=== PATIENT | female | born 1945 | race Caucasian/White ===

== ENCOUNTER 2016-04-25 11:50 | Outpatient (CLI) | payer MEDICARE, BC, OTHER | END 2016-04-25 11:51 | disposition home or self-care (01) | DX: M25.551 Pain in right hip (principal); Z96.641 Presence of right artificial hip joint ==

== ENCOUNTER 2016-07-02 13:38 | Outpatient (CLI) | payer MEDICARE, BC | END 2016-07-02 13:39 | disposition home or self-care (01) | DX: E53.8 Deficiency of other specified B group vitamins (principal); Z79.899 Other long term (current) drug therapy ==

== ENCOUNTER 2016-08-28 14:22 | Outpatient (CLI) | payer MEDICARE, BC ==
--- NOTE | 2016-08-29 09:15 | XRAY Report ---
RIGHT FOOT, THREE VIEWS: 08/28/2016 CLINICAL HISTORY: Painful right foot. COMPARISON: None. FINDINGS: Prominent bunion deformity is noted at the right 1st MP joint. Significant narrowing of t he right 1st MP joint is seen. Mild spurring is noted along the periarticular margins of the lateral aspect of the right 1st MP joint. Mild narrowing of the proximal and distal interphalangeal joints of the 2nd, 3rd, 4th, and 5th toes. No fracture is seen. Tarsal bones appear normal. IMPRESSION: 1. SIGNIFICANT OSTEOARTHRITIS IS NOTED AT THE RIGHT 1ST MP JOINT WITH ASSOCIATED BUNION DEFORMITY. 2. MINIMAL DEFORMITY IS NOTED ALONG THE LATERAL ASPECT OF THE BASE OF THE DISTAL PHALANX OF THE 1ST TOE. FINDING MOST LIKELY IS A RESULT OF HEALED OLD TRAUMA. JOB #: [id number] EXT JOB #:[id number]
== END 2016-08-28 14:23 | disposition home or self-care (01) ==
LOC: DI.S 14:22
PROVIDERS: ATTEND Podiatrist
DX: M19.071 Primary osteoarthritis, right ankle and foot (principal)

== ENCOUNTER 2016-09-06 15:52 | Emergency (ER) | payer MEDICARE, BC ==
--- NOTE | 2016-09-06 17:19 | XRAY Preliminary Report ---
Exam: XR Hand 3 View LT IMPRESSION: Osteopenia with nondisplaced transverse fractures at the distal metaphysis of the fifth m etacarpal as well as the proximal phalanx of the left fourth digit. [facility] SITE ID: [id number]
--- NOTE | 2016-09-06 17:22 | XRAY Report ---
EXAM: LEFT HAND RADIOGRAPHY EXAM DATE: 09/06/2016 04:21 PM. CLINICAL HISTORY: Pain following fall today. COMPARISON: None. TECHNIQUE: 3 views. FINDINGS: Bones: Diffuse osteopenia with a transverse fracture at the distal metaphysis of the fifth metacarpal . Additional nondisplaced transverse fracture base proximal phalanx left fourth digit. Joints: No dislocation. Osteophytes at the first carpometacarpal joint. Soft Tissues: Mild soft tissue swelling. IMPRESSION: Osteopenia with nondisplaced transverse fractures at the distal metaphysis of the fifth m etacarpal as well as the proximal phalanx of the left fourth digit. [facility] Referring Provider Line: [phone] SITE ID: [id number]
--- NOTE | 2016-09-06 17:38 | ED Physician Documentation ---
PD HPI UPPER EXT INJURY - Stated complaint Stated Complaint: L HAND INJURY - Chief complaint Chief Complaint: General - History obtained from History obtained from: Patient - History of Present Illness Location: Left, Hand Type of injury: Fall (she says she slipped and fell. DId not feel badly prior.) Timing - onset: Today Timing - details: Abrupt onset, Still present Improved by: Rest Worsened by: Moving, Palpating Associated symptoms: Swelling (ulnar side of hand). No: Weakness, Numbness Similar symptoms before: Has not had sx before Recently seen: Not recently seen Review of Systems Cardiac: denies: Chest pain / pressure GI: denies: Abdominal Pain Skin: denies: Abrasion (s), Laceration (s) Neurologic: denies: Focal weakness, Numbness, Altered mental status, Headache, Head injury PD PAST MEDICAL HISTORY - Past Medical History Cardiovascular: Hypertension, Deep vein thrombosis Respiratory: None Neuro: Parkinson's Endocrine/Autoimmune: None GI: None : None HEENT: None Psych: None Musculoskeletal: Osteoporosis, Chronic back pain Derm: Other - Past Surgical History Past Surgical History: Yes Ortho: Hip replacement, Rotator cuff repair - Present Medications Home Medications: Ambulatory Orders Medication Instructions Recorded Confirmed Carbidopa/Levodopa 25/100 [Sinemet 2 tab PO TID 06/23/14 09/06/16 25 mg/100 mg] Citalopram [CeleXA] 20 mg PO DAILY 06/23/14 09/06/16 Metoprolol Succinate [Toprol Xl] 100 mg PO DAILY 06/23/14 09/06/16 Oxybutynin Chloride [Ditropan Xl] 10 mg PO DAILY 06/23/14 09/06/16 Calcium Citrate 200 mg PO TID 02/22/16 09/06/16 Polyethylene Glycol 3350 [Miralax] 17 gm PO DAILY 02/22/16 09/06/16 rOPINIRole [Requip] 2 mg PO TID 02/22/16 09/06/16 Rivastigmine [Exelon] 1 cap PO TID 09/06/16 09/06/16 - Allergies Allergies/Adverse Reactions: Allergies Allergy/AdvReac Type Severity Reaction Status Date / Time No Known Drug Allergies Allergy Verified 09/06/16 16:11 - Social History Does the pt smoke?: No Smoking Status: Former smoker Does the pt drink ETOH?: No Does the pt have substance abuse?: Yes - Immunizations Immunizations are current?: Yes - POLST Patient has POLST: No PD ED PE NORMAL - Vitals Vital signs reviewed: Yes - General General: Alert and oriented X 3, No acute distress, Well developed/nourished - HEENT HEENT: Atraumatic - Neck Neck: Supple, no meningeal sign, No bony TTP - Respiratory Respiratory: Clear bilaterally - Abdomen Abdomen: Soft, Non tender - Derm Derm: Normal color, Warm and dry - Extremities Extremities: Other (left hand with swelling, bruising and tenderness overlying the 4th/5th MC and at MCP. Little finger also some tender but no deformity. ) - Neuro Neuro: No motor deficit, No sensory deficit Results - Vitals Vitals: Oxygen O2 Source [With Activity] Room air O2 Source [Without Activity] Room air O2 Source Room air - Rads (name of study) hand Radiology: Prelim report reviewed (5th MC fracture without angulation) Procedures - Splint (location) hand Splint applied by: Tech Type of splint: Fiberglass, Ulnar gutter Other: Patient tolerated well, No complications, Neurovascular intact, Good alignment, Sling provided PD MEDICAL DECISION MAKING - ED course Complexity details: reviewed results, considered differential, d/w patient Departure - Departure Disposition: 01 Home, Self Care Clinical Impression: Fall from slip, trip, or stumble Qualifiers: Encounter type: initial encounter Qualified Code(s): W01.0XXA - Fall on same level from slipping, tripping and stumbling without subsequent striking against object, initial encounter Hand contusion Qualifiers: Encounter type: initial encounter Laterality: left Qualified Code(s): S60.222A - Contusion of left hand, initial encounter Fracture of fifth metacarpal bone of left hand Qualifiers: Encounter type: initial encounter Fracture type: closed Metacarpal location: neck Fracture alignment: nondisplaced Qualified Code(s): S62.367A - Nondisplaced fracture of neck of fifth metacarpal bone, left hand, initial encounter for closed fracture Condition: Stable Record reviewed to determine appropriate education?: Yes Instructions: ED Fx Boxer Follow-Up: Nisa Yost PA-C [Primary Care Provider] - Carlos Chavez MD [Provider Admit Priv/Credential] - Comments: Ibuprofen 400-600 mg three times daily. Add Tylenol as needed for pains. Splint for the hand for likely 4-6 weeks, but it will need to be changed/replaced once the swelling goes down in 4-5 days. Call for an appt with PMD or Ortho. Elevate and rest hand often to reduce the swelling. Discharge Date/Time: 09/06/16 18:50
[2016-09-06] MEDS ORDERED: IBUPROFEN 600 MG TABLET PO ONE (18:19)
[2016-09-06] MEDS: IBUPROFEN 600 MG TABLET PO STA (18:24)
[2016-09-06 18:38] VITALS: BP 130/69
== END 2016-09-06 18:50 | disposition home or self-care (01) ==
LOC: ED 15:52
DX: S62.367A Nondisplaced fracture of neck of fifth metacarpal bone, left hand, initial encounter for closed fracture (principal); S62.645A Nondisplaced fracture of proximal phalanx of left ring finger, initial encounter for closed fracture; S60.222A Contusion of left hand, initial encounter; W01.0XXA Fall on same level from slipping, tripping and stumbling without subsequent striking against object, initial encounter; I10 Essential (primary) hypertension; Z86.718 Personal history of other venous thrombosis and embolism; G20 Parkinson's disease; Z87.891 Personal history of nicotine dependence
CPT/HCPCS: 29125; 99283

== ENCOUNTER 2017-07-22 15:49 | Outpatient (CLI) | payer MEDICARE, BC ==
--- NOTE | 2017-07-23 09:31 | XRAY Report ---
TWO VIEW CHEST: 07/22/2017 CLINICAL INDICATION: Cough for 1 month. COMPARISON: 02/22/2016. FINDINGS: Frontal and lateral views of the chest demonstrate a normal cardiac silhouette. The lungs are hyperinflated, compatible with COPD. No focal consolidation, effusion, or pneumothorax is present. IMPRESSION: COPD, BUT NO EVIDENCE OF ACUTE CARDIOPULMONARY DISEASE. TD: 07/23/2017 09:30
--- NOTE | 2017-07-23 09:32 | XRAY Report ---
RIGHT HIP AND PELVIS: 07/22/2017 CLINICAL INDICATION: Right hip pain. COMPARISON: 04/25/2016. FINDINGS: Frontal view of the hips and pelvis and frogleg lateral view of the right hip demonstrate a total hip replacement in place. There is no evidence of fracture or hardware complication. No radiopaque foreign body is seen in the soft tissues. IMPRESSION: STABLE APPEARANCE OF RIGHT HIP REPLACEMENT. TD: 07/23/2017 09:31
== END 2017-07-22 15:50 | disposition home or self-care (01) ==
LOC: DI 15:49
PROVIDERS: ATTEND Internal Medicine
DX: J44.9 Chronic obstructive pulmonary disease, unspecified (principal); M25.551 Pain in right hip; Z96.641 Presence of right artificial hip joint
CPT/HCPCS: 71046

== ENCOUNTER 2017-10-15 21:25 | Emergency (ER) | payer MEDICARE, BC ==
--- NOTE | 2017-10-15 23:38 | XRAY Report ---
Procedure Date: 10/15/2017 Accession Number: [id number] / [id number] Procedure: XR - Shoulder 3 View RT CPT Code: FULL RESULT: EXAM: RIGHT SHOULDER RADIOGRAPHY EXAM DATE: 10/15/2017 10:47 PM. CLINICAL HISTORY: Fall. Right shoulder pain. COMPARISON: None. TECHNIQUE: 3 views. FINDINGS: Bones: Normal. No fracture or bone lesion. Joints: The glenohumeral and acromioclavicular joints are normal. Soft tissues: The visualized hemithorax is unremarkable. No soft tissue calcification. IMPRESSION: Normal shoulder radiography. [facility]
--- NOTE | 2017-10-15 23:39 | XRAY Report ---
Procedure Date: 10/15/2017 Accession Number: [id number] / [id number] Procedure: XR - Clavicle RT CPT Code: FULL RESULT: EXAM: RIGHT CLAVICLE RADIOGRAPHY EXAM DATE: 10/15/2017 10:47 PM. CLINICAL HISTORY: Fall. Right shoulder pain. COMPARISON: None. TECHNIQUE: 2 views. FINDINGS: Bones: Normal. No fracture or bone lesion. Joints: The acromioclavicular and sternoclavicular joints are normal. No subluxation. Soft Tissues: Normal. No soft tissue calcification. IMPRESSION: Normal clavicle radiography. [facility]
[2017-10-16] MEDS ORDERED: ACETAMINOPHEN 500 MG TABLET PO STA (00:13)
[2017-10-16] MEDS ORDERED: IBUPROFEN 600 MG TABLET PO STA (00:13)
--- NOTE | 2017-10-16 00:13 | ED Physician Documentation ---
History of Present Illness - Stated complaint Stated Complaint: GLF/RT SHOULDER/COLLAR BONE INJ - Chief complaint Chief Complaint: Trauma Ext - History obtained from History obtained from: Patient, Family - History of Present Illness Timing: Today - Additonal information Additional information: 72-year-old female presents the emergency department with complaints of a shoulder injury and upper back injury after falling while getting out of the shower. The patient denies injury to her head, neck, abdomen or lower extremities. Symptoms are described as moderate. No other associated symptoms. No relieving factors. No attempts at symptom management. The patient denies syncope, chest pain or palpitations before the event or after the event. Review of Systems Constitutional: denies: Fever Eyes: denies: Decreased vision Ears: denies: Ear pain Nose: denies: Congestion Cardiac: denies: Chest pain / pressure Respiratory: denies: Dyspnea GI: denies: Abdominal Pain Skin: denies: Laceration (s) Musculoskeletal: reports: Back pain, Joint pain, Joint swelling Neurologic: denies: Generalized weakness, Syncope, Head injury PD PAST MEDICAL HISTORY - Past Medical History Cardiovascular: Hypertension, Deep vein thrombosis Respiratory: None Endocrine/Autoimmune: None GI: None : None HEENT: None Psych: None Musculoskeletal: Osteoporosis, Chronic back pain Derm: Other - Past Surgical History Past Surgical History: Yes Ortho: Hip replacement, Rotator cuff repair - Present Medications Home Medications: Ambulatory Orders Medication Instructions Recorded Confirmed Carbidopa/Levodopa 25/100 [Sinemet 2 tab PO TID 06/23/14 09/06/16 25 mg/100 mg] Citalopram [CeleXA] 20 mg PO DAILY 06/23/14 09/06/16 Metoprolol Succinate [Toprol Xl] 100 mg PO DAILY 06/23/14 09/06/16 Oxybutynin Chloride [Ditropan Xl] 10 mg PO DAILY 06/23/14 09/06/16 Calcium Citrate 200 mg PO TID 02/22/16 09/06/16 Polyethylene Glycol 3350 [Miralax] 17 gm PO DAILY 02/22/16 09/06/16 rOPINIRole [Requip] 2 mg PO TID 02/22/16 09/06/16 Rivastigmine [Exelon] 1 cap PO TID 09/06/16 09/06/16 - Allergies Allergies/Adverse Reactions: Allergies Allergy/AdvReac Type Severity Reaction Status Date / Time No Known Drug Allergies Allergy Verified 09/06/16 16:11 - Social History Does the pt smoke?: No Smoking Status: Former smoker Does the pt drink ETOH?: No Does the pt have substance abuse?: Yes - Immunizations Immunizations are current?: Yes - POLST Patient has POLST: No PD ED PE NORMAL - General General: Alert and oriented X 3, No acute distress - HEENT HEENT: Atraumatic, PERRL, EOMI, Ears normal - Neck Neck: Supple, no meningeal sign - Cardiac Cardiac: RRR, Strong equal pulses - Respiratory Respiratory: No respiratory distress, Clear bilaterally - Extremities Extremities: No deformity - Neuro Neuro: Alert and oriented X 3, No motor deficit, Normal speech Eye Opening: Spontaneous Motor: Obeys Commands Verbal: Oriented GCS Score: 15 - Psych Psych: Normal mood PD ED PE EXPANDED - Back Back: Soft tissue tenderness. No: Limited ROM Back visual: 1 - bruising - Extremities Extremities: Tenderness, Right shoulder (There is no evidence of deformity, crepitus, contusion or obvious dislocation. No laceration) Results - Vitals Vitals: Vital Signs - 24 hr 10/15/17 10/16/17 10/16/17 21:35 00:00 01:36 Temperature 36.3 C L 36.5 C Heart Rate 66 82 81 Respiratory 18 17 15 Rate Blood Pressure 159/71 H 136/74 H 120/66 O2 Saturation 96 99 97 Oxygen O2 Source [With Activity] Room air O2 Source [Without Activity] Room air O2 Source Room air - Rads (name of study) Chest x-ray/shoulder x-ray/clavicle/thoracic spine Radiology: Final report received, Other (No fracture identified on any of the x- rays) PD MEDICAL DECISION MAKING - ED course ED course: The patient has no acute fracture seen on her imaging, the patient appears appropriate for discharge home in ongoing outpatient management. I discussed with her the findings and plan she understands and agrees. I discussed warning signs and recommended returning to the emergency department immediately for worsening or any concerns. - Sepsis Event Vital Signs: Vital Signs - 24 hr 10/15/17 10/16/17 10/16/17 21:35 00:00 01:36 Temperature 36.3 C L 36.5 C Heart Rate 66 82 81 Respiratory 18 17 15 Rate Blood Pressure 159/71 H 136/74 H 120/66 O2 Saturation 96 99 97 Oxygen O2 Source [With Activity] Room air O2 Source [Without Activity] Room air O2 Source Room air Departure - Departure Disposition: 01 Home, Self Care Clinical Impression: Shoulder contusion Qualifiers: Encounter type: initial encounter Laterality: unspecified laterality Qualified Code(s): S40.019A - Contusion of unspecified shoulder, initial encounter Back contusion Qualifiers: Encounter type: initial encounter Laterality: unspecified laterality Qualified Code(s): S20.229A - Contusion of unspecified back wall of thorax, initial encounter Condition: Good Instructions: ED Contusion Back, ED Contusion Upper Ext, ED Wound Care Follow-Up: Renard Arzola MD [Primary Care Provider] - Within 1 week Comments: Please return to the emergency department for worsening symptoms or any concerns Discharge Date/Time: 10/16/17 01:36
--- NOTE | 2017-10-16 01:22 | XRAY Report ---
Procedure Date: 10/16/2017 Accession Number: [id number] / [id number] Procedure: XR - Thoracic Spine 3 View CPT Code: FULL RESULT: EXAM: THORACIC SPINE RADIOGRAPHY EXAM DATE: 10/16/2017 12:38 AM. CLINICAL HISTORY: Fall, back contusion. COMPARISON: CHEST 2 VIEW 07/22/2017. TECHNIQUE: 3 views. FINDINGS: Alignment: Normal. No spondylolisthesis or scoliosis. Bones: Osteopenia. No fractures or bone lesions. Disks: Mild diffuse degenerative changes. Soft Tissues: Normal. The visualized lungs and cardiomediastinal silhouette are normal. IMPRESSION: Negative thoracic spine in this mildly osteopenic patient. If there is continued clinical concern, CT or MRI suggested. [facility]
--- NOTE | 2017-10-16 01:23 | XRAY Report ---
Procedure Date: 10/16/2017 Accession Number: [id number] / [id number] Procedure: XR - Chest 2 View X-Ray CPT Code: 32493 FULL RESULT: EXAM: CHEST RADIOGRAPHY EXAM DATE: 10/16/2017 12:37 AM. CLINICAL HISTORY: Fall, back contusion. COMPARISON: CLAVICLE RT 10/15/2017, THORACIC SPINE 3 VIEW 10/16/2017, CHEST 2 VIEW 07/22/2017. TECHNIQUE: 2 views. FINDINGS: Lungs/Pleura: Large volumes. No focal pneumonia or overt edema. No pneumothorax or effusion. Mediastinum: Within exam limitations, cardiomediastinal contour is normal. Other: No definite acute osseous abnormality seen. IMPRESSION: COPD without acute process seen in the chest. [facility]
[2017-10-16 01:38] VITALS: BP 120/66
== END 2017-10-16 01:36 | disposition home or self-care (01) ==
LOC: ED 21:25
DX: S40.019A Contusion of unspecified shoulder, initial encounter (principal); S20.229A Contusion of unspecified back wall of thorax, initial encounter; W18.2XXA Fall in (into) shower or empty bathtub, initial encounter; I10 Essential (primary) hypertension; Z86.718 Personal history of other venous thrombosis and embolism; Z96.649 Presence of unspecified artificial hip joint; Z87.891 Personal history of nicotine dependence
CPT/HCPCS: 71046; 72072; 73000; 73030; 99283; A9270

== ENCOUNTER 2017-10-29 14:20 | Outpatient (CLI) | payer MEDICARE, BC ==
--- NOTE | 2017-10-30 08:47 | MRI Report ---
Procedure Date: 10/29/2017 Accession Number: [id number] / [id number] Procedure: MRI - Shoulder RT W/O CPT Code: FULL RESULT: EXAM: RIGHT SHOULDER MRI WITHOUT CONTRAST EXAM DATE: 10/29/2017 03:10 PM. CLINICAL HISTORY: SHOULDER JOINT PAIN, RIGHT, FALL W/TRAUMA 10-15-17. COMPARISON: 10/15/2017 right shoulder radiographs. TECHNIQUE: Multiplanar, multisequence T1-weighted and fluid-sensitive sequences of the shoulder without contrast. Other: None. FINDINGS: Acromioclavicular Region: The acromion is type II. Mild acromioclavicular joint degenerative changes with subchondral cystic change and capsular hypertrophy. The coracoacromial and coracoclavicular ligaments are intact. There is fluid within the subacromial-subdeltoid bursa. Glenohumeral Region: There is cranial subluxation of the humeral head on the glenoid with narrowing of the subacromial space. Moderate effusion with synovitis. The articular cartilage is unremarkable. The glenohumeral ligaments and joint capsule are unremarkable. Bone Marrow: There is cystic change within the greater tuberosity of the humerus. Marrow signal is otherwise normal. No osseous lesions. No fractures. Labrum: The labrum is unremarkable on this nonarthrographic study. Musculature/Rotator Cuff: There is a full-thickness, full width tear of the infraspinatus tendon with retraction medial to the supraglenoid tubercle and associated intramuscular edema. There is also a full-thickness, near full width tear of the supraspinatus tendon, with remaining intact anterior fibers and retraction of the torn tendon fibers to the level of the supraglenoid tubercle. There is shallow partial-thickness articular sided tearing of the cranial fibers of the subscapularis tendon. The teres minor tendon is intact but demonstrates mild intramuscular edema. No atrophy. Biceps Tendon: There is a longitudinal split tear of the intra-articular and extra-articular long head biceps tendon. Other: The subcutaneous tissues are unremarkable. IMPRESSION: 1. Full-thickness, full width tear of the infraspinatus tendon and full-thickness, near full width tear of the supraspinatus tendon with retraction to the level of the supraglenoid tubercle and associated intramuscular edema. 2. Shallow partial-thickness articular sided tear of the cranial fibers of the subscapularis tendon. 3. Longitudinal split tear of the biceps tendon. 4. Mild acromioclavicular joint osteoarthritis. [facility] MUSCULOSKELETAL RADIOLOGY SECTION
== END 2017-10-29 14:21 | disposition home or self-care (01) ==
LOC: DI 14:20
PROVIDERS: ATTEND Physician Assistant Medical
DX: S46.011A Strain of muscle(s) and tendon(s) of the rotator cuff of right shoulder, initial encounter (principal); S46.111A Strain of muscle, fascia and tendon of long head of biceps, right arm, initial encounter; M19.011 Primary osteoarthritis, right shoulder

== ENCOUNTER 2018-02-11 14:42 | Outpatient (CLI) | payer MEDICARE, BC ==
--- NOTE | 2018-02-11 22:04 | CT Report ---
Reason: PARKINSONISM,UNSPECIFIED,MEMORY LOSS Procedure Date: 02/11/2018 Accession Number: [id number] / [id number] Procedure: CT - Head W/O CPT Code: FULL RESULT: EXAM: CT HEAD EXAM DATE: 02/11/2018 02:55 PM. CLINICAL HISTORY: PARKINSONISM,UNSPECIFIED,MEMORY LOSS. COMPARISON: BRAIN W/WO 10/07/2013 1:01 PM. TECHNIQUE: Multiaxial CT images were obtained from the foramen magnum to the vertex. Reformats: Sagittal and coronal. IV contrast: None. In accordance with CT protocol optimization, one or more of the following dose reduction techniques were utilized for this exam: automated exposure control, adjustment of mA and/or KV based on patient size, or use of iterative reconstructive technique. FINDINGS: Parenchyma: No intraparenchymal hemorrhage. No evidence of mass, midline shift, or CT findings of infarction. Grider-white differentiation is distinct. Extraaxial Spaces: Normal for age. No subdural or epidural collections identified. Ventricles: Normal in size and position. Sinuses and Orbits: Imaged paranasal sinuses, orbits, and mastoids show no significant abnormality. Bones: No evidence of fracture or calvarial defect. Other: None. IMPRESSION: Stable negative head CT. [facility]
== END 2018-02-11 14:43 | disposition home or self-care (01) ==
LOC: DI 14:42
PROVIDERS: ATTEND Psychiatry & Neurology Neurology
DX: G20 Parkinson's disease (principal); R41.3 Other amnesia
CPT/HCPCS: 70450

== ENCOUNTER 2018-03-04 14:59 | Emergency (ER) | payer MEDICARE, BC ==
--- NOTE | 2018-03-04 16:11 | ED Physician Documentation ---
PD HPI LOWER EXT INJURY - Stated complaint Stated Complaint: HIP PX/GLF - Chief complaint Chief Complaint: Ext Problem - History obtained from History obtained from: Patient - History of Present Illness PD HPI LOW EXT INJURY LOCATION: Other (73yo woman with parkinsons fell 3 days ago, feet got caught onto something. Fell onto R hip which was replaced 3 years ago. Pain is severe with walking but mild when at rest.) Review of Systems Constitutional: reports: Reviewed and negative Cardiac: reports: Reviewed and negative Respiratory: reports: Reviewed and negative GI: reports: Reviewed and negative : reports: Reviewed and negative PD PAST MEDICAL HISTORY - Past Medical History Cardiovascular: Hypertension, Deep vein thrombosis Respiratory: None Endocrine/Autoimmune: None GI: None : None HEENT: None Psych: None Musculoskeletal: Osteoporosis, Chronic back pain Derm: Other - Past Surgical History Past Surgical History: Yes Ortho: Hip replacement, Rotator cuff repair - Present Medications Home Medications: Ambulatory Orders Medication Instructions Recorded Confirmed Carbidopa/Levodopa 25/100 [Sinemet 2 tab PO TID 06/23/14 03/04/18 25 mg/100 mg] Citalopram [CeleXA] 20 mg PO DAILY 06/23/14 03/04/18 Metoprolol Succinate [Toprol Xl] 100 mg PO DAILY 06/23/14 03/04/18 Oxybutynin Chloride [Ditropan Xl] 10 mg PO DAILY 06/23/14 03/04/18 Calcium Citrate 200 mg PO TID 02/22/16 03/04/18 Polyethylene Glycol 3350 [Miralax] 17 gm PO DAILY 02/22/16 03/04/18 rOPINIRole [Requip] 2 mg PO TID 02/22/16 03/04/18 Rivastigmine [Exelon] 1 cap PO TID 09/06/16 03/04/18 - Allergies Allergies/Adverse Reactions: Allergies Allergy/AdvReac Type Severity Reaction Status Date / Time No Known Drug Allergies Allergy Verified 03/04/18 15:07 - Social History Does the pt smoke?: No Smoking Status: Former smoker Does the pt drink ETOH?: No Does the pt have substance abuse?: Yes - Immunizations Immunizations are current?: Yes - POLST Patient has POLST: No PD ED PE NORMAL - Vitals Vital signs reviewed: Yes - General General: Alert and oriented X 3, No acute distress - Derm Derm: Normal color, Warm and dry - Extremities Extremities: No calf tenderness / cord, Other (She seems to walk and bear weight without overt tenderness, there is a seemingly subcutaneous lump just posterior to the greater trochanter that is tender, most consistent with a subcutaneous hematoma.) - Neuro Neuro: Alert and oriented X 3, Normal speech Results - Vitals Vitals: Vital Signs - 24 hr 03/04/18 15:04 Temperature 36.9 C Heart Rate 74 Respiratory 18 Rate Blood Pressure 160/84 H O2 Saturation 100 Oxygen O2 Source [With Activity] Room air O2 Source [Without Activity] Room air O2 Source Room air - Rads (name of study) R hip XR Radiology: EMP read contemporaneously (NAD) Departure - Departure Disposition: 01 Home, Self Care Clinical Impression: Fall from slip, trip, or stumble Qualifiers: Encounter type: initial encounter Qualified Code(s): W01.0XXA - Fall on same level from slipping, tripping and stumbling without subsequent striking against object, initial encounter Contusion of right hip Qualifiers: Encounter type: initial encounter Qualified Code(s): S70.01XA - Contusion of right hip, initial encounter Condition: Good Record reviewed to determine appropriate education?: Yes Instructions: ED Contusion Hip Comments: Your blood pressure was elevated today on check into the emergency department. This does not mean that you have hypertension, it is a common phenomenon to come to the emergency department and have elevated blood pressure. I recommend that you see your primary care physician within the week to have it rechecked when you are feeling better.
--- NOTE | 2018-03-04 16:47 | XRAY Report ---
Reason: hip inj Procedure Date: 03/04/2018 Accession Number: [id number] / [id number] Procedure: XR - Hip w/Pelvis 2-3V RT CPT Code: FULL RESULT: EXAM: RIGHT HIP AND PELVIS RADIOGRAPHY EXAM DATE: 03/04/2018 04:35 PM. HISTORY: Hip inj. COMPARISONS: 07/22/2017. TECHNIQUE: 1 view of the pelvis and 1 view of the hip. FINDINGS: A right total hip prosthesis projects in similar position. No acute fracture. Heterotopic ossification adjacent to the right greater trochanter is unchanged. No dislocation. Moderate to severe lower lumbar disk degeneration. IMPRESSION: No acute osseus abnormality. [facility]
[2018-03-04 17:40] VITALS: BP 165/68
== END 2018-03-04 17:25 | disposition home or self-care (01) ==
LOC: ED 14:59
DX: S70.01XA Contusion of right hip, initial encounter (principal); W18.30XA Fall on same level, unspecified, initial encounter; I10 Essential (primary) hypertension; M81.8 Other osteoporosis without current pathological fracture; Z86.718 Personal history of other venous thrombosis and embolism; Z87.891 Personal history of nicotine dependence; Z96.641 Presence of right artificial hip joint
CPT/HCPCS: 99283

== ENCOUNTER 2018-03-12 16:25 | Outpatient (CLI) | payer MEDICARE, BC ==
--- NOTE | 2018-03-13 10:42 | XRAY Report ---
Reason: BACK PAIN,LUMBAR,CHRONIC Procedure Date: 03/12/2018 Accession Number: [id number] / [id number] Procedure: XR - Lumbar Spine Complete CPT Code: FULL RESULT: EXAM: LUMBOSACRAL SPINE RADIOGRAPHY EXAM DATE: 03/12/2018 04:51 PM. CLINICAL HISTORY: Back pain, lumbar, chronic. COMPARISONS: None. TECHNIQUE: 5 views. FINDINGS: Alignment: Dextroconvex lumbar scoliosis centered about L3. Bones: Five wau-dse-dgefehk lumbar vertebral bodies are present. No fractures or bone lesions. Disks: Multilevel loss of disk space height with marginal osteophytosis, most pronounced at L5-S1 and L2-L3. Facets: L5 pars defect with severe facet arthropathy at this level. Sacroiliac Joints: Unremarkable. Soft Tissues: Normal. The visualized bowel gas pattern is normal. IMPRESSION: Degenerative scoliosis and L5 pars defect. RADIA
== END 2018-03-12 16:26 | disposition home or self-care (01) ==
LOC: DI 16:25
PROVIDERS: ATTEND Physician Assistant Medical
DX: M41.86 Other forms of scoliosis, lumbar region (principal)
CPT/HCPCS: 72110

== ENCOUNTER 2018-04-03 09:53 | Outpatient (CLI) | payer MEDICARE, BC ==
[2018-04-03 17:39] LABS: BASOPHILS # (AUTO) 0.2 10^3/uL (0.0-0.1); BASOPHILS % (AUTO) 2.1 %; EOSINOPHILS # (AUTO) 0.2 10^3/uL (0.0-0.7); EOSINOPHILS % (AUTO) 1.9 %; HGB - HEMOGLOBIN 12.5 g/dL (12.0-16.0); LYMPHOCYTES # (AUTO) 1.4 10^3/uL (1.5-3.5); MEAN CORPUSCULAR HEMOGLOBIN 30.1 pg (27.0-31.0); MEAN CORPUSCULAR HGB CONC 32.3 g/dL (32.0-36.0); MEAN CORPUSCULAR VOLUME 93.3 fL (81.0-99.0); MONOCYTES # (AUTO) 0.8 10^3/uL (0.0-1.0); MONOCYTES % (AUTO) 7.7 %; NEUTROPHILS # (AUTO) 7.5 10^3/uL (1.5-6.6); NEUTROPHILS % (AUTO) 74.3 %; PLT - PLATELET COUNT 368 10^3/uL (130-450); RED BLOOD COUNT 4.14 10^6/uL (4.20-5.40); RED CELL DISTRIBUTION WIDTH 15.4 % (12.0-15.0)
[2018-04-03 17:58] LABS: HEMOGLOBIN A1C 0.51 g/dL; HEMOGLOBIN A1C % 5.7 % (4.6-6.2)
[2018-04-03 18:08] LABS: ALBUMIN 3.9 g/dL (3.2-5.5); ALBUMIN/GLOBULIN RATIO 1.3 (1.0-2.2); ALKALINE PHOSPHATASE 103 IU/L (42-121); ALT ALANINE AMINOTRANSFERASE 11 IU/L (10-60); AST ASPARTATE AMINOTRANSFERASE 17 IU/L (10-42); BILIRUBIN,TOTAL 0.7 mg/dL (0.2-1.0); BUN - BLOOD UREA NITROGEN 13 mg/dL (6-20); CALCIUM 8.8 mg/dL (8.5-10.3); CARBON DIOXIDE - CO2 28 mmol/L (21-32); CHLORIDE 103 mmol/L (101-111); CHOL/HDL RATIO 3.1 (<4.4); CHOLESTEROL 167 mg/dL; CREATININE 0.9 mg/dL (0.4-1.0); GFR - MDRD 61 (>89); GLUCOSE 108 mg/dL (70-100); HDL CHOLESTEROL 54 mg/dL; LDL CHOLESTEROL,CALCULATED 100 mg/dL; LDL/HDL RATIO 1.9 (<4.4); SODIUM 139 mmol/L (135-145); VLDL CHOLESTEROL 13 mg/dL
[2018-04-03 18:13] LABS: THYROID STIMULATING HORMONE 1.13 uIU/mL (0.34-5.60)
== END 2018-04-03 09:54 | disposition home or self-care (01) ==
LOC: LAB.F 09:53
PROVIDERS: ATTEND Physician Assistant Medical
DX: E53.8 Deficiency of other specified B group vitamins (principal); R73.9 Hyperglycemia, unspecified; Z79.899 Other long term (current) drug therapy; I10 Essential (primary) hypertension; M25.511 Pain in right shoulder; G20 Parkinson's disease; R41.3 Other amnesia; E78.2 Mixed hyperlipidemia
CPT/HCPCS: 36415; 80053; 80061; 82607; 83036; 83721; 84155; 84165; 84443; 85025

== ENCOUNTER 2018-04-10 14:48 | Outpatient (CLI) | payer MEDICARE, BC ==
[2018-04-11 16:12] LABS: BASOPHILS # (AUTO) 0.3 10^3/uL (0.0-0.1); EOSINOPHILS # (AUTO) 0.2 10^3/uL (0.0-0.7); EOSINOPHILS % (AUTO) 1.5 %; HGB - HEMOGLOBIN 12.1 g/dL (12.0-16.0); LYMPHOCYTES # (AUTO) 1.5 10^3/uL (1.5-3.5); LYMPHOCYTES % (AUTO) 14.5 %; MEAN CORPUSCULAR HEMOGLOBIN 30.2 pg (27.0-31.0); MEAN CORPUSCULAR HGB CONC 32.6 g/dL (32.0-36.0); MEAN CORPUSCULAR VOLUME 92.7 fL (81.0-99.0); MEAN PLATELET VOLUME 7.1 fL (7.9-10.8); MONOCYTES # (AUTO) 0.8 10^3/uL (0.0-1.0); MONOCYTES % (AUTO) 8.1 %; NEUTROPHILS # (AUTO) 7.5 10^3/uL (1.5-6.6); NEUTROPHILS % (AUTO) 72.9 %; PLT - PLATELET COUNT 395 10^3/uL (130-450); RED BLOOD COUNT 3.99 10^6/uL (4.20-5.40); WHITE BLOOD COUNT 10.3 x10^3/uL (4.8-10.8)
== END 2018-04-10 23:59 | disposition home or self-care (01) ==
LOC: LAB.R 14:48
PROVIDERS: ATTEND Physician Assistant Medical
DX: R68.89 Other general symptoms and signs (principal); R89.9 Unspecified abnormal finding in specimens from other organs, systems and tissues
CPT/HCPCS: 85025

== ENCOUNTER 2018-05-02 22:50 | Outpatient (CLI) | payer MEDICARE, BC | END 2018-05-02 22:51 | disposition home or self-care (01) | LOC: EMS 22:50 | PROVIDERS: ATTEND Surgery | DX: R25.8 Other abnormal involuntary movements (principal); G20 Parkinson's disease | CPT/HCPCS: A0425; A0429 ==

== ENCOUNTER 2018-05-02 23:24 | Emergency (ER) | payer MEDICARE, BC ==
--- NOTE | 2018-05-02 23:39 | ED Physician Documentation ---
History of Present Illness - Stated complaint Stated Complaint: SEIZURE - Chief complaint Chief Complaint: Neuro - History obtained from History obtained from: Patient, Family, EMS - History of Present Illness Timing: Today Pain level max: 0 Pain level now: 0 Improved by: nothing Worsened by: nothing - Additonal information Additional information: 73 year old female with Parkinsons disease, was sitting on the couch tonight when she had a shaking episode that lasted approx 15-30 seconds. no postictal state per EMS. Patient does not recall event. No changes to her medications. no similar symptoms in the past. Does not know who her neurologist is. Review of Systems Ten Systems: 10 systems reviewed and negative Constitutional: denies: Fever, Chills Ears: denies: Ear pain Nose: denies: Rhinorrhea / runny nose, Congestion Throat: denies: Sore throat Cardiac: denies: Chest pain / pressure, Palpitations Respiratory: denies: Cough GI: denies: Abdominal Pain, Nausea, Vomiting : denies: Dysuria Skin: denies: Rash Musculoskeletal: denies: Neck pain, Back pain Neurologic: denies: Headache PD PAST MEDICAL HISTORY - Past Medical History Cardiovascular: Hypertension, Deep vein thrombosis Respiratory: None Neuro: Parkinson's Endocrine/Autoimmune: None GI: None : None HEENT: None Psych: None Musculoskeletal: Osteoporosis, Chronic back pain Derm: Other - Past Surgical History Past Surgical History: Yes Ortho: Hip replacement, Rotator cuff repair - Present Medications Home Medications: Ambulatory Orders Medication Instructions Recorded Confirmed Carbidopa/Levodopa 25/100 [Sinemet 2 tab PO TID 06/23/14 05/02/18 25 mg/100 mg] Citalopram [CeleXA] 20 mg PO DAILY 06/23/14 05/02/18 Metoprolol Succinate [Toprol Xl] 100 mg PO DAILY 06/23/14 05/02/18 Oxybutynin Chloride [Ditropan Xl] 10 mg PO DAILY 06/23/14 05/02/18 Calcium Citrate 200 mg PO TID 02/22/16 05/02/18 Polyethylene Glycol 3350 [Miralax] 17 gm PO DAILY 02/22/16 05/02/18 rOPINIRole [Requip] 2 mg PO TID 02/22/16 05/02/18 Rivastigmine [Exelon] 1 cap PO TID 09/06/16 05/02/18 - Allergies Allergies/Adverse Reactions: Allergies Allergy/AdvReac Type Severity Reaction Status Date / Time No Known Drug Allergies Allergy Verified 05/02/18 23:32 - Social History Does the pt smoke?: No Smoking Status: Former smoker Does the pt drink ETOH?: No Does the pt have substance abuse?: Yes - Immunizations Immunizations are current?: Yes - POLST Patient has POLST: No PD ED PE NORMAL - Vitals Vital signs reviewed: Yes - General General: Alert and oriented X 3, No acute distress, Well developed/nourished - HEENT HEENT: Atraumatic, PERRL, EOMI, Ears normal, Moist mucous membranes, Pharynx benign - Neck Neck: Supple, no meningeal sign, No bony TTP - Cardiac Cardiac: RRR, Strong equal pulses - Respiratory Respiratory: No respiratory distress, Clear bilaterally - Abdomen Abdomen: Soft, Non tender, Non distended - Back Back: No spinal TTP - Derm Derm: Warm and dry - Extremities Extremities: No edema, No calf tenderness / cord - Neuro Neuro: Alert and oriented X 3, 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, No motor deficit, No sensory deficit, Normal speech Eye Opening: Spontaneous Motor: Obeys Commands Verbal: Oriented GCS Score: 15 - Psych Psych: Normal mood, Normal affect Results - Vitals Vitals: Vital Signs - 24 hr 05/02/18 05/02/18 05/03/18 23:28 23:34 00:20 Temperature 36.4 C L Heart Rate 80 67 67 Respiratory 17 17 18 Rate Blood Pressure 149/70 H 155/65 H 112/54 L O2 Saturation 100 100 98 05/03/18 01:27 Temperature Heart Rate 69 Respiratory 17 Rate Blood Pressure 115/56 L O2 Saturation 97 Oxygen O2 Source [] Room air O2 Source [] Room air O2 Source Room air - EKG (time done) 2333 Rate: Rate (enter#) (68) Rhythm: NSR [place]: Normal Intervals: Normal MT QRS: Normal Ischemia: Normal ST segments - Labs Labs: Laboratory Tests 05/02/18 05/02/18 05/02/18 23:45 23:45 23:45 WBC 9.6 RBC 3.66 L Hgb 11.1 L Hct 33.2 L MCV 90.8 MCH 30.5 MCHC 33.5 RDW 14.8 Plt Count 301 MPV 6.1 L Neut # (Auto) 7.1 H Lymph # (Auto) 1.5 [place] # (Auto) 0.7 Eos # (Auto) 0.2 Baso # (Auto) 0.1 Absolute Nucleated RBC 0.01 Nucleated RBC % 0.1 Sodium 133 L Potassium 3.6 Chloride 100 L Carbon Dioxide 26 Anion Gap 7.0 BUN 14 Creatinine 0.8 Estimated GFR (MDRD) 70 L Glucose 147 H Calcium 8.4 L Total Bilirubin 0.4 AST 18 ALT < 10 L Alkaline Phosphatase 96 Troponin I < 0.04 Total Protein 6.3 L Albumin 3.4 Globulin 2.9 Albumin/Globulin Ratio 1.2 Lipase 29 Urine Color Urine Clarity Urine pH Ur Specific [place] Urine Protein Urine Glucose (UA) Urine Ketones Urine Occult Blood Urine Nitrite Urine Bilirubin Urine Urobilinogen Ur Leukocyte Esterase Ur Microscopic Review Urine Culture Comments 05/03/18 00:45 WBC RBC Hgb Hct MCV MCH MCHC RDW Plt Count MPV Neut # (Auto) Lymph # (Auto) [place] # (Auto) Eos # (Auto) Baso # (Auto) Absolute Nucleated RBC Nucleated RBC % Sodium Potassium Chloride Carbon Dioxide Anion Gap BUN Creatinine Estimated GFR (MDRD) Glucose Calcium Total Bilirubin AST ALT Alkaline Phosphatase Troponin I Total Protein Albumin Globulin Albumin/Globulin Ratio Lipase Urine Color YELLOW Urine Clarity CLEAR Urine pH 5.0 Ur Specific [place] 1.025 Urine Protein NEGATIVE Urine Glucose (UA) NEGATIVE Urine Ketones NEGATIVE Urine Occult Blood NEGATIVE Urine Nitrite NEGATIVE Urine Bilirubin NEGATIVE Urine Urobilinogen 0.2 (NORMAL) Ur Leukocyte Esterase NEGATIVE Ur Microscopic Review NOT INDICATED Urine Culture Comments NOT INDICATED - Rads (name of study) head CT Radiology: Prelim report reviewed, EMP read contemporaneously, See rad report (No acute intracranial abnormality) PD MEDICAL DECISION MAKING - ED course Complexity details: reviewed old records, reviewed results, re-evaluated patient, considered differential, d/w patient, d/w family ED course: 73-year-old female with Parkinson's who had seizure-like activity tonight. Upon arrival of the , confirmed that it was a 5-15-second episode, she does not recall the event. She was confused for approximately 5-7 minutes afterwards. Is now at her baseline. No acute laboratory findings or findings on head CT. He states that they do have another brain MRI scheduled in a week. He will follow-up with her neurologist as well. No acute neurological findings on examination in the emergency department. Patient and family counseled regarding signs and symptoms for which I believe and urgent re-evaluation would be necessary. Patient with good understanding of and agreement to plan and is comfortable going home at this time This document was made in part using voice recognition software. While efforts are made to proofread this document, sound alike and grammatical errors may occur. Departure - Departure Disposition: Home, Self Care Clinical Impression: Seizure-like activity Condition: Good Instructions: ED Seizure New Onset Unk Cause Follow-Up: Nisa Yost PA-C [Provider Admit Priv/Credential] - Within 1 week Comments: The cause of your symptoms is unclear tonight. Follow-up with your doctor and your neurologist for further evaluation. They may want to perform an MRI of your brain. You should not drive and do not take baths until cleared by your doctor and/or neurology. You can take showers. You should also avoid swimming Discharge Date/Time: 05/03/18 01:40
[2018-05-03] LABS: BASOPHILS # (AUTO) 0.1 10^3/uL (0.0-0.1); BASOPHILS % (AUTO) 0.8 %; EOSINOPHILS # (AUTO) 0.2 10^3/uL (0.0-0.7); EOSINOPHILS % (AUTO) 1.6 %; HGB - HEMOGLOBIN 11.1 g/dL (12.0-16.0); LYMPHOCYTES # (AUTO) 1.5 10^3/uL (1.5-3.5); LYMPHOCYTES % (AUTO) 15.9 %; MEAN CORPUSCULAR HEMOGLOBIN 30.5 pg (27.0-31.0); MEAN CORPUSCULAR HGB CONC 33.5 g/dL (32.0-36.0); MEAN CORPUSCULAR VOLUME 90.8 fL (81.0-99.0); MEAN PLATELET VOLUME 6.1 fL (7.9-10.8); MONOCYTES # (AUTO) 0.7 10^3/uL (0.0-1.0); MONOCYTES % (AUTO) 7.5 %; NEUTROPHILS # (AUTO) 7.1 10^3/uL (1.5-6.6); NEUTROPHILS % (AUTO) 74.2 %; PLT - PLATELET COUNT 301 10^3/uL (130-450); RED BLOOD COUNT 3.66 10^6/uL (4.20-5.40); RED CELL DISTRIBUTION WIDTH 14.8 % (12.0-15.0); WHITE BLOOD COUNT 9.6 x10^3/uL (4.8-10.8)
[2018-05-03 00:21] LABS: ALBUMIN 3.4 g/dL (3.2-5.5); ALBUMIN/GLOBULIN RATIO 1.2 (1.0-2.2); ALKALINE PHOSPHATASE 96 IU/L (42-121); ALT ALANINE AMINOTRANSFERASE < 10 IU/L (10-60); AST ASPARTATE AMINOTRANSFERASE 18 IU/L (10-42); BILIRUBIN,TOTAL 0.4 mg/dL (0.2-1.0); BUN - BLOOD UREA NITROGEN 14 mg/dL (6-20); CALCIUM 8.4 mg/dL (8.5-10.3); CARBON DIOXIDE - CO2 26 mmol/L (21-32); CHLORIDE 100 mmol/L (101-111); CREATININE 0.8 mg/dL (0.4-1.0); GFR - MDRD 70 (>89); GLUCOSE 147 mg/dL (70-100); LIPASE 29 U/L (22-51); SODIUM 133 mmol/L (135-145); TOTAL PROTEIN 6.3 g/dL (6.7-8.2)
--- NOTE | 2018-05-03 00:27 | CT Report ---
Reason: possible new seizure Procedure Date: 05/03/2018 Accession Number: [id number] / [id number] Procedure: CT - Head W/O CPT Code: FULL RESULT: EXAM: CT HEAD EXAM DATE: 05/03/2018 12:18 AM. CLINICAL HISTORY: Possible new seizure. COMPARISON: HEAD W/O 02/11/2018 2:55 PM. TECHNIQUE: Multiaxial CT images were obtained from the foramen magnum to the vertex. Reformats: Sagittal and coronal. IV contrast: None. In accordance with CT protocol optimization, one or more of the following dose reduction techniques were utilized for this exam: automated exposure control, adjustment of mA and/or KV based on patient size, or use of iterative reconstructive technique. FINDINGS: Parenchyma: No intraparenchymal hemorrhage. No evidence of mass, midline shift, or CT findings of infarction. Grider-white differentiation is distinct. Mild chronic microvascular changes noted in the cerebral white matter bilaterally. Extraaxial Spaces: Normal for age. No subdural or epidural collections identified. Ventricles: Normal in size and position. Sinuses and Orbits: Imaged paranasal sinuses, orbits, and mastoids show no significant abnormality. Bones: No evidence of fracture or calvarial defect. Other: None. IMPRESSION: 1. No acute intracranial abnormality. No significant change compared to 02/11/2018. 2. No intracranial mass lesion, mass-effect, or hydrocephalus. RADIA
[2018-05-03 01:03] LABS: BILIRUBIN,URINE NEGATIVE (NEGATIVE); GLUCOSE, URINE (UA) NEGATIVE (NEGATIVE); KETONES,URINE (UA) NEGATIVE (NEGATIVE); LEUKOCYTE ESTERASE, URINE NEGATIVE (NEGATIVE); NITRITE,URINE NEGATIVE (NEGATIVE); OCCULT BLOOD,URINE NEGATIVE (NEGATIVE); PROTEIN,URINE NEGATIVE (NEGATIVE); UROBILINOGEN,URINE 0.2 (NORMAL) E.U./dL (NORMAL)
[2018-05-03 01:05] LABS: CLARITY,URINE CLEAR (CLEAR)
[2018-05-03 01:28] VITALS: BP 115/56
== END 2018-05-03 01:40 | disposition home or self-care (01) ==
LOC: EDUNIT# → ED 23:24
DX: R56.9 Unspecified convulsions (principal); G20 Parkinson's disease; I10 Essential (primary) hypertension; Z86.718 Personal history of other venous thrombosis and embolism; Z96.649 Presence of unspecified artificial hip joint; Z87.891 Personal history of nicotine dependence
CPT/HCPCS: 36415; 70450; 80053; 81001; 81003; 83690; 84484; 85025; 87086; 93005; 99284

== ENCOUNTER 2018-05-06 12:20 | Outpatient (CLI) | payer MEDICARE, BC ==
[2018-05-06] MEDS ORDERED: GADOBUTROL 10 MMOL/10 ML VIAL ONE (12:49)
[2018-05-06] MEDS ORDERED: GADOBUTROL 10 MMOL/10 ML VIAL IVP ONE (14:09)
--- NOTE | 2018-05-06 15:29 | MRI Report ---
Reason: BACK PAIN,LUMBAR,WITH RADICULOPATHY Procedure Date: 05/06/2018 Accession Number: [id number] / [id number] Procedure: MRI - Lumbar Spine W/WO CPT Code: FULL RESULT: EXAM: MRI LUMBAR SPINE WITHOUT AND WITH CONTRAST EXAM DATE: 05/06/2018 01:43 PM. CLINICAL HISTORY: 73-year-old female. BACK PAIN,LUMBAR,WITH RADICULOPATHY. COMPARISONS: MR lumbar spine 01/20/2013 TECHNIQUE: Multiplanar, multisequence T1-weighted and fluid-sensitive sequences of the lumbar spine from T12 to S1 before and after administration of intravenous contrast. Other: None. IV contrast: 8 ML Gadavist. FINDINGS: Neurologic Structures: The conus terminates at L2. The conus medullaris and cauda equina are unremarkable. Alignment: Rotatory dextroscoliosis of the lumbar spine with Fraga angle of 16 degrees. Grade 1 retrolisthesis of L2 on L3 measuring 5 mm. Grade 1 retrolisthesis of L3 on L4 measuring 4 mm. Grade 1 anterolisthesis L4 on L5 measuring 5 mm. Bone Marrow: Five cyq-eff-rvsadzc lumbar vertebral bodies are assumed. No gross fractures or bone lesions. Modic type I degenerative endplate changes with endplate edema and enhancement L1-L2, L2-L3, L3-L4, L4-L5, and L5-S1 levels. There is edema and enhancement surrounding the right L4-L5 facet joint (for example series 801 image 12), favored to be on the basis of degenerative change. Disk Levels/Facets: T12-L1: No significant central canal or foraminal narrowing. No interval progression. L1-L2: Moderate disk height loss and desiccation. Moderate diffuse disk bulge. Moderate left and mild right facet arthropathy. Mild central canal narrowing. Moderate to severe left and mild right foraminal narrowing. The left foraminal narrowing has slightly progressed. L2-L3: Moderate disk height loss and desiccation. Moderate diffuse disk bulge with endplate spurring. Moderate left and mild right facet arthropathy. Moderate central canal narrowing, slightly progressed. Moderate to severe left and moderate right foraminal narrowing, slightly progressed. L3-L4: Moderate disk height loss and desiccation. Moderate diffuse disk bulge with endplate spurring. Redemonstration status post prior right hemilaminotomy. Moderate to severe left and moderate right facet arthropathy. Mild residual central canal narrowing, slightly progressed since the prior study. Severe left and moderate to severe right foraminal narrowing. The foraminal narrowing is similar to slightly progressed. Moderate left lateral recess narrowing with mass-effect on traversing left L4 nerve, similar to slightly progressed. L4-L5: Mild disk height loss and desiccation. Large diffuse disk bulge progressed since the prior study, with superimposed disk extrusion extending craniad 6 mm. Severe bilateral facet arthropathy and ligamentum flavum hypertrophy on the left. Status post prior right hemilaminotomy. Moderate to severe central canal narrowing, significantly progressed. Severe right and moderate to severe left foraminal narrowing. The foraminal narrowing is also significantly progressed. L5-S1: Moderate to severe disk height loss and desiccation. Moderate diffuse disk bulge with superimposed right far lateral disk osteophyte complex. Moderate to severe bilateral facet arthropathy. Mild to moderate central canal narrowing, slightly progressed. Severe right and moderate left foraminal narrowing. The foraminal narrowing is slightly progressed. Spinal Canal: No enhancing masses within the spinal canal. No epidural abscess. Musculature: Normal. No edema, abnormal enhancement, or fatty atrophy. Other: There is a 2.2 cm nonspecific T2 hyperintense lesion within the posterior right hepatic lobe. This may represent a hepatic cyst or hemangioma. The visualized retroperitoneum is unremarkable. IMPRESSION: 1. Severe multilevel degenerative spondylosis, as detailed above and summarized below. Compared to the prior MRI study performed on 01/20/2013, there has been interval progression of central canal/foraminal narrowing at several levels, as detailed. The most significant progression has taken place at the L4-L5 level. No evidence of acute fracture or malalignment. No cord signal abnormality. 2. Rotatory dextroscoliosis of the lumbar spine with Fraga angle of 16 degrees. Grade 1 retrolisthesis of L2 on L3 measuring 5 mm. Grade 1 retrolisthesis of L3 on L4 measuring 4 mm. Grade 1 anterolisthesis L4 on L5 measuring 5 mm. 3. Modic type I degenerative endplate changes with endplate edema and enhancement L1-L2, L2-L3, L3-L4, L4-L5, and L5-S1 levels. Modic type I changes may represent the source of pain. 4. There is edema and enhancement surrounding the right L4-L5 facet joint (for example series 801 image 12), favored to be on the basis of degenerative change. This may also represent a source of pain. 5. L1-L2: Mild central canal narrowing. Moderate to severe left and mild right foraminal narrowing. The left foraminal narrowing has slightly progressed. Recommend correlation for left L1 radicular symptoms 6. L2-L3: Moderate central canal narrowing, slightly progressed. Moderate to severe left and moderate right foraminal narrowing, slightly progressed. Recommend correlation for left greater than right L2 radicular symptoms. 7. L3-L4: Mild residual central canal narrowing, slightly progressed since the prior study. Severe left and moderate to severe right foraminal narrowing. The foraminal narrowing is similar to slightly progressed. Moderate left lateral recess narrowing with mass-effect on traversing left L4 nerve, similar to slightly progressed. Recommend correlation for left greater than right L3 radicular symptoms and left L4 radicular symptoms. 8. L4-L5: Moderate to severe central canal narrowing, significantly progressed. Severe right and moderate to severe left foraminal narrowing. The foraminal narrowing is also significantly progressed. Recommend correlation for right greater than left L4 radicular symptoms. 9. L5-S1: Mild to moderate central canal narrowing, slightly progressed. Severe right and moderate left foraminal narrowing. The foraminal narrowing is slightly progressed. Recommend correlation for right greater than left L5 radicular symptoms. Comment: The following findings are so common in adults without low back pain that while we report their presence, they must be interpreted with caution and in the context of the clinical situation. (Reference Daik et al, Spine 2001) Prevalence of findings in patients without low back pain: Disk degeneration (any evidence): 92% Disk desiccation/T2 signal loss: 83% Disk height loss: 56% Disk bulge: 64% Disk protrusion: 32% Annular tear/high intensity zone: 38% RADIA
--- NOTE | 2018-05-06 15:46 | MRI Report ---
Reason: SEIZURE Procedure Date: 05/06/2018 Accession Number: [id number] / [id number] Procedure: MRI - Brain W/WO CPT Code: FULL RESULT: EXAM: MRI BRAIN WITHOUT AND WITH CONTRAST EXAM DATE: 05/06/2018 02:11 PM. CLINICAL HISTORY: 73-year-old female. SEIZURE. COMPARISON: MR brain 10/07/2013, CT head 05/03/2018. TECHNIQUE: Multiplanar, multisequence T1-weighted and fluid-sensitive MR sequences of the brain were performed. Sequences optimized for routine evaluation. Other: None. IV Contrast: 8 ML Gadavist. FINDINGS: Brain Volume: Normal for age. Parenchyma: No acute hemorrhage, mass, or infarct. Scattered T2/FLAIR hyperintense periventricular and deep white matter lesions within cerebral hemispheres bilaterally, slightly increased since the prior study from 10/07/2013. No abnormal enhancement. No parenchymal foci susceptibility artifact. The hippocampi appear qualitatively symmetric and normal in size and signal. Ventricles/Cisterns: No hydrocephalus. No abnormal extra-axial fluid collection or hemorrhage. Orbits: Symmetric and unremarkable. Sella [place]: The pituitary gland, cavernous sinuses, suprasellar cistern and optic chiasm are unremarkable. IAC: Symmetric and unremarkable. Vasculature: Normal signal flow void is seen in the major arterial structures at the skull base. The dural sinuses are patent and enhance normally. Sinuses: No acute sinus disease. Bones: No focal pathologic appearing marrow signal changes. Other: None. IMPRESSION: 1. No MRI evidence of acute intracranial abnormality. Specifically, no evidence of acute or subacute infarct, acute intracranial hemorrhage, mass, midline shift, or hydrocephalus. No abnormal intracranial enhancement. 2. Scattered T2/FLAIR hyperintense periventricular and deep white matter lesions within cerebral hemispheres bilaterally, slightly increased since the prior study from 10/07/2013. These lesions are nonspecific, and can be seen with the entire gamut of white matter conditions, commonly as sequela of chronic microangiopathy. 3. The hippocampi appear qualitatively symmetric and normal in size and signal. RADIA
== END 2018-05-06 12:21 | disposition home or self-care (01) ==
LOC: DI 12:20
PROVIDERS: ATTEND Physician Assistant Medical
DX: M51.36 Other intervertebral disc degeneration, lumbar region (principal); M48.061 Spinal stenosis, lumbar region without neurogenic claudication; M47.9 Spondylosis, unspecified; M43.16 Spondylolisthesis, lumbar region; M51.37 Other intervertebral disc degeneration, lumbosacral region; M48.07 Spinal stenosis, lumbosacral region; G93.9 Disorder of brain, unspecified; R56.9 Unspecified convulsions
CPT/HCPCS: 70553; 72158; A9585

== ENCOUNTER 2018-05-14 14:05 | Outpatient (CLI) | payer MEDICARE, BC ==
--- NOTE | 2018-05-15 08:24 | Mammography Report ---
Reason: Annual Screening Procedure Date: 05/14/2018 Accession Number: [id number] / [id number] Procedure: [facility] - Screening Mammo Dig Bilat CPT Code: FULL RESULT: EXAM: Screening Mammo Dig Bilat DATE: 05/14/2018 3:16 PM CLINICAL HISTORY: Routine screening. No reported personal or family history of breast cancer. TECHNIQUE: Bilateral CC and MLO views were obtained. COMPARISON: 02/28/2016 through 11/27/2013 FINDINGS: The breasts demonstrate heterogeneously dense fibroglandular parenchyma bilaterally. Note: Patient unable to stand for 3-D imaging exam. Left breast: There is a 3 cm triangular asymmetry seen in the retroareolar anterior breast on the MLO view only possibly indicating artifact of compression. There is a stable 2.5 cm oval mass in the 12:00 breast middle depth. Stable biopsy marker is noted in the posterior lateral breast. No suspicious calcifications or areas of distortion. Right breast: There are no suspicious masses, calcifications or areas of distortion. IMPRESSION: Incomplete examination RECOMMENDATION: Additional views left breast. BI-RADS CATEGORY 0: Incomplete examination STANDARD QUALIFYING STATEMENTS: 1. This examination was not reviewed with the aid of Computer-Aided Detection (CAD). 2. A negative or benign imaging report should not preclude biopsy if clinically suspicious findings are present. 3. Dense breasts may obscure an underlying neoplasm. 4. This examination was reviewed without the aid of 3D breast imaging (tomosynthesis).
== END 2018-05-14 14:06 | disposition home or self-care (01) ==
LOC: DI 14:05
PROVIDERS: ATTEND Physician Assistant Medical
DX: Z12.31 Encounter for screening mammogram for malignant neoplasm of breast (principal)
CPT/HCPCS: 77067

== ENCOUNTER 2018-05-14 14:07 | Outpatient (CLI) | payer MEDICARE, BC ==
--- NOTE | 2018-05-15 08:39 | DEXA Report ---
Reason: POSTMENOPAUSAL Procedure Date: 05/14/2018 Accession Number: [id number] / [id number] Procedure: DEX - Dexa Spine and/or Hip CPT Code: FULL RESULT: EXAM: Dexa Spine and/or Hip DATE: 05/14/2018 3:28 PM CLINICAL HISTORY: POSTMENOPAUSAL TECHNIQUE: Dual energy x-ray absorptiometry (DXA) was performed on a rankdesk System. Regions measured are the AP Spine, femoral neck, and if needed forearm. COMPARISON: None. In accordance with the International Society for Clinical Densitometry (ISCD) guidelines, data from previous exams may be reanalyzed using current recommendations and techniques. This is done to allow a more accurate basis for comparison with the current study. FINDINGS: The data for the lumbar spine is as follows: BMD (g/cm/cm) T-SCORE Z-SCORE REGION L1 0.871 -2.2 -0.2 L2 1.048 -1.3 0.7 L3 1.230 0.3 2.2 L4 1.392 1.6 3.5 TOTAL 1.150 -0.2 1.7 NOTE: All evaluable vertebrae are used for classification The data for the hip is as follows: BMD (g/cm/cm) T-SCORE Z-SCORE REGION Neck 0.578 -3.3 -1.3 TOTAL 0.655 -2.8 -1.0 NOTE: The femoral neck or total proximal femur, whichever is lowest, is used for classification. IMPRESSION: THE WHO CLASSIFICATION BASED ON THE INTERNATIONAL REFERENCE STANDARD IS OSTEOPOROSIS. THE FRACTURE RISK IS HIGH. RECOMMENDATION: Patients with diagnosis of osteoporosis or osteopenia should have regular bone mineral density assessment. For those eligible for Medicare, routine testing is allowed once every 2 years. Testing frequency can be increased for patients who have rapidly progressing disease or for those who are receiving medical therapy to restore bone mass. COMMENT: World Health Organization (WHO) definitions for osteoporosis and osteopenia: NORMAL BMD: T-score at -1.0 or higher, fracture risk is low OSTEOPENIA BMD: T-score between -1.0 and -2.5, fracture risk is increased. OSTEOPOROSIS BMD: T-score at -2.5 or lower, fracture risk is high. National Osteoporosis Foundation recommends: 1. Obtain adequate dietary calcium (at least 1200 mg per day) and vitamin D (400-800 international units per day). 2. Participate, as appropriate, in regular weightbearing and muscle-strengthening exercise. 3. Avoid tobacco use and reduce alcohol and caffeine intake. 4. For more detailed information see the website at www.NOF.org.
== END 2018-05-14 14:08 | disposition home or self-care (01) ==
LOC: DI 14:07
PROVIDERS: ATTEND Physician Assistant Medical
DX: M81.0 Age-related osteoporosis without current pathological fracture (principal); Z78.0 Asymptomatic menopausal state
CPT/HCPCS: 77080

== ENCOUNTER 2018-06-30 13:19 | Outpatient (CLI) | payer MEDICARE, BC ==
--- NOTE | 2018-06-30 16:21 | Mammography Report ---
Reason: ABN MAMMO - LT SPEC VIEWS Procedure Date: 06/30/2018 Accession Number: [id number] / [id number] Procedure: [facility]UEL [facility]GEL - Diag Special Views Dig LT CPT Code: FULL RESULT: EXAM: Diag Special Views Dig LT DATE: 06/30/2018 2:10 PM CLINICAL HISTORY: The patient is recalled from screening for left breast asymmetry. TECHNIQUE: Left breast MLO imaging is performed. COMPARISON: 05/14/2018 through 05/27/2013. FINDINGS: The left breast demonstrates heterogeneously dense parenchyma. The previously seen 3 cm triangular asymmetry in the retroareolar left breast is diagnosed as overlap of normal tissue structures. No suspicious masses, calcifications or architectural distortion are seen. IMPRESSION: Negative examination RECOMMENDATION: Recommend routine annual Screening mammography unless otherwise clinically indicated. BIRADS CATEGORY 1: Negative STANDARD QUALIFYING STATEMENTS: 1. This examination was not reviewed with the aid of Computer-Aided Detection (CAD). 2. A negative or benign imaging report should not delay biopsy if clinically suspicious findings are present. Consider surgical consultation if warrented. More than 5% of cancers are not identified by imaging. 3. Dense breasts may obscure an underlying neoplasm.
== END 2018-06-30 13:20 | disposition home or self-care (01) ==
LOC: DI 13:19
PROVIDERS: ATTEND Physician Assistant Medical
DX: R92.8 Other abnormal and inconclusive findings on diagnostic imaging of breast (principal)

== ENCOUNTER 2018-07-21 11:58 | Day surgery (SDC) | payer MEDICARE, BC ==
[2018-07-21] MEDS ORDERED: LACTATED RINGERS 1,000 ML IV ONE ×2 (12:34→12:51)
[2018-07-21] MEDS ORDERED: fentaNYL 100 MCG/2 ML VIAL IVP ONE (12:38)
[2018-07-21] MEDS ORDERED: MIDAZOLAM 2 MG/2 ML VIAL IVP ONE (12:38)
[2018-07-21 14:07] VITALS: BP 116/65
== END 2018-07-21 11:59 | disposition home or self-care (01) ==
LOC: SDS 11:58
PROVIDERS: ATTEND Surgery
PROC: 0DBC8ZZ Excision of Ileocecal Valve, Via Natural or Artificial Opening Endoscopic (ICD-10-PCS; 2018-07-21)
PROC: 3E0H8GC Introduction of Other Therapeutic Substance into Lower GI, Via Natural or Artificial Opening Endoscopic (ICD-10-PCS; 2018-07-21)
PROC: 0DBM8ZX Excision of Descending Colon, Via Natural or Artificial Opening Endoscopic, Diagnostic (ICD-10-PCS; principal; 2018-07-21 13:15)
DX: Z12.11 Encounter for screening for malignant neoplasm of colon (principal); C18.6 Malignant neoplasm of descending colon; D12.0 Benign neoplasm of cecum; I10 Essential (primary) hypertension; Z80.0 Family history of malignant neoplasm of digestive organs; G20 Parkinson's disease; Z87.891 Personal history of nicotine dependence
CPT/HCPCS: 45380; 45381; 45385; J7120

== ENCOUNTER 2018-07-22 13:29 | Outpatient (CLI) | payer MEDICARE, BC ==
[2018-07-22] MEDS ORDERED: IOVERSOL 320 50 ML VIAL ONE (13:47)
[2018-07-22] MEDS ORDERED: IOVERSOL 320 100 ML VIAL IVP ONE ×2 (13:47→17:00)
[2018-07-22 14:03] LABS: CREATININE 0.8 mg/dL (0.4-1.0)
--- NOTE | 2018-07-22 15:14 | CT Report ---
Reason: COLON MASS Procedure Date: 07/22/2018 Accession Number: [id number] / [id number] Procedure: CT - Abdomen/Pelvis W CPT Code: FULL RESULT: EXAM: CT ABDOMEN AND PELVIS EXAM DATE: 07/22/2018 02:39 PM. CLINICAL HISTORY: Distal rectal/anal mass COMPARISONS: ABDOMEN/PELVIS W/ 11/01/2015 3:33 PM. TECHNIQUE: Routine helical CT imaging was performed through the abdomen and pelvis. IV contrast: OPTI 320 100mL. Enteric contrast: No. Reconstructions: Coronal and sagittal. In accordance with CT protocol optimization, one or more of the following dose reduction techniques were utilized for this exam: automated exposure control, adjustment of mA and/or KV based on patient size, or use of iterative reconstructive technique. FINDINGS: Lung Bases: Unremarkable. Liver: Multiple small hepatic cysts of no clinical significance. No suspicious mass. Gallbladder/Bile Ducts: Unremarkable. Spleen: Normal. Pancreas: Normal. Adrenal Glands: Normal. Kidneys: Normal. No masses or hydronephrosis. Peritoneal Cavity/Bowel: Normal. No free fluid, free air or adenopathy. No masses or acute inflammatory process. The appendix is well visualized and normal. Pelvic Organs: There is an incidental 5 cm diameter round left adnexal cyst. The bladder and visualized pelvic organs are within normal limits. Vasculature: No aneurysms or other significant abnormality. Bones: No significant abnormality. Other: Patient has a history of a palpable anal or distal rectal mass. CT is relatively insensitive for detection of same. No perirectal adenopathy. IMPRESSION: 1. No visible distal rectal or anal mass, although CT is relatively insensitive for same. No evidence of regional adenopathy. 2. Incidental finding of a 5 cm maximal diameter left adnexal cyst which should be viewed with some suspicion in a postmenopausal female. Recommend transabdominal and endovaginal pelvic ultrasound for further evaluation. 3. Otherwise negative examination. RADIA
[2018-07-22] MEDS ORDERED: IOVERSOL 320 50 ML VIAL PO ONE (17:00)
== END 2018-07-22 13:30 | disposition home or self-care (01) ==
LOC: DI 13:29
PROVIDERS: ATTEND Surgery
DX: K63.89 Other specified diseases of intestine (principal)
CPT/HCPCS: 36415; 74177; 82565; Q9967

== ENCOUNTER 2018-07-25 13:23 | Outpatient (CLI) | payer MEDICARE, BC ==
[2018-07-25 13:38] LABS: BASOPHILS # (AUTO) 0.1 10^3/uL (0.0-0.1); BASOPHILS % (AUTO) 1.3 %; EOSINOPHILS # (AUTO) 0.2 10^3/uL (0.0-0.7); EOSINOPHILS % (AUTO) 1.9 %; HGB - HEMOGLOBIN 12.6 g/dL (12.0-16.0); LYMPHOCYTES # (AUTO) 1.6 10^3/uL (1.5-3.5); LYMPHOCYTES % (AUTO) 15.2 %; MEAN CORPUSCULAR HEMOGLOBIN 29.8 pg (27.0-31.0); MEAN CORPUSCULAR HGB CONC 32.9 g/dL (32.0-36.0); MEAN CORPUSCULAR VOLUME 90.4 fL (81.0-99.0); MONOCYTES # (AUTO) 0.8 10^3/uL (0.0-1.0); MONOCYTES % (AUTO) 7.2 %; NEUTROPHILS # (AUTO) 7.8 10^3/uL (1.5-6.6); NEUTROPHILS % (AUTO) 74.4 %; PLT - PLATELET COUNT 351 10^3/uL (130-450); RED BLOOD COUNT 4.25 10^6/uL (4.20-5.40); RED CELL DISTRIBUTION WIDTH 15.5 % (12.0-15.0); WHITE BLOOD COUNT 10.4 x10^3/uL (4.8-10.8)
[2018-07-25 13:58] LABS: CREATININE 0.9 mg/dL (0.4-1.0)
== END 2018-07-25 13:24 | disposition home or self-care (01) ==
LOC: LAB 13:23
PROVIDERS: ATTEND Nurse Anesthetist, Certified Registered
DX: C18.7 Malignant neoplasm of sigmoid colon (principal); R19.09 Other intra-abdominal and pelvic swelling, mass and lump
CPT/HCPCS: 36415; 80048; 82378; 85025; 86304

== ENCOUNTER 2018-07-25 15:00 | Outpatient (CLI) | payer MEDICARE, BC ==
--- NOTE | 2018-07-25 20:41 | MRI Report ---
Reason: SPELL OF ALTERED COGNITION,MEMORY LOSS Procedure Date: 07/25/2018 Accession Number: [id number] / [id number] Procedure: MRI - Brain W/O CPT Code: FULL RESULT: EXAM: MRI BRAIN WITHOUT CONTRAST EXAM DATE: 07/25/2018 04:20 PM. CLINICAL HISTORY: 73-year-old with progressive memory loss and spell of altered mental status including confusion, disorientation, and decreased mentation. COMPARISON: BRAIN W/WO 05/06/2018 12:59 PM. HEAD W/O 05/03/2018 12:13 AM. TECHNIQUE: Multiplanar, multisequence T1-weighted and fluid-sensitive MR sequences of the brain were performed. Sequences optimized for routine evaluation. Other: None. IV Contrast: None. FINDINGS: Motion artifact technically limits evaluation. Brain Volume: Normal for age. Parenchyma/Dura: No acute parenchymal hemorrhage, mass, or midline shift. Mild bilateral areas of T2/FLAIR signal hyperintensity seen that appear similar MR brain 05/06/2018. There is patchy FLAIR signal hyperintensity seen within the zuhair. No areas of restricted diffusion seen to suggest acute infarct. There is susceptibility artifact seen within bilateral basal ganglia that may represent mineralization. Ventricles/Cisterns: No hydrocephalus. No abnormal extra-axial fluid collection or hemorrhage. Orbits: Symmetric and unremarkable. Sella Turcica: The pituitary gland, cavernous sinuses, suprasellar cistern and optic chiasm are unremarkable. IAC: Symmetric and unremarkable. Vasculature: Normal signal flow void is seen in the major arterial structures at the skull base. Sinuses: No acute appearing sinus disease. Bones: No focal pathologic appearing marrow signal changes. Other: None. IMPRESSION: 1. No definite acute intracranial pathology seen; specifically, no acute infarct, acute intracranial hemorrhage, mass, hydrocephalus, or midline shift. 2. Mild white matter changes seen that appear similar to MR brain 05/06/2018 and while nonspecific, likely represent sequela of chronic small vessel ischemic disease. RADIA
== END 2018-07-25 15:01 | disposition home or self-care (01) ==
LOC: DI 15:00
PROVIDERS: ATTEND Psychiatry & Neurology Neurology
DX: R41.89 Other symptoms and signs involving cognitive functions and awareness (principal); R41.3 Other amnesia; C18.7 Malignant neoplasm of sigmoid colon; R19.09 Other intra-abdominal and pelvic swelling, mass and lump
CPT/HCPCS: 36415; 70551; 80048; 82378; 85025; 86304

== ENCOUNTER 2018-07-29 06:09 | Inpatient (IN) | payer MEDICARE, BC ==
[2018-07-29] MEDS ORDERED: ceFAZolin 2 GM/50 ML 2 GM/50 ML BAG IV ONE (06:33)
[2018-07-29] MEDS ORDERED: LACTATED RINGERS 1,000 ML IV ONE ×2 (07:04→11:10)
--- NOTE | 2018-07-29 07:21 | ANESTHESIA ---
Pre-Anesthesia VS, & Labs - Diagnosis Colon cancer, left adenexal mass - Procedure Left salpingoophrectomy and sigmoidectomy Vital Signs: Temp Pulse Resp BP Pulse Ox 36.2 C L 94 20 178/75 H 95 07/29/18 06:45 07/29/18 06:45 07/29/18 06:45 07/29/18 06:45 07/29/18 06:45 Height 5 ft 2 in Weight (kg) 57.3 kg Body Mass Index 24.2 - NPO >8 hours - Is Patient ?: No - Lab Results Current Lab Results: Hgb 12 Hct 38 Plat 351 Lab results reviewed: Yes Home Medications and Allergies Carbidopa/Levodopa 25/100 [Sinemet 25 mg/100 mg] 2 tab PO TID 06/23/14 Citalopram [CeleXA] 20 mg PO DAILY 06/23/14 Oxybutynin Chloride [Ditropan Xl] 10 mg PO DAILY 06/23/14 Polyethylene Glycol 3350 [Miralax] 17 gm PO DAILY 02/22/16 rOPINIRole [Requip] 2 mg PO TID 02/22/16 Rivastigmine [Exelon] 1 cap PO TID 09/06/16 Allergies/Adverse Reactions: Allergies Allergy/AdvReac Type Severity Reaction Status Date / Time No Known Drug Allergies Allergy Verified 05/02/18 23:32 Anes History & Medical History - Anesthetic History Anesthesia Complications: reports: No previous complications - Medical History Cardiovascular: reports: None Pulmonary: reports: None Gastrointestinal: reports: Ulcers Urinary: reports: None Neuro: reports: Parkinson's, Other (had seizures 1 month ago) Musculoskeletal: reports: Osteoarthritis, Chronic back pain Endocrine/Autoimmune: reports: None Blood Disorders: reports: None Skin: reports: None Smoking Status: Former smoker (quit 20 years ago) Psychosocial: reports: Depression - Surgical History General: Colonoscopy Eyes Ears Nose Throat (EENT):  Orthopedic: Hip replacement, Rotator cuff repair Results - EKG Results EKG Comparison: Reviewed EKG Exam General: Alert, Oriented x3, Cooperative, No acute distress Dental: WNL Mouth Openin Fingerbreadth Neck Mobility: Normal Mallampati classification: II Thyromental Distance: less than 4 cm (2 FB) Respiratory: Lungs clear, Normal breath sounds, No respiratory distress, No accessory muscle use Cardiovascular: Regular rate (tachy), Normal S1, Normal S2, No murmurs Mental/Cognitive Status: Alert/Oriented X3, Normal for patient Plan Anesthesia Type: General, Epidural (Thoracic epidural for post op pain control) Regional Block: Per Surgeon's request for Post Op pain control (thoracic epidural) Consent for Procedure(s) Verified and Reviewed: Yes Code Status: Attempt Resuscitation ASA classification: 2-Mild systemic disease Is this case an emergency?: No
[2018-07-29] MEDS ORDERED: BUPIVACAINE 0.5%-EPI 1:200000 PF 30 ML VIAL ONE (07:25)
[2018-07-29] MEDS ORDERED: BUPIVACAINE 0.5%-EPI 1:200000 PF 10 ML VIAL SUBQ ONE (09:24)
[2018-07-29] MEDS ORDERED: ONDANSETRON 4 MG/2 ML VIAL IVP PRN (09:49)
[2018-07-29] MEDS ORDERED: NALBUPHINE 10 MG/ML AMP IVP PRN (09:49)
[2018-07-29] MEDS ORDERED: diphenhydrAMINE INJ 50 MG/ML VIAL IVP PRN (09:49)
--- NOTE | 2018-07-29 11:25 | OPERATIVE REPORT ---
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 Sewell) Post Op Diagnosis: Same with umbilical hernia and cutaneous umbilical lesion - Procedure Note Primary Surgeon: Vinny Hernandez MD Secondary Surgeon: Mike Sewell MD Anesthesia Provider: Phuong Andrews CRNA Anesthesia Technique: Epidural, General ET tube, Local (30 mL of half percent Marcaine with epinephrine) IV Fluids (mL): 1,800 Estimated Blood Loss (mL): 15 Urine Output (mL): 150 Drain/Tube Type: Other (None.) Complications: None. - Other Other Information/Narrative: OPERATIVE DESCRIPTION/REPORT: After verbal and written informed consent was obtained detailing the risks of infection, bleeding requiring transfusion with its risks, nerve injury, and , and after I met with the patient confirming the surgery and the site of the surgery, the patient was brought to the operative suite and placed supine on the operating table. Great care was taken to avoid pressure points to prevent pressure necrosis or nerve injury. Monitoring devices were applied along with TEDs and pneumatic compressive stockings (to prevent DVT). The patient received preoperative antibiotics for surgical prophylaxis. Phuong Andrews CRNA sedated and anesthetized the patient for the entire procedure. The patient was prepped and draped in the usual sterile manner. With the patient draped my initials were clearly visible. A "time in" then confirmed that the patient was identified with 3 identifiers (name, date and medical record number), the history and physical was in the chart, the signed consent confirming the procedure was in the chart, the patient was in the correct position, the aforementioned prophylactic measures were in place or given, we had the correct personnel and equipment to complete the procedure and that anesthesia, surgery and nursing were given an opportunity to express any concerns. With the agreement of everyone in the room, we proceeded with the operation. Examination of the base of the patient's umbilicus revealed a verrucous appearing lesion and rather than cut through this and then sew this together I excised it with a pass of Metzenbaum scissors. A defect in the midline fascia was consistent with the presence of an umbilical hernia. This had not been appreciated preoperatively. This defect was then used to place the 12 mm blunt tipped balloon tipped catheter and the abdomen was insufflated with carbon dioxide to a steady state pressure of 15 mmHg. The patient was then placed in Trendelenburg position and a visual examination of the abdomen commands. There were adhesions in the left upper quadrant the precluded seeing the colon well. A 5 mm port was placed in the right lower quadrant under direct vision without incident. This allowed manipulation of the adnexa and pelvic washings to be performed. This portion of the procedure should be included with Dr. Sewell's dictation. It also allowed for manipulation of the adnexa bilaterally and the markedly enlarged left adnexa (cystic-appearing) as well as the normal-appearing right adnexa were clearly seen and photographed. Again this should be part of Dr. Sewell's dictation. At this point the port in the umbilicus was removed and the incision was lengthened to 4 cm using the scalpel as well as Bovie electrocautery. A finger sweep of the anterior abdominal wall confirmed that there were no adhesions to the anterior abdominal wall and placement of the Gelport could be safely accomplished. The flexible ring was inserted into the abdomen again taking care not to trap any bowel between it and the abdominal wall and the other ring was rotated down securing the opening. After placing two 5 mm ports and a 12 mm port through the Gelport, the Gelport was then latched onto the ring and the pneumoperitoneum was then established using carbon dioxide insufflation to a steady state pressure of 15 mmHg. At this point the ports and the GelPort as well as the previously placed 5 mm port in the right lower quadrant were used to perform the bilateral salpingo-oophorectomy which again should be part of Dr. Sewell's dictation. I would like to note that Dr. Sewell's portion of this operation was entirely bloodless. At this point, with the bilateral salpingo-oophorectomy and pelvic washings completed I proceeded with my portion of the operation. Please note that during Dr. Sewell's portion of the operation I was his litigation assistant and during my portion of the operation he was my litigation assistant. At various times during the operation the patient was either placed in reverse Trendelenburg or Trendelenburg position but she was always rotated slightly to the right to aid with visualization. During the procedure the ports were used interchangeably to afford the best visualization and allow the easiest diss ection. Adhesions of the omentum to the anterior abdominal wall were taken down using sequential application of the LigaSure. Laparoscopic scissors were also used in this dissection. Once this was completed it was clear that the tattooed portion of the colon was the descending colon. The left colon was grasped using Prestige graspers and dissected from the lateral wall using a combination of B ovie electrocautery as well as LigaSure. This dissection progressed up and around the splenic flexure thus mobilizing the splenic flexure. The gastrocolic omentum was transected using serial application of the LigaSure were all the way to the proximal transverse colon. I dissected the colon proximally and distally to ensure that there was a greater than 5 cm both distal and proximal margins. With this mobilization I was able to bring the mid transverse colon as well as the distal descending colon up to the midline incision without any undue tension. I removed the GelPort and grasped the transverse colon and marched distally until I got to the tumor. I transected the mid transverse colon with a PATRICK 75 stapler and a blue load after opening the mesentery with application of LigaSure. I then dissected down on the mesentery to ensure that I was able to get the entire a good lymph node excision. Once this was done I was able to talk the proximal transverse colon back into the abdomen to get it out of the way and then grasping the distal transverse colon work the tumor up into the incision. Once I was able to get the tumor up into the wound I was able to dissect an additional 5-7 cm beyond the tumor. Some additional adhesions to the lateral wall had to be taken primarily with Bovie electrocautery over my finger. Distally I then dissected down onto the mesentery again using serial application of LigaSure and taking it down to the base of the mesentery. The base of the mesentery was secured using a 2-0 Vicryl suture ligature and distal to this the vasculature was transected using an application of the LigaSure. In this manner I had not only the suture but the LigaSure ensuring complete hemostasis. Approximately 7 cm beyond the tumor I applied a pursestring galvanizer zinc and a 3-0 Prolene on a Mendez needle was used to create the pursestring. Just proximal to this I have applied a Lisset to minimize any spillage and transected the colon with a knife. The specimen was sent off the operative field to be placed into formalin and sent to pathology for pathologic evaluation. The anvil of a 28 mm EEA stapler was placed into the open end of the distal descending colon and the pursestring was tied tight around the post. The distal descending colon was then cleaned of any fatty attachments to the anastomotic site using Bovie electrocautery. A small transverse colotomy was made just proximal to the staple line in the transverse colon to allow for placement of the EEA stapler. The stapler was placed and the spike was brought out at the PATRICK staple line. Great care was taken to ensure that neither the transverse colon nor the distal descending colon was twisted. The post of the anvil locked in place on the spike and the stapler was fired creating the colocolostomy. There was absolutely no tension on the anastomosis. The colotomy in the transverse colon was then closed using another application of the PATRICK stapler. Digital and visual examination of both the anastomosis and the colotomy closure revealed that they were widely patent. Both the anastomosis and the colotomy closure were then buttressed using interrupted 3-0 Vicryl Lembert sutures. The abdomen was copiously irrigated with warm sterile saline. The flexible ring was then removed from the abdomen. I changed my gloves for the closure. The fascia and skin were then injected with the 30 cc of % marcaine for pain control. The fascial defect was then approximated using 0-PDS suture in a running manner. In doing so the umbilical hernia was repaired. The skin incisions were closed using an interrupted 4-0 Monocryl subcuticular suture. Dermabond and a dressing were applied. All surgical counts were reported as correct. Having tolerated the procedure well, the patient was subsequently extubated and taken to recovery room in good and stable condition. Dragon disclaimer: This document was created in part using voice recognition technology. Because of the inherent limitations of the system ([employer]'s Dragon Dictate user manual states that the licensee understands that speech recognition is a statistical process and that recognition errors are inherent in the process), occasional same sounding word substitutions and grammatical errors do occur and persist despite proofreading. Please read this document for context.
[2018-07-29] MEDS ORDERED: fent/BUPIV 2 MCG/0.125% 250 ML EP ONE (11:27)
[2018-07-29] MEDS ORDERED: METOPROLOL 5 MG/5 ML VIAL IVP ONE (11:34)
[2018-07-29] MEDS ORDERED: ACETAMINOPHEN 1,000 MG/100 ML 100 ML IV PRN (12:06)
[2018-07-29] MEDS: fent/BUPIV 2 MCG/0.125% 250 ML EP PRN (12:20)
[2018-07-29] MEDS: LACTATED RINGERS 1,000 ML IV SCH (12:20)
[2018-07-29] MEDS: PANTOPRAZOLE 40 MG VIAL IVP SCH (14:56)
[2018-07-29] MEDS: SODIUM CHLORIDE FLUSH 0.9% 10 ML SYRINGE IVP PRN (14:57)
[2018-07-29] MEDS: SODIUM CHLORIDE FLUSH 0.9% 10 ML SYRINGE IVP SCH (17:03)
[2018-07-29] MEDS: CARBIDOPA/LEVODOPA 25 MG/100 MG TABLET PO SCH ×2 (17:07→21:09)
[2018-07-29] MEDS: RIVASTIGMINE 1.5 MG CAPSULE PO SCH (21:09)
[2018-07-29] MEDS: rOPINIRole 1 MG TABLET PO SCH (21:09)
[2018-07-29] MEDS: CITALOPRAM 10 MG TABLET PO SCH (21:09)
--- NOTE | 2018-07-30 02:43 | OPERATIVE REPORT ---
DATE OF SERVICE: 07/29/2018 Physician: Mike Sewell MD PREOPERATIVE DIAGNOSIS: Complex left ovarian cyst. POSTOPERATIVE DIAGNOSIS: Complex left ovarian cyst. PROCEDURE PERFORMED: Bilateral laparoscopic oophorectomy and salpingectomy. SURGEON: Mike Sewell MD. COORDINATOR OF GENETIC SERVICES: Vinny Hernandez MD. TYPE OF ANESTHESIA: General via endotracheal tube. FINDINGS: The patient had a large, roughly 5 cm right ovarian cyst. The pelvic cavity did not show evidence of any studding. Pelvic washings were obtained. DESCRIPTION OF PROCEDURE: Following adequate endotracheal anesthesia, the patient was prepped and draped in the usual fashion. A timeout was performed. At this point, a speculum was placed in the vagina. The cervix was visualized and then grasped with a single-tooth tenaculum. The cervix was dilated to 8 mm. Following this, a Chele uterine manipulator was placed. The feed crusher operator's gloves were changed. The laparoscopic ports were placed by Dr. Vinny Hernandez. At this point, following good visualization of the pelvis, patient was placed in Trendelenburg and pelvic washings were obtained. At this point, the infundibulopelvic ligament on the left-hand side was visualized, triply cauterized, and then transected utilizing the LigaSure. The attachments of the ovary to the uterus as well as the fallopian tube were then doubly cauterized and transected. The mesosalpinx up to, but not including the round ligament, was then cauterized and transected. The ovary was then brought up through the supraumbilical port. At this point, the right infundibulopelvic ligament was doubly cauterized, transected, and then the uteroovarian ligament was also doubly cauterized and transected. The remainder of the ovarian attachments was cauterized and transected utilizing LigaSure. This was then also brought out through the supraumbilical port. These areas were inspected for bleeding; none was noted. At this point, the remainder of the procedure was performed by Dr. Vinny Hernandez. At the end of the procedure, the balloon was let down from the uterine manipulator and then removed. The patient tolerated the procedure well. TD: 07/29/2018 17:11 [facility]ENTER[facility]
[2018-07-30 05:06] LABS: BASOPHILS % (AUTO) 0.3 %; EOSINOPHILS % (AUTO) 0.2 %; HGB - HEMOGLOBIN 9.8 g/dL (12.0-16.0); LYMPHOCYTES # (AUTO) 1.4 10^3/uL (1.5-3.5); LYMPHOCYTES % (AUTO) 10.5 %; MEAN CORPUSCULAR HEMOGLOBIN 29.7 pg (27.0-31.0); MEAN CORPUSCULAR HGB CONC 32.5 g/dL (32.0-36.0); MEAN CORPUSCULAR VOLUME 91.4 fL (81.0-99.0); MEAN PLATELET VOLUME 6.5 fL (7.9-10.8); MONOCYTES # (AUTO) 0.9 10^3/uL (0.0-1.0); MONOCYTES % (AUTO) 7.2 %; NEUTROPHILS # (AUTO) 10.6 10^3/uL (1.5-6.6); NEUTROPHILS % (AUTO) 81.8 %; PLT - PLATELET COUNT 261 10^3/uL (130-450); RED BLOOD COUNT 3.31 10^6/uL (4.20-5.40); RED CELL DISTRIBUTION WIDTH 15.4 % (12.0-15.0)
[2018-07-30 05:09] LABS: ALBUMIN/GLOBULIN RATIO 1.3 (1.0-2.2); ALKALINE PHOSPHATASE 60 IU/L (42-121); ALT ALANINE AMINOTRANSFERASE < 10 IU/L (10-60); AST ASPARTATE AMINOTRANSFERASE 20 IU/L (10-42); BILIRUBIN,TOTAL 0.8 mg/dL (0.2-1.0); BUN - BLOOD UREA NITROGEN 10 mg/dL (6-20); CALCIUM 8.3 mg/dL (8.5-10.3); CARBON DIOXIDE - CO2 25 mmol/L (21-32); CHLORIDE 104 mmol/L (101-111); CREATININE 0.8 mg/dL (0.4-1.0); GFR - MDRD 70 (>89); GLUCOSE 103 mg/dL (70-100); SODIUM 139 mmol/L (135-145); TOTAL PROTEIN 5.4 g/dL (6.7-8.2)
[2018-07-30] MEDS: HYDROmorphone 0.5 MG/0.5 ML SYRINGE IVP PRN (06:42)
[2018-07-30] MEDS: PANTOPRAZOLE 40 MG VIAL IVP SCH (06:43)
[2018-07-30] MEDS: SODIUM CHLORIDE FLUSH 0.9% 10 ML SYRINGE IVP SCH ×3 (06:46→16:39)
[2018-07-30] MEDS: oxyCODONE 5 MG TABLET PO PRN (06:50)
[2018-07-30] MEDS: rOPINIRole 1 MG TABLET PO SCH ×2 (08:11→21:11)
[2018-07-30] MEDS: RIVASTIGMINE 1.5 MG CAPSULE PO SCH ×2 (08:11→21:11)
[2018-07-30] MEDS: METOPROLOL SUCCINATE 25 MG TABLET PO SCH (08:11)
[2018-07-30] MEDS: CARBIDOPA/LEVODOPA 25 MG/100 MG TABLET PO SCH ×4 (08:11→21:12)
[2018-07-30] MEDS: LACTATED RINGERS 1,000 ML IV SCH (08:12)
[2018-07-30] MEDS ORDERED: OXYBUTYNIN CHLORIDE 10 MG PO SCH (09:00)
[2018-07-30] MEDS ORDERED: ENOXAPARIN 40 MG/0.4 ML SYRINGE SUBQ SCH (09:00)
--- NOTE | 2018-07-30 09:14 | ANESTHESIA POST OP EVALUATION ---
Anesthesia Post Eval - Post Anesthesia Eval CV Function Including HR & BP: positive: Stable Pain Control: positive: Adequate Nausea & Vomiting: positive: Negative Mental Status: positive: Appropriate Anesthesia Complications: positive: None (Epidural controlling pain well with no motor block, up in chair, should increase ambulation today. Epidural site intact, no redness or drainage. Plan to hold lovenox tomorrow am and D/C cathether tomorrow.)
[2018-07-30] MEDS ORDERED: LIDOCAINE-MPF 2% 5 ML VIAL IM ONE (09:24)
[2018-07-30] MEDS ORDERED: PROPOFOL 200 MG/20 ML VIAL IVP ONE (09:24)
[2018-07-30] MEDS ORDERED: ePHEDrine 50 MG/ML VIAL IVP ONE (09:24)
[2018-07-30] MEDS ORDERED: ACETAMINOPHEN 1,000 MG/100 ML 100 ML IV ONE (09:24)
[2018-07-30] MEDS ORDERED: fentaNYL 100 MCG/2 ML VIAL IVP ONE (09:24)
[2018-07-30] MEDS ORDERED: ROCURONIUM 50 MG/5 ML VIAL IVP ONE (09:24)
[2018-07-30] MEDS ORDERED: MIDAZOLAM 2 MG/2 ML VIAL IVP ONE (09:24)
[2018-07-30] MEDS ORDERED: BUPIVACAINE 0.5% PF 10 ML VIAL IM ONE (09:24)
[2018-07-30] MEDS ORDERED: ONDANSETRON 4 MG/2 ML VIAL IVP ONE (09:24)
[2018-07-30] MEDS: POLYETHYLENE GLYCOL 3350 17 GM PACKET PO SCH (09:40)
[2018-07-30] MEDS: CITALOPRAM 10 MG TABLET PO SCH (21:11)
[2018-07-31] MEDS: fent/BUPIV 2 MCG/0.125% 250 ML EP PRN (01:30)
[2018-07-31] MEDS: PANTOPRAZOLE 40 MG VIAL IVP SCH (06:57)
[2018-07-31] MEDS: LACTATED RINGERS 1,000 ML IV SCH (06:57)
[2018-07-31] MEDS: SODIUM CHLORIDE FLUSH 0.9% 10 ML SYRINGE IVP PRN ×2 (06:57→18:09)
[2018-07-31] MEDS: SODIUM CHLORIDE FLUSH 0.9% 10 ML SYRINGE IVP SCH ×3 (06:57→17:37)
[2018-07-31] MEDS: POLYETHYLENE GLYCOL 3350 17 GM PACKET PO SCH (08:49)
--- NOTE | 2018-07-31 09:31 | PROVIDER PROGRESS NOTE ---
Subjective - Prog Note Date Prog Note Date: 07/31/18 Prog Note Time: 09:28 - Subjective Subjective: Pt eating regular food as of this morning. No flatus/BM. Ambulating. Pain well-controlled. Objective - Vital Signs/Intake & Output Vital Signs: Vital Signs x48h Temp Pulse Resp BP Pulse Ox 07/31/18 08:01 36.4 C L 80 16 171/69 H 94 Intake & Output: Intake & Output 07/28/18 07/29/18 07/30/18 07/31/18 23:59 23:59 23:59 23:59 Intake Total 2400 2403.333 1600 Output Total 1015 1339 1300 Balance 1385 1064.333 300 - Objective General Appearance: positive: No acute distress Eyes Bilateral: positive: Normal inspection ENT: positive: ENT inspection nml Neck: positive: Nml inspection Respiratory: positive: Chest non-tender Abdomen: positive: Tenderness Back: positive: Nml inspection Skin: positive: Color nml Extremities: positive: Non-tender Neurologic/Psychiatric: positive: Oriented x3 - Lab Results Fish Bones: 07/30/18 04:25 07/30/18 04:25 Other Labs: Lab Results x24hrs 07/31/18 07/30/18 07/30/18 Range/Units 07:35 21:10 16:52 POC Whole Bld Glucose 97 95 96 (70 - 100) mg/dL 07/30/18 Range/Units 11:22 POC Whole Bld Glucose 124 H (70 - 100) mg/dL Assessment/Plan - Problem List (1) Colon cancer Impression: POD 2 from lap partial colectomy. Recovering normally, waiting for return of bowel function.
[2018-07-31] MEDS: METOPROLOL SUCCINATE 25 MG TABLET PO SCH (09:32)
[2018-07-31] MEDS: rOPINIRole 1 MG TABLET PO SCH ×2 (09:32→17:08)
[2018-07-31] MEDS: RIVASTIGMINE 1.5 MG CAPSULE PO SCH ×2 (09:32→17:08)
[2018-07-31] MEDS: CARBIDOPA/LEVODOPA 25 MG/100 MG TABLET PO SCH ×4 (09:32→21:19)
--- NOTE | 2018-07-31 13:47 | ANESTHESIA POST OP EVALUATION ---
Anesthesia Post Eval - Post Anesthesia Eval CV Function Including HR & BP: positive: Stable - Other Details/Therapies Other Details/Therapies: Patient reports she has had good pain control with epidural. Epidural removed with tip intact. Lovenox to be resumed in 4 hours. Site clear
[2018-07-31] MEDS: oxyCODONE 5 MG TABLET PO PRN ×3 (14:01→21:20)
[2018-07-31] MEDS ORDERED: CITALOPRAM 10 MG TABLET PO SCH (17:00)
[2018-07-31] MEDS: ACETAMINOPHEN 1,000 MG/100 ML 100 ML IV PRN (17:37)
[2018-07-31] MEDS ORDERED: ENOXAPARIN 40 MG/0.4 ML SYRINGE SUBQ SCH (18:00)
[2018-07-31] MEDS: HYDROmorphone 0.5 MG/0.5 ML SYRINGE IVP PRN (18:09)
[2018-07-31] MEDS ORDERED: CARBOXYMETHYLCELLULOSE OPHTH DROPS EACHEYE PRN (18:26)
[2018-08-01] MEDS: SODIUM CHLORIDE FLUSH 0.9% 10 ML SYRINGE IVP SCH ×2 (00:51→08:02)
[2018-08-01] MEDS: HYDROmorphone 0.5 MG/0.5 ML SYRINGE IVP PRN ×2 (01:05→06:20)
[2018-08-01] MEDS: ACETAMINOPHEN 1,000 MG/100 ML 100 ML IV PRN ×3 (01:18→12:42)
[2018-08-01] MEDS: oxyCODONE 5 MG TABLET PO PRN ×2 (04:23→12:43)
[2018-08-01] MEDS: PANTOPRAZOLE 40 MG VIAL IVP SCH (06:20)
[2018-08-01] MEDS: SODIUM CHLORIDE FLUSH 0.9% 10 ML SYRINGE IVP PRN (06:21)
[2018-08-01] MEDS: rOPINIRole 1 MG TABLET PO SCH (07:55)
[2018-08-01] MEDS: CARBIDOPA/LEVODOPA 25 MG/100 MG TABLET PO SCH ×2 (07:56→13:28)
[2018-08-01] MEDS: RIVASTIGMINE 1.5 MG CAPSULE PO SCH (07:56)
[2018-08-01] MEDS: METOPROLOL SUCCINATE 25 MG TABLET PO SCH (07:56)
[2018-08-01] MEDS: POLYETHYLENE GLYCOL 3350 17 GM PACKET PO SCH (08:02)
[2018-08-01 10:10] VITALS: BP 142/56
--- NOTE | 2018-08-01 12:43 | Discharge Plan ---
Discharge Plan Disposition: 01 Home, Self Care Condition: Good Diet: Regular Activity Restrictions: Additional Comments (no heavy lifting or exertion) Shower Restrictions: No Driving Restrictions: Yes Weight Bearing: Full Weight Additional Instructions or Follow Up instructions: surgery clinic 1 week No Smoking: If you smoke, Please STOP! Call for help. Follow-up with: Catarino Morgan MD [Primary Care Provider] -
--- NOTE | 2018-08-01 12:45 | DISCHARGE SUMMARY ---
Discharge Summary Admit Date: 07/29/18 Discharge Date: 08/01/18 Discharging Provider: selin Code Status: Attempt Resuscitation Condition at Discharge: Good Discharge Disposition: 01 Home, Self Care - DIAGNOSES Admission Diagnoses: colon CA Discharge Diagnoses with Status of Each Condition: resected - HPI History of Present Illness: 73 yo woman admitted after elective colon resection. Her surgery and recovery were uneventful and she was discharged POD 3 on regular diet, having BMs, and ambulating easily. - HOSPITAL COURSE Hospital Course: 73 yo woman admitted after elective colon resection. Her surgery and recovery were uneventful and she was discharged POD 3 on regular diet, having BMs, and ambulating easily. - ALLERGIES Allergies/Adverse Reactions: Allergies Allergy/AdvReac Type Severity Reaction Status Date / Time No Known Drug Allergies Allergy Verified 05/02/18 23:32 - MEDICATIONS Home Medications: Ambulatory Orders Medication Instructions Recorded Confirmed Carbidopa/Levodopa 25/100 [Sinemet 2 tab PO QDBREAKFAST 06/23/14 07/29/18 25 mg/100 mg] Citalopram [CeleXA] 10 mg PO QDDINNER 06/23/14 07/29/18 Polyethylene Glycol 3350 [Miralax] 17 gm PO DAILY 02/21/07/29/18 Rivastigmine [Exelon] 1 cap PO BIDWM 09/06/16 07/29/18 Carbidopa/Levodopa 25/100 [Sinemet 1 tab PO 1330,1730,2100 07/29/18 07/29/18 25 mg/100 mg] Metoprolol Succinate 12.5 mg PO QDBREAKFAST 07/29/18 07/29/18 Ropinirole HCl 1 mg PO BIDWM 07/29/18 07/29/18 - PHYSICAL EXAM AT DISCHARGE General Appearance: positive: No acute distress Eyes Bilateral: positive: Normal inspection ENT: positive: ENT inspection nml Neck: positive: Nml inspection Respiratory: positive: Chest non-tender Abdomen: positive: Non-tender Back: positive: Nml inspection Skin: positive: Color nml Extremities: positive: Non-tender Neurologic/Psychiatric: positive: Oriented x3 - LABS Result Diagrams: 07/30/18 04:25 07/30/18 04:25 - FOLLOW UP Follow Up: surgery 1 week - TIME SPENT Time Spent in Discharge (Minutes): 30
--- NOTE | 2018-08-05 10:16 | MISCELLANEOUS PROVIDER NOTE ---
Miscellaneous Provider Note - - Note: At the time of the patient's admission, I certify that it was my opinion that the patient would be able to go home in 96 hours or I would make a good chayo effort to transfer the patient.
== END 2018-08-01 13:46 | disposition home or self-care (01) | DRG 331 ==
LOC: MS2 06:09
PROVIDERS: ADMIT Surgery; ATTEND Surgery
PROC: 0UT74ZZ Resection of Bilateral Fallopian Tubes, Percutaneous Endoscopic Approach (ICD-10-PCS; 2018-07-29)
PROC: 0UT24ZZ Resection of Bilateral Ovaries, Percutaneous Endoscopic Approach (ICD-10-PCS; 2018-07-29)
PROC: 07BC4ZX Excision of Pelvis Lymphatic, Percutaneous Endoscopic Approach, Diagnostic (ICD-10-PCS; 2018-07-29)
PROC: 0DBL4ZZ Excision of Transverse Colon, Percutaneous Endoscopic Approach (ICD-10-PCS; 2018-07-29)
PROC: 0WQF4ZZ Repair Abdominal Wall, Percutaneous Endoscopic Approach (ICD-10-PCS; principal; 2018-07-29 07:30)
PROC: 0DBM4ZZ Excision of Descending Colon, Percutaneous Endoscopic Approach (ICD-10-PCS; 2018-07-29 07:30)
DX: C18.9 Malignant neoplasm of colon, unspecified (principal); N83.201 Unspecified ovarian cyst, right side; K42.9 Umbilical hernia without obstruction or gangrene; Z87.891 Personal history of nicotine dependence; G89.29 Other chronic pain; M54.9 Dorsalgia, unspecified; Z96.642 Presence of left artificial hip joint; L98.9 Disorder of the skin and subcutaneous tissue, unspecified
CPT/HCPCS: 36415; 80053; 85025; 86850; 86900; 86901; 93005; A9270; J0131; J0690; J1170; J1650; J7120

== ENCOUNTER 2020-07-03 22:46 | Outpatient (CLI) | payer MEDICARE, BC ==
--- OUTSIDE RECORDS SUMMARY | 2020-07-12 20:53 | EXTERNAL MEDICAL SUMMARY RPT | Continuity of Care Document ---
:1945 Demographics Phone Unavailable Preferred Language Unknown Marital Status Unknown Holiness Affiliation Unknown Race Unknown Ethnic Group Unknown Author Organization [facility] Address [address] [place] [address] Phone Social History date description facility [phone]
== END 2020-07-03 22:47 | disposition critical access hospital (66) ==
LOC: EMS 22:46
PROVIDERS: ATTEND Emergency Medicine
DX: S09.90XA Unspecified injury of head, initial encounter (principal); W18.30XA Fall on same level, unspecified, initial encounter; Y92.009 Unspecified place in unspecified non-institutional (private) residence as the place of occurrence of the external cause
CPT/HCPCS: A0425; A0429

== ENCOUNTER 2020-07-03 23:22 | Emergency (ER) | payer MEDICARE, BC ==
--- NOTE | 2020-07-03 23:49 | ED Physician Documentation ---
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 No: LOC Contributing factors: No: Anticoagulated, Intoxicated - Additional information Additional information: patient is brought in by ambulance. Shortly prior to arrival, patient had mechanical fall due to loss of balance. patient has Parkinsons disease. Per EMS, patient has mild altered mental status manifest as slow to answer some questions. On my HPI, only c/o is mild generalized RHODES. Review of Systems Eyes: reports: Reviewed and negative PD PAST MEDICAL HISTORY - Past Medical History Cardiovascular: None Respiratory: None Neuro: None, Parkinson's, Other Endocrine/Autoimmune: None GI: Ulcers : None HEENT: Chronic vision loss Psych: None Musculoskeletal: Osteoarthritis, Chronic back pain Derm: None - Past Surgical History Past Surgical History: Yes General: Colonoscopy Ortho: Hip replacement, Rotator cuff repair - Present Medications Home Medications: Ambulatory Orders Medication Instructions Recorded Confirmed Carbidopa/Levodopa 25/100 [Sinemet 2 tab PO QDBREAKFAST 06/23/14 03/01/20 25 mg/100 mg] Citalopram [CeleXA] 10 mg PO QPM 06/23/14 03/01/20 Carbidopa/Levodopa 25/100 [Sinemet 5 tab PO 1330,1730,2100 07/29/18 03/01/20 25 mg/100 mg] Rivastigmine [Exelon 13.3MG] 1 tab PO DAILY 03/01/20 03/01/20 - Allergies Allergies/Adverse Reactions: Allergies Allergy/AdvReac Type Severity Reaction Status Date / Time No Known Drug Allergies Allergy Verified 07/03/20 23:32 - Social History Does the pt smoke?: No Smoking Status: Former smoker Does the pt drink ETOH?: No Does the pt have substance abuse?: Yes - Immunizations Immunizations are current?: Yes - POLST Patient has POLST: No PD ED PE NORMAL - Vitals Vital signs reviewed: Yes - General General: No acute distress, Well developed/nourished, Other (AAOx2) - HEENT HEENT: PERRL, EOMI PD ED PE EXPANDED - HEENT HEENT Visual: 1 - laceration (superficial 1 cm linear laceration with mild swelling and mild tenderness) Results - Vitals Vitals: Vital Signs - 24 hr 07/04/20 02:00 Temperature 36.4 C L Heart Rate 79 Respiratory 12 Rate Blood Pressure 147/71 H O2 Saturation 96 Oxygen O2 Source [With Activity] Room air O2 Source [Without Activity] Room air O2 Source Room air - Rads (name of study) CTH Radiology: Prelim report reviewed, See rad report CT cervical spine Radiology: Prelim report reviewed, See rad report PD MEDICAL DECISION MAKING - ED course Complexity details: reviewed results, re-evaluated patient, considered differential, d/w patient Departure - Departure Disposition: 01 Home, Self Care Clinical Impression: Fall Qualifiers: Encounter type: initial encounter Qualified Code(s): W19.XXXA - Unspecified fall, initial encounter Facial contusion Qualifiers: Encounter type: initial encounter Qualified Code(s): S00.83XA - Contusion of other part of head, initial encounter Condition: Good Instructions: ED Fall Uncertain Cause, ED Head Injury Closed, ED Laceration Small Superf No Sutr Discharge Date/Time: 07/04/20 03:01
[2020-07-04 02:06] VITALS: BP 147/71
--- NOTE | 2020-07-04 07:53 | CT Report ---
PROCEDURE: HEAD WO INDICATIONS: fall, head injury, AMS TECHNIQUE: Noncontrast 4.5 mm thick angled axial sections acquired from the foramen magnum to the vertex. For r adiation dose reduction, the following was used: automated exposure control, adjustment of mA and/or kV according to patient size. COMPARISON: None. FINDINGS: Image quality: Excellent. Left temporal scalp hematoma. The ventricular system and cortical sulci demonstrate atrophy, consiste nt for patient's stated age. There are areas of hypodensity in the periventricular and subcortical w josue matter. There is no acute intra or extra-axial fluid collection. No acute hemorrhage, mass les ion or midline shift. Brainstem is unremarkable. Left frontal scalp hematoma. Globes are symmetrica l. Sinuses are aerated. Osseous structures are intact. IMPRESSION: 1. No acute intracranial process. 2. Moderate atrophy and chronic microvascular ischemic changes. 3. Left frontal scalp hematoma. The above findings are concordant with preliminary report. Reviewed by: Ana Farmer MD on 07/04/2020 7:52 AM PDT Approved by: Ana Farmer MD on 07/04/2020 7:52 AM PDT Station ID: [id number]
--- NOTE | 2020-07-04 07:56 | CT Report ---
PROCEDURE: CERVICAL SPINE WO INDICATIONS: fall, AMS, head injury TECHNIQUE: Noncontrast 3 mm thick sections acquired from the skull base to the T4 level. Sagittal and coronal r eformats were then constructed. For radiation dose reduction, the following was used: automated exp osure control, adjustment of mA and/or kV according to patient size. COMPARISON: None. FINDINGS: Image quality: Excellent. Bones: No fractures or dislocations. Visualized superior ribs are intact. There is grade 1 anterol isthesis, 5 mm of C4 on C5. Moderate to severe disc space narrowing is noted at C5-6, C6-7. Soft tissues: Prevertebral soft tissues are normal in thickness. No paravertebral hematomas. No ap ical pneumothoraces. 4 mm medial right upper lobe nodule is present, unchanged compared to 08/26/2019 IMPRESSION: Multilevel degenerative changes without visualized fracture. 4 mm right upper lobe nodule unchanged since 08/26/2019. The above findings are concordant with preliminary report. Reviewed by: Ana Farmer MD on 07/04/2020 7:55 AM PDT Approved by: Ana Farmer MD on 07/04/2020 7:55 AM PDT Station ID: [id number]
== END 2020-07-04 03:01 | disposition home or self-care (01) ==
LOC: EDUNIT# → ED 23:22
DX: S01.81XA Laceration without foreign body of other part of head, initial encounter (principal); S00.83XA Contusion of other part of head, initial encounter; W01.0XXA Fall on same level from slipping, tripping and stumbling without subsequent striking against object, initial encounter; Y93.01 Activity, walking, marching and hiking; Y92.009 Unspecified place in unspecified non-institutional (private) residence as the place of occurrence of the external cause; G20 Parkinson's disease; M47.812 Spondylosis without myelopathy or radiculopathy, cervical region; Z87.891 Personal history of nicotine dependence
CPT/HCPCS: 99282; 99284

== ENCOUNTER 2020-08-18 17:21 | Emergency (ER) | payer MEDICARE, BC ==
--- NOTE | 2020-08-18 18:52 | ED Physician Documentation ---
PD HPI HEAD INJURY - Stated complaint Stated Complaint: GLF/HEAD LAC - Chief complaint Chief Complaint: Trauma Hd/Nk - History obtained from History obtained from: Patient - Additional information Additional information: 75-year-old woman with Parkinson's had a ground-level mechanical fall at home hitting the back of her head. She was seen at an urgent care and the laceration on the back of her head was closed with go. She was referred here for imaging. She denies headache. No loss of consciousness. Tetanus status is unknown., But review of the chart shows that she had her tetanus shot June 2014. Review of Systems Ten Systems: 10 systems reviewed and negative Constitutional: reports: Reviewed and negative Eyes: reports: Reviewed and negative Ears: reports: Reviewed and negative Nose: reports: Reviewed and negative PD PAST MEDICAL HISTORY - Past Medical History Cardiovascular: None Respiratory: None Neuro: None, Parkinson's, Other Endocrine/Autoimmune: None GI: Ulcers : None HEENT: Chronic vision loss Psych: None Musculoskeletal: Osteoarthritis, Chronic back pain Derm: None - Past Surgical History Past Surgical History: Yes General: Colonoscopy Ortho: Hip replacement, Rotator cuff repair - Present Medications Home Medications: Ambulatory Orders Medication Instructions Recorded Confirmed Carbidopa/Levodopa 25/100 [Sinemet 2 tab PO QDBREAKFAST 06/23/14 08/09/20 25 mg/100 mg] Citalopram [CeleXA] 10 mg PO QPM 06/23/14 08/09/20 Carbidopa/Levodopa 25/100 [Sinemet 5 tab PO 1330,1730,2100 07/29/18 08/09/20 25 mg/100 mg] Rivastigmine [Exelon 13.3MG] 1 tab PO DAILY 03/01/20 08/09/20 - Allergies Allergies/Adverse Reactions: Allergies Allergy/AdvReac Type Severity Reaction Status Date / Time No Known Drug Allergies Allergy Verified 08/18/20 17:38 - Social History Does the pt smoke?: No Smoking Status: Former smoker Does the pt drink ETOH?: No Does the pt have substance abuse?: Yes - Immunizations Immunizations are current?: Yes - POLST Patient has POLST: No PD ED PE NORMAL - Vitals Vital signs reviewed: Yes - General General: Alert and oriented X 3, No acute distress - HEENT HEENT: PERRL, EOMI, Other (Stapled laceration on the right occiput) - Neck Neck: No bony TTP - Neuro Neuro: Alert and oriented X 3, Normal speech Results - Vitals Vitals: Vital Signs - 24 hr 08/18/20 08/18/20 17:31 19:38 Temperature 36.5 C Heart Rate 74 75 Respiratory 14 16 Rate Blood Pressure 155/69 H 154/66 H O2 Saturation 99 96 Oxygen O2 Source [With Activity] Room air O2 Source [Without Activity] Room air O2 Source Room air - Rads (name of study) CT Head/Cspine Radiology: EMP read contemporaneously (Degenerative changes, 4 mm right upper lobe nodule, right parietal scalp laceration) PD MEDICAL DECISION MAKING - ED course ED course: 75-year-old woman presents after being referred from urgent care after a scalp laceration. Already had the laceration closed there and CT imaging was obtained and negative. Departure - Departure Disposition: 01 Home, Self Care Clinical Impression: Concussion, Parkinson disease, Injury of head and neck Condition: Good Record reviewed to determine appropriate education?: Yes Instructions: ED Head Injury Closed Comments: On the CT we did note a 4 mm right upper lobe pulmonary nodule. You should have a repeat CT in 12 months to assess stability. Otherwise follow-up wound care instructions and other instructions as given by the urgent care today regarding wound care and staple removal.
--- NOTE | 2020-08-18 20:41 | CT Report ---
PROCEDURE: HEAD WO INDICATIONS: head injury TECHNIQUE: Noncontrast 4.5 mm thick angled axial sections acquired from the foramen magnum to the vertex. For r adiation dose reduction, the following was used: automated exposure control, adjustment of mA and/or kV according to patient size. COMPARISON: Head CT without contrast, 07/04/2020. FINDINGS: Image quality: Excellent. CSF spaces: Basal cisterns are patent. No extra-axial fluid collections. Ventricles are prominent but symmetric in size and shape. Brain: No midline shift. No intracranial masses or hemorrhage. There is mild cerebral volume loss. Mild periventricular white matter chronic small vessel ischemic changes are present. Skull and face: Calvarium and visualized facial bones are intact, without suspicious lesions. There is right parietal scalp laceration and contusion. Skin go are noted in the right parietal area. Sinuses: Visualized sinuses and mastoids are clear. IMPRESSION: 1. No acute intracranial abnormalities. No intracranial bleed or skull fracture. 2. Right parietal scalp laceration and contusion. Reviewed by: Sweetie Treadwell MD on 08/18/2020 8:40 PM PDT Approved by: Sweetie Treadwell MD on 08/18/2020 8:40 PM PDT Station ID: [id number]
--- NOTE | 2020-08-18 20:48 | CT Report ---
PROCEDURE: CERVICAL SPINE WO INDICATIONS: head injury TECHNIQUE: Noncontrast 3 mm thick sections acquired from the skull base to the T4 level. Sagittal and coronal r eformats were then constructed. For radiation dose reduction, the following was used: automated exp osure control, adjustment of mA and/or kV according to patient size. COMPARISON: CT cervical spine without, 07/04/2020. FINDINGS: Image quality: Excellent. Bones: No fractures or dislocations. There is grade 1 anterolisthesis of C4 on C5. Degenerative dis c disease is present, moderate at C5-C6 and C6-C7, mild at other levels. There is lateral facet arthr opathy, severe at C3-C4 on the left, and C4-C5 bilaterally. Moderate atlantoaxial joint degeneration. Visualized superior ribs are intact. Soft tissues: Prevertebral soft tissues are normal in thickness. No paravertebral hematomas. No ap ical pneumothoraces. Again noted is a 4 mm nodule in the right upper lobe (series 6 image 71/75). IMPRESSION: 1. No cervical spine fractures. 2. Degenerative disc and facet disease in cervical spine. 3. A 4 mm right upper lobe nodule is again noted. A nonemergent follow-up chest CT is suggested in 12 months. Reviewed by: Sweetie Treadwell MD on 08/18/2020 8:47 PM PDT Approved by: Sweetie Treadwell MD on 08/18/2020 8:47 PM PDT Station ID: [id number]
[2020-08-18 20:59] VITALS: BP 148/62
== END 2020-08-18 21:05 | disposition home or self-care (01) ==
LOC: ED 17:21
DX: S06.0X0A Concussion without loss of consciousness, initial encounter (principal); S01.01XA Laceration without foreign body of scalp, initial encounter; W18.30XA Fall on same level, unspecified, initial encounter; Y92.000 Kitchen of unspecified non-institutional (private) residence as the place of occurrence of the external cause; G20 Parkinson's disease; M50.322 Other cervical disc degeneration at C5-C6 level; R91.1 Solitary pulmonary nodule; Z87.891 Personal history of nicotine dependence
CPT/HCPCS: 99283; 99284

== ENCOUNTER 2020-12-26 19:36 | Outpatient (CLI) | payer MEDICARE, BC | END 2020-12-26 19:37 | disposition short-term general hospital (02) | LOC: EMS 19:36 | DX: Z04.3 Encounter for examination and observation following other accident (principal); M54.2 Cervicalgia; M25.551 Pain in right hip; M25.561 Pain in right knee; M79.641 Pain in right hand; S60.211A Contusion of right wrist, initial encounter; W18.39XA Other fall on same level, initial encounter; Y93.01 Activity, walking, marching and hiking; Y92.198 Other place in other specified residential institution as the place of occurrence of the external cause | CPT/HCPCS: A0425; A0429 ==

== ENCOUNTER 2020-12-28 04:24 | Outpatient (CLI) | payer MEDICARE, BC | END 2020-12-28 04:25 | disposition critical access hospital (66) | LOC: EMS 04:24 | DX: S09.92XA Unspecified injury of nose, initial encounter (principal); W06.XXXA Fall from bed, initial encounter; Y92.193 Bedroom in other specified residential institution as the place of occurrence of the external cause | CPT/HCPCS: A0425; A0429 ==

== ENCOUNTER 2020-12-28 04:51 | Emergency (ER) | payer MEDICARE, BC ==
--- NOTE | 2020-12-28 04:51 | ED Physician Documentation ---
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 Patient fell yesterday and was T+R from [place] ED, RUE splint placed for likely wrist frature. Tonight, patient fell out of bed, struck face on the floor. She presents c/o nasal pain and swelling, as well as right shoulder pain Review of Systems Eyes: denies: Loss of vision, Decreased vision Nose: reports: Epistaxis. denies: Sinus pressure / pain Throat: denies: Dental pain / toothache Cardiac: reports: Reviewed and negative Respiratory: reports: Reviewed and negative GI: reports: Reviewed and negative Musculoskeletal: reports: Joint pain (right shoulder) Neurologic: denies: Generalized weakness, Focal weakness, Numbness, Headache PD PAST MEDICAL HISTORY - Past Medical History Past Medical History: Yes Cardiovascular: Hypertension, High cholesterol Neuro: Parkinson's - Present Medications Home Medications: Ambulatory Orders Medication Instructions Recorded Confirmed Carbidopa/Levodopa 25/100 [Sinemet 2 tab PO QDBREAKFAST 06/23/14 12/28/20 25 mg/100 mg] Citalopram [CeleXA] 10 mg PO QPM 06/23/14 12/28/20 Carbidopa/Levodopa 25/100 [Sinemet 5 tab PO 1330,1730,2100 07/29/18 12/28/20 25 mg/100 mg] Rivastigmine [Exelon 13.3MG] 1 tab PO DAILY 03/01/20 12/28/20 Aspirin [[place] Aspirin] 81 mg PO DAILY 12/28/20 12/28/20 Atorvastatin [Lipitor] 20 mg PO DAILY 12/28/20 12/28/20 Metoprolol Succinate [Toprol Xl] 25 mg PO DAILY 12/28/20 12/28/20 Quetiapine Fumarate [Seroquel] 25 mg PO DAILY 12/28/20 12/28/20 - Allergies Allergies/Adverse Reactions: Allergies Allergy/AdvReac Type Severity Reaction Status Date / Time No Known Drug Allergies Allergy Verified 12/28/20 04:56 PD ED PE NORMAL - Vitals Vital signs reviewed: Yes - General General: Alert and oriented X 3, No acute distress, Well developed/nourished - HEENT HEENT: PERRL, EOMI, Moist mucous membranes, Pharynx benign, Dentition benign, Other (nasal swelling, tenderness, dried blood in both nares (L>R), abrasion to nasal bridge, echymosis and swelling left supraorbit) - Neck Neck: Supple, no meningeal sign, No bony TTP - Cardiac Cardiac: RRR, No murmur - Respiratory Respiratory: No respiratory distress, Clear bilaterally - Abdomen Abdomen: Soft, Non tender - Extremities Extremities: Other (RUE in splint; right fingers are all swollen, echymotic, but LTS intact and able to move all five right fingers) - Neuro Neuro: Alert and oriented X 3, thumb sewer 2-12 intact, No motor deficit, No sensory deficit, Normal speech Eye Opening: Spontaneous Motor: Obeys Commands Verbal: Oriented GCS Score: 15 Results - Vitals Vitals: Vital Signs - 24 hr 12/28/20 12/28/20 12/28/20 04:56 04:59 05:52 Temperature 36.3 C L 36.3 C L Heart Rate 72 72 72 Respiratory 15 15 16 Rate Blood Pressure 141/62 H 141/62 H 138/65 H O2 Saturation 98 98 99 12/28/20 12/28/20 06:46 07:00 Temperature 36.5 C 36.5 C Heart Rate 79 79 Respiratory 15 15 Rate Blood Pressure 143/67 H 143/67 H O2 Saturation 99 99 Oxygen O2 Source [With Activity] Room air O2 Source [Without Activity] Room air O2 Source Room air - Rads (name of study) right shoulder xrays Radiology: Prelim report reviewed, See rad report maxillofacial CT Radiology: Prelim report reviewed, See rad report PD MEDICAL DECISION MAKING - ED course Complexity details: reviewed results, re-evaluated patient, considered differential, d/w patient ED course: no acute findings on right shoulder xrays. Maxilofacial CT only shows minor nasal fracture, minimal/no displacement. On reevaluation,, results d/w patient. She is still awake, alert, interacts appropriately. She is comfortable with d/c home, will return if worse. Departure - Departure Disposition: 01 Home, Self Care Clinical Impression: Nasal fracture Condition: Good Instructions: ED Fx Nasal Conf W X Ray Follow-Up: Catarino Morgan MD [Primary Care Provider] - Comments: The nasal fracture seen on the CT scan appears minor and without significant displacement; as the swelling goes down over the next several days, your nose should return to its previous appearance. Discharge Date/Time: 12/28/20 08:00
[2020-12-28 06:48] VITALS: BP 143/67
--- NOTE | 2020-12-28 08:16 | XRAY Report ---
PROCEDURE: Shoulder 2 View RT INDICATIONS: fall, shoulder pain and tenderness TECHNIQUE: 2 views of the shoulder were acquired. COMPARISON: Shoulder x-ray 10/15/2017 FINDINGS: Bones: No fractures or dislocations. No suspicious bony lesions. Visualized ribs appear intact. P rominent glenohumeral and acromioclavicular degenerative narrowing. Soft tissues: No suspicious soft tissue calcifications. IMPRESSION: No visualized acute fracture or dislocation. However, occult injury cannot be excluded. Recommend short interval imaging follow-up in 7-10 days as clinically indicated for additional evalua tion. The above findings are concordant with preliminary report. Reviewed by: Ana Farmer MD on 12/28/2020 8:14 AM PDT Approved by: Ana Farmer MD on 12/28/2020 8:14 AM PDT Station ID: [id number]
--- NOTE | 2020-12-28 08:19 | CT Report ---
PROCEDURE: MAXILLOFACIAL WO INDICATIONS: fall, facial (nasal) injury and deformity TECHNIQUE: Noncontrast 1.5 mm thick axial images acquired from the mandible through the frontal sinuses, with co álvaro and sagittal reformatting. For radiation dose reduction, the following was used: automated ex posure control, adjustment of mA and/or kV according to patient size. COMPARISON: None. FINDINGS: Image quality: Excellent. Bones and teeth: Orbital danielle are intact. Sinus danielle show no fracture or deformity. Nasal bones demonstrate a distal left nondisplaced fracture. Visualized portions of the mandible demonstrate no f ractures or subluxation. Zygomatic arches are intact. Pterygoid plates are intact. Visualized port ions of the skull base and auditory canals are intact. Sinuses: Mild frothy fluid is present in the left frontal sinus. Scattered areas of mucosal thickenin g are present within the ethmoid air cells. Minimal bilateral maxillary sinus fluid is present. Soft tissues: Soft tissue edema is present within the nasal soft tissues. Vascular: Visualized vascu lar structures appear normal in the absence of contrast. Bony vascular foramina and canals are intac t. IMPRESSION: 1. Nondisplaced distal nasal bone fracture with overlying soft tissue edema. The above findings are concordant with preliminary report. Reviewed by: Ana Farmer MD on 12/28/2020 8:18 AM PDT Approved by: Ana Farmer MD on 12/28/2020 8:18 AM PDT Station ID: [id number]
== END 2020-12-28 08:00 | disposition home or self-care (01) ==
LOC: EDUNIT# → SUPCPDRO 04:51 → ED 04:51
DX: S02.2XXA Fracture of nasal bones, initial encounter for closed fracture (principal); W06.XXXA Fall from bed, initial encounter; Y92.009 Unspecified place in unspecified non-institutional (private) residence as the place of occurrence of the external cause
CPT/HCPCS: 99283; 99284

== ENCOUNTER 2021-01-08 10:29 | Outpatient (CLI) | payer MEDICARE, BC | END 2021-01-08 10:30 | disposition critical access hospital (66) | LOC: EMS 10:29 | DX: I95.9 Hypotension, unspecified (principal); R41.0 Disorientation, unspecified | CPT/HCPCS: A0425; A0427 ==

== ENCOUNTER 2021-01-08 10:56 | Emergency (ER) | payer MEDICARE, BC ==
[2021-01-08] MEDS ORDERED: SODIUM CHLORIDE 0.9% 1,000 ML IV STA (11:14)
[2021-01-08 11:50] LABS: BASOPHILS # (AUTO) 0.1 10^3/uL (0.0-0.1); BASOPHILS % (AUTO) 0.9 %; EOSINOPHILS # (AUTO) 0.1 10^3/uL (0.0-0.7); EOSINOPHILS % (AUTO) 1.1 %; HCT - HEMATOCRIT 32.9 % (37.0-47.0); HGB - HEMOGLOBIN 10.3 g/dL (12.0-16.0); LYMPHOCYTES # (AUTO) 0.8 10^3/uL (1.5-3.5); LYMPHOCYTES % (AUTO) 11.1 %; MEAN CORPUSCULAR HEMOGLOBIN 30.8 pg (27.0-31.0); MEAN CORPUSCULAR HGB CONC 31.3 g/dL (32.0-36.0); MEAN CORPUSCULAR VOLUME 98.5 fL (81.0-99.0); MEAN PLATELET VOLUME 8.9 fL (7.9-10.8); MONOCYTES # (AUTO) 0.5 10^3/uL (0.0-1.0); MONOCYTES % (AUTO) 7.1 %; NEUTROPHILS # (AUTO) 5.9 10^3/uL (1.5-6.6); NEUTROPHILS % (AUTO) 79.7 %; PLT - PLATELET COUNT 177 10^3/uL (130-450); RED BLOOD COUNT 3.34 10^6/uL (4.20-5.40); WHITE BLOOD COUNT 7.4 x10^3/uL (4.8-10.8)
[2021-01-08 12:09] LABS: ALBUMIN 3.2 g/dL (3.2-5.5); ALBUMIN/GLOBULIN RATIO 1.8 (1.0-2.2); ALKALINE PHOSPHATASE 76 IU/L (42-121); ALT ALANINE AMINOTRANSFERASE < 10 IU/L (10-60); AST ASPARTATE AMINOTRANSFERASE 14 IU/L (10-42); BILIRUBIN,TOTAL 1.1 mg/dL (0.2-1.0); BUN - BLOOD UREA NITROGEN 13 mg/dL (6-20); CALCIUM 7.7 mg/dL (8.5-10.3); CARBON DIOXIDE - CO2 21 mmol/L (21-32); CHLORIDE 112 mmol/L (101-111); CREATININE 0.6 mg/dL (0.4-1.0); GFR - MDRD 97 (>89); GLUCOSE 105 mg/dL (70-100); LIPASE 29 U/L (22-51); POTASSIUM 3.8 mmol/L (3.5-5.0); SODIUM 140 mmol/L (135-145)
--- NOTE | 2021-01-08 12:29 | XRAY Report ---
PROCEDURE: Hand 3 View RT INDICATIONS: fall/swelling/injury TECHNIQUE: 3 views of the hand(s) acquired. COMPARISON: None FINDINGS: Bones: No fractures or dislocations. No suspicious bony lesions. Diffuse IP degenerative narrowing . Soft tissues: No suspicious soft tissue calcifications. IMPRESSION: No visualized acute fracture or dislocation. However, occult injury cannot be excluded. Recommend edward rt interval imaging follow-up in 7-10 days as clinically indicated for additional evaluation. Reviewed by: Ana Farmer MD on 01/08/2021 12:28 PM PDT Approved by: Ana Farmer MD on 01/08/2021 12:28 PM PDT Station ID: [id number]
--- NOTE | 2021-01-08 12:40 | ED Physician Documentation ---
History of Present Illness - Stated complaint Stated Complaint: AMS - Chief complaint Chief Complaint: Neuro - History obtained from History obtained from: Patient, EMS - Additonal information Additional information: Pt brought to the ED by EMS for ALOC. She has had a couple falls in the past month. Per EMS, staff felt pt was not acting like her usual self, in that she was not as alert as usual. No focal deficits. Pt denies pain or SOB. No nausea. No dysuria. Review of Systems Ten Systems: 10 systems reviewed and negative Constitutional: reports: Reviewed and negative Eyes: reports: Reviewed and negative Ears: reports: Reviewed and negative Nose: reports: Reviewed and negative Throat: reports: Reviewed and negative Cardiac: reports: Reviewed and negative Respiratory: reports: Reviewed and negative GI: reports: Reviewed and negative : reports: Reviewed and negative Skin: reports: Reviewed and negative Musculoskeletal: reports: Reviewed and negative Neurologic: reports: Reviewed and negative Psychiatric: reports: Reviewed and negative Endocrine: reports: Reviewed and negative Immunocompromised: reports: Reviewed and negative PD PAST MEDICAL HISTORY - Past Medical History Cardiovascular: Hypertension, High cholesterol Respiratory: None Neuro: Parkinson's Endocrine/Autoimmune: None GI: Ulcers 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: None : None HEENT: Chronic vision loss Psych: None Musculoskeletal: Osteoarthritis, Chronic back pain Derm: None - Past Surgical History Past Surgical History: Yes General: Colonoscopy Ortho: Hip replacement, Rotator cuff repair - Present Medications Home Medications: Ambulatory Orders Medication Instructions Recorded Confirmed Carbidopa/Levodopa 25/100 [Sinemet 2 tab PO QDBREAKFAST 06/23/14 01/08/21 25 mg/100 mg] Citalopram [CeleXA] 10 mg PO QPM 06/23/14 01/08/21 Carbidopa/Levodopa 25/100 [Sinemet 5 tab PO 1330,1730,2100 07/29/18 01/08/21 25 mg/100 mg] Rivastigmine [Exelon 13.3MG] 1 tab PO DAILY 03/01/20 01/08/21 Aspirin [[place] Aspirin] 81 mg PO DAILY 12/28/20 01/08/21 Atorvastatin [Lipitor] 20 mg PO DAILY 12/28/20 01/08/21 Metoprolol Succinate [Toprol Xl] 25 mg PO DAILY 12/28/20 01/08/21 Quetiapine Fumarate [Seroquel] 25 mg PO DAILY 12/28/20 01/08/21 - Allergies Allergies/Adverse Reactions: Allergies Allergy/AdvReac Type Severity Reaction Status Date / Time No Known Drug Allergies Allergy Verified 01/08/21 11:08 - Social History Does the pt smoke?: No Smoking Status: Never smoker Does the pt drink ETOH?: No Does the pt have substance abuse?: Yes - Immunizations Immunizations are current?: Yes - POLST Patient has POLST: No PD ED PE NORMAL - Vitals Vital signs reviewed: Yes - General General: No acute distress, Well developed/nourished, Other (Pt is alert, answers most questions appropriately. ) - HEENT HEENT: Atraumatic, PERRL, EOMI, Moist mucous membranes - Neck Neck: Supple, no meningeal sign - Cardiac Cardiac: RRR, No murmur - Respiratory Respiratory: No respiratory distress, Clear bilaterally - Abdomen Abdomen: Soft, Non tender, Non distended - Back Back: No CVA TTP - Derm Derm: Normal color, Warm and dry, No rash - Extremities Extremities: No deformity, Other (Focal swelling and bruising on dorsal R hand. No deformity.) - Neuro Neuro: price clerk 2-12 intact, No motor deficit, No sensory deficit, Normal speech, Other (Alert, oriented to self and place. No focal deficits otherwise.) - Psych Psych: Normal mood, Normal affect Results - Vitals Vitals: Oxygen O2 Source [With Activity] Room air O2 Source [Without Activity] Room air O2 Source Room air - Labs Labs: Laboratory Tests 01/08/21 01/08/21 11:44 11:44 WBC 7.4 RBC 3.34 L Hgb 10.3 L Hct 32.9 L MCV 98.5 MCH 30.8 MCHC 31.3 L RDW 14.0 Plt Count 177 MPV 8.9 Neut # (Auto) 5.9 Lymph # (Auto) 0.8 L [place] # (Auto) 0.5 Eos # (Auto) 0.1 Baso # (Auto) 0.1 Absolute Nucleated RBC 0.00 Nucleated RBC % 0.0 Sodium 140 Potassium 3.8 Chloride 112 H Carbon Dioxide 21 Anion Gap 7.0 BUN 13 Creatinine 0.6 Estimated GFR (MDRD) 97 Glucose 105 H Calcium 7.7 L Total Bilirubin 1.1 H AST 14 ALT < 10 L Alkaline Phosphatase 76 Total Protein 5.0 L Albumin 3.2 Globulin 1.8 L Albumin/Globulin Ratio 1.8 Lipase 29 - Rads (name of study) R hand XR Radiology: Final report received, EMP read indepedently, See rad report (neg) PD MEDICAL DECISION MAKING - ED course Complexity details: reviewed results, re-evaluated patient, considered differential, d/w patient ED course: Pt was actually fairly well-appearing, and her work-up was negative. She did not have any focal neurologic deficits, and I did not feel her sx were consistent with a stroke. Pt has been hydrated in the ED. She is stable for d/c home. We have discussed the usual indications for return. Departure - Departure Disposition: 01 Home, Self Care Clinical Impression: Fall Qualifiers: Encounter type: initial encounter Qualified Code(s): W19.XXXA - Unspecified fall, initial encounter Contusion Qualifiers: Encounter type: initial encounter Contusion area: hand Laterality: right Nathaniel lified Code(s): S60.221A - Contusion of right hand, initial encounter Condition: Stable Instructions: Falls Risks Prevent, ED Contusion Hand Discharge Date/Time: 01/08/21 14:26
[2021-01-08 14:26] VITALS: BP 135/68
== END 2021-01-08 14:26 | disposition home or self-care (01) ==
LOC: EDUNIT# → ED 10:56
DX: S60.221A Contusion of right hand, initial encounter (principal); W18.30XA Fall on same level, unspecified, initial encounter; Y92.129 Unspecified place in nursing home as the place of occurrence of the external cause; R41.82 Altered mental status, unspecified; G20 Parkinson's disease; I10 Essential (primary) hypertension; Z79.82 Long term (current) use of aspirin
CPT/HCPCS: 36415; 80053; 83690; 85025; 99283; 99284

== ENCOUNTER 2021-01-08 22:49 | Outpatient (CLI) | payer MEDICARE, BC | END 2021-01-08 22:50 | disposition EMS.NT | LOC: EMS 22:49 | DX: S40.012A Contusion of left shoulder, initial encounter (principal); S00.03XA Contusion of scalp, initial encounter; W07.XXXA Fall from chair, initial encounter; Y92.199 Unspecified place in other specified residential institution as the place of occurrence of the external cause ==

== ENCOUNTER 2021-01-13 12:24 | Outpatient (CLI) | payer MEDICARE, BC | END 2021-01-13 12:25 | disposition critical access hospital (66) | LOC: EMS 12:24 | DX: Z04.3 Encounter for examination and observation following other accident (principal); M25.511 Pain in right shoulder; M25.551 Pain in right hip | CPT/HCPCS: A0425; A0429 ==

== ENCOUNTER 2021-01-13 12:52 | Emergency (ER) | payer MEDICARE, BC ==
--- NOTE | 2021-01-13 13:04 | ED Physician Documentation ---
History of Present Illness - Stated complaint Stated Complaint: GLF - Chief complaint Chief Complaint: Trauma Ext - Additonal information Additional information: 75-year-old female who is a resident of [facility] and carries a history of Pa wilmerinson's presents to the emergency department after a ground-level fall. She has a history of increasing fall frequency and has been referred for physical therapy. She typically uses a walker for ambulation. This morning she was found in the hallway of the facility on the ground without her walker. There was no loss of consciousness. She denied injury at that time and was able to get up and pivot to a wheelchair. However as the morning progressed she began to complain of her right shoulder and right hip pain thus she presents to the emergency department. There was no loss of consciousness. She is not anticoagulated and she has full recall of the events. Review of Systems Constitutional: reports: Reviewed and negative Ears: reports: Reviewed and negative Nose: reports: Reviewed and negative Throat: reports: Reviewed and negative Cardiac: reports: Reviewed and negative Respiratory: reports: Reviewed and negative GI: reports: Reviewed and negative : reports: Reviewed and negative Skin: denies: Rash, Lesions Musculoskeletal: reports: Neck pain, Joint pain Neurologic: reports: Reviewed and negative PD PAST MEDICAL HISTORY - Past Medical History Cardiovascular: Hypertension, High cholesterol Respiratory: None Neuro: Parkinson's Endocrine/Autoimmune: None GI: Ulcers 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 : None HEENT: Chronic vision loss Psych: None Musculoskeletal: Osteoarthritis, Chronic back pain Derm: None - Past Surgical History Past Surgical History: Yes General: Colonoscopy Ortho: Hip replacement, Rotator cuff repair - Present Medications Home Medications: Ambulatory Orders Medication Instructions Recorded Confirmed Carbidopa/Levodopa 25/100 [Sinemet 2 tab PO QDBREAKFAST 06/23/14 01/08/21 25 mg/100 mg] Citalopram [CeleXA] 10 mg PO QPM 06/23/14 01/08/21 Carbidopa/Levodopa 25/100 [Sinemet 5 tab PO 1330,1730,2100 07/29/18 01/08/21 25 mg/100 mg] Rivastigmine [Exelon 13.3MG] 1 tab PO DAILY 03/01/20 01/08/21 Aspirin [[place] Aspirin] 81 mg PO DAILY 12/28/20 01/08/21 Atorvastatin [Lipitor] 20 mg PO DAILY 12/28/20 01/08/21 Metoprolol Succinate [Toprol Xl] 25 mg PO DAILY 12/28/20 01/08/21 Quetiapine Fumarate [Seroquel] 25 mg PO DAILY 12/28/20 01/08/21 Acetaminophen [Tylenol] 650 mg PO Q8H PRN #30 tab 01/13/21 - Allergies Allergies/Adverse Reactions: Allergies Allergy/AdvReac Type Severity Reaction Status Date / Time No Known Drug Allergies Allergy Verified 01/13/21 12:55 - Social History Does the pt smoke?: No Smoking Status: Never smoker Does the pt drink ETOH?: No Does the pt have substance abuse?: Yes - Immunizations Immunizations are current?: Yes - POLST Patient has POLST: No PD ED PE EXPANDED - General General: Alert, Well developed/nourished, Other - Neck Neck: Supple w/out meningeal sx, Soft tissue TTP, Bony TTP. No: Adenopathy - Cardiac Cardiac: Regular Rate, Radial strong equal, Pedal strong equal, Cap refill < 2 sec - Respiratory Respiratory: Clear to ausultation ifeoma. No: Distress, Labored - Abdomen Abdomen: Normal Bowel sounds, Tender to palpation ( ) - Derm Derm: Warm and dry. No: Normal color ( ), Abrasion (s) - Extremities Extremities: Right shoulder (pain with passive ROM. tenderness mid humerus. no deformity), Left finger(s) (swelling ecchymosis and tenderness left middle finger, most pain proximal phalaynx; no deformity ), Right hip (mild tenderness proximal femur. no pain elicited with passive internal or external rotation; no shortening or malrotation) - Neuro Neuro: Alert and Oriented X 3, CNII-XII intact - GCS Eye Opening: Spontaneous Motor: Obeys Commands Verbal: Oriented Total: 15 Results - Vitals Vitals: Vital Signs - 24 hr 01/13/21 01/13/21 01/13/21 12:55 13:00 14:00 Temperature 36.5 C Heart Rate 63 64 64 Respiratory 16 16 16 Rate Blood Pressure 112/59 L 118/53 L 142/63 H O2 Saturation 98 100 100 Oxygen O2 Source [] Room air O2 Source [] Room air O2 Source Room air - Labs Labs: Laboratory Tests 01/13/21 01/13/21 13:18 13:18 WBC 5.9 RBC 3.51 L Hgb 11.1 L Hct 34.1 L MCV 97.2 MCH 31.6 H MCHC 32.6 RDW 14.4 Plt Count 197 MPV 8.5 Neut # (Auto) 3.5 Lymph # (Auto) 1.5 [place] # (Auto) 0.7 Eos # (Auto) 0.2 Baso # (Auto) 0.1 Absolute Nucleated RBC 0.00 Nucleated RBC % 0.0 Sodium 142 Potassium 3.6 Chloride 104 Carbon Dioxide 28 Anion Gap 10.0 BUN 12 Creatinine 0.7 Estimated GFR (MDRD) 81 L Glucose 97 Calcium 8.8 Total Bilirubin 1.1 H AST 13 ALT < 10 L Alkaline Phosphatase 90 Total Protein 5.9 L Albumin 3.6 Globulin 2.3 Albumin/Globulin Ratio 1.6 Lipase 30 - Rads (name of study) right shoulder Radiology: Final report received (No fracture or dislocation) right hip Radiology: Final report received (Prior right hip total arthroplasty with anatomic alignment. No acute pelvic hip fracture. No evidence of hardware complication.) Cervical spine CT Radiology: Final report received (No evidence of fracture or traumatic malalignment. Multilevel degenerative disc disease and arthropathy right upper lobe scarring and small nodule is similar to prior exam.) left hand Radiology: EMP read indepedently (fx of left middle prox phalynx ) PD MEDICAL DECISION MAKING - ED course Complexity details: reviewed results, considered differential, d/w patient ED course: 75-year-old female presents the emergency department after ground-level fall at her care facility [facility]. She has a history of Parkinson's typically uses a walker for ambulation but was not using it today. She initially reported right hip and shoulder pain. History of previous ORIF to the right hip. X-rays did not demonstrate any acute fractures and after time and observation in the ED she is moving both of these extremities normally. CT cervical spine was also without acute fracture. She did have noted swelling and ecchymosis to the left middle finger and of x- ray does show a proximal phalanx fracture. Given the patient's need to use a walker, she was splinted with an aluminum finger splint but was advised that she could remove it for showering and bend itas necessary to use the walker. Patient was able to ambulate with ease here in the ER with a walker. Advised close follow-up with her PCP as well as with orthopedics. Attempted to contact pt's and next of kin multiple times; no answer Departure - Departure Disposition: 01 Home, Self Care Clinical Impression: Fall from ground level, History of Parkinson's disease, Right hip pain Right shoulder pain Qualifiers: Chronicity: acute Qualified Code(s): M25.511 - Pain in right shoulder Fracture of phalanx of left middle finger Qualifiers: Encounter type: initial encounter Fracture type: closed Phalanx: proximal Fracture alignment: nondisplaced Qualified Code(s): S62.643A - Nondisplaced fracture of proximal phalanx of left middle finger, initial encounter for closed fracture Condition: Stable Record reviewed to determine appropriate education?: Yes Instructions: ED Contusion Upper Extr Ch Follow-Up: Catarino Morgan MD [Primary Care Provider] - Yassine Acosta MD [Provider Admit Priv/Credential] - Prescriptions: Acetaminophen [Tylenol] 650 mg PO Q8H PRN #30 tab PRN Reason: Pain Comments: Delaney hicks were seen in the emergency department today after a ground-level fall at [facility]. It is important that you use a walker 100% of the time when walking. you were able to ambulate with a walker here in the ED We did an x-ray of the hip and shoulder and do not see any broken bones. We also did a CAT scan of your neck and do not see any fractures within your neck. we did do an xray of your left hand. You DO have a fracture of your proximal phalanx. This has been placed in a temporary splint. It can be removed for showering and then reapplied. Ti will nto require surgery and should simply heal with immobilization only. Please call the orthopedics department for follow up You do have some mild hip and right shoulder pain. This is most likely contusion or bruising from the fall. You can take tylenol 650 mg 3x a day for pain. This prescription has been electronically to [facility] in [place].
[2021-01-13 13:26] LABS: BASOPHILS # (AUTO) 0.1 10^3/uL (0.0-0.1); BASOPHILS % (AUTO) 1.2 %; EOSINOPHILS # (AUTO) 0.2 10^3/uL (0.0-0.7); EOSINOPHILS % (AUTO) 2.7 %; HCT - HEMATOCRIT 34.1 % (37.0-47.0); HGB - HEMOGLOBIN 11.1 g/dL (12.0-16.0); LYMPHOCYTES # (AUTO) 1.5 10^3/uL (1.5-3.5); LYMPHOCYTES % (AUTO) 25.1 %; MEAN CORPUSCULAR HEMOGLOBIN 31.6 pg (27.0-31.0); MEAN CORPUSCULAR HGB CONC 32.6 g/dL (32.0-36.0); MEAN CORPUSCULAR VOLUME 97.2 fL (81.0-99.0); MEAN PLATELET VOLUME 8.5 fL (7.9-10.8); MONOCYTES # (AUTO) 0.7 10^3/uL (0.0-1.0); MONOCYTES % (AUTO) 11.6 %; NEUTROPHILS # (AUTO) 3.5 10^3/uL (1.5-6.6); NEUTROPHILS % (AUTO) 59.2 %; PLT - PLATELET COUNT 197 10^3/uL (130-450); RED BLOOD COUNT 3.51 10^6/uL (4.20-5.40); RED CELL DISTRIBUTION WIDTH 14.4 % (12.0-15.0); WHITE BLOOD COUNT 5.9 x10^3/uL (4.8-10.8)
--- NOTE | 2021-01-13 13:35 | XRAY Report ---
PROCEDURE: Shoulder 2 View RT INDICATIONS: pain after fall TECHNIQUE: 2 views of the shoulder were acquired. COMPARISON: None. FINDINGS: Bones: No fractures or dislocations. Moderate acromioclavicular joint and glenohumeral joint osteoar thritic changes are seen. No suspicious bony lesions. Visualized ribs appear intact. Soft tissues: No suspicious soft tissue calcifications. IMPRESSION: No acute shoulder fracture or dislocation. Reviewed by: Moses Stuart MD on 01/13/2021 1:34 PM PDT Approved by: Moses Stuart MD on 01/13/2021 1:34 PM PDT Station ID: [id number]
--- NOTE | 2021-01-13 13:36 | XRAY Report ---
PROCEDURE: Hip w/Pelvis 2-3V RT INDICATIONS: right hip pain after fall TECHNIQUE: AP pelvis with lateral view(s) of the right hip(s). COMPARISON: None. FINDINGS: Bones: Patient is status post prior right total hip arthroplasty. Right hip alignment is anatomic. C hronic deformity involving greater tuberosity of right proximal femur is seen likely represent postsu rgical changes. No gross hardware loosening or failure. No acute fractures or dislocations. Pelvic r ing appears intact. No suspicious bony lesions. Soft tissues: The visualized bowel gas pattern is normal. No suspicious soft tissue calcifications. IMPRESSION: Prior right total hip arthroplasty with anatomic alignment. No acute pelvic or hip fractu re. No evidence of hardware competition. Reviewed by: Moses Stuart MD on 01/13/2021 1:35 PM PDT Approved by: Moses Stuart MD on 01/13/2021 1:35 PM PDT Station ID: [id number]
[2021-01-13 13:37] LABS: ALBUMIN 3.6 g/dL (3.2-5.5); ALBUMIN/GLOBULIN RATIO 1.6 (1.0-2.2); ALKALINE PHOSPHATASE 90 IU/L (42-121); ALT ALANINE AMINOTRANSFERASE < 10 IU/L (10-60); AST ASPARTATE AMINOTRANSFERASE 13 IU/L (10-42); BILIRUBIN,TOTAL 1.1 mg/dL (0.2-1.0); BUN - BLOOD UREA NITROGEN 12 mg/dL (6-20); CALCIUM 8.8 mg/dL (8.5-10.3); CARBON DIOXIDE - CO2 28 mmol/L (21-32); CHLORIDE 104 mmol/L (101-111); CREATININE 0.7 mg/dL (0.4-1.0); GFR - MDRD 81 (>89); GLUCOSE 97 mg/dL (70-100); LIPASE 30 U/L (22-51); POTASSIUM 3.6 mmol/L (3.5-5.0); SODIUM 142 mmol/L (135-145); TOTAL PROTEIN 5.9 g/dL (6.7-8.2)
--- NOTE | 2021-01-13 14:29 | CT Report ---
PROCEDURE: CT cervical spine without contrast INDICATIONS: GLF; neck pain TECHNIQUE: Noncontrast 3 mm thick sections acquired from the skull base to the T4 level. Sagittal and coronal r eformats were then constructed. For radiation dose reduction, the following was used: automated exp osure control, adjustment of mA and/or kV according to patient size. COMPARISON: None. FINDINGS: Image quality: Excellent. Bones: Vertebral body height is maintained. Normal prevertebral soft tissue and cranial vertebral rel ationships. Normal bone mineralization. Grade 1 anterior spinal listhesis at C4-5 remains stable from the prior. Hypertrophic facet joints are more prominent on the left resulting in left foraminal sten osis at C3-4 and C4-5. Soft tissues: Prevertebral soft tissues are normal in thickness. No paravertebral hematomas. No ap ical pneumothoraces. Biapical pulmonary scarring and small pulmonary nodule is similar prior. Atheros clerotic vascular calcification noted as well. IMPRESSION: 1. No evidence of fracture or traumatic malalignment. 2. Multilevel degenerative disc disease and arthropathy. 3. Right upper lobe scarring and small nodule is similar prior exam. Consider follow-up CT chest Reviewed by: Isaías Ansari MD on 01/13/2021 1:28 PM SHARI Approved by: Isaías Ansari MD on 01/13/2021 1:28 PM SHARI Station ID: [id number]
[2021-01-13] MEDS ORDERED: ACETAMINOPHEN 325 MG TABLET PO STA (14:42)
[2021-01-13 14:57] VITALS: BP 142/63
--- NOTE | 2021-01-13 15:36 | XRAY Report ---
PROCEDURE: Hand 3 View LT INDICATIONS: middle finger bruising after fall TECHNIQUE: 3 views of the hand(s) acquired. COMPARISON: 10/24/2016 FINDINGS: Bones: There is acute fracture involving third proximal phalangeal base with slight lateral displacem ent and overlapping of fracture site. Old healed fifth metacarpal neck fracture is seen with chronic appearing deformity. There is diffuse osteopenia. Moderate osteoarthritic changes are noted throughou t left hand and wrist joints. No suspicious bony lesions. Soft tissues: No suspicious soft tissue calcifications. IMPRESSION: Acute slightly displaced fracture involving third proximal phalangeal base. Old fifth metacarpal neck fracture. Diffuse osteopenia. Osteoarthritis throughout left hand and wrist. Reviewed by: Moses Stuart MD on 01/13/2021 3:35 PM PDT Approved by: Moses Stuart MD on 01/13/2021 3:35 PM PDT Station ID: [id number]
== END 2021-01-13 17:28 | disposition home or self-care (01) ==
LOC: EDUNIT# → ED 12:52
DX: S62.643A Nondisplaced fracture of proximal phalanx of left middle finger, initial encounter for closed fracture (principal); M25.551 Pain in right hip; M25.511 Pain in right shoulder; W18.30XA Fall on same level, unspecified, initial encounter; Y93.01 Activity, walking, marching and hiking; Y92.128 Other place in nursing home as the place of occurrence of the external cause; Z91.81 History of falling; M50.30 Other cervical disc degeneration, unspecified cervical region; G20 Parkinson's disease; I10 Essential (primary) hypertension; Z79.82 Long term (current) use of aspirin; Z96.641 Presence of right artificial hip joint
CPT/HCPCS: 36415; 72125; 73030; 73130; 73502; 80053; 83690; 85025; 99284; A9270

== ENCOUNTER 2021-02-21 18:48 | Outpatient (CLI) | payer MEDICARE, BC | END 2021-02-21 18:49 | disposition EMS.NT | LOC: EMS 18:48 | DX: Z03.89 Encounter for observation for other suspected diseases and conditions ruled out (principal) ==

== ENCOUNTER 2021-05-10 18:17 | Outpatient (CLI) | payer MEDICARE, BC | END 2021-05-10 18:18 | disposition critical access hospital (66) | LOC: EMS 18:17 | DX: M25.552 Pain in left hip (principal); S69.92XA Unspecified injury of left wrist, hand and finger(s), initial encounter; W18.39XA Other fall on same level, initial encounter; Y92.099 Unspecified place in other non-institutional residence as the place of occurrence of the external cause | CPT/HCPCS: A0425; A0429 ==

== ENCOUNTER 2021-05-10 18:43 | Emergency (ER) | payer MEDICARE, BC ==
--- NOTE | 2021-05-10 19:46 | XRAY Report ---
PROCEDURE: Hip w/Pelvis 2-3V LT INDICATIONS: fall with left hip pain TECHNIQUE: AP pelvis with lateral view(s) of the left hip(s). COMPARISON: None. FINDINGS: Bones: There is prior right total hip arthroplasty with anatomic right hip alignment. No acute left hip fractures or dislocations. Mild to moderate left hip joint osteoarthritic changes are seen. No e vidence of avascular necrosis of femoral head. Pelvic ring appears intact. No suspicious bony lesion s. Soft tissues: The visualized bowel gas pattern is normal. No suspicious soft tissue calcifications. IMPRESSION: No gross acute left hip fracture or dislocation. Mild to moderate left hip joint osteoart hritis. No evidence of avascular necrosis. Prior right total hip arthroplasty. Reviewed by: Moses Stuart MD on 05/10/2021 7:44 PM PST Approved by: Moses Stuart MD on 05/10/2021 7:44 PM PST Station ID: [id number]
--- NOTE | 2021-05-10 19:49 | XRAY Report ---
PROCEDURE: Hand 3 View BILAT INDICATIONS: fall onto hands TECHNIQUE: 6 views of the hand(s) acquired. COMPARISON: Left hand radiograph dated 01/13/2021 FINDINGS: Bones: There is diffuse osteopenia. Osteoarthritic changes are noted throughout bilateral hands and w rists joints. Deformity involving fifth metacarpal neck is seen not significantly changed from previo us study and suggestive of subacute to old fracture in this region. Healing fracture involving left t hird proximal phalangeal base is again seen with stable alignment. No gross acute fracture or disloca tion is seen. No suspicious bony lesions. Soft tissues: No suspicious soft tissue calcifications. IMPRESSION: 1. Subacute to chronic appearing deformities involving left fifth metacarpal neck and left third prox imal phalangeal base unchanged from prior study. No gross acute fracture or dislocation. 2. Diffuse osteopenia. Moderate osteoarthritic changes throughout bilateral hands and wrists joints. Reviewed by: Moses Stuart MD on 05/10/2021 7:47 PM PST Approved by: Moses Stuart MD on 05/10/2021 7:47 PM PST Station ID: [id number]
--- NOTE | 2021-05-10 20:31 | CT Report ---
PROCEDURE: HEAD WO INDICATIONS: Fall, dementia, chi TECHNIQUE: Noncontrast 4.5 mm thick angled axial sections acquired from the foramen magnum to the vertex. For r adiation dose reduction, the following was used: automated exposure control, adjustment of mA and/or kV according to patient size. COMPARISON: CT head 08/18/2020. FINDINGS: Image quality: Excellent. The ventricular system and cortical sulci demonstrate atrophy, consistent for patient's stated age. There are areas of hypodensity in the periventricular and subcortical white matter. There is no acut e intra or extra-axial fluid collection. No acute hemorrhage, mass lesion or midline shift. Brainst em is unremarkable. Globes are symmetrical. Sinuses are aerated. Osseous structures are intact. IMPRESSION: 1. No acute intracranial process. 2. Moderate atrophy and chronic microvascular ischemic changes. Reviewed by: Ana Farmer MD on 05/10/2021 8:30 PM PST Approved by: Ana Farmer MD on 05/10/2021 8:30 PM PST Station ID: [id number]
--- NOTE | 2021-05-10 20:46 | ED Physician Documentation ---
History of Present Illness - Stated complaint Stated Complaint: GLF - Chief complaint Chief Complaint: Trauma Ext - Additonal information Additional information: Patient is a 76-year-old female coming from home with report of ground-level fal l. Past medical significant for dementia, Parkinson's disease, hypertension, distant history of fracture of fifth metacarpal bone of left hand. EMS reports was mechanical fall. History limited by patient's dementia. 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 HEENT: Chronic vision loss Psych: None Musculoskeletal: Osteoarthritis, Chronic back pain Derm: None - Past Surgical History Past Surgical History: Yes General: Colonoscopy Ortho: Hip replacement, Rotator cuff repair - Present Medications Home Medications: Ambulatory Orders Medication Instructions Recorded Confirmed Carbidopa/Levodopa 25/100 [Sinemet 2 tab PO QDBREAKFAST 06/23/14 01/08/21 25 mg/100 mg] Citalopram [CeleXA] 10 mg PO QPM 06/23/14 01/08/21 Carbidopa/Levodopa 25/100 [Sinemet 5 tab PO 1330,1730,2100 07/29/18 01/08/21 25 mg/100 mg] Rivastigmine [Exelon 13.3MG] 1 tab PO DAILY 03/01/20 01/08/21 Aspirin [[place] Aspirin] 81 mg PO DAILY 12/28/20 01/08/21 Atorvastatin [Lipitor] 20 mg PO DAILY 12/28/20 01/08/21 Metoprolol Succinate [Toprol Xl] 25 mg PO DAILY 12/28/20 01/08/21 Quetiapine Fumarate [Seroquel] 25 mg PO DAILY 12/28/20 01/08/21 Acetaminophen [Tylenol] 650 mg PO Q8H PRN #30 tab 01/13/21 - Allergies Allergies/Adverse Reactions: Allergies Allergy/AdvReac Type Severity Reaction Status Date / Time No Known Drug Allergies Allergy Verified 05/10/21 18:53 - Social History Does the pt smoke?: No Smoking Status: Never smoker Does the pt drink ETOH?: No Does the pt have substance abuse?: Yes - Immunizations Immunizations are current?: Yes - POLST Patient has POLST: No PD ED PE NORMAL - Vitals Vital signs reviewed: Yes - HEENT HEENT: Atraumatic, PERRL - Neck Neck: Supple, no meningeal sign, No bony TTP, No adenopathy - Cardiac Cardiac: RRR, No gallop - Respiratory Respiratory: No respiratory distress - Abdomen Abdomen: Normal bowel sounds, Soft, Non tender - Extremities Extremities: No deformity, No tenderness to palpate, Other (Superficial abrasion to left ring finger) - Neuro Neuro: fisher mussel 2-12 intact, No motor deficit, No sensory deficit, Normal speech Results - Vitals Vitals: Vital Signs - 24 hr 05/10/21 05/10/21 05/10/21 18:50 18:53 20:30 Temperature 37.1 C 37.1 C Heart Rate 69 67 68 Respiratory 16 16 Rate Blood Pressure 131/62 H 131/62 H 110/68 O2 Saturation 98 98 100 Oxygen O2 Source [With Activity] Room air O2 Source [Without Activity] Room air O2 Source Room air PD MEDICAL DECISION MAKING - ED course Complexity details: reviewed results, d/w patient ED course: Patient is 76-year-old female, known history of Parkinson's, dementia, frequent falls presenting to the emergency department after ground-level fall at home. Afebrile, hemodynamically stable on arrival to the emergency department. Nonfocal nonlateralizing neurologic exam. Patient is alert and orientated to person and intermittently to place. Given her history of dementia this is consistent with her baseline mentation. CT head nonacute. X-rays of hand, hip negative. Patient did have superficial abrasion to her left third phalanx, wound care provided in the emergency department. Will discharge into the care of her . Encourage careful follow-up with primary care or return to the emergency department for new or worsening symptoms. Departure - Departure Disposition: 01 Home, Self Care Instructions: ED Mechanical Fall, ED Prevention Fall Comments: Thank you for allowing us to care for Mila today at [facility]. All of the imaging taken today including her x-rays and the CT scan of her head were very reassuring. I would like you to make a follow-up appointment with her primary care doctor for medical recheck in the next few days. She'll benefit from twice daily application of a topical antibiotic ointment such as bacitracin or Neosporin to the small abrasion she has on her left hand. If it anytime she has any new or worsening symptoms or any further falls please not hesitate to return. Discharge Date/Time: 05/10/21 20:45
[2021-05-10 22:39] VITALS: BP 110/68
== END 2021-05-10 20:45 | disposition home or self-care (01) ==
LOC: EDUNIT# → EDBD → ED 18:43
DX: S60.415A Abrasion of left ring finger, initial encounter (principal); W18.30XA Fall on same level, unspecified, initial encounter; Y92.009 Unspecified place in unspecified non-institutional (private) residence as the place of occurrence of the external cause; G20 Parkinson's disease; F02.80 Dementia in other diseases classified elsewhere, unspecified severity, without behavioral disturbance, psychotic disturbance, mood disturbance, and anxiety; Z91.81 History of falling; I10 Essential (primary) hypertension; M16.12 Unilateral primary osteoarthritis, left hip; Z96.641 Presence of right artificial hip joint; M19.042 Primary osteoarthritis, left hand; M19.041 Primary osteoarthritis, right hand; M19.032 Primary osteoarthritis, left wrist; M19.031 Primary osteoarthritis, right wrist; Z79.82 Long term (current) use of aspirin
CPT/HCPCS: 99281; 99284

== ENCOUNTER 2021-05-18 11:56 | Outpatient (CLI) | payer MEDICARE, BC | END 2021-05-18 11:57 | disposition critical access hospital (66) | LOC: EMS 11:56 | DX: R56.9 Unspecified convulsions (principal); I95.1 Orthostatic hypotension | CPT/HCPCS: A0425; A0427 ==

== ENCOUNTER 2021-05-18 12:22 | Emergency (ER) | payer MEDICARE, BC ==
[2021-05-18] MEDS ORDERED: SODIUM CHLORIDE 0.9% 1,000 ML IV STA ×2 (12:48→13:46)
[2021-05-18 13:09] LABS: BASOPHILS # (AUTO) 0.1 10^3/uL (0.0-0.1); BASOPHILS % (AUTO) 1.2 %; EOSINOPHILS # (AUTO) 0.3 10^3/uL (0.0-0.7); EOSINOPHILS % (AUTO) 4.5 %; HCT - HEMATOCRIT 33.5 % (37.0-47.0); HGB - HEMOGLOBIN 10.9 g/dL (12.0-16.0); LYMPHOCYTES # (AUTO) 0.8 10^3/uL (1.5-3.5); MEAN CORPUSCULAR HEMOGLOBIN 30.9 pg (27.0-31.0); MEAN CORPUSCULAR HGB CONC 32.5 g/dL (32.0-36.0); MEAN CORPUSCULAR VOLUME 94.9 fL (81.0-99.0); MEAN PLATELET VOLUME 8.6 fL (7.9-10.8); MONOCYTES # (AUTO) 0.5 10^3/uL (0.0-1.0); MONOCYTES % (AUTO) 8.2 %; NEUTROPHILS # (AUTO) 4.1 10^3/uL (1.5-6.6); NEUTROPHILS % (AUTO) 71.8 %; PLT - PLATELET COUNT 209 10^3/uL (130-450); RED BLOOD COUNT 3.53 10^6/uL (4.20-5.40); WHITE BLOOD COUNT 5.7 x10^3/uL (4.8-10.8)
--- NOTE | 2021-05-18 13:25 | CT Report ---
PROCEDURE: HEAD WO INDICATIONS: ALOC, ? sz TECHNIQUE: Noncontrast 4.5 mm thick angled axial sections acquired from the foramen magnum to the vertex. For r adiation dose reduction, the following was used: automated exposure control, adjustment of mA and/or kV according to patient size. COMPARISON: 05/10/2021, 08/18/2020, 06/25/2020 FINDINGS: Image quality: There is streak artifact seen through the skull base. CSF spaces: Basal cisterns are patent. No extra-axial fluid collections. Ventricles are normal in size and shape. Brain: No midline shift. No intracranial masses or hemorrhage. Grider-white matter interface is norm al. Age-appropriate brain parenchymal volume loss and chronic small vessel ischemic change can be se en. Pineal region calcification is seen, which is considered to be pathologic. Skull and face: Calvarium and visualized facial bones are intact, without suspicious lesions. Sinuses: Visualized sinuses and mastoids are clear. IMPRESSION: No significant intracranial abnormality is seen. No intracranial hemorrhage is seen. Reviewed by: Tomy Mota MD on 05/18/2021 12:24 PM [place] Approved by: Tomy Mota MD on 05/18/2021 12:24 PM [facility] Station ID: [id number]
[2021-05-18 13:31] LABS: ALBUMIN 3.2 g/dL (3.2-5.5); ALBUMIN/GLOBULIN RATIO 1.2 (1.0-2.2); ALKALINE PHOSPHATASE 81 IU/L (42-121); ALT ALANINE AMINOTRANSFERASE < 10 IU/L (10-60); AST ASPARTATE AMINOTRANSFERASE 12 IU/L (10-42); BILIRUBIN,TOTAL 0.6 mg/dL (0.2-1.0); BUN - BLOOD UREA NITROGEN 18 mg/dL (6-20); CALCIUM 8.2 mg/dL (8.5-10.3); CARBON DIOXIDE - CO2 28 mmol/L (21-32); CHLORIDE 103 mmol/L (101-111); CREATININE 0.8 mg/dL (0.4-1.0); GFR - MDRD 70 (>89); GLUCOSE 129 mg/dL (70-100); LIPASE 31 U/L (22-51); POTASSIUM 4.5 mmol/L (3.5-5.0); SODIUM 138 mmol/L (135-145); TOTAL PROTEIN 5.8 g/dL (6.7-8.2)
[2021-05-18 15:25] LABS: BILIRUBIN,URINE NEGATIVE (NEGATIVE); GLUCOSE, URINE (UA) NEGATIVE (NEGATIVE); KETONES,URINE (UA) NEGATIVE (NEGATIVE); LEUKOCYTE ESTERASE, URINE SMALL (NEGATIVE); NITRITE,URINE NEGATIVE (NEGATIVE); OCCULT BLOOD,URINE NEGATIVE (NEGATIVE); PROTEIN,URINE NEGATIVE (NEGATIVE); UROBILINOGEN,URINE 1 (NORMAL) E.U./dL (NORMAL)
[2021-05-18 15:26] LABS: CLARITY,URINE CLEAR (CLEAR)
[2021-05-18 15:55] LABS: BACTERIA,URINE Many /HPF (None Seen); RBC,URINE 0-5 /HPF (0-5); SQUAMOUS EPITHELIAL CELL,UR MANY Squamous (<= Few)
--- NOTE | 2021-05-18 16:27 | ED Physician Documentation ---
History of Present Illness - Stated complaint Stated Complaint: WEAKNESS - Chief complaint Chief Complaint: Neuro - History obtained from History obtained from: Patient, EMS - Additonal information Additional information: Pt is brought to the emergency dept by EMS after having a syncopal/near-syncopal episode at her assisted living facility, with report of seizure-like activity by staff. No report of how long it lasted. Pt had not been ill to anyone's knowledge. Pt denies any chest pain or SOB. No known h/o seizures. No recent head injury. Pt has a h/o Parkinson's disease. No complaints at this time. Review of Systems Ten Systems: 10 systems reviewed and negative Constitutional: reports: Reviewed and negative Eyes: reports: Reviewed and negative Ears: reports: Reviewed and negative Nose: reports: Reviewed and negative Throat: reports: Reviewed and negative Cardiac: reports: Reviewed and negative Respiratory: reports: Reviewed and negative GI: reports: Reviewed and negative : reports: Reviewed and negative Skin: reports: Reviewed and negative Musculoskeletal: reports: Reviewed and negative Neurologic: reports: Syncope, Seizure Psychiatric: reports: Reviewed and negative Endocrine: reports: Reviewed and negative Immunocompromised: reports: Reviewed and negative PD PAST MEDICAL HISTORY - Past Medical History Cardiovascular: Hypertension, High cholesterol Respiratory: None Neuro: Parkinson's Endocrine/Autoimmune: None GI: Ulcers 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 HEENT: Chronic vision loss Psych: None Musculoskeletal: Osteoarthritis, Chronic back pain Derm: None - Past Surgical History Past Surgical History: Yes General: Colonoscopy Ortho: Hip replacement, Rotator cuff repair - Present Medications Home Medications: Ambulatory Orders Medication Instructions Recorded Confirmed Carbidopa/Levodopa 25/100 [Sinemet 2 tab PO QDBREAKFAST 06/23/14 05/18/21 25 mg/100 mg] Citalopram [CeleXA] 10 mg PO QPM 06/23/14 05/18/21 Carbidopa/Levodopa 25/100 [Sinemet 5 tab PO 1330,1730,2100 07/29/18 05/18/21 25 mg/100 mg] Aspirin [[place] Aspirin] 81 mg PO DAILY 12/28/20 05/18/21 Atorvastatin [Lipitor] 20 mg PO DAILY 12/28/20 05/18/21 Metoprolol Succinate [Toprol Xl] 25 mg PO DAILY 12/28/20 05/18/21 Acetaminophen [Tylenol] 650 mg PO Q8H PRN #30 tab 01/13/21 05/18/21 - Allergies Allergies/Adverse Reactions: Allergies Allergy/AdvReac Type Severity Reaction Status Date / Time No Known Drug Allergies Allergy Verified 05/18/21 12:42 - Social History Does the pt smoke?: No Smoking Status: Never smoker Does the pt drink ETOH?: No Does the pt have substance abuse?: Yes - Immunizations Immunizations are current?: Yes - POLST Patient has POLST: No PD ED PE NORMAL - Vitals Vital signs reviewed: Yes - General General: No acute distress, Well developed/nourished, Other (Pt is awake, but appears generally weak. ) - HEENT HEENT: Atraumatic, PERRL, EOMI, Moist mucous membranes - Neck Neck: Supple, no meningeal sign - Cardiac Cardiac: RRR, No murmur - Respiratory Respiratory: No respiratory distress, Clear bilaterally - Abdomen Abdomen: Soft, Non tender, Non distended - Back Back: No CVA TTP, No spinal TTP - Derm Derm: Normal color, Warm and dry, No rash - Extremities Extremities: No deformity, No edema, No calf tenderness / cord - Neuro Neuro: Other (No focal deficits. Awake, answers questions, but responses are mildly slowed. No aphasia) - Psych Psych: Normal mood, Normal affect Results - Vitals Vitals: Vital Signs - 24 hr 05/18/21 05/18/21 05/18/21 12:37 13:33 14:46 Temperature 36.8 C 36.8 C Heart Rate 64 69 64 Respiratory 13 15 Rate Blood Pressure 125/46 L 125/61 O2 Saturation 100 100 100 05/18/21 05/18/21 15:04 17:40 Temperature Heart Rate 65 80 Respiratory 16 18 Rate Blood Pressure 134/75 H 124/80 O2 Saturation 98 100 Oxygen O2 Source [] Room air O2 Source [] Room air O2 Source Room air - Labs Labs: Laboratory Tests 05/18/21 05/18/21 05/18/21 13:02 13:02 15:19 WBC 5.7 RBC 3.53 L Hgb 10.9 L Hct 33.5 L MCV 94.9 MCH 30.9 MCHC 32.5 RDW 14.0 Plt Count 209 MPV 8.6 Neut # (Auto) 4.1 Lymph # (Auto) 0.8 L [place] # (Auto) 0.5 Eos # (Auto) 0.3 Baso # (Auto) 0.1 Absolute Nucleated RBC 0.00 Nucleated RBC % 0.0 Sodium 138 Potassium 4.5 Chloride 103 Carbon Dioxide 28 Anion Gap 7.0 BUN 18 Creatinine 0.8 Estimated GFR (MDRD) 70 L Glucose 129 H Calcium 8.2 L Total Bilirubin 0.6 AST 12 ALT < 10 L Alkaline Phosphatase 81 Total Protein 5.8 L Albumin 3.2 Globulin 2.6 Albumin/Globulin Ratio 1.2 Lipase 31 Urine Color YELLOW Urine Clarity CLEAR Urine pH 7.0 Ur Specific [place] 1.020 Urine Protein NEGATIVE Urine Glucose (UA) NEGATIVE Urine Ketones NEGATIVE Urine Occult Blood NEGATIVE Urine Nitrite NEGATIVE Urine Bilirubin NEGATIVE Urine Urobilinogen 1 (NORMAL) Ur Leukocyte Esterase SMALL H Urine RBC 0-5 Urine WBC 6-10 H Ur Squamous Epith Cells MANY Squamous H Urine Bacteria Many H Ur Microscopic Review INDICATED Urine Culture Comments NOT INDICATED - Rads (name of study) CT head Radiology: Final report received, EMP read indepedently, See rad report (nad) PD MEDICAL DECISION MAKING - ED course Complexity details: reviewed results, re-evaluated patient, considered differential, d/w patient, d/w family ED course: Pt was given 2 liters of NS before producing urine. On re-evaluation, she was alert and appeared much better than on arrival. CT scan of the head was non- acute. Her EKG was also unremarkable. UA did not show infection. Pt was mo derately anemic, and mildly hyperglycemic. Remainder of labs were unremarkable. I discussed with pt and that most likely, pt had a syncopal episode with myoclonic jerks, given that she was significantly dehydrated. states dehydration has been an issue repeatedly for the pt. However, if pt has further episodes that are possible seizures, she should follow up with her PCP to arrange further specialty evaluation. Departure - Departure Disposition: 01 Home, Self Care Clinical Impression: Dehydration Condition: Stable Instructions: ED Dehydration Comments: Your labs, head CT, and urinalysis do not show any evidence of serious condition. However, you were found to be quite dehydrated today, and it is very important that you drink plenty of fluids. You should aim to have 8 cups of water every day to keep yourself properly hydrated. It is not clear whether there was actually seizure versus simply a fainting episode with some muscle jerks, which can also happen. Dehydration can make any person much more prone to fainting. Please follow-up with your primary doctor for further evaluation if you have any more symptoms like this. Discharge Date/Time: 05/18/21 17:00
[2021-05-18 17:42] VITALS: BP 124/80
== END 2021-05-18 17:00 | disposition home or self-care (01) ==
LOC: EDUNIT# → ED 12:22
DX: E86.0 Dehydration (principal); R55 Syncope and collapse; D64.9 Anemia, unspecified; R73.9 Hyperglycemia, unspecified; G20 Parkinson's disease; I10 Essential (primary) hypertension; Z79.82 Long term (current) use of aspirin
CPT/HCPCS: 36415; 80053; 81001; 81003; 83690; 85025; 87086; 93005; 99283; 99284

== ENCOUNTER 2021-07-06 08:00 | Outpatient (CLI) | payer MEDICARE, BC ==
--- NOTE | 2021-07-07 09:05 | XRAY Report ---
PROCEDURE: Elbow 3 View RT INDICATIONS: RIGHT ELBOW LUMP TECHNIQUE: 3 views of the elbow were acquired. COMPARISON: None. FINDINGS: Bones: No fractures or dislocations. No suspicious bony lesions. Soft tissues: No elbow joint effusion. Mild dorsal soft tissue swelling over olecranon is seen. Tiny calcification adjacent to dorsal aspect of proximal olecranon near triceps tendon insertion is seen. IMPRESSION: 1. No elbow fracture or dislocation. 2. Small calcification adjacent to proximal olecranon which may represent old avulsion injury involvi ng distal triceps tendon versus calcific tendinitis. 3. Dorsal elbow soft tissue swelling, olecranon bursitis cannot be excluded. No significant joint eff usion. Reviewed by: Moses Stuart MD on 07/07/2021 9:04 AM PDT Approved by: Moses Stuart MD on 07/07/2021 9:04 AM PDT Station ID: [id number]
--- NOTE | 2021-07-07 09:06 | XRAY Report ---
PROCEDURE: Shoulder 3 View RT INDICATIONS: RIGHT SHOULDER PAIN TECHNIQUE: 4 views of the shoulder were acquired. COMPARISON: None. FINDINGS: Bones: No fractures or dislocations. Superior migration of humeral head in relation to glenoid is s een. Moderate acromioclavicular joint and glenohumeral joint osteoarthritis. No suspicious bony lesio ns. Visualized ribs appear intact. Soft tissues: No suspicious soft tissue calcifications. IMPRESSION: 1. No acute right shoulder fracture or dislocation. 2. Moderate shoulder joint osteoarthritis. Superior migration of humeral head in relation to glenoid which can be seen associated with rotator cuff tendon rupture. MRI of shoulder can be done for furthe r evaluation if indicated. Reviewed by: Moses Stuart MD on 07/07/2021 9:05 AM PDT Approved by: Mosse Stuart MD on 07/07/2021 9:05 AM PDT Station ID: [id number]
== END 2021-07-06 23:59 | disposition home or self-care (01) ==
LOC: DI.S 08:00
PROVIDERS: ATTEND Registered Nurse
DX: M19.011 Primary osteoarthritis, right shoulder (principal); R93.6 Abnormal findings on diagnostic imaging of limbs

== ENCOUNTER 2021-07-06 10:53 | Outpatient (CLI) | payer MEDICARE, BC | END 2021-07-06 10:54 | disposition critical access hospital (66) | LOC: EMS 10:53 | DX: R41.82 Altered mental status, unspecified (principal); E16.2 Hypoglycemia, unspecified | CPT/HCPCS: A0425; A0427 ==

== ENCOUNTER 2021-07-06 11:20 | Emergency (ER) | payer MEDICARE, BC ==
[2021-07-06] MEDS ORDERED: SODIUM CHLORIDE 0.9% 1,000 ML IV STA (11:34)
--- NOTE | 2021-07-06 11:40 | ED Physician Documentation ---
PD HPI ALTERED MENTAL STATUS - Stated complaint Stated Complaint: FALL - History obtained from History obtained from: Patient, EMS, Caregiver - History of Present Illness Timing - onset: Today (Patient resident at [facility] was seen to have general weakness and kind of slumped from her wheelchair to the floor. Did not fully lose consciousness but was confused. Difficulty feeling a pulse initially from caregivers per medics. Medics found her with adequate bBP/HR. FSBS 57. not diabetic.) Timing - duration: Minutes Timing - details: Abrupt onset, Still present Quality / character: Less responsive, Other (no focal weakness.) Associated symptoms: General weakness (seemed to have low BP as caregivers had trouble finding pulse in wrist (patient still semi-alert but confused) until they lay her down.). 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 Similar symptoms before: Has not had sx before Review of Systems Constitutional: denies: Fever, Chills Nose: denies: Rhinorrhea / runny nose, Congestion Throat: denies: Sore throat Cardiac: denies: Chest pain / pressure Respiratory: denies: Cough GI: denies: Abdominal Pain, Vomiting, Diarrhea Neurologic: denies: Headache, Head injury PD PAST MEDICAL HISTORY - Past Medical History Cardiovascular: Hypertension, High cholesterol Respiratory: None Neuro: Parkinson's Endocrine/Autoimmune: None GI: Ulcers 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 HEENT: Chronic vision loss Psych: None Musculoskeletal: Osteoarthritis, Chronic back pain Derm: None - Past Surgical History Past Surgical History: Yes General: Colonoscopy Ortho: Hip replacement, Rotator cuff repair - Present Medications Home Medications: Ambulatory Orders Medication Instructions Recorded Confirmed Carbidopa/Levodopa 25/100 [Sinemet 2 tab PO 2300 06/23/14 07/06/21 25 mg/100 mg] Citalopram [CeleXA] 10 mg PO QPM 06/23/14 07/06/21 Carbidopa/Levodopa 25/100 [Sinemet 2 tab PO 0900,1300,1700,2100 07/29/18 07/06/21 25 mg/100 mg] Aspirin [[place] Aspirin] 81 mg PO DAILY 12/28/20 07/06/21 Atorvastatin [Lipitor] 20 mg PO DAILY PM 12/28/20 07/06/21 Metoprolol Succinate [Toprol Xl] 25 mg PO DAILY 12/28/20 07/06/21 Quetiapine Fumarate [Seroquel] 100 mg PO BID 07/06/21 07/06/21 Rivastigmine Tartrate 1.5 mg PO BID 07/06/21 07/06/21 [Rivastigmine] - Allergies Allergies/Adverse Reactions: Allergies Allergy/AdvReac Type Severity Reaction Status Date / Time No Known Drug Allergies Allergy Verified 07/06/21 11:34 - Social History Does the pt smoke?: No Smoking Status: Never smoker Does the pt drink ETOH?: No Does the pt have substance abuse?: Yes - Immunizations Immunizations are current?: Yes - POLST Patient has POLST: No Results - Vitals Vitals: Vital Signs - 24 hr 07/06/21 07/06/21 07/06/21 11:27 12:00 12:30 Temperature 36.4 C L 36.4 C L Heart Rate 65 70 75 Respiratory 16 15 16 Rate Blood Pressure 130/58 L 122/94 H 122/94 H O2 Saturation 100 98 98 07/06/21 07/06/21 07/06/21 13:00 14:00 14:30 Temperature Heart Rate 76 76 66 Respiratory 16 16 12 Rate Blood Pressure 162/73 H 162/73 H 155/75 H O2 Saturation 99 99 100 07/06/21 07/06/21 07/06/21 15:00 15:12 15:15 Temperature 36.4 C L 36.4 C L Heart Rate 69 71 71 Respiratory 13 15 15 Rate Blood Pressure 155/73 H 155/73 H O2 Saturation 99 99 Oxygen O2 Source [With Activity] Room air O2 Source [Without Activity] Room air O2 Source Room air - EKG (time done) 11:42 Rate: Rate (enter#) (65) Rhythm: NSR Howard: Normal Intervals: Normal [place] QRS: Normal Ischemia: Normal ST segments. No: ST elevation c/w ischemia, ST depression - Labs Labs: Laboratory Tests 07/06/21 07/06/21 07/06/21 11:28 11:55 11:55 WBC 5.6 RBC 3.33 L Hgb 10.3 L Hct 32.1 L MCV 96.4 MCH 30.9 MCHC 32.1 RDW 15.0 Plt Count 163 MPV 8.6 Neut # (Auto) 3.7 Lymph # (Auto) 1.2 L [place] # (Auto) 0.5 Eos # (Auto) 0.1 Baso # (Auto) 0.0 Absolute Nucleated RBC 0.00 Nucleated RBC % 0.0 Sodium 138 Potassium 4.1 Chloride 105 Carbon Dioxide 25 Anion Gap 8.0 BUN 17 Creatinine 0.8 Estimated GFR (MDRD) 70 L Glucose 113 H POC Whole Bld Glucose 172 H Lactic Acid Calcium 8.0 L Magnesium 1.9 Total Bilirubin 0.7 AST 15 ALT < 10 L Alkaline Phosphatase 87 Troponin I High Sens Total Protein 5.4 L Albumin 3.4 Globulin 2.0 L Albumin/Globulin Ratio 1.7 Lipase 45 Urine Color Urine Clarity Urine pH Ur Specific [place] Urine Protein Urine Glucose (UA) Urine Ketones Urine Occult Blood Urine Nitrite Urine Bilirubin Urine Urobilinogen Ur Leukocyte Esterase Urine RBC Urine WBC Ur Squamous Epith Cells Urine Bacteria Ur Microscopic Review Urine Culture Comments 07/06/21 07/06/21 07/06/21 11:55 11:55 14:23 WBC RBC Hgb Hct MCV MCH MCHC RDW Plt Count MPV Neut # (Auto) Lymph # (Auto) [place] # (Auto) Eos # (Auto) Baso # (Auto) Absolute Nucleated RBC Nucleated RBC % Sodium Potassium Chloride Carbon Dioxide Anion Gap BUN Creatinine Estimated GFR (MDRD) Glucose POC Whole Bld Glucose Lactic Acid 1.4 Calcium Magnesium Total Bilirubin AST ALT Alkaline Phosphatase Troponin I High Sens < 2.3 L Total Protein Albumin Globulin Albumin/Globulin Ratio Lipase Urine Color DARK YELLOW Urine Clarity HAZY Urine pH 6.0 Ur Specific [place] 1.020 Urine Protein NEGATIVE Urine Glucose (UA) NEGATIVE Urine Ketones NEGATIVE Urine Occult Blood NEGATIVE Urine Nitrite NEGATIVE Urine Bilirubin NEGATIVE Urine Urobilinogen 0.2 (NORMAL) Ur Leukocyte Esterase MODERATE H Urine RBC 0-5 Urine WBC 11-25 H Ur Squamous Epith Cells MANY Squamous H Urine Bacteria Moderate H Ur Microscopic Review INDICATED Urine Culture Comments NOT INDICATED - Rads (name of study) chest xray Radiology: Prelim report reviewed (no acute process), See rad report head CT Radiology: Prelim report reviewed (no acute intracranial process. Age related changes. ), See rad report PD MEDICAL DECISION MAKING - ED course Complexity details: reviewed results, re-evaluated patient (she was alert and conversant on arrival to ED and remained so. Short term memory seems poor, but still alert. ), considered differential (She is not diabetic but had a somewhat low blood sugar 57 on scene. Had a general weakness with near syncope. Unclear etiology. No new medications per med list. Appears well here.), d/w patient Departure - Departure Disposition: 01 Home, Self Care Clinical Impression: Near syncope Condition: Stable Record reviewed to determine appropriate education?: Yes Instructions: ED Near Syncope Unkn Comments: Continue usual medications. Be sure to have good regular dietary intake. Unclear the cause of your episode this morning. You appear well here on basic blood tests, urine test, chest x-ray and head CT. Recheck if recurrent episodes or symptoms or other things develop. Discharge Date/Time: 07/06/21 15:15
--- OUTSIDE RECORDS SUMMARY | 2021-07-06 11:40 | EXTERNAL MEDICAL SUMMARY RPT | Continuity of Care Document ---
:1945 Author Organization [facility] Address [address] [place] [address] Phone Care Team Providers Name Role Phone M.D. Unavailable Unavailable Allergies No information. Encounters No information. Medications date description facility 20210601 metoprolol succinate All 20210601 atorvastatin All 20210601 quetiapine All Problems date description facility 20210601 Total score? All 20210601 Tobacco use and exposure All 20210601 Tobacco smoking status NHIS All 20210601 Repeated falls All 20210601 Recurrent falls All 20210601 Former smoker All 20210601 Details of drug misuse behavior All 20210601 Alcohol use All 20210601 Abnormality of gait All 20210418 Total score? All 20210418 Tobacco use and exposure All 20210418 Tobacco smoking status NHIS All 20210418 Former smoker All 20210418 Details of drug misuse behavior All 20210418 Alcohol use All Results test status date ordered by attending specimen torrie e urea_nitrogen_blood unknown 20210518 unknown unknown unk nown Erythrocytes_volume_in unknown 20210518 unknown unknown unknown _Blood_by_Automated_cou nt Erythrocyte_distributi unknown 20210518 unknown unknown unknown on_width_Ratio_by_Autom ated_count MCV_Entitic_volume_by_ unknown 49664675 unknown unknown unknown Automated_count MCH_Entitic_mass_by_Au unknown 97193482 unknown unknown unknown tomated_count Platelets_volume_in_Bl unknown 11998379 unknown unknown unknown ood_by_Automated_count Platelet_mean_volume_E unknown 89353690 unknown unknown unknown ntitic_volume_in_Blood_ by_[place] neutrophil_count_blood unknown 81184823 unknown unknown unknown monocyte_count_blood unknown 21769441 unknown unknown un known lymphocyte_count_blood unknown 77622388 unknown unknown unknown Hemoglobin_Mass_volume unknown 34377508 unknown unknown unknown _in_Blood eosinophil_count_blood unknown 28546520 unknown unknown unknown Basophils_volume_in_Bl unknown 02985167 unknown unknown unknown ood_by_Manual_count leukocyte_count_blood unknown 20291028 unknown unknown u nknown erythrocyte_RBC_count unknown 38020714 unknown unknown u nknown Leukocytes_volume_in_B unknown 44844980 unknown unknown unknown lood_by_Automated_count Glomerular_Filtration_ unknown 20716785 unknown unknown unknown rate platelet_count unknown 29025075 unknown unknown unknown hemoglobin_blood unknown 40735635 unknown unknown unknow n hematocrit_blood unknown 31782444 unknown unknown unknow n potassium_blood unknown 26649688 unknown unknown unknown WBC_urine_on_microscop unknown 96633739 unknown unknown unknown y Urobilinogen_Presence_ unknown 61322625 unknown unknown unknown in_Urine_by_Test_strip Specific_gravity_of_Ur unknown 98361224 unknown unknown unknown ine_by_Test_strip Nitrite_Presence_in_Ur unknown 95909717 unknown unknown unknown ine_by_Test_strip Leukocyte_esterase_Pre unknown 69427137 unknown unknown unknown sence_in_Urine_by_Test_ strip Ketones_Mass_volume_in unknown 51938723 unknown unknown unknown _Urine_by_Test_strip Color_of_Urine unknown 96234850 unknown unknown unknown Bilirubin.total_Presen unknown 78596128 unknown unknown unknown ce_in_Urine_by_Test_str ip clarity_urine_point unknown 79678506 unknown unknown unk nown pH_study_of_acidity unknown 42869351 unknown unknown unk nown Glomerular_filtration_r unknown 52136057 unknown unknown unknown ate_1.73_sq_M.predicted _among_non-blacks_Volum e_Rate_Area_in_Serum_Pl asma_or_Blood_by_Creati nine-based_formula_MDRD _ Hematocrit_Volume_Frac unknown 86156231 unknown unknown unknown tion_of_Blood_by_Automa ted_count bilirubin_serum_total unknown 52768105 unknown unknown u nknown alanine_aminotransfera unknown 55641844 unknown unknown unknown se_SGPT_serum carbon_dioxide_serum_t unknown 41565758 unknown unknown unknown otal aspartate_aminotransfe unknown 40316708 unknown unknown unknown rase_SGOT_serum protein_total_serum unknown 22249050 unknown unknown unk nown blood_glucose unknown 40514249 unknown unknown unknown potassium_blood unknown 53346786 unknown unknown unknown glucose_urine unknown 53387782 unknown unknown unknown leukocyte_esterase_uri unknown 72372714 unknown unknown unknown ne_by_dipstick urobilinogen_urine_sem unknown 80574153 unknown unknown unknown iquantitative_dipstick_ specific_gravity_urine unknown 49267638 unknown unknown unknown nitrite_urine_semiquan unknown 64588383 unknown unknown unknown titative ketones_urine_by_test_ unknown 95575185 unknown unknown unknown strip bilirubin_urine unknown 68245250 unknown unknown unknown mean_corpuscular_volum unknown 66045165 unknown unknown unknown e_RBC Urea_nitrogen_Mass_vol unknown 80586729 unknown unknown unknown ume_in_Serum_or_Plasma globulin_serum unknown 06636058 unknown unknown unknown alkaline_phosphatase_s unknown 46516869 unknown unknown unknown gretta Sodium_Moles_volume_in unknown 00215610 unknown unknown unknown _Serum_or_Plasma Protein_Mass_volume_in unknown 15260008 unknown unknown unknown _Serum_or_Plasma eosinophil_count_blood unknown 05225725 unknown unknown unknown anion_gap_serum unknown 03187367 unknown unknown unknown mean_platelet_volume unknown 57953928 unknown unknown un known urine_color unknown 52167748 unknown unknown unknown basophil_count_blood unknown 11193002 unknown unknown un known monocyte_count_blood unknown 46737377 unknown unknown un known lymphocyte_count_blood unknown 39351070 unknown unknown unknown neutrophil_count_blood unknown 10928954 unknown unknown unknown Glucose_Mass_volume_in unknown 55752627 unknown unknown unknown _Urine Glucose_Mass_volume_in unknown 03964414 unknown unknown unknown _Serum_or_Plasma Globulin_Mass_volume_i unknown 58176888 unknown unknown unknown n_Serum Creatinine_Mass_volume unknown 98696194 unknown unknown unknown _in_Serum_or_Plasma Chloride_Moles_volume_ unknown 37577108 unknown unknown unknown in_Serum_or_Plasma carbon_dioxide_serum_t unknown 72652257 unknown unknown unknown otal Calcium_Moles_volume_i unknown 55785688 unknown unknown unknown n_Serum_or_Plasma albumin_serum unknown 26813264 unknown unknown unknown Bilirubin.total_Mass_v unknown 23295134 unknown unknown unknown olume_in_Serum_or_Plasm a Aspartate_aminotransfe unknown 00817883 unknown unknown unknown rase_Enzymatic_activity _volume_in_Serum_or_Pla sma Anion_gap_4_in_Serum_o unknown 15490075 unknown unknown unknown r_Plasma creatinine_serum unknown 55308383 unknown unknown unknow n Alkaline_phosphatase_E unknown 58470272 unknown unknown unknown nzymatic_activity_volum e_in_Blood Albumin_Globulin_Mass_ unknown 71718411 unknown unknown unknown Ratio_in_Serum_or_Plasm a Albumin_Mass_volume_in unknown 98459087 unknown unknown unknown _Serum_or_Plasma Alanine_aminotransfera unknown 81895372 unknown unknown unknown se_Enzymatic_activity_v olume_in_Serum_or_Plasm a mean_corpuscular_hemog unknown 34578790 unknown unknown unknown lobin_concentration_rbc sodium_serum unknown 28798638 unknown unknown unknown albumin_globulin_ratio unknown 23841039 unknown unknown unknown _serum chloride_serum unknown 50380331 unknown unknown unknown calcium_serum unknown 04356956 unknown unknown unknown mean_corpuscular_hemog unknown 49011372 unknown unknown unknown lobin_RBC red_blood_cell_distrib unknown 74734974 unknown unknown unknown ution_width WBC_urine_on_microscop unknown 83782921 unknown unknown unknown y T unknown 19667526 unknown unknown unknown WBC_URINE unknown 74429878 unknown unknown unknown UROBILINOGEN_URINE unknown 59224034 unknown unknown unkn own SPECIFIC_GRAVITY_URINE unknown 54780413 unknown unknown unknown T unknown 74262541 unknown unknown unknown T unknown 14557919 unknown unknown unknown T unknown 21779144 unknown unknown unknown T unknown 18174451 unknown unknown unknown T unknown 19952800 unknown unknown unknown T unknown 30286663 unknown unknown unknown T unknown 93592201 unknown unknown unknown T unknown 41636156 unknown unknown unknown T unknown 32484421 unknown unknown unknown T unknown 94384608 unknown unknown unknown T unknown 18855900 unknown unknown unknown PH_URINE unknown 15097854 unknown unknown unknown NITRITE_URINE unknown 16593063 unknown unknown unknown LEUKOCYTE_ESTERASE_URI unknown 78037639 unknown unknown unknown NE KETONES_URINE_UA_ unknown 09954454 unknown unknown unkno wn GLUCOSE_URINE_UA_ unknown 21624605 unknown unknown unkno wn COLOR_URINE unknown 59381492 unknown unknown unknown CLARITY_URINE unknown 37698195 unknown unknown unknown BILIRUBIN_URINE unknown 77448581 unknown unknown unknown T unknown 53935871 unknown unknown unknown T unknown 03789178 unknown unknown unknown T unknown 03999221 unknown unknown unknown T unknown 82773781 unknown unknown unknown T unknown 85094265 unknown unknown unknown NEUTROPHILS_AUTO_ unknown 13286202 unknown unknown unkno wn T unknown 38513581 unknown unknown unknown T unknown 48222990 unknown unknown unknown T unknown 44076796 unknown unknown unknown MONOCYTES_AUTO_ unknown 55763832 unknown unknown unknown T unknown 46842669 unknown unknown unknown T unknown 24244225 unknown unknown unknown T unknown 55542048 unknown unknown unknown T unknown 94017642 unknown unknown unknown LYMPHOCYTES_AUTO_ unknown 89583488 unknown unknown unkno wn T unknown 66273821 unknown unknown unknown T unknown 10704020 unknown unknown unknown T unknown 78146493 unknown unknown unknown T unknown 10264171 unknown unknown unknown T unknown 68170076 unknown unknown unknown T unknown 51365099 unknown unknown unknown T unknown 84753392 unknown unknown unknown GFR_-_MDRD unknown 57501227 unknown unknown unknown T unknown 02946429 unknown unknown unknown EOSINOPHILS_AUTO_ unknown 96639873 unknown unknown unkno wn T unknown 71589305 unknown unknown unknown T unknown 11962642 unknown unknown unknown T unknown 83364598 unknown unknown unknown T unknown 34548386 unknown unknown unknown T unknown 38994110 unknown unknown unknown T unknown 03106322 unknown unknown unknown BILIRUBIN_TOTAL unknown 72335744 unknown unknown unknown BASOPHILS_AUTO_ unknown 23047388 unknown unknown unknown T unknown 30999933 unknown unknown unknown T unknown 03857589 unknown unknown unknown T unknown 16359519 unknown unknown unknown T unknown 66345403 unknown unknown unknown ALT_ALANINE_AMINOTRANS unknown 38024122 unknown unknown unknown FERASE ALKALINE_PHOSPHATASE unknown 04332055 unknown unknown un known T unknown 21800347 unknown unknown unknown T unknown 01322251 unknown unknown unknown ALBUMIN_GLOBULIN_RATIO unknown 97509664 unknown unknown unknown facility observation status value reference units lab code abn ormal line range notes All urea_nitroge unknown 18 unknown mg/dL _9 unknown unknown n_blood All Erythrocytes unknown 3.53 10 unknown _789-8 unknow n unknown _volume_in_Bl 6/UL ood_by_Automa ted_count All Erythrocyte_ unknown 14.0 unknown % _788-0 unknown unknown distribution_ width_Ratio_b y_Automated_c ount All MCV_Entitic_ unknown 94.9 unknown fL _787-2 unknown unknown volume_by_Aut omated_count All MCH_Entitic_ unknown 30.9 unknown pg _785-6 unknown unknown mass_by_Autom ated_count All Platelets_vo unknown 209 10 unknown _777-3 unknown unknown lume_in_Blood 3/UL _by_Automated _count All Platelet_mea unknown 8.6 unknown fL _776-5 unknown unknown n_volume_Enti tic_volume_in _Blood_by_Ree s-Rosy All neutrophil_c unknown 4.1 10 unknown _752-6 unknown unknown ount_blood 3/UL All monocyte_cou unknown 0.5 10 unknown _743-5 unknown unknown nt_blood 3/UL All lymphocyte_c unknown 0.8 10 unknown _732-8 unknown unknown ount_blood 3/UL All Hemoglobin_M unknown 10.9 unknown g/dL _718-7 unknown unknown ass_volume_in _Blood All eosinophil_c unknown 0.3 10 unknown _712-0 unknown unknown ount_blood 3/UL All Basophils_vo unknown 0.1 10 unknown _705-4 unknown unknown lume_in_Blood 3/UL _by_Manual_co unt All leukocyte_co unknown 5.7 X10 unknown _68 unknow n unknown unt_blood 3/UL All erythrocyte_ unknown 3.53 10 unknown _67 unknow n unknown RBC_count 6/UL All Leukocytes_v unknown 5.7 X10 unknown _6690-2 unkno wn unknown olume_in_Bloo 3/UL d_by_Automate d_count All Glomerular_F unknown 70 unknown mL/mi _66455 unknown unknown iltration_rat n e All platelet_cou unknown 209 10 unknown _66 unknown unknown nt 3/UL All hemoglobin_b unknown 10.9 unknown g/dL _65 unknown unknown lood All hematocrit_b unknown 33.5 unknown % _64 unknown unknown lood All potassium_bl unknown 4.5 unknown meq/L _6298-4 unknow n unknown ood All WBC_urine_on unknown 6-10 /HPF unknown _5821-4 unk nown unknown _microscopy All Urobilinogen unknown 1 unknown _5818-0 unknow n unknown _Presence_in_ (NORMAL) Urine_by_Test _strip All Specific_gra unknown 1.020 unknown _5811-5 unknow n unknown vity_of_Urine _by_Test_stri p All Nitrite_Pres unknown NEGATIVE unknown _5802-4 unkn own unknown ence_in_Urine _by_Test_stri p All Leukocyte_es unknown SMALL unknown _5799-2 unknow n unknown terase_Presen ce_in_Urine_b y_Test_strip All Ketones_Mass unknown NEGATIVE unknown _5797-6 unkn own unknown _volume_in_Ur ine_by_Test_s trip All Color_of_Uri unknown YELLOW unknown _5778-6 unknow n unknown ne All Bilirubin.to unknown NEGATIVE unknown _5770-3 unkn own unknown tal_Presence_ in_Urine_by_T est_strip All clarity_urin unknown CLEAR unknown _5589 unknown unknown e_point All pH_study_of_ unknown 7.0 unknown _51641 unknown unknown acidity All Glomerular_fi unknown 70 unknown mL/mi _48642-3 unkno wn unknown ltration_rate n _1.73_sq_M.pr edicted_among _non-blacks_V olume_Rate_Ar ea_in_Serum_P lasma_or_Bloo d_by_Creatini ne-based_form ula_MDRD_ All Hematocrit_V unknown 33.5 unknown % _4544-3 unknow n unknown olume_Fractio n_of_Blood_by _Automated_co unt All bilirubin_se unknown 0.6 unknown mg/dL _43 unknown unknown rum_total All alanine_amin unknown < 10 IU/L unknown _40 unkn own unknown otransferase_ SGPT_serum All carbon_dioxi unknown 28 unknown mmol/ _3962 unknown unknown de_serum_tota L l All aspartate_am unknown 12 unknown U/L _39 unknown unknown inotransferas e_SGOT_serum All protein_tota unknown 5.8 unknown g/dL _36 unknown unknown l_serum All blood_glucos unknown 129 unknown mg/dL _3565 unknown unknown e All potassium_bl unknown 4.5 unknown meq/L _3483 unknown unknown ood All glucose_urin unknown NEGATIVE unknown _3369 unkno wn unknown e mg/dL All leukocyte_es unknown SMALL unknown _327 unknown unknown terase_urine_ by_dipstick All urobilinogen unknown 1 unknown _326 unknown unknown _urine_semiqu (NORMAL) antitative_di pstick_ All specific_gra unknown 1.020 unknown _325 unknown unknown vity_urine All nitrite_urin unknown NEGATIVE unknown _323 unkno wn unknown e_semiquantit ative All ketones_urin unknown NEGATIVE unknown _322 unkno wn unknown e_by_test_str ip All bilirubin_ur unknown NEGATIVE unknown _319 unkno wn unknown ine All mean_corpusc unknown 94.9 unknown fL _315 unknown unknown ular_volume_R BC All Urea_nitroge unknown 18 unknown mg/dL _3094-0 unknow n unknown n_Mass_volume _in_Serum_or_ Plasma All globulin_ser unknown 2.6 unknown _3059 unknown unknown um All alkaline_pho unknown 81 unknown U/L _3 unknown unknown sphatase_seru m All Sodium_Moles unknown 138 unknown mmol/ _2951-2 unknow n unknown _volume_in_Se L rum_or_Plasma All Protein_Mass unknown 5.8 unknown g/dL _2885-2 unknow n unknown _volume_in_Se rum_or_Plasma All eosinophil_c unknown 0.3 10 unknown _285 unknown unknown ount_blood 3/UL All anion_gap_se unknown 7.0 unknown _279 unknown unknown rum All mean_platele unknown 8.6 unknown fL _2784 unknown unknown t_volume All urine_color unknown YELLOW unknown _2751 unknown unknown All basophil_cou unknown 0.1 10 unknown _2427 unknown unknown nt_blood 3/UL All monocyte_cou unknown 0.5 10 unknown _2422 unknown unknown nt_blood 3/UL All lymphocyte_c unknown 0.8 10 unknown _2420 unknown unknown ount_blood 3/UL All neutrophil_c unknown 4.1 10 unknown _2418 unknown unknown ount_blood 3/UL All Glucose_Mass unknown NEGATIVE unknown _2350-7 unkn own unknown _volume_in_Ur mg/dL ine All Glucose_Mass unknown 129 unknown mg/dL _2345-7 unknow n unknown _volume_in_Se rum_or_Plasma All Globulin_Mas unknown 2.6 unknown _2336-6 unknow n unknown s_volume_in_S gretta All Creatinine_M unknown 0.8 unknown mg/dL _2160-0 unknow n unknown ass_volume_in _Serum_or_Pla sma All Chloride_Mol unknown 103 unknown mmol/ _2074-0 unknow n unknown es_volume_in_ L Serum_or_Plas ma All carbon_dioxi unknown 28 unknown mmol/ _2027- unknow n unknown de_serum_tota L l All Calcium_Mole unknown 8.2 unknown mg/dL _1999- unknow n unknown s_volume_in_S erum_or_Plasm a All albumin_seru unknown 3.2 unknown g/dL _2 unknown unknown m All Bilirubin.to unknown 0.6 unknown mg/dL _1974- unknow n unknown tal_Mass_volu me_in_Serum_o r_Plasma All Aspartate_am unknown 12 unknown U/L _1919-8 unknow n unknown inotransferas e_Enzymatic_a ctivity_volum e_in_Serum_or _Plasma All Anion_gap_4_ unknown 7.0 unknown _1863-0 unknow n unknown in_Serum_or_P lasma All creatinine_s unknown 0.8 unknown mg/dL _18 unknown unknown gretta All Alkaline_pho unknown 81 unknown U/L _1783-0 unknow n unknown sphatase_Enzy matic_activit y_volume_in_B lood All Albumin_Glob unknown 1.2 unknown _1759-0 unknow n unknown ulin_Mass_Rat io_in_Serum_o r_Plasma All Albumin_Mass unknown 3.2 unknown g/dL _1751-7 unknow n unknown _volume_in_Se rum_or_Plasma All Alanine_amin unknown < 10 IU/L unknown _1742-6 unk nown unknown otransferase_ Enzymatic_act ivity_volume_ in_Serum_or_P lasma All mean_corpusc unknown 32.5 unknown g/dL _17029 unknown unknown ular_hemoglob in_concentrat ion_rbc All sodium_serum unknown 138 unknown mmol/ _159 unknown unknown L All albumin_glob unknown 1.2 unknown _146 unknown unknown ulin_ratio_se rum All chloride_ser unknown 103 unknown mmol/ _13 unknown unknown um L All calcium_seru unknown 8.2 unknown mg/dL _11 unknown unknown m All mean_corpusc unknown 30.9 unknown pg _1031 unknown unknown ular_hemoglob in_RBC All red_blood_ce unknown 14.0 unknown % _1030 unknown unknown ll_distributi on_width All WBC_urine_on unknown 6-10 /HPF unknown _1016 unkn own unknown _microscopy All T unknown 5.7 X10 unknown WBC unknown unk nown 3/UL All WBC_URINE unknown 6-10 /HPF unknown UWBC unknown unknown All UROBILINOGEN unknown 1 unknown UUROBIL unknow n unknown _URINE (NORMAL) All SPECIFIC_GRA unknown 1.020 unknown USG unknown unknown VITY_URINE All T unknown 6-10 /HPF unknown UR_WBC unknown u nknown All T unknown 1 unknown UR_URO unknown unkn own (NORMAL) All T unknown 1.020 unknown UR_SG unknown unkn own All T unknown 7.0 unknown UR_PH unknown unkn own All T unknown NEGATIVE unknown UR_NIT unknown un known All T unknown SMALL unknown UR_LEU_E unknown un known STERASE All T unknown NEGATIVE unknown UR_KETO_ unknown unknown UA_ All T unknown NEGATIVE unknown UR_GLU unknown un known mg/dL All T unknown YELLOW unknown UR_COLOR unknown un known All T unknown CLEAR unknown UR_CLARI unknown un known TY All T unknown NEGATIVE unknown UR_BILI unknown u nknown All PH_URINE unknown 7.0 unknown UPH unknown un known All NITRITE_URIN unknown NEGATIVE unknown UNITRITE unk nown unknown E All LEUKOCYTE_ES unknown SMALL unknown ULEUK unknown unknown TERASE_URINE All KETONES_URIN unknown NEGATIVE unknown UKET unkno wn unknown E_UA_ All GLUCOSE_URIN unknown NEGATIVE unknown UGLUC unkno wn unknown E_UA_ mg/dL All COLOR_URINE unknown YELLOW unknown UCOL unknown unknown All CLARITY_URIN unknown CLEAR unknown UCLAR unknown unknown E All BILIRUBIN_UR unknown NEGATIVE unknown UBIL unkno wn unknown INE All T unknown 0.6 unknown mg/dL TOTAL_BI unknown un known LI All T unknown 14.0 unknown % RDW unknown unkn own All T unknown 3.53 10 unknown RBC unknown unk nown 6/UL All T unknown 5.8 unknown g/dL PRO_TOTA unknown un known L All T unknown 209 10 unknown PLT unknown unkn own 3/UL All NEUTROPHILS_ unknown 4.1 10 unknown NE_ unknown unknown AUTO_ 3/UL All T unknown 4.1 10 unknown NEUT_AUT unknown un known 3/UL O_ All T unknown 138 unknown mmol/ NA unknown unkn own L All T unknown 8.6 unknown fL MPV unknown unkn own All MONOCYTES_AU unknown 0.5 10 unknown MO_ unknown unknown TO_ 3/UL All T unknown 0.5 10 unknown MONO_AUT unknown un known 3/UL O_ All T unknown 94.9 unknown fL MCV unknown unkn own All T unknown 32.5 unknown g/dL MCHC unknown unkn own All T unknown 30.9 unknown pg MCH unknown unkn own All LYMPHOCYTES_ unknown 0.8 10 unknown LY_ unknown unknown AUTO_ 3/UL All T unknown 0.8 10 unknown LYMPH_AU unknown un known 3/UL TO_ All T unknown 4.5 unknown meq/L K unknown unkn own All T unknown 10.9 unknown g/dL HGB unknown unkn own All T unknown 33.5 unknown % HCT unknown unkn own All T unknown 129 unknown mg/dL GLU unknown unkn own All T unknown 2.6 unknown GLOB unknown unkn own All T unknown 70 unknown mL/mi GFR_-_MD unknown un known n RD All GFR_-_MDRD unknown 70 unknown mL/mi GFR unknown unknown n All T unknown 7.0 unknown GAP unknown unkn own All EOSINOPHILS_ unknown 0.3 10 unknown EO_ unknown unknown AUTO_ 3/UL All T unknown 0.3 10 unknown EOS_AUTO unknown un known 3/UL _ All T unknown 0.8 unknown mg/dL CREAT unknown unkn own All T unknown 28 unknown mmol/ CO2 unknown unkn own L All T unknown 103 unknown mmol/ CL unknown unkn own L All T unknown 8.2 unknown mg/dL CA unknown unkn own All T unknown 18 unknown mg/dL BUN unknown unkn own All BILIRUBIN_TO unknown 0.6 unknown mg/dL BILIT unknown unknown SAMY All BASOPHILS_AU unknown 0.1 10 unknown BA_ unknown unknown TO_ 3/UL All T unknown 0.1 10 unknown BASO_AUT unknown un known 3/UL O_ All T unknown 1.2 unknown A_G_RATI unknown un known O All T unknown 12 unknown U/L AST unknown unkn own All T unknown < 10 IU/L unknown ALT_SGPT unknown unknown _ All ALT_ALANINE_ unknown < 10 IU/L unknown ALT unkn own unknown AMINOTRANSFER ASE All ALKALINE_PHO unknown 81 unknown U/L ALP unknown unknown SPHATASE All T unknown 81 unknown U/L ALK_PHOS unknown un known All T unknown 3.2 unknown g/dL ALB unknown unkn own All ALBUMIN_GLOB unknown 1.2 unknown AGRATIO unknow n unknown ULIN_RATIO Vital Signs date measurement value source 20210418 temperature_standard 98.7 F 20210418 temperature_metric 37.06 C 20210418 respiration_rate 16 /min 20210418 height_standard 63.07 in 20210418 height_metric 160.2 cm 20210418 heart_rate 76 /min 20210418 BP_systolic 100 mm[Hg] 20210418 BP_diastolic 61 mm[Hg] 20210601 weight_standard 120.4 lb 20210601 weight_metric 54.61 kg 20210601 temperature_standard 97.6 F 20210601 temperature_metric 36.44 C 20210601 respiration_rate 14 /min 20210601 height_standard 63.07 in 20210601 height_metric 160.2 cm 20210601 heart_rate 69 /min 20210601 BP_systolic 112 mm[Hg] 20210601 BP_diastolic 67 mm[Hg] 20210601 BMI 21.36 kg/m2
[2021-07-06 12:01] LABS: BASOPHILS % (AUTO) 0.7 %; EOSINOPHILS # (AUTO) 0.1 10^3/uL (0.0-0.7); HCT - HEMATOCRIT 32.1 % (37.0-47.0); HGB - HEMOGLOBIN 10.3 g/dL (12.0-16.0); LYMPHOCYTES # (AUTO) 1.2 10^3/uL (1.5-3.5); MEAN CORPUSCULAR HEMOGLOBIN 30.9 pg (27.0-31.0); MEAN CORPUSCULAR HGB CONC 32.1 g/dL (32.0-36.0); MEAN CORPUSCULAR VOLUME 96.4 fL (81.0-99.0); MEAN PLATELET VOLUME 8.6 fL (7.9-10.8); MONOCYTES # (AUTO) 0.5 10^3/uL (0.0-1.0); MONOCYTES % (AUTO) 9.4 %; NEUTROPHILS # (AUTO) 3.7 10^3/uL (1.5-6.6); NEUTROPHILS % (AUTO) 66.5 %; PLT - PLATELET COUNT 163 10^3/uL (130-450); RED BLOOD COUNT 3.33 10^6/uL (4.20-5.40); WHITE BLOOD COUNT 5.6 x10^3/uL (4.8-10.8)
[2021-07-06 12:15] LABS: ALBUMIN 3.4 g/dL (3.2-5.5); ALBUMIN/GLOBULIN RATIO 1.7 (1.0-2.2); ALKALINE PHOSPHATASE 87 IU/L (42-121); ALT ALANINE AMINOTRANSFERASE < 10 IU/L (10-60); AST ASPARTATE AMINOTRANSFERASE 15 IU/L (10-42); BILIRUBIN,TOTAL 0.7 mg/dL (0.2-1.0); BUN - BLOOD UREA NITROGEN 17 mg/dL (6-20); CARBON DIOXIDE - CO2 25 mmol/L (21-32); CHLORIDE 105 mmol/L (101-111); CREATININE 0.8 mg/dL (0.4-1.0); GFR - MDRD 70 (>89); GLUCOSE 113 mg/dL (70-100); LIPASE 45 U/L (22-51); MAGNESIUM 1.9 mg/dL (1.7-2.8); POTASSIUM 4.1 mmol/L (3.5-5.0); SODIUM 138 mmol/L (135-145); TOTAL PROTEIN 5.4 g/dL (6.7-8.2)
--- NOTE | 2021-07-06 12:20 | XRAY Report ---
PROCEDURE: Chest 1 View X-Ray INDICATIONS: chest pain TECHNIQUE: One view of the chest was acquired. COMPARISON: None FINDINGS: Surgical changes and devices: None. Lungs and pleura: No pleural effusions or pneumothorax. Lungs are clear. Mediastinum: Mediastinal contours appear normal. Heart size is normal. Bones and chest wall: No suspicious bony lesions. Overlying soft tissues appear unremarkable. IMPRESSION: No acute cardiopulmonary pathology. Reviewed by: Moses Stuart MD on 07/06/2021 12:18 PM PDT Approved by: Moses Stuart MD on 07/06/2021 12:18 PM PDT Station ID: [id number]
--- NOTE | 2021-07-06 13:19 | CT Report ---
PROCEDURE: HEAD WO INDICATIONS: Syncope, fall, altered mental status TECHNIQUE: Noncontrast 4.5 mm thick angled axial sections acquired from the foramen magnum to the vertex. For r adiation dose reduction, the following was used: automated exposure control, adjustment of mA and/or kV according to patient size. COMPARISON: 05/18/2021 CT head FINDINGS: Image quality: Excellent. CSF spaces: Basal cisterns are patent. No extra-axial fluid collections. Ventricles are normal in size and shape. Brain: No midline shift. No intracranial masses or hemorrhage. Grider-white matter interface is norm al. Skull and face: Calvarium and visualized facial bones are intact, without suspicious lesions. Sinuses: Visualized sinuses and mastoids are clear. IMPRESSION: No acute intracranial finding. Reviewed by: Leland Rai MD on 07/06/2021 1:18 PM PDT Approved by: Leland Rai MD on 07/06/2021 1:18 PM PDT Station ID: [id number]
[2021-07-06 14:31] LABS: BILIRUBIN,URINE NEGATIVE (NEGATIVE); CLARITY,URINE HAZY (CLEAR); GLUCOSE, URINE (UA) NEGATIVE (NEGATIVE); KETONES,URINE (UA) NEGATIVE (NEGATIVE); LEUKOCYTE ESTERASE, URINE MODERATE (NEGATIVE); NITRITE,URINE NEGATIVE (NEGATIVE); OCCULT BLOOD,URINE NEGATIVE (NEGATIVE); PROTEIN,URINE NEGATIVE (NEGATIVE); UROBILINOGEN,URINE 0.2 (NORMAL) E.U./dL (NORMAL)
[2021-07-06 14:44] LABS: BACTERIA,URINE Moderate /HPF (None Seen); RBC,URINE 0-5 /HPF (0-5); SQUAMOUS EPITHELIAL CELL,UR MANY Squamous (<= Few)
[2021-07-06 15:15] VITALS: BP 155/73
== END 2021-07-06 15:15 | disposition home or self-care (01) ==
LOC: EDUNIT# → ED 11:20
DX: R55 Syncope and collapse (principal)
CPT/HCPCS: 36415; 80053; 81001; 81003; 83605; 83690; 83735; 84484; 85025; 87086; 93005; 96360; 96361; 99283

== ENCOUNTER 2021-07-30 10:36 | Outpatient (CLI) | payer MEDICARE, BC | END 2021-07-30 10:37 | disposition critical access hospital (66) | LOC: EMS 10:36 | DX: S01.81XA Laceration without foreign body of other part of head, initial encounter (principal); R51.9 Headache, unspecified; W18.30XA Fall on same level, unspecified, initial encounter; Y92.098 Other place in other non-institutional residence as the place of occurrence of the external cause | CPT/HCPCS: A0425; A0429 ==

== ENCOUNTER 2021-07-30 10:59 | Emergency (ER) | payer MEDICARE, BC ==
[2021-07-30 11:41] LABS: BASOPHILS # (AUTO) 0.1 10^3/uL (0.0-0.1); BASOPHILS % (AUTO) 1.2 %; EOSINOPHILS # (AUTO) 0.1 10^3/uL (0.0-0.7); EOSINOPHILS % (AUTO) 1.9 %; HCT - HEMATOCRIT 35.8 % (37.0-47.0); HGB - HEMOGLOBIN 11.6 g/dL (12.0-16.0); LYMPHOCYTES # (AUTO) 1.1 10^3/uL (1.5-3.5); LYMPHOCYTES % (AUTO) 16.1 %; MEAN CORPUSCULAR HEMOGLOBIN 30.9 pg (27.0-31.0); MEAN CORPUSCULAR HGB CONC 32.4 g/dL (32.0-36.0); MEAN CORPUSCULAR VOLUME 95.5 fL (81.0-99.0); MEAN PLATELET VOLUME 9.3 fL (7.9-10.8); MONOCYTES # (AUTO) 0.6 10^3/uL (0.0-1.0); MONOCYTES % (AUTO) 8.9 %; NEUTROPHILS # (AUTO) 4.9 10^3/uL (1.5-6.6); NEUTROPHILS % (AUTO) 71.5 %; PLT - PLATELET COUNT 194 10^3/uL (130-450); RED BLOOD COUNT 3.75 10^6/uL (4.20-5.40); RED CELL DISTRIBUTION WIDTH 14.7 % (12.0-15.0); WHITE BLOOD COUNT 6.9 x10^3/uL (4.8-10.8)
[2021-07-30 11:52] LABS: ALBUMIN 3.8 g/dL (3.2-5.5); ALBUMIN/GLOBULIN RATIO 1.4 (1.0-2.2); ALKALINE PHOSPHATASE 97 IU/L (42-121); ALT ALANINE AMINOTRANSFERASE < 10 IU/L (10-60); AST ASPARTATE AMINOTRANSFERASE 14 IU/L (10-42); BILIRUBIN,TOTAL 0.8 mg/dL (0.2-1.0); BUN - BLOOD UREA NITROGEN 15 mg/dL (6-20); CALCIUM 8.7 mg/dL (8.5-10.3); CARBON DIOXIDE - CO2 26 mmol/L (21-32); CHLORIDE 103 mmol/L (101-111); CREATININE 0.7 mg/dL (0.4-1.0); GFR - MDRD 81 (>89); GLUCOSE 94 mg/dL (70-100); LIPASE 29 U/L (22-51); POTASSIUM 4.4 mmol/L (3.5-5.0); SODIUM 138 mmol/L (135-145); TOTAL PROTEIN 6.5 g/dL (6.7-8.2)
--- OUTSIDE RECORDS SUMMARY | 2021-07-30 11:58 | EXTERNAL MEDICAL SUMMARY RPT | Continuity of Care Document ---
:1945 Author Organization [facility] Address [address] [place] [address] Phone Care Team Providers Name Role Phone M.D. Unavailable Unavailable Allergies No information. Encounters No information. Medications date description facility 20210601 metoprolol succinate All 20210601 atorvastatin All 20210601 quetiapine All Problems date description facility 20210706 XR SHOULDER 2-3 VIEW All 20210706 XR ELBOW 2 VIEWS All 20210706 Traumatic hematoma All 20210706 Total score? All 20210706 Tobacco use and exposure All 20210706 Tobacco smoking status [facility]IS All 20210706 Pain of right shoulder joint All 20210706 Pain in right shoulder All 20210706 Pain in right elbow All 20210706 Pain in joint involving upper arm All 20210706 Pain in joint involving shoulder region All 20210706 Other injury of unspecified body region , initial encounter All 20210706 Health-related behavior All 20210706 Former smoker All 20210706 Exercise All 20210706 Elbow joint pain All 20210706 Details of drug misuse behavior All 20210706 Contusion of unspecified site All 20210706 Alcohol use All 20210601 Total score? All 20210601 Tobacco use and exposure All 20210601 Tobacco smoking status NHIS All 20210601 Repeated falls All 20210601 Recurrent falls All 20210601 Former smoker All 20210601 Details of drug misuse behavior All 20210601 Alcohol use All 20210601 Abnormality of gait All Procedures date description facility 20210706 XR SHOULDER 2-3 VIEW All Results test status date ordered by attending specimen torrie e urea_nitrogen_blood unknown 20210706 unknown unknown unk nown Erythrocytes_volume_in unknown 20210706 unknown unknown unknown _Blood_by_Automated_cou nt Erythrocyte_distributi unknown 20210706 unknown unknown unknown on_width_Ratio_by_Autom ated_count MCV_Entitic_volume_by_ unknown 20210706 unknown unknown unknown Automated_count MCH_Entitic_mass_by_Au unknown 20210706 unknown unknown unknown tomated_count Platelets_volume_in_Bl unknown 20210706 unknown unknown unknown ood_by_Automated_count Platelet_mean_volume_E unknown 20210706 unknown unknown unknown ntitic_volume_in_Blood_ by_Rees-Rosy neutrophil_count_blood unknown 20210706 unknown unknown unknown monocyte_count_blood unknown 20210706 unknown unknown un known lymphocyte_count_blood unknown 69132008 unknown unknown unknown Hemoglobin_Mass_volume unknown 60816216 unknown unknown unknown _in_Blood eosinophil_count_blood unknown 20210706 unknown unknown unknown Basophils_volume_in_Bl unknown 20210706 unknown unknown unknown ood_by_Manual_count leukocyte_count_blood unknown 20210706 unknown unknown u nknown erythrocyte_RBC_count unknown 20210706 unknown unknown u nknown Leukocytes_volume_in_B unknown 20210706 unknown unknown unknown lood_by_Automated_count Glomerular_Filtration_ unknown 20210706 unknown unknown unknown rate platelet_count unknown 51904155 unknown unknown unknown hemoglobin_blood unknown 20210706 unknown unknown unknow n hematocrit_blood unknown 20210706 unknown unknown unknow n potassium_blood unknown 20210706 unknown unknown unknown WBC_urine_on_microscop unknown 20210706 unknown unknown unknown y Urobilinogen_Presence_ unknown 07824955 unknown unknown unknown in_Urine_by_Test_strip Specific_gravity_of_Ur unknown 89031616 unknown unknown unknown ine_by_Test_strip Nitrite_Presence_in_Ur unknown 92546564 unknown unknown unknown ine_by_Test_strip Leukocyte_esterase_Pre unknown 35295818 unknown unknown unknown sence_in_Urine_by_Test_ strip Ketones_Mass_volume_in unknown 57041007 unknown unknown unknown _Urine_by_Test_strip Color_of_Urine unknown 20210706 unknown unknown unknown Bilirubin.total_Presen unknown 20210706 unknown unknown unknown ce_in_Urine_by_Test_str ip clarity_urine_point unknown 20210706 unknown unknown unk nown pH_study_of_acidity unknown 71224841 unknown unknown unk nown Glomerular_filtration_r unknown 35758584 unknown unknown unknown ate_1.73_sq_M.predicted _among_non-blacks_Volum e_Rate_Area_in_Serum_Pl asma_or_Blood_by_Creati nine-based_formula_MDRD _ Hematocrit_Volume_Frac unknown 20210706 unknown unknown unknown tion_of_Blood_by_Automa ted_count bilirubin_serum_total unknown 20210706 unknown unknown u nknown alanine_aminotransfera unknown 20210706 unknown unknown unknown se_SGPT_serum carbon_dioxide_serum_t unknown 20210706 unknown unknown unknown otal aspartate_aminotransfe unknown 20210706 unknown unknown unknown rase_SGOT_serum protein_total_serum unknown 20210706 unknown unknown unk nown blood_glucose unknown 20210706 unknown unknown unknown potassium_blood unknown 20210706 unknown unknown unknown glucose_urine unknown 20210706 unknown unknown unknown leukocyte_esterase_uri unknown 20210706 unknown unknown unknown ne_by_dipstick urobilinogen_urine_sem unknown 20210706 unknown unknown unknown iquantitative_dipstick_ specific_gravity_urine unknown 20210706 unknown unknown unknown nitrite_urine_semiquan unknown 20210706 unknown unknown unknown titative ketones_urine_by_test_ unknown 20210706 unknown unknown unknown strip magnesium_serum unknown 20210706 unknown unknown unknown bilirubin_urine unknown 20210706 unknown unknown unknown mean_corpuscular_volum unknown 20210706 unknown unknown unknown e_RBC Urea_nitrogen_Mass_vol unknown 20210706 unknown unknown unknown ume_in_Serum_or_Plasma globulin_serum unknown 20210706 unknown unknown unknown alkaline_phosphatase_s unknown 20210706 unknown unknown unknown gretta Sodium_Moles_volume_in unknown 20210706 unknown unknown unknown _Serum_or_Plasma Protein_Mass_volume_in unknown 20210706 unknown unknown unknown _Serum_or_Plasma eosinophil_count_blood unknown 20210706 unknown unknown unknown anion_gap_serum unknown 20210706 unknown unknown unknown mean_platelet_volume unknown 15224178 unknown unknown un known urine_color unknown 20210706 unknown unknown unknown Magnesium_Moles_volume unknown 20210706 unknown unknown unknown _in_Serum_or_Plasma basophil_count_blood unknown 20210706 unknown unknown un known monocyte_count_blood unknown 20210706 unknown unknown un known lymphocyte_count_blood unknown 25146592 unknown unknown unknown neutrophil_count_blood unknown 86708818 unknown unknown unknown Glucose_Mass_volume_in unknown 40436336 unknown unknown unknown _Urine Glucose_Mass_volume_in unknown 58872580 unknown unknown unknown _Serum_or_Plasma Globulin_Mass_volume_i unknown 20210706 unknown unknown unknown n_Serum Creatinine_Mass_volume unknown 19413050 unknown unknown unknown _in_Serum_or_Plasma Chloride_Moles_volume_ unknown 20210706 unknown unknown unknown in_Serum_or_Plasma carbon_dioxide_serum_t unknown 02327251 unknown unknown unknown otal Calcium_Moles_volume_i unknown 34721657 unknown unknown unknown n_Serum_or_Plasma albumin_serum unknown 20210706 unknown unknown unknown Bilirubin.total_Mass_v unknown 20210706 unknown unknown unknown olume_in_Serum_or_Plasm a Aspartate_aminotransfe unknown 20210706 unknown unknown unknown rase_Enzymatic_activity _volume_in_Serum_or_Pla sma Anion_gap_4_in_Serum_o unknown 43461813 unknown unknown unknown r_Plasma creatinine_serum unknown 20210706 unknown unknown unknow n Alkaline_phosphatase_E unknown 13555700 unknown unknown unknown nzymatic_activity_volum e_in_Blood Albumin_Globulin_Mass_ unknown 20210706 unknown unknown unknown Ratio_in_Serum_or_Plasm a Albumin_Mass_volume_in unknown 60591882 unknown unknown unknown _Serum_or_Plasma Alanine_aminotransfera unknown 51465886 unknown unknown unknown se_Enzymatic_activity_v olume_in_Serum_or_Plasm a mean_corpuscular_hemog unknown 24273177 unknown unknown unknown lobin_concentration_rbc sodium_serum unknown 23849759 unknown unknown unknown albumin_globulin_ratio unknown 98858565 unknown unknown unknown _serum chloride_serum unknown 79447419 unknown unknown unknown calcium_serum unknown 34841607 unknown unknown unknown mean_corpuscular_hemog unknown 45793064 unknown unknown unknown lobin_RBC red_blood_cell_distrib unknown 35482271 unknown unknown unknown ution_width WBC_urine_on_microscop unknown 12454201 unknown unknown unknown y T unknown 80766678 unknown unknown unknown WBC_URINE unknown 62455095 unknown unknown unknown UROBILINOGEN_URINE unknown 40843600 unknown unknown unkn own SPECIFIC_GRAVITY_URINE unknown 10865148 unknown unknown unknown T unknown 27716790 unknown unknown unknown T unknown 62107980 unknown unknown unknown T unknown 87033235 unknown unknown unknown T unknown 06694915 unknown unknown unknown T unknown 44592417 unknown unknown unknown T unknown 37071323 unknown unknown unknown T unknown 16751361 unknown unknown unknown T unknown 58910372 unknown unknown unknown T unknown 02527578 unknown unknown unknown T unknown 42205005 unknown unknown unknown T unknown 77488779 unknown unknown unknown PH_URINE unknown 48650540 unknown unknown unknown NITRITE_URINE unknown 19348130 unknown unknown unknown LEUKOCYTE_ESTERASE_URI unknown 46393992 unknown unknown unknown NE KETONES_URINE_UA_ unknown 20789393 unknown unknown unkno wn GLUCOSE_URINE_UA_ unknown 59385757 unknown unknown unkno wn COLOR_URINE unknown 36349454 unknown unknown unknown CLARITY_URINE unknown 94045120 unknown unknown unknown BILIRUBIN_URINE unknown 27036376 unknown unknown unknown T unknown 24686743 unknown unknown unknown T unknown 27626594 unknown unknown unknown T unknown 64795988 unknown unknown unknown T unknown 54914100 unknown unknown unknown T unknown 59032871 unknown unknown unknown NEUTROPHILS_AUTO_ unknown 59039588 unknown unknown unkno wn T unknown 90363017 unknown unknown unknown T unknown 32725320 unknown unknown unknown T unknown 90940078 unknown unknown unknown MONOCYTES_AUTO_ unknown 03071008 unknown unknown unknown T unknown 98133863 unknown unknown unknown T unknown 62343549 unknown unknown unknown T unknown 37252018 unknown unknown unknown T unknown 37996863 unknown unknown unknown T unknown 42965730 unknown unknown unknown LYMPHOCYTES_AUTO_ unknown 56462940 unknown unknown unkno wn T unknown 55922790 unknown unknown unknown T unknown 90381422 unknown unknown unknown T unknown 54492332 unknown unknown unknown T unknown 14039452 unknown unknown unknown T unknown 24085559 unknown unknown unknown T unknown 37197759 unknown unknown unknown T unknown 68890080 unknown unknown unknown GFR_-_MDRD unknown 59644630 unknown unknown unknown T unknown 59234376 unknown unknown unknown EOSINOPHILS_AUTO_ unknown 36210273 unknown unknown unkno wn T unknown 89186910 unknown unknown unknown T unknown 93507191 unknown unknown unknown T unknown 43170947 unknown unknown unknown T unknown 11376923 unknown unknown unknown T unknown 53529483 unknown unknown unknown T unknown 67427896 unknown unknown unknown BILIRUBIN_TOTAL unknown 67461338 unknown unknown unknown BASOPHILS_AUTO_ unknown 65698848 unknown unknown unknown T unknown 94231260 unknown unknown unknown T unknown 01738744 unknown unknown unknown T unknown 20091484 unknown unknown unknown T unknown 63491019 unknown unknown unknown ALT_ALANINE_AMINOTRANS unknown 21518205 unknown unknown unknown FERASE ALKALINE_PHOSPHATASE unknown 51608159 unknown unknown un known T unknown 28031304 unknown unknown unknown T unknown 63611869 unknown unknown unknown ALBUMIN_GLOBULIN_RATIO unknown 05824885 unknown unknown unknown urea_nitrogen_blood unknown 37886139 unknown unknown unk nown Erythrocytes_volume_in unknown 92778906 unknown unknown unknown _Blood_by_Automated_cou nt Erythrocyte_distributi unknown 87239039 unknown unknown unknown on_width_Ratio_by_Autom ated_count MCV_Entitic_volume_by_ unknown 72836552 unknown unknown unknown Automated_count MCH_Entitic_mass_by_Au unknown 70263177 unknown unknown unknown tomated_count Platelets_volume_in_Bl unknown 38305267 unknown unknown unknown ood_by_Automated_count Platelet_mean_volume_E unknown 46700990 unknown unknown unknown ntitic_volume_in_Blood_ by_Rees-Rosy neutrophil_count_blood unknown 16913580 unknown unknown unknown monocyte_count_blood unknown 02814634 unknown unknown un known lymphocyte_count_blood unknown 75521450 unknown unknown unknown Hemoglobin_Mass_volume unknown 30523663 unknown unknown unknown _in_Blood eosinophil_count_blood unknown 09454416 unknown unknown unknown Basophils_volume_in_Bl unknown 63888756 unknown unknown unknown ood_by_Manual_count leukocyte_count_blood unknown 33317362 unknown unknown u nknown erythrocyte_RBC_count unknown 61003760 unknown unknown u nknown Leukocytes_volume_in_B unknown 90001781 unknown unknown unknown lood_by_Automated_count Glomerular_Filtration_ unknown 20750959 unknown unknown unknown rate platelet_count unknown 58181382 unknown unknown unknown hemoglobin_blood unknown 41544683 unknown unknown unknow n hematocrit_blood unknown 62090036 unknown unknown unknow n potassium_blood unknown 32628596 unknown unknown unknown WBC_urine_on_microscop unknown 87526342 unknown unknown unknown y Urobilinogen_Presence_ unknown 63633758 unknown unknown unknown in_Urine_by_Test_strip Specific_gravity_of_Ur unknown 34022684 unknown unknown unknown ine_by_Test_strip Nitrite_Presence_in_Ur unknown 64516814 unknown unknown unknown ine_by_Test_strip Leukocyte_esterase_Pre unknown 80890017 unknown unknown unknown sence_in_Urine_by_Test_ strip Ketones_Mass_volume_in unknown 17108965 unknown unknown unknown _Urine_by_Test_strip Color_of_Urine unknown 04266685 unknown unknown unknown Bilirubin.total_Presen unknown 30753915 unknown unknown unknown ce_in_Urine_by_Test_str ip clarity_urine_point unknown 35271428 unknown unknown unk nown pH_study_of_acidity unknown 84891669 unknown unknown unk geoffreyn Glomerular_filtration_r unknown 55742373 unknown unknown unknown ate_1.73_sq_M.predicted _among_non-blacks_Volum e_Rate_Area_in_Serum_Pl asma_or_Blood_by_Creati nine-based_formula_MDRD _ Hematocrit_Volume_Frac unknown 32977084 unknown unknown unknown tion_of_Blood_by_Automa ted_count bilirubin_serum_total unknown 31790605 unknown unknown u nknown alanine_aminotransfera unknown 79000480 unknown unknown unknown se_SGPT_serum carbon_dioxide_serum_t unknown 49304247 unknown unknown unknown otal aspartate_aminotransfe unknown 83691569 unknown unknown unknown rase_SGOT_serum protein_total_serum unknown 72612593 unknown unknown unk geoffreyn blood_glucose unknown 08988167 unknown unknown unknown potassium_blood unknown 24224362 unknown unknown unknown glucose_urine unknown 02519442 unknown unknown unknown leukocyte_esterase_uri unknown 41861198 unknown unknown unknown ne_by_dipstick urobilinogen_urine_sem unknown 79212825 unknown unknown unknown iquantitative_dipstick_ specific_gravity_urine unknown 36248798 unknown unknown unknown nitrite_urine_semiquan unknown 06088849 unknown unknown unknown titative ketones_urine_by_test_ unknown 44077841 unknown unknown unknown strip bilirubin_urine unknown 94373140 unknown unknown unknown mean_corpuscular_volum unknown 70468307 unknown unknown unknown e_RBC Urea_nitrogen_Mass_vol unknown 14133286 unknown unknown unknown ume_in_Serum_or_Plasma globulin_serum unknown 09399586 unknown unknown unknown alkaline_phosphatase_s unknown 43886063 unknown unknown unknown gretta Sodium_Moles_volume_in unknown 00219487 unknown unknown unknown _Serum_or_Plasma Protein_Mass_volume_in unknown 44401829 unknown unknown unknown _Serum_or_Plasma eosinophil_count_blood unknown 87454829 unknown unknown unknown anion_gap_serum unknown 56771556 unknown unknown unknown mean_platelet_volume unknown 18945476 unknown unknown un known urine_color unknown 51437899 unknown unknown unknown basophil_count_blood unknown 27168453 unknown unknown un known monocyte_count_blood unknown 45515355 unknown unknown un known lymphocyte_count_blood unknown 54252301 unknown unknown unknown neutrophil_count_blood unknown 44818733 unknown unknown unknown Glucose_Mass_volume_in unknown 23276629 unknown unknown unknown _Urine Glucose_Mass_volume_in unknown 19455435 unknown unknown unknown _Serum_or_Plasma Globulin_Mass_volume_i unknown 88508539 unknown unknown unknown n_Serum Creatinine_Mass_volume unknown 82508373 unknown unknown unknown _in_Serum_or_Plasma Chloride_Moles_volume_ unknown 08385269 unknown unknown unknown in_Serum_or_Plasma carbon_dioxide_serum_t unknown 51806697 unknown unknown unknown otal Calcium_Moles_volume_i unknown 05336254 unknown unknown unknown n_Serum_or_Plasma albumin_serum unknown 45816548 unknown unknown unknown Bilirubin.total_Mass_v unknown 36196416 unknown unknown unknown olume_in_Serum_or_Plasm a Aspartate_aminotransfe unknown 39282167 unknown unknown unknown rase_Enzymatic_activity _volume_in_Serum_or_Pla sma Anion_gap_4_in_Serum_o unknown 91748965 unknown unknown unknown r_Plasma creatinine_serum unknown 07721829 unknown unknown unknow n Alkaline_phosphatase_E unknown 27165420 unknown unknown unknown nzymatic_activity_volum e_in_Blood Albumin_Globulin_Mass_ unknown 44423484 unknown unknown unknown Ratio_in_Serum_or_Plasm a Albumin_Mass_volume_in unknown 60472967 unknown unknown unknown _Serum_or_Plasma Alanine_aminotransfera unknown 65367557 unknown unknown unknown se_Enzymatic_activity_v olume_in_Serum_or_Plasm a mean_corpuscular_hemog unknown 00394312 unknown unknown unknown lobin_concentration_rbc sodium_serum unknown 67708393 unknown unknown unknown albumin_globulin_ratio unknown 33473824 unknown unknown unknown _serum chloride_serum unknown 68436244 unknown unknown unknown calcium_serum unknown 70813789 unknown unknown unknown mean_corpuscular_hemog unknown 42833397 unknown unknown unknown lobin_RBC red_blood_cell_distrib unknown 31795539 unknown unknown unknown ution_width WBC_urine_on_microscop unknown 33444707 unknown unknown unknown y T unknown 98759302 unknown unknown unknown WBC_URINE unknown 38476195 unknown unknown unknown UROBILINOGEN_URINE unknown 88766653 unknown unknown unkn own SPECIFIC_GRAVITY_URINE unknown 90453386 unknown unknown unknown T unknown 44739826 unknown unknown unknown T unknown 12335386 unknown unknown unknown T unknown 69119935 unknown unknown unknown T unknown 88616589 unknown unknown unknown T unknown 10572484 unknown unknown unknown T unknown 31369217 unknown unknown unknown T unknown 64006181 unknown unknown unknown T unknown 63133718 unknown unknown unknown T unknown 54430620 unknown unknown unknown T unknown 93580846 unknown unknown unknown T unknown 29186297 unknown unknown unknown PH_URINE unknown 85722964 unknown unknown unknown NITRITE_URINE unknown 44009618 unknown unknown unknown LEUKOCYTE_ESTERASE_URI unknown 43696842 unknown unknown unknown NE KETONES_URINE_UA_ unknown 85529442 unknown unknown unkno wn GLUCOSE_URINE_UA_ unknown 26767014 unknown unknown unkno wn COLOR_URINE unknown 61290078 unknown unknown unknown CLARITY_URINE unknown 01993365 unknown unknown unknown BILIRUBIN_URINE unknown 13928318 unknown unknown unknown T unknown 88439496 unknown unknown unknown T unknown 27213341 unknown unknown unknown T unknown 18944164 unknown unknown unknown T unknown 25667427 unknown unknown unknown T unknown 87037541 unknown unknown unknown NEUTROPHILS_AUTO_ unknown 79251660 unknown unknown unkno wn T unknown 32797008 unknown unknown unknown T unknown 97017070 unknown unknown unknown T unknown 73495753 unknown unknown unknown MONOCYTES_AUTO_ unknown 42097513 unknown unknown unknown T unknown 48306237 unknown unknown unknown T unknown 46147294 unknown unknown unknown T unknown 18096723 unknown unknown unknown T unknown 19168614 unknown unknown unknown LYMPHOCYTES_AUTO_ unknown 55963792 unknown unknown unkno wn T unknown 67145582 unknown unknown unknown T unknown 40526058 unknown unknown unknown T unknown 76122776 unknown unknown unknown T unknown 20550122 unknown unknown unknown T unknown 94395197 unknown unknown unknown T unknown 80823694 unknown unknown unknown T unknown 12073190 unknown unknown unknown GFR_-_MDRD unknown 64277803 unknown unknown unknown T unknown 06157586 unknown unknown unknown EOSINOPHILS_AUTO_ unknown 89951385 unknown unknown unkno wn T unknown 47483762 unknown unknown unknown T unknown 23775289 unknown unknown unknown T unknown 77866753 unknown unknown unknown T unknown 74907491 unknown unknown unknown T unknown 20210518 unknown unknown unknown T unknown 20210518 unknown unknown unknown BILIRUBIN_TOTAL unknown 20210518 unknown unknown unknown BASOPHILS_AUTO_ unknown 20210518 unknown unknown unknown T unknown 20210518 unknown unknown unknown T unknown 20210518 unknown unknown unknown T unknown 20210518 unknown unknown unknown T unknown 20210518 unknown unknown unknown ALT_ALANINE_AMINOTRANS unknown 20210518 unknown unknown unknown FERASE ALKALINE_PHOSPHATASE unknown 20210518 unknown unknown un known T unknown 20210518 unknown unknown unknown T unknown 20210518 unknown unknown unknown ALBUMIN_GLOBULIN_RATIO unknown 20210518 unknown unknown unknown facility observation status value reference units lab code abn ormal line range notes All urea_nitroge unknown 17 unknown mg/dL _9 unknown unknown n_blood All Erythrocytes unknown 3.33 10 unknown _789-8 unknow n unknown _volume_in_Bl 6/UL ood_by_Automa ted_count All Erythrocyte_ unknown 15.0 unknown % _788-0 unknown unknown distribution_ width_Ratio_b y_Automated_c ount All MCV_Entitic_ unknown 96.4 unknown fL _787-2 unknown unknown volume_by_Aut omated_count All MCH_Entitic_ unknown 30.9 unknown pg _785-6 unknown unknown mass_by_Autom ated_count All Platelets_vo unknown 163 10 unknown _777-3 unknown unknown lume_in_Blood 3/UL _by_Automated _count All Platelet_mea unknown 8.6 unknown fL _776-5 unknown unknown n_volume_Enti tic_volume_in _Blood_by_Ree s-Rosy All neutrophil_c unknown 3.7 10 unknown _752-6 unknown unknown ount_blood 3/UL All monocyte_cou unknown 0.5 10 unknown _743-5 unknown unknown nt_blood 3/UL All lymphocyte_c unknown 1.2 10 unknown _732-8 unknown unknown ount_blood 3/UL All Hemoglobin_M unknown 10.3 unknown g/dL _718-7 unknown unknown ass_volume_in _Blood All eosinophil_c unknown 0.1 10 unknown _712-0 unknown unknown ount_blood 3/UL All Basophils_vo unknown 0.0 10 unknown _705-4 unknown unknown lume_in_Blood 3/UL _by_Manual_co unt All leukocyte_co unknown 5.6 X10 unknown _68 unknow n unknown unt_blood 3/UL All erythrocyte_ unknown 3.33 10 unknown _67 unknow n unknown RBC_count 6/UL All Leukocytes_v unknown 5.6 X10 unknown _6690-2 unkno wn unknown olume_in_Bloo 3/UL d_by_Automate d_count All Glomerular_F unknown 70 unknown mL/mi _66455 unknown unknown iltration_rat n e All platelet_cou unknown 163 10 unknown _66 unknown unknown nt 3/UL All hemoglobin_b unknown 10.3 unknown g/dL _65 unknown unknown lood All hematocrit_b unknown 32.1 unknown % _64 unknown unknown lood All potassium_bl unknown 4.1 unknown meq/L _6298-4 unknow n unknown ood All WBC_urine_on unknown 11-25 unknown _5821-4 unknow n unknown _microscopy /HPF All Urobilinogen unknown 0.2 unknown _5818-0 unknow n unknown _Presence_in_ (NORMAL) Urine_by_Test _strip All Specific_gra unknown 1.020 unknown _5811-5 unknow n unknown vity_of_Urine _by_Test_stri p All Nitrite_Pres unknown NEGATIVE unknown _5802-4 unkn own unknown ence_in_Urine _by_Test_stri p All Leukocyte_es unknown MODERATE unknown _5799-2 unkn own unknown terase_Presen ce_in_Urine_b y_Test_strip All Ketones_Mass unknown NEGATIVE unknown _5797-6 unkn own unknown _volume_in_Ur ine_by_Test_s trip All Color_of_Uri unknown DARK unknown _5778-6 unknow n unknown ne YELLOW All Bilirubin.to unknown NEGATIVE unknown _5770-3 unkn own unknown tal_Presence_ in_Urine_by_T est_strip All clarity_urin unknown HAZY unknown _5589 unknown unknown e_point All pH_study_of_ unknown 6.0 unknown _51641 unknown unknown acidity All Glomerular_fi unknown 70 unknown mL/mi _48642-3 unkno wn unknown ltration_rate n _1.73_sq_M.pr edicted_among _non-blacks_V olume_Rate_Ar ea_in_Serum_P lasma_or_Bloo d_by_Creatini ne-based_form ula_MDRD_ All Hematocrit_V unknown 32.1 unknown % _4544-3 unknow n unknown olume_Fractio n_of_Blood_by _Automated_co unt All bilirubin_se unknown 0.7 unknown mg/dL _43 unknown unknown rum_total All alanine_amin unknown < 10 IU/L unknown _40 unkn own unknown otransferase_ SGPT_serum All carbon_dioxi unknown 25 unknown mmol/ _3962 unknown unknown de_serum_tota L l All aspartate_am unknown 15 unknown U/L _39 unknown unknown inotransferas e_SGOT_serum All protein_tota unknown 5.4 unknown g/dL _36 unknown unknown l_serum All blood_glucos unknown 113 unknown mg/dL _3565 unknown unknown e All potassium_bl unknown 4.1 unknown meq/L _3483 unknown unknown ood All glucose_urin unknown NEGATIVE unknown _3369 unkno wn unknown e mg/dL All leukocyte_es unknown MODERATE unknown _327 unkno wn unknown terase_urine_ by_dipstick All urobilinogen unknown 0.2 unknown _326 unknown unknown _urine_semiqu (NORMAL) antitative_di pstick_ All specific_gra unknown 1.020 unknown _325 unknown unknown vity_urine All nitrite_urin unknown NEGATIVE unknown _323 unkno wn unknown e_semiquantit ative All ketones_urin unknown NEGATIVE unknown _322 unkno wn unknown e_by_test_str ip All magnesium_se unknown 1.9 unknown mg/dL _32 unknown unknown rum All bilirubin_ur unknown NEGATIVE unknown _319 unkno wn unknown ine All mean_corpusc unknown 96.4 unknown fL _315 unknown unknown ular_volume_R BC All Urea_nitroge unknown 17 unknown mg/dL _3094-0 unknow n unknown n_Mass_volume _in_Serum_or_ Plasma All globulin_ser unknown 2.0 unknown _3059 unknown unknown um All alkaline_pho unknown 87 unknown U/L _3 unknown unknown sphatase_seru m All Sodium_Moles unknown 138 unknown mmol/ _2951-2 unknow n unknown _volume_in_Se L rum_or_Plasma All Protein_Mass unknown 5.4 unknown g/dL _2885-2 unknow n unknown _volume_in_Se rum_or_Plasma All eosinophil_c unknown 0.1 10 unknown _285 unknown unknown ount_blood 3/UL All anion_gap_se unknown 8.0 unknown _279 unknown unknown rum All mean_platele unknown 8.6 unknown fL _2784 unknown unknown t_volume All urine_color unknown DARK unknown _2751 unknown unknown YELLOW All Magnesium_Mo unknown 1.9 unknown mg/dL _2601-3 unknow n unknown les_volume_in _Serum_or_Pla sma All basophil_cou unknown 0.0 10 unknown _2427 unknown unknown nt_blood 3/UL All monocyte_cou unknown 0.5 10 unknown _2422 unknown unknown nt_blood 3/UL All lymphocyte_c unknown 1.2 10 unknown _2420 unknown unknown ount_blood 3/UL All neutrophil_c unknown 3.7 10 unknown _2418 unknown unknown ount_blood 3/UL All Glucose_Mass unknown NEGATIVE unknown _2350-7 unkn own unknown _volume_in_Ur mg/dL ine All Glucose_Mass unknown 113 unknown mg/dL _2345-7 unknow n unknown _volume_in_Se rum_or_Plasma All Globulin_Mas unknown 2.0 unknown _2336-6 unknow n unknown s_volume_in_S gretta All Creatinine_M unknown 0.8 unknown mg/dL _2160-0 unknow n unknown ass_volume_in _Serum_or_Pla sma All Chloride_Mol unknown 105 unknown mmol/ _2075-0 unknow n unknown es_volume_in_ L Serum_or_Plas ma All carbon_dioxi unknown 25 unknown mmol/ _2028-9 unknow n unknown de_serum_tota L l All Calcium_Mole unknown 8.0 unknown mg/dL _1999-8 unknow n unknown s_volume_in_S erum_or_Plasm a All albumin_seru unknown 3.4 unknown g/dL _2 unknown unknown m All Bilirubin.to unknown 0.7 unknown mg/dL _1974- unknow n unknown tal_Mass_volu me_in_Serum_o r_Plasma All Aspartate_am unknown 15 unknown U/L _1920-8 unknow n unknown inotransferas e_Enzymatic_a ctivity_volum e_in_Serum_or _Plasma All Anion_gap_4_ unknown 8.0 unknown _1863-0 unknow n unknown in_Serum_or_P lasma All creatinine_s unknown 0.8 unknown mg/dL _18 unknown unknown gretta All Alkaline_pho unknown 87 unknown U/L _1783-0 unknow n unknown sphatase_Enzy matic_activit y_volume_in_B lood All Albumin_Glob unknown 1.7 unknown _1759-0 unknow n unknown ulin_Mass_Rat io_in_Serum_o r_Plasma All Albumin_Mass unknown 3.4 unknown g/dL _1751-7 unknow n unknown _volume_in_Se rum_or_Plasma All Alanine_amin unknown < 10 IU/L unknown _1742-6 unk nown unknown otransferase_ Enzymatic_act ivity_volume_ in_Serum_or_P lasma All mean_corpusc unknown 32.1 unknown g/dL _17029 unknown unknown ular_hemoglob in_concentrat ion_rbc All sodium_serum unknown 138 unknown mmol/ _159 unknown unknown L All albumin_glob unknown 1.7 unknown _146 unknown unknown ulin_ratio_se rum All chloride_ser unknown 105 unknown mmol/ _13 unknown unknown um L All calcium_seru unknown 8.0 unknown mg/dL _11 unknown unknown m All mean_corpusc unknown 30.9 unknown pg _1031 unknown unknown ular_hemoglob in_RBC All red_blood_ce unknown 15.0 unknown % _1030 unknown unknown ll_distributi on_width All WBC_urine_on unknown 11-25 unknown _1016 unknown unknown _microscopy /HPF All T unknown 5.6 X10 unknown WBC unknown unk nown 3/UL All WBC_URINE unknown 11-25 unknown UWBC unknown u nknown /HPF All UROBILINOGEN unknown 0.2 unknown UUROBIL unknow n unknown _URINE (NORMAL) All SPECIFIC_GRA unknown 1.020 unknown USG unknown unknown VITY_URINE All T unknown 11-25 unknown UR_WBC unknown unkn own /HPF All T unknown 0.2 unknown UR_URO unknown unkn own (NORMAL) All T unknown 1.020 unknown UR_SG unknown unkn own All T unknown 6.0 unknown UR_PH unknown unkn own All T unknown NEGATIVE unknown UR_NIT unknown un known All T unknown MODERATE unknown UR_LEU_E unknown unknown STERASE All T unknown NEGATIVE unknown UR_KETO_ unknown unknown UA_ All T unknown NEGATIVE unknown UR_GLU unknown un known mg/dL All T unknown DARK unknown UR_COLOR unknown un known YELLOW All T unknown HAZY unknown UR_CLARI unknown un known TY All T unknown NEGATIVE unknown UR_BILI unknown u nknown All PH_URINE unknown 6.0 unknown UPH unknown un known All NITRITE_URIN unknown NEGATIVE unknown UNITRITE unk nown unknown E All LEUKOCYTE_ES unknown MODERATE unknown ULEUK unkno wn unknown TERASE_URINE All KETONES_URIN unknown NEGATIVE unknown UKET unkno wn unknown E_UA_ All GLUCOSE_URIN unknown NEGATIVE unknown UGLUC unkno wn unknown E_UA_ mg/dL All COLOR_URINE unknown DARK unknown UCOL unknown unknown YELLOW All CLARITY_URIN unknown HAZY unknown UCLAR unknown unknown E All BILIRUBIN_UR unknown NEGATIVE unknown UBIL unkno wn unknown INE All T unknown 0.7 unknown mg/dL TOTAL_BI unknown un known LI All T unknown 15.0 unknown % RDW unknown unkn own All T unknown 3.33 10 unknown RBC unknown unk nown 6/UL All T unknown 5.4 unknown g/dL PRO_TOTA unknown un known L All T unknown 163 10 unknown PLT unknown unkn own 3/UL All NEUTROPHILS_ unknown 3.7 10 unknown NE_ unknown unknown AUTO_ 3/UL All T unknown 3.7 10 unknown NEUT_AUT unknown un known 3/UL O_ All T unknown 138 unknown mmol/ NA unknown unkn own L All T unknown 8.6 unknown fL MPV unknown unkn own All MONOCYTES_AU unknown 0.5 10 unknown MO_ unknown unknown TO_ 3/UL All T unknown 0.5 10 unknown MONO_AUT unknown un known 3/UL O_ All T unknown 1.9 unknown mg/dL MG unknown unkn own All T unknown 96.4 unknown fL MCV unknown unkn own All T unknown 32.1 unknown g/dL MCHC unknown unkn own All T unknown 30.9 unknown pg MCH unknown unkn own All LYMPHOCYTES_ unknown 1.2 10 unknown LY_ unknown unknown AUTO_ 3/UL All T unknown 1.2 10 unknown LYMPH_AU unknown un known 3/UL TO_ All T unknown 4.1 unknown meq/L K unknown unkn own All T unknown 10.3 unknown g/dL HGB unknown unkn own All T unknown 32.1 unknown % HCT unknown unkn own All T unknown 113 unknown mg/dL GLU unknown unkn own All T unknown 2.0 unknown GLOB unknown unkn own All T unknown 70 unknown mL/mi GFR_-_MD unknown un known n RD All GFR_-_MDRD unknown 70 unknown mL/mi GFR unknown unknown n All T unknown 8.0 unknown GAP unknown unkn own All EOSINOPHILS_ unknown 0.1 10 unknown EO_ unknown unknown AUTO_ 3/UL All T unknown 0.1 10 unknown EOS_AUTO unknown un known 3/UL _ All T unknown 0.8 unknown mg/dL CREAT unknown unkn own All T unknown 25 unknown mmol/ CO2 unknown unkn own L All T unknown 105 unknown mmol/ CL unknown unkn own L All T unknown 8.0 unknown mg/dL CA unknown unkn own All T unknown 17 unknown mg/dL BUN unknown unkn own All BILIRUBIN_TO unknown 0.7 unknown mg/dL BILIT unknown unknown SAMY All BASOPHILS_AU unknown 0.0 10 unknown BA_ unknown unknown TO_ 3/UL All T unknown 0.0 10 unknown BASO_AUT unknown un known 3/UL O_ All T unknown 1.7 unknown A_G_RATI unknown un known O All T unknown 15 unknown U/L AST unknown unkn own All T unknown < 10 IU/L unknown ALT_SGPT unknown unknown _ All ALT_ALANINE_ unknown < 10 IU/L unknown ALT unkn own unknown AMINOTRANSFER ASE All ALKALINE_PHO unknown 87 unknown U/L ALP unknown unknown SPHATASE All T unknown 87 unknown U/L ALK_PHOS unknown un known All T unknown 3.4 unknown g/dL ALB unknown unkn own All ALBUMIN_GLOB unknown 1.7 unknown AGRATIO unknow n unknown ULIN_RATIO All urea_nitroge unknown 18 unknown mg/dL _9 [...] ULIN_RATIO Vital Signs date measurement value source 20210601 weight_standard 120.4 lb 20210601 weight_metric 54.61 kg 20210601 temperature_standard 97.6 F 20210601 temperature_metric 36.44 C 20210601 respiration_rate 14 /min 20210601 height_standard 63.07 in 20210601 height_metric 160.2 cm 20210601 heart_rate 69 /min 20210601 BP_systolic 112 mm[Hg] 20210601 BP_diastolic 67 mm[Hg] 20210601 BMI 21.36 kg/m2 20210706 weight_standard 120.4 lb 20210706 weight_metric 54.61 kg 20210706 temperature_standard 97.4 F 20210706 temperature_metric 36.33 C 20210706 respiration_rate 15 /min 20210706 height_standard 63.07 in 20210706 height_metric 160.2 cm 20210706 heart_rate 73 /min 20210706 BP_systolic 151 mm[Hg] 20210706 BP_diastolic 67 mm[Hg] 20210706 BMI 21.36 kg/m2
--- NOTE | 2021-07-30 12:28 | CT Report ---
PROCEDURE: CT cervical spine without contrast INDICATIONS: fall face injury neck pain TECHNIQUE: Noncontrast 3 mm thick sections acquired from the skull base to the T4 level. Sagittal and coronal r eformats were then constructed. For radiation dose reduction, the following was used: automated exp osure control, adjustment of mA and/or kV according to patient size. COMPARISON: None. FINDINGS: Image quality: Excellent. Bones: No fractures or dislocations. Visualized superior ribs are intact. Disc space narrowing and hypertrophic facet joints noted in the lower cervical spine. Mild to moderate central stenosis prese nt at C6-7 Soft tissues: Prevertebral soft tissues are normal in thickness. No paravertebral hematomas. No ap ical pneumothoraces. Dense atherosclerotic vascular calcification noted. IMPRESSION: 1. Multilevel degenerative disc disease and arthropathy in the lower cervical spine without fracture or malalignment. Reviewed by: Isaías Ansari MD on 07/30/2021 11:27 AM SHARI Approved by: Isaías Ansari MD on 07/30/2021 11:27 AM SHARI Station ID: [id number]
[2021-07-30 12:31] LABS: BILIRUBIN,URINE NEGATIVE (NEGATIVE); GLUCOSE, URINE (UA) NEGATIVE (NEGATIVE); KETONES,URINE (UA) NEGATIVE (NEGATIVE); LEUKOCYTE ESTERASE, URINE TRACE (NEGATIVE); NITRITE,URINE NEGATIVE (NEGATIVE); OCCULT BLOOD,URINE NEGATIVE (NEGATIVE); PROTEIN,URINE NEGATIVE (NEGATIVE); UROBILINOGEN,URINE 0.2 (NORMAL) E.U./dL (NORMAL)
--- NOTE | 2021-07-30 12:32 | CT Report ---
PROCEDURE: CT brain without contrast INDICATIONS: fall head injury TECHNIQUE: Noncontrast 4.5 mm thick angled axial sections acquired from the foramen magnum to the vertex. For r adiation dose reduction, the following was used: automated exposure control, adjustment of mA and/or kV according to patient size. COMPARISON: None. FINDINGS: Image quality: Excellent. CSF spaces: Basal cisterns are patent. No extra-axial fluid collections. Ventricles are normal in size and shape. Brain: No midline shift. No intracranial masses or hemorrhage. Grider-white matter interface is norm al. Moderate atrophy and multifocal white matter chronic ischemic change noted. Atherosclerotic vasc ular calcification noted in the cavernous segments of both internal carotid arteries as well as the i ntradural vertebral arteries. Skull and face: Calvarium and visualized facial bones are intact, without suspicious lesions. Lens replacements Sinuses: Visualized sinuses and mastoids are clear. IMPRESSION: Atrophy and chronic ischemic change without acute hemorrhage or mass effect Reviewed by: Isaías Ansari MD on 07/30/2021 11:31 AM SHARI Approved by: Isaías Ansari MD on 07/30/2021 11:31 AM AKNEIL Station ID: [id number]
[2021-07-30 12:33] LABS: INR 1.1 (0.8-1.2); PT - PROTHROMBIN TIME 12.8 secs (9.9-12.6)
--- NOTE | 2021-07-30 12:34 | XRAY Report ---
PROCEDURE: Chest 1 View X-Ray INDICATIONS: chest pain TECHNIQUE: One view of the chest was acquired. COMPARISON: 07/06/2021 FINDINGS: Surgical changes and devices: None. Lungs and pleura: No pleural effusions or pneumothorax. Lungs are clear. Mild hyperinflation chron ic interstitial changes present. Mediastinum: Mediastinal contours appear normal. Heart size is normal. Atherosclerotic vascular ca lcification noted in the aortic arch. Bones and chest wall: No suspicious bony lesions. Overlying soft tissues appear unremarkable. Old healed right-sided rib fracture noted IMPRESSION: Hyperinflation chronic interstitial changes without acute cardiopulmonary findings Reviewed by: Isaías Ansari MD on 07/30/2021 11:32 AM SHARI Approved by: Isaías Ansari MD on 07/30/2021 11:32 AM SHARI Station ID: [id number]
[2021-07-30 12:35] LABS: CLARITY,URINE CLEAR (CLEAR)
--- NOTE | 2021-07-30 12:35 | XRAY Report ---
PROCEDURE: Hip w/Pelvis 2-3V RT INDICATIONS: fall right hip pain TECHNIQUE: AP pelvis with lateral view(s) of the right hip(s). COMPARISON: None. FINDINGS: Bones: No fractures or dislocations. Pelvic ring appears intact. No suspicious bony lesions. Bipol ar right hip hemiarthroplasty in good position no evidence of hardware failure or loosening. Heterotopic bone noted in the lateral soft tissue left hip been no pelvic ring intact. Degenerative c hanges noted lower lumbar spine Soft tissues: The visualized bowel gas pattern is normal. No suspicious soft tissue calcifications. IMPRESSION: 1. Right hip arthroplasty in good position. No fracture or dislocation. Reviewed by: Isaías Ansari MD on 07/30/2021 11:34 AM SHARI Approved by: Isaías Ansari MD on 07/30/2021 11:34 AM SHARI Station ID: [id number]
[2021-07-30 12:38] LABS: BACTERIA,URINE Rare /HPF (None Seen); RBC,URINE 0-5 /HPF (0-5); SQUAMOUS EPITHELIAL CELL,UR FEW Squamous (<= Few)
--- NOTE | 2021-07-30 12:40 | ED Physician Documentation ---
PD HPI Fall - Stated complaint Stated Complaint: FALL - Chief complaint Chief Complaint: Trauma Hd/Nk - History obtained from History obtained from: Patient, EMS - History of Present Illness Mechanism of injury: Unknown Fall distance: Standing position Where injury occurred: Home Timing - onset: Today Injury(ies) location: Face, Neck, Right Lower Extremity Quality of pain: Pain Associated symptoms: AMS, Neck pain. No: LOC, Amnesia, Seizures, Ear drainage, Nasal drainage, Weakness, Paresthesias, Dyspnea, Nausea / vomiting, Hematemesis, Abdominal distension Symptoms improve with: Rest Worsens with: Movement, Palpation Contributing factors: No: Anticoagulated, Intoxicated Similar symptoms before: Diagnosis (fall related to parkinsons) Recently seen: Emergency Dept (fall last month) - Additional information Additional information: 76-year-old female with history of Parkinson's and some mild dementia is a resident of assisted living in [facility]. She is usually given her medications daily and today she was in the dining room and she got up and walked out of the dining room and collapsed outside. She is usually confined to a wheelchair and is discouraged from ambulation. Her presents to the emergency department today with the patient and indicates that she is about at her baseline. He was not present when she initially showed up here. He does not live with the patient. She has had prior visits to the emergency department with dehydration and increased fluids have been encouraged. Review of Systems Constitutional: denies: Fever Ears: denies: Ear pain Nose: denies: Congestion Throat: denies: Sore throat Cardiac: denies: Chest pain / pressure, Palpitations Respiratory: denies: Dyspnea, Cough GI: denies: Vomiting, Diarrhea : denies: Dysuria Skin: denies: Rash Musculoskeletal: reports: Neck pain, Joint pain. denies: Back pain, Extremity pain, Extremity swelling Neurologic: denies: Generalized weakness, Focal weakness, Numbness PD PAST MEDICAL HISTORY - Past Medical History Cardiovascular: Hypertension, High cholesterol Respiratory: None Neuro: Parkinson's Endocrine/Autoimmune: None GI: Ulcers RESPIRATORY THERAPY INSTRUCTOR: None : None HEENT: Chronic vision loss Psych: None Musculoskeletal: Osteoarthritis, Chronic back pain Derm: None - Past Surgical History Past Surgical History: Yes General: Colonoscopy Ortho: Hip replacement, Rotator cuff repair - Present Medications Home Medications: Ambulatory Orders Medication Instructions Recorded Confirmed Carbidopa/Levodopa 25/100 [Sinemet 2 tab PO 2300 06/23/14 07/30/21 25 mg/100 mg] Citalopram [CeleXA] 10 mg PO QPM 06/23/14 07/30/21 Carbidopa/Levodopa 25/100 [Sinemet 2 tab PO 0900,1300,1700,2100 07/29/18 07/30/21 25 mg/100 mg] Aspirin [[place] Aspirin] 81 mg PO DAILY 12/28/20 07/30/21 Atorvastatin [Lipitor] 20 mg PO DAILY PM 12/28/20 07/30/21 Metoprolol Succinate [Toprol Xl] 25 mg PO DAILY 12/28/20 07/30/21 Quetiapine Fumarate [Seroquel] 100 mg PO BID 07/06/21 07/30/21 Rivastigmine Tartrate 1.5 mg PO BID 07/06/21 07/30/21 [Rivastigmine] - Allergies Allergies/Adverse Reactions: Allergies Allergy/AdvReac Type Severity Reaction Status Date / Time No Known Drug Allergies Allergy Verified 07/30/21 11:06 - Social History Does the pt smoke?: No Smoking Status: Never smoker Does the pt drink ETOH?: No Does the pt have substance abuse?: Yes - Immunizations Immunizations are current?: Yes - POLST Patient has POLST: No PD ED PE NORMAL - Vitals Vital signs reviewed: Yes (hypertensive ) - General General: No acute distress, Well developed/nourished, Other (76-year-old female with a vacant stare of Parkinson's laying on a backboard with a hard collar in place appears to be in some pain and she has blood from the bottom portion of her chin.) - HEENT HEENT: PERRL, EOMI, Other (There is a 3 cm laceration under the chin into the soft tissue without foreign material.) - Neck Neck: Supple, no meningeal sign, Other (There is midline bony point tenderness to the lower cervical spine. Patient's cervical spine is cleared by radiographic evaluation by CT scanning. She is removed from the hard cervical collar following the report being presented.) - Cardiac Cardiac: RRR, No murmur - Respiratory Respiratory: No respiratory distress, Clear bilaterally - Abdomen Abdomen: Normal bowel sounds, Soft, Non tender, Non distended, No organomegaly - Back Back: No CVA TTP - Derm Derm: Normal color, Warm and dry, No rash - Extremities Extremities: Other (There is deformity to the right lower extremity with shortening and external rotation the patient has good full range of motion of the hip without increase in her pain. 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, No motor deficit, No sensory deficit, Other (Speech is initially shaky and sparse following administration of carbidopa levodopa speech is improved.) Eye Opening: To Voice Motor: Obeys Commands Verbal: Confused GCS Score: 13 - Psych Psych: Normal mood, Normal affect Results - Vitals Vitals: Vital Signs - 24 hr 07/30/21 07/30/21 07/30/21 11:06 12:11 13:05 Temperature 36 C L Heart Rate 65 77 68 Respiratory 22 20 11 L Rate Blood Pressure 171/80 H 156/92 H 137/64 H O2 Saturation 99 100 100 07/30/21 07/30/21 07/30/21 13:30 14:00 14:30 Temperature Heart Rate 64 73 70 Respiratory 13 16 13 Rate Blood Pressure 143/75 H 141/72 H 140/72 H O2 Saturation 100 100 100 Oxygen O2 Source [] Room air O2 Source [] Room air O2 Source Room air - Labs Labs: Laboratory Tests 07/30/21 07/30/21 07/30/21 11:06 11:06 12:18 WBC 6.9 RBC 3.75 L Hgb 11.6 L Hct 35.8 L MCV 95.5 MCH 30.9 MCHC 32.4 RDW 14.7 Plt Count 194 MPV 9.3 Neut # (Auto) 4.9 Lymph # (Auto) 1.1 L Gray # (Auto) 0.6 Eos # (Auto) 0.1 Baso # (Auto) 0.1 Absolute Nucleated RBC 0.00 Nucleated RBC % 0.0 PT 12.8 H INR 1.1 Sodium 138 Potassium 4.4 Chloride 103 Carbon Dioxide 26 Anion Gap 9.0 BUN 15 Creatinine 0.7 Estimated GFR (MDRD) 81 L Glucose 94 Lactic Acid Calcium 8.7 Total Bilirubin 0.8 AST 14 ALT < 10 L Alkaline Phosphatase 97 Total Protein 6.5 L Albumin 3.8 Globulin 2.7 Albumin/Globulin Ratio 1.4 Lipase 29 Urine Color Urine Clarity Urine pH Ur Specific [place] Urine Protein Urine Glucose (UA) Urine Ketones Urine Occult Blood Urine Nitrite Urine Bilirubin Urine Urobilinogen Ur Leukocyte Esterase Urine RBC Urine WBC Ur Squamous Epith Cells Urine Bacteria Ur Microscopic Review Urine Culture Comments 07/30/21 07/30/21 12:18 12:26 WBC RBC Hgb Hct MCV MCH MCHC RDW Plt Count MPV Neut # (Auto) Lymph # (Auto) Gray # (Auto) Eos # (Auto) Baso # (Auto) Absolute Nucleated RBC Nucleated RBC % PT INR Sodium Potassium Chloride Carbon Dioxide Anion Gap BUN Creatinine Estimated GFR (MDRD) Glucose Lactic Acid 0.9 Calcium Total Bilirubin AST ALT Alkaline Phosphatase Total Protein Albumin Globulin Albumin/Globulin Ratio Lipase Urine Color YELLOW Urine Clarity CLEAR Urine pH 7.0 Ur Specific [place] 1.020 Urine Protein NEGATIVE Urine Glucose (UA) NEGATIVE Urine Ketones NEGATIVE Urine Occult Blood NEGATIVE Urine Nitrite NEGATIVE Urine Bilirubin NEGATIVE Urine Urobilinogen 0.2 (NORMAL) Ur Leukocyte Esterase TRACE H Urine RBC 0-5 Urine WBC 4-5 Ur Squamous Epith Cells FEW Squamous Urine Bacteria Rare Ur Microscopic Review INDICATED Urine Culture Comments INDICATED - Rads (name of study) cevical spine Radiology: Prelim report reviewed (Impression: 1. Multilevel degenerative disc disc disease and arthropathy in the lower cervical spine without fracture or malalignment.), EMP read indepedently, See rad report head Radiology: Prelim report reviewed (Impression: Atrophy and chronic ischemic change without acute hemorrhage or mass-effect.), EMP read indepedently, See rad report Right hip Radiology: Prelim report reviewed (Impression: 1. Right hip arthroplasty in good position. No fracture or dislocation.), EMP read indepedently, See rad report chest Radiology: Prelim report reviewed (Impression: Hyperinflation chronic and interstitial changes without acute cardiopulmonary findings.), EMP read indepedently, See rad report Procedures - Laceration (location) chin Length in cm: 3 Wound type: Irregular, Into subcut fat, Clean Neurovascular status: Sensory intact, Motor intact, Vascular intact Wound preparation: Hibiclens, Irrigated copiously NS, Wound explored, To the base Skin layer closure: Dermabond Other: Patient tolerated well, No complications, Neurovascular intact, Tetanus UTD - IVC sono (time) 1122 Bedside IVC sono: IVC measures (cm) (1.9), Euvolemia PD MEDICAL DECISION MAKING - ED course Complexity details: reviewed old records, reviewed results, re-evaluated patient, considered differential, d/w patient ED course: 76-year-old female with a history of Parkinson's and has had another fall today. She has been discouraged from walking at all. Today she escaped the dining room and went outside she indicated to me at some point that this was to trey someone. Her indicates that she has "friends "related to her use of carbidopa levodopa. He feels that she is back to her baseline. The patient arrived in the emergency department with her eyes closed responding to voice she is now awake alert and responding normally. CT scan of the head cervical spine are without evidence of fracture or hemorrhage. X-ray of the chest is without abnormality as is x-ray of the right hip that shows hardware in place. The patient indicates she has had prior shortening and external rotation of her leg. Her chin laceration is reapproximated and covered with Dermabond.Her feels she is safe for discharge. Departure - Departure Disposition: 01 Home, Self Care Clinical Impression: Parkinson disease Contusion of right hip Qualifiers: Encounter type: initial encounter Qualified Code(s): S70.01XA - Contusion of right hip, initial encounter Cervical strain, acute Qualifiers: Encounter type: initial encounter Qualified Code(s): S16.1XXA - Strain of muscle, fascia and tendon at neck level, initial encounter Chin laceration Qualifiers: Encounter type: initial encounter Qualified Code(s): S01.81XA - Laceration without foreign body of other part of head, initial encounter Instructions: ED Contusion Hip, ED Laceration Facial Skin Glue, ED Sprain Strain Neck Follow-Up: Cuauhtemoc Neumann MD [Primary Care Provider] - Comments: Brando, today it looks like you have had another fall and have lacerated your chin. We did not find evidence of dehydration today. The laceration is expected to heal within 1 week. Allow the glue to work its way off without pulling it off. Discharge Date/Time: 07/30/21 15:09
[2021-07-30] MEDS: KETOROLAC 30 MG/ML VIAL IVP STA (13:11)
[2021-07-30] MEDS: CARBIDOPA/LEVODOPA 25 MG/100 MG TABLET PO STA (13:32)
[2021-07-30 14:31] VITALS: BP 140/72
== END 2021-07-30 15:09 | disposition home or self-care (01) ==
LOC: EDUNIT# → EDBD → ED 10:59
DX: S01.81XA Laceration without foreign body of other part of head, initial encounter (principal); S70.01XA Contusion of right hip, initial encounter; S16.1XXA Strain of muscle, fascia and tendon at neck level, initial encounter; W01.0XXA Fall on same level from slipping, tripping and stumbling without subsequent striking against object, initial encounter; Y93.01 Activity, walking, marching and hiking; Y92.480 Sidewalk as the place of occurrence of the external cause; G20 Parkinson's disease; F02.80 Dementia in other diseases classified elsewhere, unspecified severity, without behavioral disturbance, psychotic disturbance, mood disturbance, and anxiety
CPT/HCPCS: 12013; 36415; 70450; 71045; 72125; 73502; 80053; 81001; 83605; 83690; 85025; 85610; 87040; 87086; 96374; 99284; A9270; 81003

== ENCOUNTER 2021-08-22 09:13 | Outpatient (CLI) | payer MEDICARE, BC | END 2021-08-22 09:14 | disposition critical access hospital (66) | LOC: EMS 09:13 | DX: R40.4 Transient alteration of awareness (principal); R53.83 Other fatigue | CPT/HCPCS: A0425; A0429 ==

== ENCOUNTER 2021-08-22 09:37 | Emergency (ER) | payer MEDICARE, BC ==
[2021-08-22] MEDS ORDERED: SODIUM CHLORIDE 0.9% 1,000 ML IV STA (09:49)
--- NOTE | 2021-08-22 09:51 | ED Physician Documentation ---
PD HPI ALTERED MENTAL STATUS - Stated complaint Stated Complaint: AMS - History obtained from History obtained from: Patient, EMS, Caregiver (Caregivers that Laura noticed her to be sleepy and hard to arouse this morning after having been up to get a light breakfast. No noted trauma. No illness obvious.) - History of Present Illness Timing - onset: How many hours ago (Staff said that he noted her up getting a light breakfast and then she was very sleepy and hard to arouse when they went to check on her an hour later. This was about 45 minutes ago now. She is a bit lethargic on EMS arrival but improved on route.) Timing - duration: Hours (1) Timing - details: Abrupt onset, Now resolved Quality / character: Less responsive (seemed somnolent) Associated symptoms: No: Fever, Headache Contributing factors: No: Recent med change, Recent illness Basline status: Disoriented, Walker Recently seen: Not recently seen Review of Systems Unable to obtain: Dementia (but she is aware of current symptoms, just poor memory.), Other (info from ) Constitutional: denies: Fever Nose: denies: Congestion Throat: denies: Sore throat Cardiac: denies: Chest pain / pressure Respiratory: denies: Cough GI: denies: Abdominal Pain, Vomiting, Diarrhea Neurologic: reports: Generalized weakness. denies: Focal weakness, Numbness, Difficulty speaking, Headache, Head injury Endocrine: denies: Weight loss PD PAST MEDICAL HISTORY - Past Medical History Cardiovascular: Hypertension, High cholesterol Respiratory: None Neuro: Dementia, Parkinson's Endocrine/Autoimmune: None GI: Ulcers QUALITY REVIEWER: None : None HEENT: Chronic vision loss Psych: None Musculoskeletal: Osteoarthritis, Chronic back pain Derm: None - Past Surgical History Past Surgical History: Yes General: Colonoscopy Ortho: Hip replacement, Rotator cuff repair - Present Medications Home Medications: Ambulatory Orders Medication Instructions Recorded Confirmed Carbidopa/Levodopa 25/100 [Sinemet 2 tab PO 2300 06/23/14 08/22/21 25 mg/100 mg] Citalopram [CeleXA] 10 mg PO QPM 06/23/14 08/22/21 Carbidopa/Levodopa 25/100 [Sinemet 2 tab PO 0900,1300,1700,2100 07/29/18 08/22/21 25 mg/100 mg] Aspirin [[place] Aspirin] 81 mg PO DAILY 12/28/20 08/22/21 Atorvastatin [Lipitor] 20 mg PO DAILY PM 12/28/20 08/22/21 Metoprolol Succinate [Toprol Xl] 25 mg PO DAILY 12/28/20 08/22/21 Quetiapine Fumarate [Seroquel] 50 mg PO BID 07/06/21 08/22/21 Rivastigmine Tartrate 1.5 mg PO BID 07/06/21 08/22/21 [Rivastigmine] - Allergies Allergies/Adverse Reactions: Allergies Allergy/AdvReac Type Severity Reaction Status Date / Time No Known Drug Allergies Allergy Verified 08/22/21 13:21 - Social History Does the pt smoke?: No Smoking Status: Never smoker Does the pt drink ETOH?: No Does the pt have substance abuse?: Yes - Immunizations Immunizations are current?: Yes - POLST Patient has POLST: No PD ED PE NORMAL - Vitals Vital signs reviewed: Yes - General General: No acute distress, Well developed/nourished. No: Alert and oriented X 3 (person and place, but not time ) - HEENT HEENT: Atraumatic - Neck Neck: Supple, no meningeal sign, No adenopathy, No bruit - Cardiac Cardiac: RRR, No murmur - Respiratory Respiratory: Clear bilaterally - Abdomen Abdomen: Soft, Non tender - Derm Derm: Normal color, Warm and dry - Extremities Extremities: No tenderness to palpate, No edema - Neuro Neuro: manager product management 2-12 intact, No motor deficit, No sensory deficit, Normal speech Eye Opening: Spontaneous Motor: Obeys Commands Verbal: Oriented GCS Score: 15 Results - Vitals Vitals: Vital Signs - 24 hr 08/22/21 08/22/21 08/22/21 09:44 10:11 12:11 Temperature 36.9 C Heart Rate 70 81 80 Respiratory 16 17 14 Rate Blood Pressure 155/70 H 113/69 160/68 H O2 Saturation 100 94 100 Oxygen O2 Source [With Activity] Room air O2 Source [Without Activity] Room air O2 Source Room air - EKG (time done) 10:32 Rate: Rate (enter#) (65) Rhythm: NSR Devol: Normal Intervals: Normal ME QRS: Normal Ischemia: Normal ST segments. No: ST elevation c/w ischemia, ST depression - Tele (time rhythm occurred) nurse Telemetry / rhythm strip: Wide complex tachycardia (While in the ER the patient did have a approximately 5 to 10-second episode of rapid heart rate that self resolved. He had had a different axis with wide complexes but there was still a baseline atrial wavering consistent with A. fib. It self corrected and she did not have any symptoms.) - Labs Labs: Laboratory Tests 08/22/21 08/22/21 08/22/21 09:56 09:56 09:56 WBC 6.7 RBC 3.70 L Hgb 11.5 L Hct 35.8 L MCV 96.8 MCH 31.1 H MCHC 32.1 RDW 14.8 Plt Count 203 MPV 8.9 Neut # (Auto) 4.5 Lymph # (Auto) 1.4 L [place] # (Auto) 0.6 Eos # (Auto) 0.1 Baso # (Auto) 0.1 Absolute Nucleated RBC 0.00 Nucleated RBC % 0.0 PT 12.4 INR 1.1 Sodium 140 Potassium 4.4 Chloride 105 Carbon Dioxide 26 Anion Gap 9.0 BUN 19 Creatinine 0.8 Estimated GFR (MDRD) 70 L Glucose 92 Calcium 8.7 Magnesium 2.0 Total Bilirubin 0.7 AST 17 ALT < 10 L Alkaline Phosphatase 89 Troponin I High Sens Total Protein 6.7 Albumin 3.8 Globulin 2.9 Albumin/Globulin Ratio 1.3 Lipase 35 Urine Color Urine Clarity Urine pH Ur Specific [place] Urine Protein Urine Glucose (UA) Urine Ketones Urine Occult Blood Urine Nitrite Urine Bilirubin Urine Urobilinogen Ur Leukocyte Esterase Urine RBC Urine WBC Ur Squamous Epith Cells Urine Bacteria Ur Microscopic Review Urine Culture Comments 08/22/21 08/22/21 09:56 11:39 WBC RBC Hgb Hct MCV MCH MCHC RDW Plt Count MPV Neut # (Auto) Lymph # (Auto) [place] # (Auto) Eos # (Auto) Baso # (Auto) Absolute Nucleated RBC Nucleated RBC % PT INR Sodium Potassium Chloride Carbon Dioxide Anion Gap BUN Creatinine Estimated GFR (MDRD) Glucose Calcium Magnesium Total Bilirubin AST ALT Alkaline Phosphatase Troponin I High Sens 3.4 Total Protein Albumin Globulin Albumin/Globulin Ratio Lipase Urine Color YELLOW Urine Clarity SL. CLOUDY Urine pH 6.0 Ur Specific [place] 1.010 Urine Protein NEGATIVE Urine Glucose (UA) NEGATIVE Urine Ketones NEGATIVE Urine Occult Blood SMALL H Urine Nitrite NEGATIVE Urine Bilirubin NEGATIVE Urine Urobilinogen 0.2 (NORMAL) Ur Leukocyte Esterase LARGE H Urine RBC 0-5 Urine WBC 11-25 H Ur Squamous Epith Cells MOD Squamous H Urine Bacteria Moderate H Ur Microscopic Review INDICATED Urine Culture Comments NOT INDICATED - Rads (name of study) head CT Radiology: Prelim report reviewed (no ICH nor acute process), See rad report chest xay Radiology: Prelim report reviewed (no acute process), See rad report PD MEDICAL DECISION MAKING - ED course Complexity details: reviewed old records, reviewed results, re-evaluated patient (still awake and conversant without symptoms here. says she is at baseline. ), considered differential, d/w patient, d/w family () Departure - Departure Disposition: Home, Self Care Clinical Impression: Pyuria Altered mental status Qualifiers: Altered mental status type: somnolence Qualified Code(s): R40.0 - Somnolence Atrial fibrillation Qualifiers: Atrial fibrillation type: paroxysmal Qualified Code(s): I48.0 - Paroxysmal atrial fibrillation Condition: Stable Record reviewed to determine appropriate education?: Yes Comments: Its unclear the cause of your drowsiness and difficulty being aroused this morning. He seem at your baseline now without any obvious acute problem. Your head CT did not show any signs of bleeding swelling or acute changes. Your basic blood tests and chest x-ray are good without signs of infection or electrolyte problems. Your blood sugar was good. Your urine sample does show some white cells in the urine which may be just normal often enough. We will do a urine culture and determine if there is an actual infection there and call if that results in a couple of days. While you are here in the ER, you did have approximately 10 seconds of a regular heartbeat that looked likely to be atrial fibrillation. There were no symptoms at the time so I do not think this is related to your symptoms earlier. Recheck if recurring episodes or symptoms otherwise follow-up with your primary care. Discharge Date/Time: 08/22/21 12:55
[2021-08-22 10:02] LABS: BASOPHILS # (AUTO) 0.1 10^3/uL (0.0-0.1); BASOPHILS % (AUTO) 0.7 %; EOSINOPHILS # (AUTO) 0.1 10^3/uL (0.0-0.7); EOSINOPHILS % (AUTO) 1.8 %; HCT - HEMATOCRIT 35.8 % (37.0-47.0); HGB - HEMOGLOBIN 11.5 g/dL (12.0-16.0); LYMPHOCYTES # (AUTO) 1.4 10^3/uL (1.5-3.5); LYMPHOCYTES % (AUTO) 20.6 %; MEAN CORPUSCULAR HEMOGLOBIN 31.1 pg (27.0-31.0); MEAN CORPUSCULAR HGB CONC 32.1 g/dL (32.0-36.0); MEAN CORPUSCULAR VOLUME 96.8 fL (81.0-99.0); MEAN PLATELET VOLUME 8.9 fL (7.9-10.8); MONOCYTES # (AUTO) 0.6 10^3/uL (0.0-1.0); NEUTROPHILS # (AUTO) 4.5 10^3/uL (1.5-6.6); NEUTROPHILS % (AUTO) 67.6 %; PLT - PLATELET COUNT 203 10^3/uL (130-450); RED CELL DISTRIBUTION WIDTH 14.8 % (12.0-15.0); WHITE BLOOD COUNT 6.7 x10^3/uL (4.8-10.8)
[2021-08-22 10:08] LABS: INR 1.1 (0.8-1.2); PT - PROTHROMBIN TIME 12.4 secs (9.9-12.6)
--- NOTE | 2021-08-22 10:11 | XRAY Report ---
PROCEDURE: Chest 1 View X-Ray INDICATIONS: AMS/lethargic onset this AM TECHNIQUE: One view of the chest was acquired. COMPARISON: 07/30/2021 FINDINGS: Surgical changes and devices: None. Lungs and pleura: No pleural effusions or pneumothorax. Lungs are clear. Mediastinum: Mediastinal contours appear normal. Heart size is normal. Bones and chest wall: No suspicious bony lesions. Overlying soft tissues appear unremarkable. IMPRESSION: No acute process. Reviewed by: Luther Venegas MD on 08/22/2021 10:10 AM PDT Approved by: Luther Venegas MD on 08/22/2021 10:10 AM PDT Station ID: [id number]
--- OUTSIDE RECORDS SUMMARY | 2021-08-22 10:14 | EXTERNAL MEDICAL SUMMARY RPT | Continuity of Care Document ---
:1945 Author Organization [facility] Address [address] [place] [address] Phone Care Team Providers Name Role Phone [...] by attending specimen torrie e urea_nitrogen_blood unknown 20210809 unknown unknown unk nown Erythrocytes_volume_in unknown 20210809 unknown unknown unknown _Blood_by_Automated_cou nt Erythrocyte_distributi unknown 20210809 unknown unknown unknown on_width_Ratio_by_Autom ated_count MCV_Entitic_volume_by_ unknown 20210809 unknown unknown unknown Automated_count MCH_Entitic_mass_by_Au unknown 20210809 unknown unknown unknown tomated_count Platelets_volume_in_Bl unknown 20210809 unknown unknown unknown ood_by_Automated_count Platelet_mean_volume_E unknown 20210809 unknown unknown unknown ntitic_volume_in_Blood_ by_Rees-Rosy neutrophil_count_blood unknown 20210809 unknown unknown unknown Hemoglobin_Mass_volume unknown 20210809 unknown unknown unknown _in_Blood leukocyte_count_blood unknown 20210809 unknown unknown u nknown erythrocyte_RBC_count unknown 20210809 unknown unknown u nknown Leukocytes_volume_in_B unknown 20210809 unknown unknown unknown lood_by_Automated_count Glomerular_Filtration_ unknown 20210809 unknown unknown unknown rate platelet_count unknown [id number] unknown unknown unknown hemoglobin_blood unknown 20210809 unknown unknown unknow n hematocrit_blood unknown 20210809 unknown unknown unknow n potassium_blood unknown 20210809 unknown unknown unknown Glomerular_filtration_r unknown 20210809 unknown unknown unknown ate_1.73_sq_M.predicted _among_non-blacks_Volum e_Rate_Area_in_Serum_Pl asma_or_Blood_by_Creati nine-based_formula_MDRD _ Hematocrit_Volume_Frac unknown 20210809 unknown unknown unknown tion_of_Blood_by_Automa ted_count bilirubin_serum_total unknown 20210809 unknown unknown u nknown alanine_aminotransfera unknown 20210809 unknown unknown unknown se_SGPT_serum carbon_dioxide_serum_t unknown 20210809 unknown unknown unknown otal aspartate_aminotransfe unknown 20210809 unknown unknown unknown rase_SGOT_serum protein_total_serum unknown 20210809 unknown unknown unk nown blood_glucose unknown 20210809 unknown unknown unknown potassium_blood unknown 20210809 unknown unknown unknown mean_corpuscular_volum unknown 20210809 unknown unknown unknown e_RBC Urea_nitrogen_Mass_vol unknown 20210809 unknown unknown unknown ume_in_Serum_or_Plasma globulin_serum unknown 20210809 unknown unknown unknown alkaline_phosphatase_s unknown 20210809 unknown unknown unknown gretta Sodium_Moles_volume_in unknown 20210809 unknown unknown unknown _Serum_or_Plasma Protein_Mass_volume_in unknown [id number] unknown unknown unknown _Serum_or_Plasma anion_gap_serum unknown 07272544 unknown unknown unknown mean_platelet_volume unknown [id number] unknown unknown un known neutrophil_count_blood unknown 20210809 unknown unknown unknown Glucose_Mass_volume_in unknown 20210809 unknown unknown unknown _Serum_or_Plasma Globulin_Mass_volume_i unknown 20210809 unknown unknown unknown n_Serum Creatinine_Mass_volume unknown 20210809 unknown unknown unknown _in_Serum_or_Plasma Chloride_Moles_volume_ unknown 20210809 unknown unknown unknown in_Serum_or_Plasma carbon_dioxide_serum_t unknown 20210809 unknown unknown unknown otal Calcium_Moles_volume_i unknown 20210809 unknown unknown unknown n_Serum_or_Plasma albumin_serum unknown 20210809 unknown unknown unknown Bilirubin.total_Mass_v unknown 20210809 unknown unknown unknown olume_in_Serum_or_Plasm a Aspartate_aminotransfe unknown 20210809 unknown unknown unknown rase_Enzymatic_activity _volume_in_Serum_or_Pla sma Anion_gap_4_in_Serum_o unknown 20210809 unknown unknown unknown r_Plasma creatinine_serum unknown 20210809 unknown unknown unknow n Alkaline_phosphatase_E unknown 20210809 unknown unknown unknown nzymatic_activity_volum e_in_Blood Albumin_Globulin_Mass_ unknown 20210809 unknown unknown unknown Ratio_in_Serum_or_Plasm a Albumin_Mass_volume_in unknown 20210809 unknown unknown unknown _Serum_or_Plasma Alanine_aminotransfera unknown 20210809 unknown unknown unknown se_Enzymatic_activity_v olume_in_Serum_or_Plasm a mean_corpuscular_hemog unknown 20210809 unknown unknown unknown lobin_concentration_rbc sodium_serum unknown 20210809 unknown unknown unknown albumin_globulin_ratio unknown 20210809 unknown unknown unknown _serum chloride_serum unknown 20210809 unknown unknown unknown calcium_serum unknown 20210809 unknown unknown unknown mean_corpuscular_hemog unknown 20210809 unknown unknown unknown lobin_RBC red_blood_cell_distrib unknown 20210809 unknown unknown unknown ution_width T unknown 20210809 unknown unknown unknown T unknown 20210809 unknown unknown unknown T unknown 20210809 unknown unknown unknown T unknown 20210809 unknown unknown unknown T unknown 20210809 unknown unknown unknown T unknown 20210809 unknown unknown unknown NEUTROPHILS_AUTO_ unknown 20210809 unknown unknown unkno wn T unknown 20210809 unknown unknown unknown T unknown [id number] unknown unknown unknown T unknown [id number] unknown unknown unknown T unknown [id number] unknown unknown unknown T unknown [id number] unknown unknown unknown T unknown [id number] unknown unknown unknown T unknown 08998881 unknown unknown unknown T unknown [id number] unknown unknown unknown T unknown [id number] unknown unknown unknown T unknown [id number] unknown unknown unknown T unknown [id number] unknown unknown unknown T unknown 65651137 unknown unknown unknown GFR_-_MDRD unknown 20210809 unknown unknown unknown T unknown 20037096 unknown unknown unknown T unknown [id number] unknown unknown unknown T unknown [id number] unknown unknown unknown T unknown [id number] unknown unknown unknown T unknown 52004693 unknown unknown unknown T unknown 59952453 unknown unknown unknown BILIRUBIN_TOTAL unknown 11361942 unknown unknown unknown T unknown 16008413 unknown unknown unknown T unknown 20210809 unknown unknown unknown T unknown 20210809 unknown unknown unknown ALT_ALANINE_AMINOTRANS unknown 20210809 unknown unknown unknown FERASE ALKALINE_PHOSPHATASE unknown 20210809 unknown unknown un known T unknown 20210809 unknown unknown unknown T unknown 20210809 unknown unknown unknown ALBUMIN_GLOBULIN_RATIO unknown [id number] unknown unknown unknown urea_nitrogen_blood unknown [id number] unknown unknown unk nown Erythrocytes_volume_in unknown 70341178 unknown unknown unknown _Blood_by_Automated_cou nt Erythrocyte_distributi unknown [id number] unknown unknown unknown on_width_Ratio_by_Autom ated_count MCV_Entitic_volume_by_ unknown 20681136 unknown unknown unknown Automated_count MCH_Entitic_mass_by_Au unknown 75616584 unknown unknown unknown tomated_count Platelets_volume_in_Bl unknown 84753082 unknown unknown unknown ood_by_Automated_count Platelet_mean_volume_E unknown 63677991 unknown unknown unknown ntitic_volume_in_Blood_ by_Rees-Rosy neutrophil_count_blood unknown 08836169 unknown unknown unknown monocyte_count_blood unknown 99535975 unknown unknown un known lymphocyte_count_blood unknown 65277917 unknown unknown unknown Hemoglobin_Mass_volume unknown 42219438 unknown unknown unknown _in_Blood eosinophil_count_blood unknown 74421092 unknown unknown unknown Basophils_volume_in_Bl unknown 58733503 unknown unknown unknown ood_by_Manual_count leukocyte_count_blood unknown 85493043 unknown unknown u nknown erythrocyte_RBC_count unknown 45495687 unknown unknown u nknown Leukocytes_volume_in_B unknown 07013966 unknown unknown unknown lood_by_Automated_count Glomerular_Filtration_ unknown 40457195 unknown unknown unknown rate platelet_count unknown 58045577 unknown unknown unknown hemoglobin_blood unknown 80151425 unknown unknown unknow n hematocrit_blood unknown [id number] unknown unknown unknow n INR_in_Platelet_poor_p unknown 42541676 unknown unknown unknown lasma_by_Coagulation_as say potassium_blood unknown 89964138 unknown unknown unknown Prothrombin_time_PT_ unknown 47025947 unknown unknown un known WBC_urine_on_microscop unknown 07921111 unknown unknown unknown y Urobilinogen_Presence_ unknown 17640640 unknown unknown unknown in_Urine_by_Test_strip Specific_gravity_of_Ur unknown 42346167 unknown unknown unknown ine_by_Test_strip Nitrite_Presence_in_Ur unknown 46616039 unknown unknown unknown ine_by_Test_strip Leukocyte_esterase_Pre unknown 60478576 unknown unknown unknown sence_in_Urine_by_Test_ strip Ketones_Mass_volume_in unknown 20047352 unknown unknown unknown _Urine_by_Test_strip Color_of_Urine unknown 25866613 unknown unknown unknown Bilirubin.total_Presen unknown 20083043 unknown unknown unknown ce_in_Urine_by_Test_str ip clarity_urine_point unknown 23440875 unknown unknown unk nown pH_study_of_acidity unknown 02496930 unknown unknown unk nown prothrombin_time_patie unknown 68426782 unknown unknown unknown nt_ Glomerular_filtration_r unknown 62929765 unknown unknown unknown ate_1.73_sq_M.predicted _among_non-blacks_Volum e_Rate_Area_in_Serum_Pl asma_or_Blood_by_Creati nine-based_formula_MDRD _ Hematocrit_Volume_Frac unknown [id number] unknown unknown unknown tion_of_Blood_by_Automa ted_count bilirubin_serum_total unknown 03378408 unknown unknown u nknown alanine_aminotransfera unknown 34714225 unknown unknown unknown se_SGPT_serum carbon_dioxide_serum_t unknown 08195453 unknown unknown unknown otal aspartate_aminotransfe unknown 32300181 unknown unknown unknown rase_SGOT_serum protein_total_serum unknown 84009079 unknown unknown unk nown blood_glucose unknown 58885921 unknown unknown unknown potassium_blood unknown 19192183 unknown unknown unknown glucose_urine unknown 57873704 unknown unknown unknown leukocyte_esterase_uri unknown 39938722 unknown unknown unknown ne_by_dipstick urobilinogen_urine_sem unknown 42861017 unknown unknown unknown iquantitative_dipstick_ specific_gravity_urine unknown 03269779 unknown unknown unknown nitrite_urine_semiquan unknown 94750664 unknown unknown unknown titative ketones_urine_by_test_ unknown 66170870 unknown unknown unknown strip bilirubin_urine unknown 52844968 unknown unknown unknown mean_corpuscular_volum unknown 34225631 unknown unknown unknown e_RBC Urea_nitrogen_Mass_vol unknown 45970344 unknown unknown unknown ume_in_Serum_or_Plasma international_normaliz unknown 91616312 unknown unknown unknown ed_ratio_INR_ globulin_serum unknown 66922334 unknown unknown unknown alkaline_phosphatase_s unknown 27886970 unknown unknown unknown gretta Sodium_Moles_volume_in unknown 39386060 unknown unknown unknown _Serum_or_Plasma Protein_Mass_volume_in unknown 21498054 unknown unknown unknown _Serum_or_Plasma eosinophil_count_blood unknown 26344247 unknown unknown unknown anion_gap_serum unknown 32596690 unknown unknown unknown mean_platelet_volume unknown 59042459 unknown unknown un known urine_color unknown 40754821 unknown unknown unknown basophil_count_blood unknown 12965791 unknown unknown un known monocyte_count_blood unknown 96954354 unknown unknown un known lymphocyte_count_blood unknown 18096581 unknown unknown unknown neutrophil_count_blood unknown 92265997 unknown unknown unknown Glucose_Mass_volume_in unknown 17266543 unknown unknown unknown _Urine Glucose_Mass_volume_in unknown 36538434 unknown unknown unknown _Serum_or_Plasma Globulin_Mass_volume_i unknown 96996126 unknown unknown unknown n_Serum Creatinine_Mass_volume unknown 84439726 unknown unknown unknown _in_Serum_or_Plasma Chloride_Moles_volume_ unknown 73272033 unknown unknown unknown in_Serum_or_Plasma carbon_dioxide_serum_t unknown 85665630 unknown unknown unknown otal Calcium_Moles_volume_i unknown 43864839 unknown unknown unknown n_Serum_or_Plasma albumin_serum unknown 59371336 unknown unknown unknown Bilirubin.total_Mass_v unknown 77591562 unknown unknown unknown olume_in_Serum_or_Plasm a Aspartate_aminotransfe unknown 60468324 unknown unknown unknown rase_Enzymatic_activity _volume_in_Serum_or_Pla sma Anion_gap_4_in_Serum_o unknown 99397571 unknown unknown unknown r_Plasma creatinine_serum unknown 61791723 unknown unknown unknow n Alkaline_phosphatase_E unknown 47849959 unknown unknown unknown nzymatic_activity_volum e_in_Blood Albumin_Globulin_Mass_ unknown 85175561 unknown unknown unknown Ratio_in_Serum_or_Plasm a Albumin_Mass_volume_in unknown 67497049 unknown unknown unknown _Serum_or_Plasma Alanine_aminotransfera unknown 46977575 unknown unknown unknown se_Enzymatic_activity_v olume_in_Serum_or_Plasm a mean_corpuscular_hemog unknown 28398685 unknown unknown unknown lobin_concentration_rbc sodium_serum unknown 58440212 unknown unknown unknown albumin_globulin_ratio unknown 34791261 unknown unknown unknown _serum chloride_serum unknown 04069329 unknown unknown unknown calcium_serum unknown 36787261 unknown unknown unknown mean_corpuscular_hemog unknown 17749975 unknown unknown unknown lobin_RBC red_blood_cell_distrib unknown 09107089 unknown unknown unknown ution_width WBC_urine_on_microscop unknown 59421762 unknown unknown unknown y T unknown 34003264 unknown unknown unknown WBC_URINE unknown 82313392 unknown unknown unknown UROBILINOGEN_URINE unknown 60489480 unknown unknown unkn own SPECIFIC_GRAVITY_URINE unknown 95253602 unknown unknown unknown T unknown 67051787 unknown unknown unknown T unknown 24492843 unknown unknown unknown T unknown [id number] unknown unknown unknown T unknown 87733701 unknown unknown unknown T unknown 28718087 unknown unknown unknown T unknown 69814785 unknown unknown unknown T unknown 06063459 unknown unknown unknown T unknown 66502067 unknown unknown unknown T unknown 65362235 unknown unknown unknown T unknown 42136221 unknown unknown unknown T unknown 25150753 unknown unknown unknown PH_URINE unknown 49973431 unknown unknown unknown NITRITE_URINE unknown 58589217 unknown unknown unknown LEUKOCYTE_ESTERASE_URI unknown [id number] unknown unknown unknown NE KETONES_URINE_UA_ unknown [id number] unknown unknown unkno wn GLUCOSE_URINE_UA_ unknown [id number] unknown unknown unkno wn COLOR_URINE unknown 61561210 unknown unknown unknown CLARITY_URINE unknown 05405436 unknown unknown unknown BILIRUBIN_URINE unknown 93078290 unknown unknown unknown T unknown 06195221 unknown unknown unknown T unknown 46468409 unknown unknown unknown T unknown 93616477 unknown unknown unknown T unknown 08499757 unknown unknown unknown T unknown 68249834 unknown unknown unknown T unknown 69079122 unknown unknown unknown NEUTROPHILS_AUTO_ unknown [id number] unknown unknown unkno wn T unknown 50857225 unknown unknown unknown T unknown 89076583 unknown unknown unknown T unknown 89812080 unknown unknown unknown MONOCYTES_AUTO_ unknown 12483524 unknown unknown unknown T unknown 93334321 unknown unknown unknown T unknown 17641095 unknown unknown unknown T unknown 43600796 unknown unknown unknown T unknown 92395682 unknown unknown unknown LYMPHOCYTES_AUTO_ unknown 34298787 unknown unknown unkno wn T unknown 49960477 unknown unknown unknown T unknown 20902157 unknown unknown unknown T unknown 04822110 unknown unknown unknown T unknown 54804420 unknown unknown unknown T unknown [id number] unknown unknown unknown T unknown 31031232 unknown unknown unknown T unknown 54626820 unknown unknown unknown T unknown [id number] unknown unknown unknown GFR_-_MDRD unknown 79609206 unknown unknown unknown T unknown 25245951 unknown unknown unknown EOSINOPHILS_AUTO_ unknown 87362660 unknown unknown unkno wn T unknown 16652779 unknown unknown unknown T unknown 58266639 unknown unknown unknown T unknown 31092976 unknown unknown unknown T unknown 12817405 unknown unknown unknown T unknown 22230051 unknown unknown unknown T unknown 18622199 unknown unknown unknown BILIRUBIN_TOTAL unknown 05447521 unknown unknown unknown BASOPHILS_AUTO_ unknown 40003007 unknown unknown unknown T unknown 92793698 unknown unknown unknown T unknown 16411724 unknown unknown unknown T unknown 66354405 unknown unknown unknown T unknown 57909857 unknown unknown unknown ALT_ALANINE_AMINOTRANS unknown 33162373 unknown unknown unknown FERASE ALKALINE_PHOSPHATASE unknown 27160204 unknown unknown un known T unknown 32636942 unknown unknown unknown T unknown 08443421 unknown unknown unknown ALBUMIN_GLOBULIN_RATIO unknown 80242640 unknown unknown unknown urea_nitrogen_blood unknown 46106260 unknown unknown unk nown Erythrocytes_volume_in unknown 46289435 unknown unknown unknown _Blood_by_Automated_cou nt Erythrocyte_distributi unknown 97636609 unknown unknown unknown on_width_Ratio_by_Autom ated_count MCV_Entitic_volume_by_ unknown 50592361 unknown unknown unknown Automated_count MCH_Entitic_mass_by_Au unknown 20210706 unknown unknown unknown tomated_count Platelets_volume_in_Bl unknown 20210706 unknown unknown unknown ood_by_Automated_count Platelet_mean_volume_E unknown 20210706 unknown unknown unknown ntitic_volume_in_Blood_ by_Rees-Rosy neutrophil_count_blood unknown 20040945 unknown unknown unknown monocyte_count_blood unknown 41178174 unknown unknown un known lymphocyte_count_blood unknown 20210706 unknown unknown unknown Hemoglobin_Mass_volume unknown 20210706 unknown unknown unknown _in_Blood eosinophil_count_blood unknown 35949646 unknown unknown unknown Basophils_volume_in_Bl unknown 20210706 unknown unknown unknown ood_by_Manual_count leukocyte_count_blood unknown 20210706 unknown unknown u nknown erythrocyte_RBC_count unknown 16720837 unknown unknown u nknown Leukocytes_volume_in_B unknown 29601605 unknown unknown unknown lood_by_Automated_count Glomerular_Filtration_ unknown 20003833 unknown unknown unknown rate platelet_count unknown 06260383 unknown unknown unknown hemoglobin_blood unknown 89826925 unknown unknown unknow n hematocrit_blood unknown 68514334 unknown unknown unknow n potassium_blood unknown 61799153 unknown unknown unknown WBC_urine_on_microscop unknown 57593801 unknown unknown unknown y Urobilinogen_Presence_ unknown 42521296 unknown unknown unknown in_Urine_by_Test_strip Specific_gravity_of_Ur unknown 02720207 unknown unknown unknown ine_by_Test_strip Nitrite_Presence_in_Ur unknown 61832431 unknown unknown unknown ine_by_Test_strip Leukocyte_esterase_Pre unknown 38101399 unknown unknown unknown sence_in_Urine_by_Test_ strip Ketones_Mass_volume_in unknown 98141556 unknown unknown unknown _Urine_by_Test_strip Color_of_Urine unknown 36497168 unknown unknown unknown Bilirubin.total_Presen unknown 20210706 unknown unknown unknown ce_in_Urine_by_Test_str ip clarity_urine_point unknown 77211367 unknown unknown unk nown pH_study_of_acidity unknown 97701007 unknown unknown unk nown Glomerular_filtration_r unknown 94605322 unknown unknown unknown ate_1.73_sq_M.predicted _among_non-blacks_Volum e_Rate_Area_in_Serum_Pl asma_or_Blood_by_Creati [...] 20210706 unknown unknown unknown ne_by_dipstick urobilinogen_urine_sem unknown 98843675 unknown unknown unknown iquantitative_dipstick_ specific_gravity_urine unknown 20210706 unknown unknown unknown nitrite_urine_semiquan unknown 20210706 unknown unknown unknown titative ketones_urine_by_test_ unknown 20210706 unknown unknown unknown strip magnesium_serum unknown 46903465 unknown unknown unknown bilirubin_urine unknown 03188821 unknown unknown unknown mean_corpuscular_volum unknown 24810402 unknown unknown unknown e_RBC Urea_nitrogen_Mass_vol unknown 76228707 unknown unknown unknown ume_in_Serum_or_Plasma globulin_serum unknown 20210706 unknown unknown unknown alkaline_phosphatase_s unknown 35221935 unknown unknown unknown gretta Sodium_Moles_volume_in unknown 69223602 unknown unknown unknown _Serum_or_Plasma Protein_Mass_volume_in unknown 17395115 unknown unknown unknown _Serum_or_Plasma eosinophil_count_blood unknown 38467402 unknown unknown unknown anion_gap_serum unknown 50911016 unknown unknown unknown mean_platelet_volume unknown 62255967 unknown unknown un known urine_color unknown 14964512 unknown unknown unknown Magnesium_Moles_volume unknown 68017202 unknown unknown unknown _in_Serum_or_Plasma basophil_count_blood unknown 53619557 unknown unknown un known monocyte_count_blood unknown 22540290 unknown unknown un known lymphocyte_count_blood unknown 94958295 unknown unknown unknown neutrophil_count_blood unknown 02683267 unknown unknown unknown Glucose_Mass_volume_in unknown 20210706 unknown unknown unknown _Urine Glucose_Mass_volume_in unknown 20210706 unknown unknown unknown _Serum_or_Plasma Globulin_Mass_volume_i unknown 20210706 unknown unknown unknown n_Serum Creatinine_Mass_volume unknown 20210706 unknown unknown unknown _in_Serum_or_Plasma Chloride_Moles_volume_ unknown 20210706 unknown unknown unknown in_Serum_or_Plasma carbon_dioxide_serum_t unknown 20210706 unknown unknown unknown otal Calcium_Moles_volume_i unknown 20210706 unknown unknown unknown n_Serum_or_Plasma albumin_serum unknown 20210706 unknown unknown unknown Bilirubin.total_Mass_v unknown 20210706 unknown unknown unknown olume_in_Serum_or_Plasm a Aspartate_aminotransfe unknown 20210706 unknown unknown unknown rase_Enzymatic_activity _volume_in_Serum_or_Pla sma Anion_gap_4_in_Serum_o unknown 20210706 unknown unknown unknown r_Plasma creatinine_serum unknown 20210706 unknown unknown unknow n Alkaline_phosphatase_E unknown 20210706 unknown unknown unknown nzymatic_activity_volum e_in_Blood Albumin_Globulin_Mass_ unknown 20210706 unknown unknown unknown Ratio_in_Serum_or_Plasm a Albumin_Mass_volume_in unknown 20210706 unknown unknown unknown _Serum_or_Plasma Alanine_aminotransfera unknown 20210706 unknown unknown unknown se_Enzymatic_activity_v olume_in_Serum_or_Plasm a mean_corpuscular_hemog unknown 20210706 unknown unknown unknown lobin_concentration_rbc sodium_serum unknown 20210706 unknown unknown unknown albumin_globulin_ratio unknown 20210706 unknown unknown unknown _serum chloride_serum unknown 20210706 unknown unknown unknown calcium_serum unknown 20210706 unknown unknown unknown mean_corpuscular_hemog unknown 20210706 unknown unknown unknown lobin_RBC red_blood_cell_distrib unknown 20210706 unknown unknown unknown ution_width WBC_urine_on_microscop unknown 20210706 unknown unknown unknown y T unknown 20210706 unknown unknown unknown WBC_URINE unknown 20210706 unknown unknown unknown UROBILINOGEN_URINE unknown 20210706 unknown unknown unkn own SPECIFIC_GRAVITY_URINE unknown 20210706 unknown unknown unknown T unknown 50115602 unknown unknown unknown T unknown 54770070 unknown unknown unknown T unknown 13966773 unknown unknown unknown T unknown 89335568 unknown unknown unknown T unknown 30402775 unknown unknown unknown T unknown 55644584 unknown unknown unknown T unknown 25589615 unknown unknown unknown T unknown 39802526 unknown unknown unknown T unknown 62344138 unknown unknown unknown T unknown 41642831 unknown unknown unknown T unknown 26503238 unknown unknown unknown PH_URINE unknown 52947498 unknown unknown unknown NITRITE_URINE unknown 40106257 unknown unknown unknown LEUKOCYTE_ESTERASE_URI unknown 60672204 unknown unknown unknown NE KETONES_URINE_UA_ unknown 51671947 unknown unknown unkno wn GLUCOSE_URINE_UA_ unknown 61864924 unknown unknown unkno wn COLOR_URINE unknown 78879579 unknown unknown unknown CLARITY_URINE unknown 45194445 unknown unknown unknown BILIRUBIN_URINE unknown 50107463 unknown unknown unknown T unknown 96384197 unknown unknown unknown T unknown 24685455 unknown unknown unknown T unknown 02596532 unknown unknown unknown T unknown 70622149 unknown unknown unknown T unknown 11724098 unknown unknown unknown NEUTROPHILS_AUTO_ unknown 99370425 unknown unknown unkno wn T unknown 69057209 unknown unknown unknown T unknown 45523003 unknown unknown unknown T unknown 88373032 unknown unknown unknown MONOCYTES_AUTO_ unknown [id number] unknown unknown unknown T unknown [id number] unknown unknown unknown T unknown 34025035 unknown unknown unknown T unknown 42625081 unknown unknown unknown T unknown 52741573 unknown unknown unknown T unknown 20297901 unknown unknown unknown LYMPHOCYTES_AUTO_ unknown [id number] unknown unknown unkno wn T unknown [id number] unknown unknown unknown T unknown 57996474 unknown unknown unknown T unknown 50454002 unknown unknown unknown T unknown 28866575 unknown unknown unknown T unknown 01392034 unknown unknown unknown T unknown 08005078 unknown unknown unknown T unknown [id number] unknown unknown unknown GFR_-_MDRD unknown [id number] unknown unknown unknown T unknown [id number] unknown unknown unknown EOSINOPHILS_AUTO_ unknown [id number] unknown unknown unkno wn T unknown [id number] unknown unknown unknown T unknown [id number] unknown unknown unknown T unknown [id number] unknown unknown unknown T unknown [id number] unknown unknown unknown T unknown [id number] unknown unknown unknown T unknown [id number] unknown unknown unknown BILIRUBIN_TOTAL unknown [id number] unknown unknown unknown BASOPHILS_AUTO_ unknown [id number] unknown unknown unknown T unknown [id number] unknown unknown unknown T unknown [id number] unknown unknown unknown T unknown [id number] unknown unknown unknown T unknown [id number] unknown unknown unknown ALT_ALANINE_AMINOTRANS unknown [id number] unknown unknown unknown FERASE ALKALINE_PHOSPHATASE unknown [id number] unknown unknown un known T unknown [id number] unknown unknown unknown T unknown [id number] unknown unknown unknown ALBUMIN_GLOBULIN_RATIO unknown [id number] unknown unknown unknown facility observation status value reference units lab code abn ormal line range notes All urea_nitroge unknown 17 unknown mg/dL _9 unknown unknown n_blood All Erythrocytes unknown 3.85 10 unknown _789-8 unknow n unknown _volume_in_Bl 6/UL ood_by_Automa ted_count All Erythrocyte_ unknown 14.8 unknown % _788-0 unknown unknown distribution_ width_Ratio_b y_Automated_c ount All MCV_Entitic_ unknown 95.3 unknown fL _787-2 unknown unknown volume_by_Aut omated_count All MCH_Entitic_ unknown 30.9 unknown pg _785-6 unknown unknown mass_by_Autom ated_count All Platelets_vo unknown 226 10 unknown _777-3 unknown unknown lume_in_Blood 3/UL _by_Automated _count All Platelet_mea unknown 8.8 unknown fL _776-5 unknown unknown n_volume_Enti tic_volume_in _Blood_by_Ree s-Rosy All neutrophil_c unknown 5.2 10 unknown _752-6 unknown unknown ount_blood 3/UL All Hemoglobin_M unknown 11.9 unknown g/dL _718-7 unknown unknown ass_volume_in _Blood All leukocyte_co unknown 7.3 X10 unknown _68 unknow n unknown unt_blood 3/UL All erythrocyte_ unknown 3.85 10 unknown _67 unknow n unknown RBC_count 6/UL All Leukocytes_v unknown 7.3 X10 unknown _6690-2 unkno wn unknown olume_in_Bloo 3/UL d_by_Automate d_count All Glomerular_F unknown 61 unknown mL/mi _66455 unknown unknown iltration_rat n e All platelet_cou unknown 226 10 unknown _66 unknown unknown nt 3/UL All hemoglobin_b unknown 11.9 unknown g/dL _65 unknown unknown lood All hematocrit_b unknown 36.7 unknown % _64 unknown unknown lood All potassium_bl unknown 4.1 unknown meq/L _6298-4 unknow n unknown ood All Glomerular_fi unknown 61 unknown mL/mi _48642-3 unkno wn unknown ltration_rate n _1.73_sq_M.pr edicted_among _non-blacks_V olume_Rate_Ar ea_in_Serum_P lasma_or_Bloo d_by_Creatini ne-based_form ula_MDRD_ All Hematocrit_V unknown 36.7 unknown % _4544-3 unknow n unknown olume_Fractio n_of_Blood_by _Automated_co unt All bilirubin_se unknown 0.7 unknown mg/dL _43 unknown unknown rum_total All alanine_amin unknown < 10 IU/L unknown _40 unkn own unknown otransferase_ SGPT_serum All carbon_dioxi unknown 27 unknown mmol/ _3962 unknown unknown de_serum_tota L l All aspartate_am unknown 15 unknown U/L _39 unknown unknown inotransferas e_SGOT_serum All protein_tota unknown 6.6 unknown g/dL _36 unknown unknown l_serum All blood_glucos unknown 85 unknown mg/dL _3565 unknown unknown e All potassium_bl unknown 4.1 unknown meq/L _3483 unknown unknown ood All mean_corpusc unknown 95.3 unknown fL _315 unknown unknown ular_volume_R BC All Urea_nitroge unknown 17 unknown mg/dL _3094-0 unknow n unknown n_Mass_volume _in_Serum_or_ Plasma All globulin_ser unknown 2.7 unknown _3059 unknown unknown um All alkaline_pho unknown 97 unknown U/L _3 unknown unknown sphatase_seru m All Sodium_Moles unknown 141 unknown mmol/ _2951-2 unknow n unknown _volume_in_Se L rum_or_Plasma All Protein_Mass unknown 6.6 unknown g/dL _2885-2 unknow n unknown _volume_in_Se rum_or_Plasma All anion_gap_se unknown 9.0 unknown _279 unknown unknown rum All mean_platele unknown 8.8 unknown fL _2784 unknown unknown t_volume All neutrophil_c unknown 5.2 10 unknown _2418 unknown unknown ount_blood 3/UL All Glucose_Mass unknown 85 unknown mg/dL _2345-7 unknow n unknown _volume_in_Se rum_or_Plasma All Globulin_Mas unknown 2.7 unknown _2336-6 unknow n unknown s_volume_in_S gretta All Creatinine_M unknown 0.9 unknown mg/dL _2160-0 unknow n unknown ass_volume_in _Serum_or_Pla sma All Chloride_Mol unknown 105 unknown mmol/ _5-0 unknow n unknown es_volume_in_ L Serum_or_Plas ma All carbon_dioxi unknown 27 unknown mmol/ _2027-9 unknow n unknown de_serum_tota L l All Calcium_Mole unknown 8.7 unknown mg/dL _1999- unknow n unknown s_volume_in_S erum_or_Plasm a All albumin_seru unknown 3.9 unknown g/dL _2 unknown unknown m All Bilirubin.to unknown 0.7 unknown mg/dL _1974- unknow n unknown tal_Mass_volu me_in_Serum_o r_Plasma All Aspartate_am unknown 15 unknown U/L _1919-8 unknow n unknown inotransferas e_Enzymatic_a ctivity_volum e_in_Serum_or _Plasma All Anion_gap_4_ unknown 9.0 unknown _1863-0 unknow n unknown in_Serum_or_P lasma All creatinine_s unknown 0.9 unknown mg/dL _18 unknown unknown gretta All Alkaline_pho unknown 97 unknown U/L _1783-0 unknow n unknown sphatase_Enzy matic_activit y_volume_in_B lood All Albumin_Glob unknown 1.4 unknown _1759-0 unknow n unknown ulin_Mass_Rat io_in_Serum_o r_Plasma All Albumin_Mass unknown 3.9 unknown g/dL _1751-7 unknow n unknown _volume_in_Se rum_or_Plasma All Alanine_amin unknown < 10 IU/L unknown _1742-6 unk nown unknown otransferase_ Enzymatic_act ivity_volume_ in_Serum_or_P lasma All mean_corpusc unknown 32.4 unknown g/dL _17029 unknown unknown ular_hemoglob in_concentrat ion_rbc All sodium_serum unknown 141 unknown mmol/ _159 unknown unknown L All albumin_glob unknown 1.4 unknown _146 unknown unknown ulin_ratio_se rum All chloride_ser unknown 105 unknown mmol/ _13 unknown unknown um L All calcium_seru unknown 8.7 unknown mg/dL _11 unknown unknown m All mean_corpusc unknown 30.9 unknown pg _1031 unknown unknown ular_hemoglob in_RBC All red_blood_ce unknown 14.8 unknown % _1030 unknown unknown ll_distributi on_width All T unknown 7.3 X10 unknown WBC unknown unk nown 3/UL All T unknown 0.7 unknown mg/dL TOTAL_BI unknown un known LI All T unknown 14.8 unknown % RDW unknown unkn own All T unknown 3.85 10 unknown RBC unknown unk nown 6/UL All T unknown 6.6 unknown g/dL PRO_TOTA unknown un known L All T unknown 226 10 unknown PLT unknown unkn own 3/UL All NEUTROPHILS_ unknown 5.2 10 unknown NE_ unknown unknown AUTO_ 3/UL All T unknown 5.2 10 unknown NEUT_AUT unknown un known 3/UL O_ All T unknown 141 unknown mmol/ NA unknown unkn own L All T unknown 8.8 unknown fL MPV unknown unkn own All T unknown 95.3 unknown fL MCV unknown unkn own All T unknown 32.4 unknown g/dL MCHC unknown unkn own All T unknown 30.9 unknown pg MCH unknown unkn own All T unknown 4.1 unknown meq/L K unknown unkn own All T unknown 11.9 unknown g/dL HGB unknown unkn own All T unknown 36.7 unknown % HCT unknown unkn own All T unknown 85 unknown mg/dL GLU unknown unkn own All T unknown 2.7 unknown GLOB unknown unkn own All T unknown 61 unknown mL/mi GFR_-_MD unknown un known n RD All GFR_-_MDRD unknown 61 unknown mL/mi GFR unknown unknown n All T unknown 9.0 unknown GAP unknown unkn own All T unknown 0.9 unknown mg/dL CREAT unknown unkn own All T unknown 27 unknown mmol/ CO2 unknown unkn own L All T unknown 105 unknown mmol/ CL unknown unkn own L All T unknown 8.7 unknown mg/dL CA unknown unkn own All T unknown 17 unknown mg/dL BUN unknown unkn own All BILIRUBIN_TO unknown 0.7 unknown mg/dL BILIT unknown unknown SAMY All T unknown 1.4 unknown A_G_RATI unknown un known O All T unknown 15 unknown U/L AST unknown unkn own All T unknown < 10 IU/L unknown ALT_SGPT unknown unknown _ All ALT_ALANINE_ unknown < 10 IU/L unknown ALT unkn own unknown AMINOTRANSFER ASE All ALKALINE_PHO unknown 97 unknown U/L ALP unknown unknown SPHATASE All T unknown 97 unknown U/L ALK_PHOS unknown un known All T unknown 3.9 unknown g/dL ALB unknown unkn own All ALBUMIN_GLOB unknown 1.4 unknown AGRATIO unknow n unknown ULIN_RATIO All urea_nitroge unknown 15 unknown mg/dL _9 unknown unknown n_blood All Erythrocytes unknown 3.75 10 unknown _789-8 unknow n unknown _volume_in_Bl 6/UL ood_by_Automa ted_count All Erythrocyte_ unknown 14.7 unknown % _788-0 unknown unknown distribution_ width_Ratio_b y_Automated_c ount All MCV_Entitic_ unknown 95.5 unknown fL _787-2 unknown unknown volume_by_Aut omated_count All MCH_Entitic_ unknown 30.9 unknown pg _785-6 unknown unknown mass_by_Autom ated_count All Platelets_vo unknown 194 10 unknown _777-3 unknown unknown lume_in_Blood 3/UL _by_Automated _count All Platelet_mea unknown 9.3 unknown fL _776-5 unknown unknown n_volume_Enti tic_volume_in _Blood_by_Ree s-Rosy All neutrophil_c unknown 4.9 10 unknown _752-6 unknown unknown ount_blood 3/UL All monocyte_cou unknown 0.6 10 unknown _743-5 unknown unknown nt_blood 3/UL All lymphocyte_c unknown 1.1 10 unknown _732-8 unknown unknown ount_blood 3/UL All Hemoglobin_M unknown 11.6 unknown g/dL _718-7 unknown unknown ass_volume_in _Blood All eosinophil_c unknown 0.1 10 unknown _712-0 unknown unknown ount_blood 3/UL All Basophils_vo unknown 0.1 10 unknown _705-4 unknown unknown lume_in_Blood 3/UL _by_Manual_co unt All leukocyte_co unknown 6.9 X10 unknown _68 unknow n unknown unt_blood 3/UL All erythrocyte_ unknown 3.75 10 unknown _67 unknow n unknown RBC_count 6/UL All Leukocytes_v unknown 6.9 X10 unknown _6690-2 unkno wn unknown olume_in_Bloo 3/UL d_by_Automate d_count All Glomerular_F unknown 81 unknown mL/mi _66455 unknown unknown iltration_rat n e All platelet_cou unknown 194 10 unknown _66 unknown unknown nt 3/UL All hemoglobin_b unknown 11.6 unknown g/dL _65 unknown unknown lood All hematocrit_b unknown 35.8 unknown % _64 unknown unknown lood All INR_in_Plate unknown 1.1 unknown _6301-6 unknow n unknown let_poor_plas ma_by_Coagula tion_assay All potassium_bl unknown 4.4 unknown meq/L _6298-4 unknow n unknown ood All Prothrombin_ unknown 12.8 SECS unknown _5902-2 unk nown unknown time_PT_ All WBC_urine_on unknown 4-5 /HPF unknown _5821-4 unkn own unknown _microscopy All Urobilinogen unknown 0.2 unknown _5818-0 unknow n unknown _Presence_in_ (NORMAL) Urine_by_Test _strip All Specific_gra unknown 1.020 unknown _5811-5 unknow n unknown vity_of_Urine _by_Test_stri p All Nitrite_Pres unknown NEGATIVE unknown _5802-4 unkn own unknown ence_in_Urine _by_Test_stri p All Leukocyte_es unknown TRACE unknown _5799-2 unknow n unknown terase_Presen ce_in_Urine_b y_Test_strip All Ketones_Mass unknown NEGATIVE unknown _5797-6 unkn own unknown _volume_in_Ur ine_by_Test_s trip All Color_of_Uri unknown YELLOW unknown _5778-6 unknow n unknown ne All Bilirubin.to unknown NEGATIVE unknown _5770-3 unkn own unknown tal_Presence_ in_Urine_by_T est_strip All clarity_urin unknown CLEAR unknown _5589 unknown unknown e_point All pH_study_of_ unknown 7.0 unknown _51641 unknown unknown acidity All prothrombin_ unknown 12.8 SECS unknown _50 unkn own unknown time_patient_ All Glomerular_fi unknown 81 unknown mL/mi _48642-3 unkno wn unknown ltration_rate n _1.73_sq_M.pr edicted_among _non-blacks_V olume_Rate_Ar ea_in_Serum_P lasma_or_Bloo d_by_Creatini ne-based_form ula_MDRD_ All Hematocrit_V unknown 35.8 unknown % _4544-3 unknow n unknown olume_Fractio n_of_Blood_by _Automated_co unt All bilirubin_se unknown 0.8 unknown mg/dL _43 unknown unknown rum_total All alanine_amin unknown < 10 IU/L unknown _40 unkn own unknown otransferase_ SGPT_serum All carbon_dioxi unknown 26 unknown mmol/ _3962 unknown unknown de_serum_tota L l All aspartate_am unknown 14 unknown U/L _39 unknown unknown inotransferas e_SGOT_serum All protein_tota unknown 6.5 unknown g/dL _36 unknown unknown l_serum All blood_glucos unknown 94 unknown mg/dL _3565 unknown unknown e All potassium_bl unknown 4.4 unknown meq/L _3483 unknown unknown ood All glucose_urin unknown NEGATIVE unknown _3369 unkno wn unknown e mg/dL All leukocyte_es unknown TRACE unknown _327 unknown unknown terase_urine_ by_dipstick All urobilinogen unknown 0.2 unknown _326 unknown unknown _urine_semiqu (NORMAL) antitative_di pstick_ All specific_gra unknown 1.020 unknown _325 unknown unknown vity_urine All nitrite_urin unknown NEGATIVE unknown _323 unkno wn unknown e_semiquantit ative All ketones_urin unknown NEGATIVE unknown _322 unkno wn unknown e_by_test_str ip All bilirubin_ur unknown NEGATIVE unknown _319 unkno wn unknown ine All mean_corpusc unknown 95.5 unknown fL _315 unknown unknown ular_volume_R BC All Urea_nitroge unknown 15 unknown mg/dL _3094-0 unknow n unknown n_Mass_volume _in_Serum_or_ Plasma All internationa unknown 1.1 unknown _309 unknown unknown l_normalized_ ratio_INR_ All globulin_ser unknown 2.7 unknown _3059 unknown unknown um All alkaline_pho unknown 97 unknown U/L _3 unknown unknown sphatase_seru m All Sodium_Moles unknown 138 unknown mmol/ _2951-2 unknow n unknown _volume_in_Se L rum_or_Plasma All Protein_Mass unknown 6.5 unknown g/dL _2885-2 unknow n unknown _volume_in_Se rum_or_Plasma All eosinophil_c unknown 0.1 10 unknown _285 unknown unknown ount_blood 3/UL All anion_gap_se unknown 9.0 unknown _279 unknown unknown rum All mean_platele unknown 9.3 unknown fL _2784 unknown unknown t_volume All urine_color unknown YELLOW unknown _2751 unknown unknown All basophil_cou unknown 0.1 10 unknown _2427 unknown unknown nt_blood 3/UL All monocyte_cou unknown 0.6 10 unknown _2422 unknown unknown nt_blood 3/UL All lymphocyte_c unknown 1.1 10 unknown _2420 unknown unknown ount_blood 3/UL All neutrophil_c unknown 4.9 10 unknown _2418 unknown unknown ount_blood 3/UL All Glucose_Mass unknown NEGATIVE unknown _2350-7 unkn own unknown _volume_in_Ur mg/dL ine All Glucose_Mass unknown 94 unknown mg/dL _2345-7 unknow n unknown _volume_in_Se rum_or_Plasma All Globulin_Mas unknown 2.7 unknown _2336-6 unknow n unknown s_volume_in_S gretta All Creatinine_M unknown 0.7 unknown mg/dL _2160-0 unknow n unknown ass_volume_in _Serum_or_Pla sma All Chloride_Mol unknown 103 unknown mmol/ _2075-0 unknow n unknown es_volume_in_ L Serum_or_Plas ma All carbon_dioxi unknown 26 unknown mmol/ _2028-9 unknow n unknown de_serum_tota L l All Calcium_Mole unknown 8.7 unknown mg/dL _1999-8 unknow n unknown s_volume_in_S erum_or_Plasm a All albumin_seru unknown 3.8 unknown g/dL _2 unknown unknown m All Bilirubin.to unknown 0.8 unknown mg/dL _1974- unknow n unknown tal_Mass_volu me_in_Serum_o r_Plasma All Aspartate_am unknown 14 unknown U/L _1920-8 unknow n unknown inotransferas e_Enzymatic_a ctivity_volum e_in_Serum_or _Plasma All Anion_gap_4_ unknown 9.0 unknown _1863-0 unknow n unknown in_Serum_or_P lasma All creatinine_s unknown 0.7 unknown mg/dL _18 unknown unknown gretta All Alkaline_pho unknown 97 unknown U/L _1783-0 unknow n unknown sphatase_Enzy matic_activit y_volume_in_B lood All Albumin_Glob unknown 1.4 unknown _1759-0 unknow n unknown ulin_Mass_Rat io_in_Serum_o r_Plasma All Albumin_Mass unknown 3.8 unknown g/dL _1751-7 unknow n unknown _volume_in_Se rum_or_Plasma All Alanine_amin unknown < 10 IU/L unknown _1742-6 unk nown unknown otransferase_ Enzymatic_act ivity_volume_ in_Serum_or_P lasma All mean_corpusc unknown 32.4 unknown g/dL _17029 unknown unknown ular_hemoglob in_concentrat ion_rbc All sodium_serum unknown 138 unknown mmol/ _159 unknown unknown L All albumin_glob unknown 1.4 unknown _146 unknown unknown ulin_ratio_se rum All chloride_ser unknown 103 unknown mmol/ _13 unknown unknown um L All calcium_seru unknown 8.7 unknown mg/dL _11 unknown unknown m All mean_corpusc unknown 30.9 unknown pg _1031 unknown unknown ular_hemoglob in_RBC All red_blood_ce unknown 14.7 unknown % _1030 unknown unknown ll_distributi on_width All WBC_urine_on unknown 4-5 /HPF unknown _1016 unkno wn unknown _microscopy All T unknown 6.9 X10 unknown WBC unknown unk nown 3/UL All WBC_URINE unknown 4-5 /HPF unknown UWBC unknown unknown All UROBILINOGEN unknown 0.2 unknown UUROBIL unknow n unknown _URINE (NORMAL) All SPECIFIC_GRA unknown 1.020 unknown USG unknown unknown VITY_URINE All T unknown 4-5 /HPF unknown UR_WBC unknown un known All T unknown 0.2 unknown UR_URO unknown unkn own (NORMAL) All T unknown 1.020 unknown UR_SG unknown unkn own All T unknown 7.0 unknown UR_PH unknown unkn own All T unknown NEGATIVE unknown UR_NIT unknown un known All T unknown TRACE unknown UR_LEU_E unknown un known STERASE All [...] unk nown unknown E All LEUKOCYTE_ES unknown TRACE unknown ULEUK unknown unknown TERASE_URINE All KETONES_URIN unknown NEGATIVE unknown UKET unkno wn unknown E_UA_ All GLUCOSE_URIN unknown NEGATIVE unknown UGLUC unkno wn unknown E_UA_ mg/dL All COLOR_URINE unknown YELLOW unknown UCOL unknown unknown All CLARITY_URIN unknown CLEAR unknown UCLAR unknown unknown E All BILIRUBIN_UR unknown NEGATIVE unknown UBIL unkno wn unknown INE All T unknown 0.8 unknown mg/dL TOTAL_BI unknown un known LI All T unknown 14.7 unknown % RDW unknown unkn own All T unknown 3.75 10 unknown RBC unknown unk nown 6/UL All T unknown 12.8 SECS unknown PT unknown u nknown All T unknown 6.5 unknown g/dL PRO_TOTA unknown un known L All T unknown 194 10 unknown PLT unknown unkn own 3/UL All NEUTROPHILS_ unknown 4.9 10 unknown NE_ unknown unknown AUTO_ 3/UL All T unknown 4.9 10 unknown NEUT_AUT unknown un known 3/UL O_ All T unknown 138 unknown mmol/ NA unknown unkn own L All T unknown 9.3 unknown fL MPV unknown unkn own All MONOCYTES_AU unknown 0.6 10 unknown MO_ unknown unknown TO_ 3/UL All T unknown 0.6 10 unknown MONO_AUT unknown un known 3/UL O_ All T unknown 95.5 unknown fL MCV unknown unkn own All T unknown 32.4 unknown g/dL MCHC unknown unkn own All T unknown 30.9 unknown pg MCH unknown unkn own All LYMPHOCYTES_ unknown 1.1 10 unknown LY_ unknown unknown AUTO_ 3/UL All T unknown 1.1 10 unknown LYMPH_AU unknown un known 3/UL TO_ All T unknown 4.4 unknown meq/L K unknown unkn own All T unknown 1.1 unknown INR unknown unkn own All T unknown 11.6 unknown g/dL HGB unknown unkn own All T unknown 35.8 unknown % HCT unknown unkn own All T unknown 94 unknown mg/dL GLU unknown unkn own All T unknown 2.7 unknown GLOB unknown unkn own All T unknown 81 unknown mL/mi GFR_-_MD unknown un known n RD All GFR_-_MDRD unknown 81 unknown mL/mi GFR unknown unknown n All T unknown 9.0 unknown GAP unknown unkn own All EOSINOPHILS_ unknown 0.1 10 unknown EO_ unknown unknown AUTO_ 3/UL All T unknown 0.1 10 unknown EOS_AUTO unknown un known 3/UL _ All T unknown 0.7 unknown mg/dL CREAT unknown unkn own All T unknown 26 unknown mmol/ CO2 unknown unkn own L All T unknown 103 unknown mmol/ CL unknown unkn own L All T unknown 8.7 unknown mg/dL CA unknown unkn own All T unknown 15 unknown mg/dL BUN unknown unkn own All BILIRUBIN_TO unknown 0.8 unknown mg/dL BILIT unknown unknown SAMY All BASOPHILS_AU unknown 0.1 10 unknown BA_ unknown unknown TO_ 3/UL All T unknown 0.1 10 unknown BASO_AUT unknown un known 3/UL O_ All T unknown 1.4 unknown A_G_RATI unknown un known O All T unknown 14 unknown U/L AST unknown unkn own All T unknown < 10 IU/L unknown ALT_SGPT unknown unknown _ All ALT_ALANINE_ unknown < 10 IU/L unknown ALT unkn own unknown AMINOTRANSFER ASE All ALKALINE_PHO unknown 97 unknown U/L ALP unknown unknown SPHATASE All T unknown 97 unknown U/L ALK_PHOS unknown un known All T unknown 3.8 unknown g/dL ALB unknown unkn own All ALBUMIN_GLOB unknown 1.4 unknown AGRATIO unknow n unknown ULIN_RATIO All urea_nitroge unknown 17 unknown mg/dL _9 [...] sma All Chloride_Mol unknown 105 unknown mmol/ _2074-0 unknow n unknown es_volume_in_ L Serum_or_Plas ma All carbon_dioxi unknown 25 unknown mmol/ _2027- unknow n unknown de_serum_tota L l All Calcium_Mole unknown 8.0 unknown mg/dL _1999- unknow n unknown s_volume_in_S [...] unknown unknown ll_distributi on_width All WBC_urine_on unknown 03-02 unknown _1016 unknown unknown _microscopy /HPF All T unknown 5.6 X10 unknown WBC unknown unk nown 3/UL All WBC_URINE unknown 03-02 unknown UWBC unknown u nknown /HPF All UROBILINOGEN unknown 0.2 unknown UUROBIL unknow n unknown _URINE (NORMAL) All SPECIFIC_GRA unknown 1.020 unknown USG unknown unknown VITY_URINE All T unknown 03-02 unknown UR_WBC unknown unkn own /HPF All [...] 1.7 unknown AGRATIO unknow n unknown ULIN_RATIO Vital [...]
[2021-08-22 10:17] LABS: ALBUMIN 3.8 g/dL (3.2-5.5); ALBUMIN/GLOBULIN RATIO 1.3 (1.0-2.2); ALKALINE PHOSPHATASE 89 IU/L (42-121); ALT ALANINE AMINOTRANSFERASE < 10 IU/L (10-60); AST ASPARTATE AMINOTRANSFERASE 17 IU/L (10-42); BILIRUBIN,TOTAL 0.7 mg/dL (0.2-1.0); BUN - BLOOD UREA NITROGEN 19 mg/dL (6-20); CALCIUM 8.7 mg/dL (8.5-10.3); CARBON DIOXIDE - CO2 26 mmol/L (21-32); CHLORIDE 105 mmol/L (101-111); CREATININE 0.8 mg/dL (0.4-1.0); GFR - MDRD 70 (>89); GLUCOSE 92 mg/dL (70-100); LIPASE 35 U/L (22-51); POTASSIUM 4.4 mmol/L (3.5-5.0); SODIUM 140 mmol/L (135-145); TOTAL PROTEIN 6.7 g/dL (6.7-8.2)
--- NOTE | 2021-08-22 10:33 | CT Report ---
PROCEDURE: HEAD WO INDICATIONS: lethargic onset this AM. TECHNIQUE: Noncontrast 4.5 mm thick angled axial sections acquired from the foramen magnum to the vertex. For r adiation dose reduction, the following was used: automated exposure control, adjustment of mA and/or kV according to patient size. COMPARISON: 07/06/2021 and 07/30/2021 FINDINGS: Image quality: Diagnostic. CSF spaces: Basal cisterns are patent. No extra-axial fluid collections. Ventricles are normal in size and shape. Brain: No midline shift. No intracranial masses or hemorrhage. No mass effect. Grider-white matter in terface is normal. There cerebral volume loss for age with resultant ventricular and sulcal prominenc e. There are periventricular and deep white matter chronic small vessel ischemic changes. Atheroscler otic calcifications are noted in the intracranial segments of the bilateral internal carotid arteries . Skull and face: Calvarium and visualized facial bones are intact, without suspicious lesions. Sinuses: Visualized sinuses and mastoids are clear. IMPRESSION: CT head without acute intracranial abnormalities. No mass or mass effect. No acute jocelynn rial fractures. Stable age-related senescent changes and sequela of chronic small vessel ischemic dis ease. Reviewed by: Randal Aviles MD on 08/22/2021 10:32 AM PDT Approved by: Randal Aviles MD on 08/22/2021 10:32 AM PDT Station ID: [id number]
[2021-08-22 11:52] LABS: BILIRUBIN,URINE NEGATIVE (NEGATIVE); GLUCOSE, URINE (UA) NEGATIVE (NEGATIVE); KETONES,URINE (UA) NEGATIVE (NEGATIVE); LEUKOCYTE ESTERASE, URINE LARGE (NEGATIVE); NITRITE,URINE NEGATIVE (NEGATIVE); OCCULT BLOOD,URINE SMALL (NEGATIVE); PROTEIN,URINE NEGATIVE (NEGATIVE); UROBILINOGEN,URINE 0.2 (NORMAL) E.U./dL (NORMAL)
[2021-08-22 11:53] LABS: CLARITY,URINE SL. CLOUDY (CLEAR)
[2021-08-22 12:00] LABS: BACTERIA,URINE Moderate /HPF (None Seen); RBC,URINE 0-5 /HPF (0-5); SQUAMOUS EPITHELIAL CELL,UR MOD Squamous (<= Few)
[2021-08-22 12:12] VITALS: BP 160/68
== END 2021-08-22 12:55 | disposition home or self-care (01) ==
LOC: EDUNIT# → ED 09:37
DX: R82.81 Pyuria (principal); I48.91 Unspecified atrial fibrillation; G20 Parkinson's disease; F02.80 Dementia in other diseases classified elsewhere, unspecified severity, without behavioral disturbance, psychotic disturbance, mood disturbance, and anxiety; I10 Essential (primary) hypertension
CPT/HCPCS: 36415; 80053; 81001; 81003; 83690; 83735; 84484; 85025; 85610; 87086; 93005; 99283; 99284

== ENCOUNTER 2021-09-06 17:18 | Emergency (ER) | payer MEDICARE, BC ==
--- OUTSIDE RECORDS SUMMARY | 2021-09-06 17:45 | EXTERNAL MEDICAL SUMMARY RPT | Continuity of Care Document ---
:1945 Author Organization [facility] Address [address] [place] [address] Phone Care Team Providers Name Role Phone M.D. Unavailable Unavailable Allergies No information. Encounters No information. Medications No information. Problems date description facility 20210831 Total score? 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 Alcohol use All 20210706 XR SHOULDER 2-3 VIEW All 20210706 [...] unspecified site All 20210706 Alcohol use All Procedures date description facility 20210706 XR SHOULDER 2-3 VIEW All Results test status date ordered by attending specimen torrie e urea_nitrogen_blood unknown 20210822 unknown unknown unk nown Erythrocytes_volume_in unknown 20210822 unknown unknown unknown _Blood_by_Automated_cou nt Erythrocyte_distributi unknown 20210822 unknown unknown unknown on_width_Ratio_by_Autom ated_count MCV_Entitic_volume_by_ unknown 20210822 unknown unknown unknown Automated_count MCH_Entitic_mass_by_Au unknown 20210822 unknown unknown unknown tomated_count Platelets_volume_in_Bl unknown 20210822 unknown unknown unknown ood_by_Automated_count Platelet_mean_volume_E unknown 20210822 unknown unknown unknown ntitic_volume_in_Blood_ by_Rees-Rosy neutrophil_count_blood unknown 20210822 unknown unknown unknown monocyte_count_blood unknown 20210822 unknown unknown un known lymphocyte_count_blood unknown 20210822 unknown unknown unknown Hemoglobin_Mass_volume unknown 20210822 unknown unknown unknown _in_Blood eosinophil_count_blood unknown 20210822 unknown unknown unknown Basophils_volume_in_Bl unknown 20210822 unknown unknown unknown ood_by_Manual_count leukocyte_count_blood unknown 20210822 unknown unknown u nknown erythrocyte_RBC_count unknown 20210822 unknown unknown u nknown Leukocytes_volume_in_B unknown 20210822 unknown unknown unknown lood_by_Automated_count Glomerular_Filtration_ unknown 20210822 unknown unknown unknown rate platelet_count unknown 20210822 unknown unknown unknown hemoglobin_blood unknown 20210822 unknown unknown unknow n hematocrit_blood unknown 20210822 unknown unknown unknow n INR_in_Platelet_poor_p unknown 20210822 unknown unknown unknown lasma_by_Coagulation_as say potassium_blood unknown 20210822 unknown unknown unknown Prothrombin_time_PT_ unknown 20210822 unknown unknown un known prothrombin_time_patie unknown 20210822 unknown unknown unknown nt_ Glomerular_filtration_r unknown 20210822 unknown unknown unknown ate_1.73_sq_M.predicted _among_non-blacks_Volum e_Rate_Area_in_Serum_Pl asma_or_Blood_by_Creati nine-based_formula_MDRD _ Hematocrit_Volume_Frac unknown 20210822 unknown unknown unknown tion_of_Blood_by_Automa ted_count bilirubin_serum_total unknown 20210822 unknown unknown u nknown alanine_aminotransfera unknown 20210822 unknown unknown unknown se_SGPT_serum carbon_dioxide_serum_t unknown 20210822 unknown unknown unknown otal aspartate_aminotransfe unknown 20210822 unknown unknown unknown rase_SGOT_serum protein_total_serum unknown 20210822 unknown unknown unk nown blood_glucose unknown 20210822 unknown unknown unknown potassium_blood unknown 20210822 unknown unknown unknown magnesium_serum unknown 20210822 unknown unknown unknown mean_corpuscular_volum unknown 20210822 unknown unknown unknown e_RBC Urea_nitrogen_Mass_vol unknown 20210822 unknown unknown unknown ume_in_Serum_or_Plasma international_normaliz unknown 20210822 unknown unknown unknown ed_ratio_INR_ globulin_serum unknown 20210822 unknown unknown unknown alkaline_phosphatase_s unknown 20210822 unknown unknown unknown gretta Sodium_Moles_volume_in unknown 20210822 unknown unknown unknown _Serum_or_Plasma Protein_Mass_volume_in unknown 20210822 unknown unknown unknown _Serum_or_Plasma eosinophil_count_blood unknown 20210822 unknown unknown unknown anion_gap_serum unknown 20210822 unknown unknown unknown mean_platelet_volume unknown 20210822 unknown unknown un known Magnesium_Moles_volume unknown 20210822 unknown unknown unknown _in_Serum_or_Plasma basophil_count_blood unknown 20210822 unknown unknown un known monocyte_count_blood unknown 20210822 unknown unknown un known lymphocyte_count_blood unknown 20210822 unknown unknown unknown neutrophil_count_blood unknown 20210822 unknown unknown unknown Glucose_Mass_volume_in unknown 20210822 unknown unknown unknown _Serum_or_Plasma Globulin_Mass_volume_i unknown 20210822 unknown unknown unknown n_Serum Creatinine_Mass_volume unknown 20210822 unknown unknown unknown _in_Serum_or_Plasma Chloride_Moles_volume_ unknown 20210822 unknown unknown unknown in_Serum_or_Plasma carbon_dioxide_serum_t unknown 20210822 unknown unknown unknown otal Calcium_Moles_volume_i unknown 20210822 unknown unknown unknown n_Serum_or_Plasma albumin_serum unknown 20210822 unknown unknown unknown Bilirubin.total_Mass_v unknown 20210822 unknown unknown unknown olume_in_Serum_or_Plasm a Aspartate_aminotransfe unknown 20210822 unknown unknown unknown rase_Enzymatic_activity _volume_in_Serum_or_Pla sma Anion_gap_4_in_Serum_o unknown 20210822 unknown unknown unknown r_Plasma creatinine_serum unknown 20210822 unknown unknown unknow n Alkaline_phosphatase_E unknown 20210822 unknown unknown unknown nzymatic_activity_volum e_in_Blood Albumin_Globulin_Mass_ unknown 20210822 unknown unknown unknown Ratio_in_Serum_or_Plasm a Albumin_Mass_volume_in unknown 20210822 unknown unknown unknown _Serum_or_Plasma Alanine_aminotransfera unknown 20210822 unknown unknown unknown se_Enzymatic_activity_v olume_in_Serum_or_Plasm a mean_corpuscular_hemog unknown 45073913 unknown unknown unknown lobin_concentration_rbc sodium_serum unknown 93151563 unknown unknown unknown albumin_globulin_ratio unknown 15052925 unknown unknown unknown _serum chloride_serum unknown 59242366 unknown unknown unknown calcium_serum unknown 03709850 unknown unknown unknown mean_corpuscular_hemog unknown 74291582 unknown unknown unknown lobin_RBC red_blood_cell_distrib unknown 60967925 unknown unknown unknown ution_width T unknown 85453748 unknown unknown unknown T unknown 87517531 unknown unknown unknown T unknown 71369214 unknown unknown unknown T unknown 20159654 unknown unknown unknown T unknown 04441430 unknown unknown unknown T unknown 75712916 unknown unknown unknown T unknown 80018677 unknown unknown unknown NEUTROPHILS_AUTO_ unknown 42067831 unknown unknown unkno wn T unknown 01821246 unknown unknown unknown T unknown [id number] unknown unknown unknown T unknown 09100631 unknown unknown unknown MONOCYTES_AUTO_ unknown 19730531 unknown unknown unknown T unknown 49728788 unknown unknown unknown T unknown 33946690 unknown unknown unknown T unknown 53555765 unknown unknown unknown T unknown 58352277 unknown unknown unknown T unknown [id number] unknown unknown unknown LYMPHOCYTES_AUTO_ unknown 50120484 unknown unknown unkno wn T unknown 46834111 unknown unknown unknown T unknown 97413396 unknown unknown unknown T unknown 56425792 unknown unknown unknown T unknown 33412270 unknown unknown unknown T unknown 56772938 unknown unknown unknown T unknown 55872240 unknown unknown unknown T unknown [id number] unknown unknown unknown T unknown 19775123 unknown unknown unknown GFR_-_MDRD unknown 68310226 unknown unknown unknown T unknown 40570351 unknown unknown unknown EOSINOPHILS_AUTO_ unknown 90630270 unknown unknown unkno wn T unknown 65042209 unknown unknown unknown T unknown 85360012 unknown unknown unknown T unknown 25991266 unknown unknown unknown T unknown 66982258 unknown unknown unknown T unknown 83255932 unknown unknown unknown T unknown 88277619 unknown unknown unknown BILIRUBIN_TOTAL unknown 80701895 unknown unknown unknown BASOPHILS_AUTO_ unknown [id number] unknown unknown unknown T unknown 37124726 unknown unknown unknown T unknown 42120205 unknown unknown unknown T unknown 08701721 unknown unknown unknown T unknown 94982722 unknown unknown unknown ALT_ALANINE_AMINOTRANS unknown 14473288 unknown unknown unknown FERASE ALKALINE_PHOSPHATASE unknown [id number] unknown unknown un known T unknown 44649912 unknown unknown unknown T unknown 20210822 unknown unknown unknown ALBUMIN_GLOBULIN_RATIO unknown 20210822 unknown unknown unknown urea_nitrogen_blood unknown 20210809 unknown unknown unk nown [...] 20210809 unknown unknown unknown rate platelet_count unknown 20210809 unknown unknown unknown hemoglobin_blood unknown 20210809 unknown unknown unknow n hematocrit_blood unknown 20210809 unknown unknown unknow n potassium_blood unknown 20210809 unknown unknown unknown Glomerular_filtration_r unknown 09353263 unknown unknown unknown ate_1.73_sq_M.predicted _among_non-blacks_Volum e_Rate_Area_in_Serum_Pl asma_or_Blood_by_Creati nine-based_formula_MDRD _ Hematocrit_Volume_Frac unknown 20210809 unknown unknown unknown tion_of_Blood_by_Automa ted_count bilirubin_serum_total unknown 20210809 unknown unknown u nknown alanine_aminotransfera unknown 20210809 unknown unknown unknown se_SGPT_serum carbon_dioxide_serum_t unknown 20210809 unknown unknown unknown otal aspartate_aminotransfe unknown 61529920 unknown unknown unknown rase_SGOT_serum protein_total_serum unknown 91149799 unknown unknown unk nown blood_glucose unknown 20210809 unknown unknown unknown potassium_blood unknown 20210809 unknown unknown unknown mean_corpuscular_volum unknown 20210809 unknown unknown unknown e_RBC Urea_nitrogen_Mass_vol unknown 20210809 unknown unknown unknown ume_in_Serum_or_Plasma globulin_serum unknown 20210809 unknown unknown unknown alkaline_phosphatase_s unknown 20210809 unknown unknown unknown gretta Sodium_Moles_volume_in unknown 20210809 unknown unknown unknown _Serum_or_Plasma Protein_Mass_volume_in unknown 20210809 unknown unknown unknown _Serum_or_Plasma anion_gap_serum unknown 20210809 unknown unknown unknown mean_platelet_volume unknown 20210809 unknown unknown un known neutrophil_count_blood unknown 20210809 [...] 20210809 unknown unknown unknown r_Plasma creatinine_serum unknown 81597290 unknown unknown unknow n Alkaline_phosphatase_E unknown 20210809 unknown unknown unknown nzymatic_activity_volum e_in_Blood Albumin_Globulin_Mass_ unknown 20210809 unknown unknown unknown Ratio_in_Serum_or_Plasm a Albumin_Mass_volume_in unknown 20210809 unknown unknown unknown _Serum_or_Plasma Alanine_aminotransfera unknown 20210809 unknown unknown unknown se_Enzymatic_activity_v olume_in_Serum_or_Plasm a mean_corpuscular_hemog unknown 20210809 unknown unknown unknown lobin_concentration_rbc sodium_serum unknown 20210809 unknown unknown unknown albumin_globulin_ratio unknown 07698692 unknown unknown unknown _serum chloride_serum unknown 12292397 unknown unknown unknown calcium_serum unknown 74673849 unknown unknown unknown mean_corpuscular_hemog unknown 40935727 unknown unknown unknown lobin_RBC red_blood_cell_distrib unknown 50219720 unknown unknown unknown ution_width T unknown 38569205 unknown unknown unknown T unknown 58443439 unknown unknown unknown T unknown 88557754 unknown unknown unknown T unknown 32222344 unknown unknown unknown T unknown 86871186 unknown unknown unknown T unknown 34537261 unknown unknown unknown NEUTROPHILS_AUTO_ unknown 95818751 unknown unknown unkno wn T unknown 58747954 unknown unknown unknown T unknown 97166598 unknown unknown unknown T unknown 31959065 unknown unknown unknown T unknown 57792653 unknown unknown unknown T unknown 15234353 unknown unknown unknown T unknown 57807636 unknown unknown unknown T unknown 37158958 unknown unknown unknown T unknown 39542428 unknown unknown unknown T unknown 92350601 unknown unknown unknown T unknown 96095045 unknown unknown unknown T unknown 57090524 unknown unknown unknown T unknown 27516594 unknown unknown unknown GFR_-_MDRD unknown 63594338 unknown unknown unknown T unknown 62658018 unknown unknown unknown T unknown 10459801 unknown unknown unknown T unknown 27728901 unknown unknown unknown T unknown 21939080 unknown unknown unknown T unknown 42895176 unknown unknown unknown T unknown 89557717 unknown unknown unknown BILIRUBIN_TOTAL unknown 76270213 unknown unknown unknown T unknown 07229955 unknown unknown unknown T unknown 61232065 unknown unknown unknown T unknown 23708935 unknown unknown unknown ALT_ALANINE_AMINOTRANS unknown 17604010 unknown unknown unknown FERASE ALKALINE_PHOSPHATASE unknown 29373497 unknown unknown un known T unknown 71520583 unknown unknown unknown T unknown 73179043 unknown unknown unknown ALBUMIN_GLOBULIN_RATIO unknown 36940849 unknown unknown unknown urea_nitrogen_blood unknown 44511868 unknown unknown unk nown Erythrocytes_volume_in unknown 83127483 unknown unknown unknown _Blood_by_Automated_cou nt Erythrocyte_distributi unknown 36820654 unknown unknown unknown on_width_Ratio_by_Autom ated_count MCV_Entitic_volume_by_ unknown 93145603 unknown unknown unknown Automated_count MCH_Entitic_mass_by_Au unknown 45818458 unknown unknown unknown tomated_count Platelets_volume_in_Bl unknown 42940364 unknown unknown unknown ood_by_Automated_count Platelet_mean_volume_E unknown 82053559 unknown unknown unknown ntitic_volume_in_Blood_ by_Rees-Rosy neutrophil_count_blood unknown 45727357 unknown unknown unknown monocyte_count_blood unknown 24042769 unknown unknown un known lymphocyte_count_blood unknown 84123147 unknown unknown unknown Hemoglobin_Mass_volume unknown 78809134 unknown unknown unknown _in_Blood eosinophil_count_blood unknown 69037271 unknown unknown unknown Basophils_volume_in_Bl unknown 83076772 unknown unknown unknown ood_by_Manual_count leukocyte_count_blood unknown 79678906 unknown unknown u nknown erythrocyte_RBC_count unknown 18082074 unknown unknown u nknown Leukocytes_volume_in_B unknown 64278800 unknown unknown unknown lood_by_Automated_count Glomerular_Filtration_ unknown 02864327 unknown unknown unknown rate platelet_count unknown 36958626 unknown unknown unknown hemoglobin_blood unknown 59228551 unknown unknown unknow n hematocrit_blood unknown 32581947 unknown unknown unknow n INR_in_Platelet_poor_p unknown 14673207 unknown unknown unknown lasma_by_Coagulation_as say potassium_blood unknown 08663332 unknown unknown unknown Prothrombin_time_PT_ unknown 95374433 unknown unknown un known WBC_urine_on_microscop unknown 37699024 unknown unknown unknown y Urobilinogen_Presence_ unknown 15527604 unknown unknown unknown in_Urine_by_Test_strip Specific_gravity_of_Ur unknown 12158933 unknown unknown unknown ine_by_Test_strip Nitrite_Presence_in_Ur unknown 46987208 unknown unknown unknown ine_by_Test_strip Leukocyte_esterase_Pre unknown 62173898 unknown unknown unknown sence_in_Urine_by_Test_ strip Ketones_Mass_volume_in unknown 30946571 unknown unknown unknown _Urine_by_Test_strip Color_of_Urine unknown 36144006 unknown unknown unknown Bilirubin.total_Presen unknown 39389694 unknown unknown unknown ce_in_Urine_by_Test_str ip clarity_urine_point unknown 18719774 unknown unknown unk nown pH_study_of_acidity unknown 53150447 unknown unknown unk nown prothrombin_time_patie unknown 91279308 unknown unknown unknown nt_ Glomerular_filtration_r unknown 68652490 unknown unknown unknown ate_1.73_sq_M.predicted _among_non-blacks_Volum e_Rate_Area_in_Serum_Pl asma_or_Blood_by_Creati nine-based_formula_MDRD _ Hematocrit_Volume_Frac unknown 17338819 unknown unknown unknown tion_of_Blood_by_Automa ted_count bilirubin_serum_total unknown 70417628 unknown unknown u nknown alanine_aminotransfera unknown 54368832 unknown unknown unknown se_SGPT_serum carbon_dioxide_serum_t unknown 56077799 unknown unknown unknown otal aspartate_aminotransfe unknown 68829175 unknown unknown unknown rase_SGOT_serum protein_total_serum unknown 63517938 unknown unknown unk nown blood_glucose unknown 57746150 unknown unknown unknown potassium_blood unknown 26341201 unknown unknown unknown glucose_urine unknown 93723110 unknown unknown unknown leukocyte_esterase_uri unknown 24977766 unknown unknown unknown ne_by_dipstick urobilinogen_urine_sem unknown 31623940 unknown unknown unknown iquantitative_dipstick_ specific_gravity_urine unknown 51341828 unknown unknown unknown nitrite_urine_semiquan unknown 91429226 unknown unknown unknown titative ketones_urine_by_test_ unknown 19842480 unknown unknown unknown strip bilirubin_urine unknown 85472757 unknown unknown unknown mean_corpuscular_volum unknown 84094086 unknown unknown unknown e_RBC Urea_nitrogen_Mass_vol unknown 12899287 unknown unknown unknown ume_in_Serum_or_Plasma international_normaliz unknown 21922304 unknown unknown unknown ed_ratio_INR_ globulin_serum unknown 69234427 unknown unknown unknown alkaline_phosphatase_s unknown 76528198 unknown unknown unknown gretta Sodium_Moles_volume_in unknown 54586257 unknown unknown unknown _Serum_or_Plasma Protein_Mass_volume_in unknown 94568512 unknown unknown unknown _Serum_or_Plasma eosinophil_count_blood unknown 39323273 unknown unknown unknown anion_gap_serum unknown 90277135 unknown unknown unknown mean_platelet_volume unknown 49761348 unknown unknown un known urine_color unknown 19899619 unknown unknown unknown basophil_count_blood unknown 03717195 unknown unknown un known monocyte_count_blood unknown 80172379 unknown unknown un known lymphocyte_count_blood unknown 88094598 unknown unknown unknown neutrophil_count_blood unknown 27952215 unknown unknown unknown Glucose_Mass_volume_in unknown 94985695 unknown unknown unknown _Urine Glucose_Mass_volume_in unknown 83696455 unknown unknown unknown _Serum_or_Plasma Globulin_Mass_volume_i unknown 63367182 unknown unknown unknown n_Serum Creatinine_Mass_volume unknown 66540774 unknown unknown unknown _in_Serum_or_Plasma Chloride_Moles_volume_ unknown 97558068 unknown unknown unknown in_Serum_or_Plasma carbon_dioxide_serum_t unknown 19693373 unknown unknown unknown otal Calcium_Moles_volume_i unknown 39563280 unknown unknown unknown n_Serum_or_Plasma albumin_serum unknown 14807325 unknown unknown unknown Bilirubin.total_Mass_v unknown 27730881 unknown unknown unknown olume_in_Serum_or_Plasm a Aspartate_aminotransfe unknown 47017385 unknown unknown unknown rase_Enzymatic_activity _volume_in_Serum_or_Pla sma Anion_gap_4_in_Serum_o unknown 68032534 unknown unknown unknown r_Plasma creatinine_serum unknown 74127546 unknown unknown unknow n Alkaline_phosphatase_E unknown 51052103 unknown unknown unknown nzymatic_activity_volum e_in_Blood Albumin_Globulin_Mass_ unknown 17907431 unknown unknown unknown Ratio_in_Serum_or_Plasm a Albumin_Mass_volume_in unknown 65890380 unknown unknown unknown _Serum_or_Plasma Alanine_aminotransfera unknown 69422598 unknown unknown unknown se_Enzymatic_activity_v olume_in_Serum_or_Plasm a mean_corpuscular_hemog unknown 22343094 unknown unknown unknown lobin_concentration_rbc sodium_serum unknown 03797254 unknown unknown unknown albumin_globulin_ratio unknown 63634420 unknown unknown unknown _serum chloride_serum unknown 73235481 unknown unknown unknown calcium_serum unknown 93138020 unknown unknown unknown mean_corpuscular_hemog unknown 49517303 unknown unknown unknown lobin_RBC red_blood_cell_distrib unknown 01041182 unknown unknown unknown ution_width WBC_urine_on_microscop unknown 47247577 unknown unknown unknown y T unknown 44895101 unknown unknown unknown WBC_URINE unknown 36602582 unknown unknown unknown UROBILINOGEN_URINE unknown 43153296 unknown unknown unkn own SPECIFIC_GRAVITY_URINE unknown 48955930 unknown unknown unknown T unknown 67453991 unknown unknown unknown T unknown 36738800 unknown unknown unknown T unknown 36152976 unknown unknown unknown T unknown 39469328 unknown unknown unknown T unknown 88837933 unknown unknown unknown T unknown 01868928 unknown unknown unknown T unknown 04176665 unknown unknown unknown T unknown 33697940 unknown unknown unknown T unknown 09943564 unknown unknown unknown T unknown 11993599 unknown unknown unknown T unknown 68446005 unknown unknown unknown PH_URINE unknown 88415715 unknown unknown unknown NITRITE_URINE unknown 18558091 unknown unknown unknown LEUKOCYTE_ESTERASE_URI unknown 31852315 unknown unknown unknown NE KETONES_URINE_UA_ unknown 58428547 unknown unknown unkno wn GLUCOSE_URINE_UA_ unknown 77104451 unknown unknown unkno wn COLOR_URINE unknown 65887805 unknown unknown unknown CLARITY_URINE unknown 71046076 unknown unknown unknown BILIRUBIN_URINE unknown 82914854 unknown unknown unknown T unknown 33787964 unknown unknown unknown T unknown 71428689 unknown unknown unknown T unknown 69079333 unknown unknown unknown T unknown 92276488 unknown unknown unknown T unknown 54048758 unknown unknown unknown T unknown 58573195 unknown unknown unknown NEUTROPHILS_AUTO_ unknown 82695088 unknown unknown unkno wn T unknown 08517738 unknown unknown unknown T unknown 22622292 unknown unknown unknown T unknown 45958899 unknown unknown unknown MONOCYTES_AUTO_ unknown 06301067 unknown unknown unknown T unknown 31428634 unknown unknown unknown T unknown 72375641 unknown unknown unknown T unknown 45064820 unknown unknown unknown T unknown 02671111 unknown unknown unknown LYMPHOCYTES_AUTO_ unknown 46580331 unknown unknown unkno wn T unknown 73103677 unknown unknown unknown T unknown 92652946 unknown unknown unknown T unknown 52344978 unknown unknown unknown T unknown 52622837 unknown unknown unknown T unknown 58499680 unknown unknown unknown T unknown 83465329 unknown unknown unknown T unknown 82121541 unknown unknown unknown T unknown 94593078 unknown unknown unknown GFR_-_MDRD unknown 09680343 unknown unknown unknown T unknown 05833812 unknown unknown unknown EOSINOPHILS_AUTO_ unknown 83011689 unknown unknown unkno wn T unknown 16842128 unknown unknown unknown T unknown 66757215 unknown unknown unknown T unknown 55127954 unknown unknown unknown T unknown 50338995 unknown unknown unknown T unknown 57611896 unknown unknown unknown T unknown 95303651 unknown unknown unknown BILIRUBIN_TOTAL unknown 70088132 unknown unknown unknown BASOPHILS_AUTO_ unknown 59193840 unknown unknown unknown T unknown 34111570 unknown unknown unknown T unknown 66664156 unknown unknown unknown T unknown 43801219 unknown unknown unknown T unknown 98875929 unknown unknown unknown ALT_ALANINE_AMINOTRANS unknown 20210730 unknown unknown unknown FERASE ALKALINE_PHOSPHATASE unknown 20210730 unknown unknown un known T unknown 20210730 unknown unknown unknown T unknown 20210730 unknown unknown unknown ALBUMIN_GLOBULIN_RATIO unknown 20210730 unknown unknown unknown urea_nitrogen_blood unknown 20210706 unknown unknown unk nown [...] 20210706 unknown unknown un known lymphocyte_count_blood unknown 20210706 unknown unknown unknown Hemoglobin_Mass_volume unknown 20210706 unknown unknown unknown _in_Blood eosinophil_count_blood unknown 20210706 unknown unknown unknown Basophils_volume_in_Bl unknown 20210706 unknown unknown unknown ood_by_Manual_count leukocyte_count_blood unknown 20210706 unknown unknown u nknown erythrocyte_RBC_count unknown 20210706 unknown unknown u nknown Leukocytes_volume_in_B unknown 20210706 unknown unknown unknown lood_by_Automated_count Glomerular_Filtration_ unknown 20210706 unknown unknown unknown rate platelet_count unknown 51428023 unknown unknown unknown hemoglobin_blood unknown 20210706 unknown unknown unknow n hematocrit_blood unknown 71194494 unknown unknown unknow n potassium_blood unknown 48593959 unknown unknown unknown WBC_urine_on_microscop unknown 72713838 unknown unknown unknown y Urobilinogen_Presence_ unknown 82343171 unknown unknown unknown in_Urine_by_Test_strip Specific_gravity_of_Ur unknown 80576017 unknown unknown unknown ine_by_Test_strip Nitrite_Presence_in_Ur unknown 17478556 unknown unknown unknown ine_by_Test_strip Leukocyte_esterase_Pre unknown 94331107 unknown unknown unknown sence_in_Urine_by_Test_ strip Ketones_Mass_volume_in unknown 20210706 unknown unknown unknown _Urine_by_Test_strip Color_of_Urine unknown 20210706 unknown unknown unknown Bilirubin.total_Presen unknown 20210706 unknown unknown unknown ce_in_Urine_by_Test_str ip clarity_urine_point unknown 20210706 unknown unknown unk geoffreyn pH_study_of_acidity unknown 20210706 unknown unknown unk geoffreyn Glomerular_filtration_r unknown 20210706 unknown unknown unknown ate_1.73_sq_M.predicted _among_non-blacks_Volum e_Rate_Area_in_Serum_Pl asma_or_Blood_by_Creati nine-based_formula_MDRD _ Hematocrit_Volume_Frac unknown 20210706 unknown unknown unknown tion_of_Blood_by_Automa ted_count bilirubin_serum_total unknown 20210706 unknown unknown u nknown alanine_aminotransfera unknown 20210706 unknown unknown unknown se_SGPT_serum carbon_dioxide_serum_t unknown 20210706 unknown unknown unknown otal aspartate_aminotransfe unknown 20210706 unknown unknown unknown rase_SGOT_serum protein_total_serum unknown 20210706 unknown unknown unk nown blood_glucose unknown 20210706 unknown unknown unknown potassium_blood unknown [id number] unknown unknown unknown glucose_urine unknown [id number] unknown unknown unknown leukocyte_esterase_uri unknown [id number] unknown unknown unknown ne_by_dipstick urobilinogen_urine_sem unknown 20210706 unknown unknown unknown iquantitative_dipstick_ specific_gravity_urine unknown [id number] unknown unknown unknown nitrite_urine_semiquan unknown 20210706 unknown unknown unknown titative ketones_urine_by_test_ unknown [id number] unknown unknown unknown strip magnesium_serum unknown 15355067 unknown unknown unknown bilirubin_urine unknown 03138297 unknown unknown unknown mean_corpuscular_volum unknown [id number] unknown unknown unknown e_RBC Urea_nitrogen_Mass_vol unknown [id number] unknown unknown unknown ume_in_Serum_or_Plasma globulin_serum unknown [id number] unknown unknown unknown alkaline_phosphatase_s unknown 20210706 unknown unknown unknown gretta Sodium_Moles_volume_in unknown [id number] unknown unknown unknown _Serum_or_Plasma Protein_Mass_volume_in unknown 20210706 unknown unknown unknown _Serum_or_Plasma eosinophil_count_blood unknown 20210706 unknown unknown unknown anion_gap_serum unknown 20210706 unknown unknown unknown mean_platelet_volume unknown 20210706 unknown unknown un known urine_color unknown 20210706 unknown unknown unknown Magnesium_Moles_volume unknown 20210706 unknown unknown unknown _in_Serum_or_Plasma basophil_count_blood unknown 20210706 unknown unknown un known monocyte_count_blood unknown 20210706 unknown unknown un known lymphocyte_count_blood unknown 20210706 unknown unknown unknown neutrophil_count_blood unknown 20210706 unknown unknown unknown Glucose_Mass_volume_in unknown 20210706 unknown [...] 20210706 unknown unknown unknown lobin_concentration_rbc sodium_serum unknown [id number] unknown unknown unknown albumin_globulin_ratio unknown 03271364 unknown unknown unknown _serum chloride_serum unknown 20070023 unknown unknown unknown calcium_serum unknown 55758023 unknown unknown unknown mean_corpuscular_hemog unknown [id number] unknown unknown unknown lobin_RBC red_blood_cell_distrib unknown 92438108 unknown unknown unknown ution_width WBC_urine_on_microscop unknown 13439282 unknown unknown unknown y T unknown [id number] unknown unknown unknown WBC_URINE unknown 28568827 unknown unknown unknown UROBILINOGEN_URINE unknown [id number] unknown unknown unkn own SPECIFIC_GRAVITY_URINE unknown 30073040 unknown unknown unknown T unknown 14603444 unknown unknown unknown T unknown 47829968 unknown unknown unknown T unknown 74313383 unknown unknown unknown T unknown 73644727 unknown unknown unknown T unknown 08743514 unknown unknown unknown T unknown [id number] unknown unknown unknown T unknown 13119250 unknown unknown unknown T unknown 85754626 unknown unknown unknown T unknown 42398340 unknown unknown unknown T unknown 34521454 unknown unknown unknown T unknown 01868640 unknown unknown unknown PH_URINE unknown 18168804 unknown unknown unknown NITRITE_URINE unknown 75466071 unknown unknown unknown LEUKOCYTE_ESTERASE_URI unknown 38646751 unknown unknown unknown NE KETONES_URINE_UA_ unknown 13630287 unknown unknown unkno wn GLUCOSE_URINE_UA_ unknown 40886476 unknown unknown unkno wn COLOR_URINE unknown 69235297 unknown unknown unknown CLARITY_URINE unknown 82457067 unknown unknown unknown BILIRUBIN_URINE unknown 61958346 unknown unknown unknown T unknown 94119511 unknown unknown unknown T unknown 55904547 unknown unknown unknown T unknown 23694772 unknown unknown unknown T unknown 30199726 unknown unknown unknown T unknown 82657041 unknown unknown unknown NEUTROPHILS_AUTO_ unknown [id number] unknown unknown unkno wn T unknown 32819199 unknown unknown unknown T unknown 77320616 unknown unknown unknown T unknown 15946456 unknown unknown unknown MONOCYTES_AUTO_ unknown 22166457 unknown unknown unknown T unknown 63222624 unknown unknown unknown T unknown 52565736 unknown unknown unknown T unknown 98893874 unknown unknown unknown T unknown [id number] unknown unknown unknown T unknown 82188855 unknown unknown unknown LYMPHOCYTES_AUTO_ unknown [id number] unknown unknown unkno wn T unknown 07196912 unknown unknown unknown T unknown 91991380 unknown unknown unknown T unknown 86337982 unknown unknown unknown T unknown 28495771 unknown unknown unknown T unknown 89945116 unknown unknown unknown T unknown 72644918 unknown unknown unknown T unknown 20210706 unknown unknown unknown GFR_-_MDRD unknown 20210706 unknown unknown unknown T unknown 20210706 unknown unknown unknown EOSINOPHILS_AUTO_ unknown 20210706 unknown unknown unkno wn T unknown 20210706 unknown unknown unknown T unknown 20210706 unknown unknown unknown T unknown 20210706 unknown unknown unknown T unknown 20210706 unknown unknown unknown T unknown 20210706 unknown unknown unknown T unknown 20210706 unknown unknown unknown BILIRUBIN_TOTAL unknown 20210706 unknown unknown unknown BASOPHILS_AUTO_ unknown 20210706 unknown unknown unknown T unknown 20210706 unknown unknown unknown T unknown 20210706 unknown unknown unknown T unknown 20210706 unknown unknown unknown T unknown 20210706 unknown unknown unknown ALT_ALANINE_AMINOTRANS unknown 20210706 unknown unknown unknown FERASE ALKALINE_PHOSPHATASE unknown 20210706 unknown unknown un known T unknown 20210706 unknown unknown unknown T unknown 20210706 unknown unknown unknown ALBUMIN_GLOBULIN_RATIO unknown 20210706 unknown unknown unknown facility observation status value reference units lab code abn ormal line range notes All urea_nitroge unknown 19 unknown mg/dL _9 unknown unknown n_blood All Erythrocytes unknown 3.70 10 unknown _789-8 unknow n unknown _volume_in_Bl 6/UL ood_by_Automa ted_count All Erythrocyte_ unknown 14.8 unknown % _788-0 unknown unknown distribution_ width_Ratio_b y_Automated_c ount All MCV_Entitic_ unknown 96.8 unknown fL _787-2 unknown unknown volume_by_Aut omated_count All MCH_Entitic_ unknown 31.1 unknown pg _785-6 unknown unknown mass_by_Autom ated_count All Platelets_vo unknown 203 10 unknown _777-3 unknown unknown lume_in_Blood 3/UL _by_Automated _count All Platelet_mea unknown 8.9 unknown fL _776-5 unknown unknown n_volume_Enti tic_volume_in _Blood_by_Ree s-Rosy All neutrophil_c unknown 4.5 10 unknown _752-6 unknown unknown ount_blood 3/UL All monocyte_cou unknown 0.6 10 unknown _743-5 unknown unknown nt_blood 3/UL All lymphocyte_c unknown 1.4 10 unknown _732-8 unknown unknown ount_blood 3/UL All Hemoglobin_M unknown 11.5 unknown g/dL _718-7 unknown unknown ass_volume_in _Blood All eosinophil_c unknown 0.1 10 unknown _712-0 unknown unknown ount_blood 3/UL All Basophils_vo unknown 0.1 10 unknown _705-4 unknown unknown lume_in_Blood 3/UL _by_Manual_co unt All leukocyte_co unknown 6.7 X10 unknown _68 unknow n unknown unt_blood 3/UL All erythrocyte_ unknown 3.70 10 unknown _67 unknow n unknown RBC_count 6/UL All Leukocytes_v unknown 6.7 X10 unknown _6690-2 unkno wn unknown olume_in_Bloo 3/UL d_by_Automate d_count All Glomerular_F unknown 70 unknown mL/mi _66455 unknown unknown iltration_rat n e All platelet_cou unknown 203 10 unknown _66 unknown unknown nt 3/UL All hemoglobin_b unknown 11.5 unknown g/dL _65 unknown unknown lood All hematocrit_b unknown 35.8 unknown % _64 unknown unknown lood All INR_in_Plate unknown 1.1 unknown _6301-6 unknow n unknown let_poor_plas ma_by_Coagula tion_assay All potassium_bl unknown 4.4 unknown meq/L _6298-4 unknow n unknown ood All Prothrombin_ unknown 12.4 SECS unknown _5902-2 unk nown unknown time_PT_ All prothrombin_ unknown 12.4 SECS unknown _50 unkn own unknown time_patient_ All Glomerular_fi unknown 70 unknown mL/mi _48642-3 [...] unknown de_serum_tota L l All aspartate_am unknown 17 unknown U/L _39 unknown unknown inotransferas e_SGOT_serum All protein_tota unknown 6.7 unknown g/dL _36 unknown unknown l_serum All blood_glucos unknown 92 unknown mg/dL _3565 unknown unknown e All potassium_bl unknown 4.4 unknown meq/L _3483 unknown unknown ood All magnesium_se unknown 2.0 unknown mg/dL _32 unknown unknown rum All mean_corpusc unknown 96.8 unknown fL _315 unknown unknown ular_volume_R BC All Urea_nitroge unknown 19 unknown mg/dL _3094-0 unknow n unknown n_Mass_volume _in_Serum_or_ Plasma All internationa unknown 1.1 unknown _309 unknown unknown l_normalized_ ratio_INR_ All globulin_ser unknown 2.9 unknown _3059 unknown unknown um All alkaline_pho unknown 89 unknown U/L _3 unknown unknown sphatase_seru m All Sodium_Moles unknown 140 unknown mmol/ _2951-2 unknow n unknown _volume_in_Se L rum_or_Plasma All Protein_Mass unknown 6.7 unknown g/dL _2885-2 unknow n unknown _volume_in_Se rum_or_Plasma All eosinophil_c unknown 0.1 10 unknown _285 unknown unknown ount_blood 3/UL All anion_gap_se unknown 9.0 unknown _279 unknown unknown rum All mean_platele unknown 8.9 unknown fL _2784 unknown unknown t_volume All Magnesium_Mo unknown 2.0 unknown mg/dL _2601-3 unknow n unknown les_volume_in _Serum_or_Pla sma All basophil_cou unknown 0.1 10 unknown _2427 unknown unknown nt_blood 3/UL All monocyte_cou unknown 0.6 10 unknown _2422 unknown unknown nt_blood 3/UL All lymphocyte_c unknown 1.4 10 unknown _2420 unknown unknown ount_blood 3/UL All neutrophil_c unknown 4.5 10 unknown _2418 unknown unknown ount_blood 3/UL All Glucose_Mass unknown 92 unknown mg/dL _2345-7 unknow n unknown _volume_in_Se rum_or_Plasma All Globulin_Mas unknown 2.9 unknown _2336-6 unknow n unknown s_volume_in_S gretta All Creatinine_M unknown 0.8 unknown mg/dL _2160-0 unknow n unknown ass_volume_in _Serum_or_Pla sma All Chloride_Mol unknown 105 unknown mmol/ _2074-0 unknow n unknown es_volume_in_ L Serum_or_Plas ma All carbon_dioxi unknown 26 unknown mmol/ _2027- unknow n unknown de_serum_tota L l All Calcium_Mole unknown 8.7 unknown mg/dL _1999- unknow n unknown s_volume_in_S erum_or_Plasm a All albumin_seru unknown 3.8 unknown g/dL _2 unknown unknown m All Bilirubin.to unknown 0.7 unknown mg/dL _1974- unknow n unknown tal_Mass_volu me_in_Serum_o r_Plasma All Aspartate_am unknown 17 unknown U/L _1919-8 unknow n unknown inotransferas e_Enzymatic_a ctivity_volum e_in_Serum_or _Plasma All Anion_gap_4_ unknown 9.0 unknown _1863-0 unknow n unknown in_Serum_or_P lasma All creatinine_s unknown 0.8 unknown mg/dL _18 unknown unknown gretta All Alkaline_pho unknown 89 unknown U/L _1783-0 unknow n unknown sphatase_Enzy matic_activit y_volume_in_B lood All Albumin_Glob unknown 1.3 unknown _1759-0 unknow n unknown ulin_Mass_Rat io_in_Serum_o r_Plasma All Albumin_Mass unknown 3.8 unknown g/dL _1751-7 unknow n unknown _volume_in_Se rum_or_Plasma All Alanine_amin unknown < 10 IU/L unknown _1742-6 unk nown unknown otransferase_ Enzymatic_act ivity_volume_ in_Serum_or_P lasma All mean_corpusc unknown 32.1 unknown g/dL _17029 unknown unknown ular_hemoglob in_concentrat ion_rbc All sodium_serum unknown 140 unknown mmol/ _159 unknown unknown L All albumin_glob unknown 1.3 unknown _146 unknown unknown ulin_ratio_se rum All chloride_ser unknown 105 unknown mmol/ _13 unknown unknown um L All calcium_seru unknown 8.7 unknown mg/dL _11 unknown unknown m All mean_corpusc unknown 31.1 unknown pg _1031 unknown unknown ular_hemoglob in_RBC All red_blood_ce unknown 14.8 unknown % _1030 unknown unknown ll_distributi on_width All T unknown 6.7 X10 unknown WBC unknown unk nown 3/UL All T unknown 0.7 unknown mg/dL TOTAL_BI unknown un known LI All T unknown 14.8 unknown % RDW unknown unkn own All T unknown 3.70 10 unknown RBC unknown unk nown 6/UL All T unknown 12.4 SECS unknown PT unknown u nknown All T unknown 6.7 unknown g/dL PRO_TOTA unknown un known L All T unknown 203 10 unknown PLT unknown unkn own 3/UL All NEUTROPHILS_ unknown 4.5 10 unknown NE_ unknown unknown AUTO_ 3/UL All T unknown 4.5 10 unknown NEUT_AUT unknown un known 3/UL O_ All T unknown 140 unknown mmol/ NA unknown unkn own L All T unknown 8.9 unknown fL MPV unknown unkn own All MONOCYTES_AU unknown 0.6 10 unknown MO_ unknown unknown TO_ 3/UL All T unknown 0.6 10 unknown MONO_AUT unknown un known 3/UL O_ All T unknown 2.0 unknown mg/dL MG unknown unkn own All T unknown 96.8 unknown fL MCV unknown unkn own All T unknown 32.1 unknown g/dL MCHC unknown unkn own All T unknown 31.1 unknown pg MCH unknown unkn own All LYMPHOCYTES_ unknown 1.4 10 unknown LY_ unknown unknown AUTO_ 3/UL All T unknown 1.4 10 unknown LYMPH_AU unknown un known 3/UL TO_ All T unknown 4.4 unknown meq/L K unknown unkn own All T unknown 1.1 unknown INR unknown unkn own All T unknown 11.5 unknown g/dL HGB unknown unkn own All T unknown 35.8 unknown % HCT unknown unkn own All T unknown 92 unknown mg/dL GLU unknown unkn own All T unknown 2.9 unknown GLOB unknown unkn own All T [...] CA unknown unkn own All T unknown 19 unknown mg/dL BUN unknown unkn own All BILIRUBIN_TO unknown 0.7 unknown mg/dL BILIT unknown unknown SAMY All BASOPHILS_AU unknown 0.1 10 unknown BA_ unknown unknown TO_ 3/UL All T unknown 0.1 10 unknown BASO_AUT unknown un known 3/UL O_ All T unknown 1.3 unknown A_G_RATI unknown un known O All T unknown 17 unknown U/L AST unknown unkn own All T unknown < 10 IU/L unknown ALT_SGPT unknown unknown _ All ALT_ALANINE_ unknown < 10 IU/L unknown ALT unkn own unknown AMINOTRANSFER ASE All ALKALINE_PHO unknown 89 unknown U/L ALP unknown unknown SPHATASE All T unknown 89 unknown U/L ALK_PHOS unknown un known All T unknown 3.8 unknown g/dL ALB unknown unkn own All ALBUMIN_GLOB unknown 1.3 unknown AGRATIO unknow n unknown ULIN_RATIO All [...] ma All carbon_dioxi unknown 27 unknown mmol/ _8-9 unknow n unknown de_serum_tota L l All Calcium_Mole unknown 8.7 unknown mg/dL _1999-8 unknow n unknown s_volume_in_S erum_or_Plasm a All albumin_seru unknown 3.9 unknown g/dL _2 unknown unknown m All Bilirubin.to unknown 0.7 unknown mg/dL _1974-2 unknow n unknown tal_Mass_volu me_in_Serum_o r_Plasma All [...] ma All carbon_dioxi unknown 26 unknown mmol/ _2027- unknow n unknown de_serum_tota L l All Calcium_Mole unknown 8.7 unknown mg/dL _1999- unknow n unknown s_volume_in_S erum_or_Plasm a All albumin_seru unknown 3.8 unknown g/dL _2 unknown unknown m All Bilirubin.to unknown 0.8 unknown mg/dL _1974- unknow n unknown tal_Mass_volu me_in_Serum_o r_Plasma All Aspartate_am unknown 14 unknown U/L _1919-8 unknow n unknown inotransferas [...] unknow n unknown ood All WBC_urine_on unknown - unknown _5821-4 unknow n unknown _microscopy /HPF [...] ma All carbon_dioxi unknown 25 unknown mmol/ _8-9 unknow n unknown de_serum_tota L l All Calcium_Mole unknown 8.0 unknown mg/dL _1999-8 unknow n unknown s_volume_in_S erum_or_Plasm a All albumin_seru unknown 3.4 unknown g/dL _2 unknown unknown m All Bilirubin.to unknown 0.7 unknown mg/dL _1974-2 unknow n unknown tal_Mass_volu me_in_Serum_o r_Plasma All [...] ULIN_RATIO Vital Signs date measurement value source 20210706 weight_standard 120.4 lb 20210706 weight_metric 54.61 kg 20210706 temperature_standard 97.4 F 20210706 temperature_metric 36.33 C 20210706 respiration_rate 15 /min 20210706 height_standard 63.07 in 20210706 height_metric 160.2 cm 20210706 heart_rate 73 /min 20210706 BP_systolic 151 mm[Hg] 20210706 BP_diastolic 67 mm[Hg] 20210706 BMI 21.36 kg/m2 20210831 weight_standard 125 lb 20210831 weight_metric 56.7 kg 20210831 temperature_standard 97.5 F 20210831 temperature_metric 36.39 C 20210831 respiration_rate 14 /min 20210831 height_standard 63.07 in 20210831 height_metric 160.2 cm 20210831 heart_rate 75 /min 20210831 BP_systolic 109 mm[Hg] 20210831 BP_diastolic 55 mm[Hg] 20210831 BMI 22.17 kg/m2
--- NOTE | 2021-09-06 18:19 | ED Physician Documentation ---
History of Present Illness - Stated complaint Stated Complaint: GLF/FACIAL INJURY - Chief complaint Chief Complaint: Trauma Hd/Nk - History obtained from History obtained from: Patient, EMS - History of Present Illness Timing: Today Pain level max: 0 Pain level now: 0 - Additonal information Additional information: Patient is a 76-year-old female who presents to the emergency department after a fall. She was brought in by EMS. [facility] and was found on a routine check to be on the floor. Patient does not complain of any pain. She states she is unsure what happened. She does have blood on her nose and an abrasion. Unknown loss of consciousness. 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 : None HEENT: Chronic vision loss Psych: None Musculoskeletal: Osteoarthritis, Chronic back pain Derm: None - Past Surgical History Past Surgical History: Yes General: Colonoscopy Ortho: Hip replacement, Rotator cuff repair - Present Medications Home Medications: Ambulatory Orders Medication Instructions Recorded Confirmed Carbidopa/Levodopa 25/100 [Sinemet 2 tab PO 2300 06/23/14 08/22/21 25 mg/100 mg] Citalopram [CeleXA] 10 mg PO QPM 06/23/14 08/22/21 Carbidopa/Levodopa 25/100 [Sinemet 2 tab PO 0900,1300,1700,2100 07/29/18 08/22/21 25 mg/100 mg] Aspirin [[place] Aspirin] 81 mg PO DAILY 12/28/20 08/22/21 Atorvastatin [Lipitor] 20 mg PO DAILY PM 12/28/20 08/22/21 Metoprolol Succinate [Toprol Xl] 25 mg PO DAILY 12/28/20 08/22/21 Quetiapine Fumarate [Seroquel] 50 mg PO BID 07/06/21 08/22/21 Rivastigmine Tartrate 1.5 mg PO BID 07/06/21 08/22/21 [Rivastigmine] - Allergies Allergies/Adverse Reactions: Allergies Allergy/AdvReac Type Severity Reaction Status Date / Time No Known Drug Allergies Allergy Verified 09/06/21 17:29 - Social History Does the pt smoke?: No Smoking Status: Never smoker Does the pt drink ETOH?: No Does the pt have substance abuse?: Yes - Immunizations Immunizations are current?: Yes - POLST Patient has POLST: No PD ED PE NORMAL - Vitals Vital signs reviewed: Yes - General General: No acute distress, Well developed/nourished, Other (Alert, oriented to person only) - HEENT HEENT: PERRL, EOMI, Other (Dried blood on the nose. 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, No motor deficit, No sensory deficit, Normal speech Eye Opening: Spontaneous Motor: Obeys Commands Verbal: Confused GCS Score: 14 Results - Vitals Vitals: Vital Signs - 24 hr 09/06/21 09/06/21 17:26 20:06 Temperature 35.5 C L Heart Rate 76 79 Respiratory 16 19 Rate Blood Pressure 168/76 H 164/81 H O2 Saturation 95 98 Oxygen O2 Source [With Activity] Room air O2 Source [Without Activity] Room air O2 Source Room air - Rads (name of study) Head CT Radiology: Final report received, EMP read contemporaneously, See rad report Maxillofacial CT Radiology: Final report received, EMP read contemporaneously, See rad report Cervical spine CT Radiology: Final report received, EMP read contemporaneously, See rad report PD MEDICAL DECISION MAKING - ED course Complexity details: reviewed results, re-evaluated patient, considered differential, d/w patient, d/w family ED course: No acute findings on head CT, cervical spine CT or maxillofacial CT other than bilateral nasal bone fractures. She does appear to have some sinusitis as well. Pain well controlled. Wounds were cleansed and bandaged. No other acute traumatic injuries. Family counseled regarding signs and symptoms for which I believe and urgent re-evaluation would be necessary. Family with good understanding of and agreement to plan and is comfortable going home at this time This document was made in part using voice recognition software. While efforts are made to proofread this document, sound alike and grammatical errors may occur. Departure - Departure Disposition: 01 Home, Self Care Clinical Impression: Nasal bone fracture Qualifiers: Encounter type: initial encounter Fracture type: closed Qualified Code(s): S02.2XXA - Fracture of nasal bones, initial encounter for closed fracture Fall from slip, trip, or stumble Qualifiers: Encounter type: initial encounter Qualified Code(s): W01.0XXA - Fall on same level from slipping, tripping and stumbling without subsequent striking against object, initial encounter Condition: Good Instructions: ED Fx Nasal Conf W X Ray, ED Head Injury Closed Follow-Up: Your,doctor in 1 week [Other] Comments: Please follow-up with her doctor for further care. Her head CT, cervical spine CT and maxillofacial CT do not show any acute findings other than nasal bone fractures. Return if she worsens. Discharge Date/Time: 09/06/21 20:19
--- NOTE | 2021-09-06 19:25 | CT Report ---
PROCEDURE: HEAD WO INDICATIONS: fall, head injury TECHNIQUE: Noncontrast 4.5 mm thick angled axial sections acquired from the foramen magnum to the vertex. For r adiation dose reduction, the following was used: automated exposure control, adjustment of mA and/or kV according to patient size. COMPARISON: None. FINDINGS: Image quality: Excellent. CSF spaces: Basal cisterns are patent. No extra-axial fluid collections. Ventricles are normal in size and shape. Brain: No midline shift. No intracranial masses or hemorrhage. Grider-white matter interface is norm al. Skull and face: Calvarium and visualized facial bones are intact, without suspicious lesions. Sinuses: There is layering fluid in the bilateral maxillary sinuses. Bilateral ethmoid sinus mucosal thickening. There is mild soft tissue swelling overlying the nasal bones. Remainder the visualized pa ranasal sinuses and mastoids are clear. IMPRESSION: CT head without acute intracranial abnormalities. No acute calvarial fractures seen. Sof t tissue swelling overlying the bridge of the nose better evaluated on dedicated CT of the facial bon es. Please see separate report for details. Small amount of layering fluid in the bilateral maxillary sinuses and scattered ethmoid sinus mucosal thickening. Reviewed by: Randal Aviles MD on 09/06/2021 7:24 PM PDT Approved by: Randal Aviles MD on 09/06/2021 7:24 PM PDT Station ID: [id number]
--- NOTE | 2021-09-06 19:29 | CT Report ---
PROCEDURE: CERVICAL SPINE WO INDICATIONS: fall, neck pain TECHNIQUE: Noncontrast 3 mm thick sections acquired from the skull base to the T4 level. Sagittal and coronal r eformats were then constructed. For radiation dose reduction, the following was used: automated exp osure control, adjustment of mA and/or kV according to patient size. COMPARISON: 07/30/2021. FINDINGS: Image quality: Excellent. Bones: No acute fractures or traumatic dislocations. No acute compression fractures. Moderate multi level cervical spondylosis is again noted. Findings are most pronounced at C5-6 and C6-7. There are m oderate degenerative endplate changes with disc space loss and endplate osteophyte formation. Multile gonzález facet arthropathy. Visualized superior ribs are intact. Soft tissues: Prevertebral soft tissues are normal in thickness. No paravertebral hematomas. No ap ical pneumothoraces. Atherosclerotic calcifications are seen throughout the neck. IMPRESSION: CT cervical spine without acute fracture or traumatic malalignment. Multilevel cervical spondylosis most severe at C5-6 and C6-7. Reviewed by: Randal Aviles MD on 09/06/2021 7:28 PM PDT Approved by: Randal Aviles MD on 09/06/2021 7:28 PM PDT Station ID: [id number]
--- NOTE | 2021-09-06 19:33 | CT Report ---
PROCEDURE: MAXILLOFACIAL WO INDICATIONS: fall, facial injury TECHNIQUE: Noncontrast 1.5 mm thick axial images acquired from the mandible through the frontal sinuses, with co álvaro and sagittal reformatting. For radiation dose reduction, the following was used: automated ex posure control, adjustment of mA and/or kV according to patient size. COMPARISON: None. FINDINGS: Image quality: Excellent. Bones and teeth: Orbital danielle are intact. Sinus danielle show no fracture or deformity. Osseous nasal septum appears intact. Minimally displaced bilateral nasal bone fractures. Overlying soft tissue edison ma. Visualized portions of the mandible demonstrate no fractures or subluxation. Zygomatic arches ar e intact. Pterygoid plates are intact. Visualized portions of the skull base and auditory canals ar e intact. Sinuses: Scattered bilateral maxillary sinus mucosal thickening. Scattered ethmoid sinus mucosal thic kening. Remaining paranasal sinuses appear clear. Mastoid air cells are aerated. Soft tissues: Soft tissue swelling overlying the nose. Otherwise, no edema, masses, or fluid collect ions. No enlarged lymph nodes. No soft tissue lacerations or debris. Vascular: Visualized vascular structures appear normal in the absence of contrast. Bony vascular fo ramina and canals are intact. IMPRESSION: Minimally displaced bilateral nasal bone fractures with overlying soft tissue edema. Scattered ethmoid sinus and bilateral maxillary sinus disease. Reviewed by: Randal Aviles MD on 09/06/2021 7:31 PM PDT Approved by: Randal Aviles MD on 09/06/2021 7:31 PM PDT Station ID: [id number]
[2021-09-06] MEDS: HYDROcod/ACETAM 5/325 MG TABLET PO STA (20:06)
[2021-09-06 20:07] VITALS: BP 164/81
== END 2021-09-06 20:19 | disposition home or self-care (01) ==
LOC: EDUNIT# → ED 17:18
DX: S02.2XXA Fracture of nasal bones, initial encounter for closed fracture (principal); W01.0XXA Fall on same level from slipping, tripping and stumbling without subsequent striking against object, initial encounter
CPT/HCPCS: 70450; 70486; 72125; 99282; 99284; A9270

== ENCOUNTER 2021-10-21 19:48 | Outpatient (CLI) | payer MEDICARE, BC | END 2021-10-21 19:49 | disposition critical access hospital (66) | LOC: EMS 19:48 | DX: S01.01XA Laceration without foreign body of scalp, initial encounter (principal); W20.8XXA Other cause of strike by thrown, projected or falling object, initial encounter; Y93.89 Activity, other specified; Y92.198 Other place in other specified residential institution as the place of occurrence of the external cause | CPT/HCPCS: A0425; A0429 ==

== ENCOUNTER 2021-12-03 10:02 | Outpatient (CLI) | payer MEDICARE, BC | END 2021-12-03 23:59 | disposition critical access hospital (66) | LOC: EMS 10:02 | DX: R56.9 Unspecified convulsions (principal) | CPT/HCPCS: A0425; A0429 ==

== ENCOUNTER 2021-12-03 11:35 | Outpatient (CLI) | payer MEDICARE, BC | END 2021-12-03 23:59 | disposition home or self-care (01) | LOC: EMS 11:35 | PROVIDERS: ATTEND Student in an Organized Health Care Education/Training Program | DX: R41.0 Disorientation, unspecified (principal) | CPT/HCPCS: A0425; A0428 ==

== ENCOUNTER 2021-12-08 08:59 | Outpatient (CLI) | payer MEDICARE, BC ==
[2021-12-08 16:13] LABS: ABSOLUTE RETICS # AUTO 0.063 10^6/uL (0.020-0.110); RED BLOOD COUNT 3.57 10^6/uL (4.20-5.40); RETICULOCYTE COUNT % (AUTO) 1.77 % (0.5-2.3)
== END 2021-12-08 09:00 | disposition home or self-care (01) ==
LOC: LAB.R 08:59
PROVIDERS: ATTEND Hospitalist
DX: I10 Essential (primary) hypertension (principal); G20 Parkinson's disease; G25.81 Restless legs syndrome; E53.8 Deficiency of other specified B group vitamins; E78.5 Hyperlipidemia, unspecified
CPT/HCPCS: 82728; 83540; 84466; 85045

== ENCOUNTER 2022-01-31 07:49 | Outpatient (CLI) | payer MEDICARE, BC | END 2022-01-31 07:50 | disposition critical access hospital (66) | LOC: EMS 07:49 | DX: S01.81XA Laceration without foreign body of other part of head, initial encounter (principal); W18.30XA Fall on same level, unspecified, initial encounter; W22.8XXA Striking against or struck by other objects, initial encounter; Y92.091 Bathroom in other non-institutional residence as the place of occurrence of the external cause | CPT/HCPCS: A0425; A0429 ==

== ENCOUNTER 2022-01-31 07:54 | Emergency (ER) | payer MEDICARE, BC ==
[2022-01-31] MEDS ORDERED: LIDOCAINE-EPINEPH-TETRACAINE 3 ML SYRINGE TOP STA (08:38)
--- NOTE | 2022-01-31 09:43 | CT Report ---
PROCEDURE: CERVICAL SPINE WO INDICATIONS: fall/dementia/head injury TECHNIQUE: Noncontrast 3 mm thick sections acquired from the skull base to the T4 level. Sagittal and coronal r eformats were then constructed. For radiation dose reduction, the following was used: automated exp osure control, adjustment of mA and/or kV according to patient size. COMPARISON: 10/21/2021 FINDINGS: Image quality: Excellent. Bones: No fractures or dislocations. Visualized superior ribs are intact. There is cervical spondyl itic change with multilevel facet arthropathy. Unchanged findings. Disc bulges at C3-C4 and C4-C5. Un changed alignment. Trace anterolisthesis of C4 on C5. Soft tissues: Prevertebral soft tissues are normal in thickness. No paravertebral hematomas. No ap ical pneumothoraces. Dense bilateral carotid calcifications. IMPRESSION: 1. No evidence acute cervical fracture or dislocation. 2. Cervical spondylitic change. 3. Disc bulges at C3-C4 and C4-C5, as before. 4. Dense bilateral carotid calcifications. Reviewed by: Yovany Valadez MD on 01/31/2022 9:41 AM PDT Approved by: Yovany Valadez MD on 01/31/2022 9:41 AM PDT Station ID: [id number]
--- NOTE | 2022-01-31 09:48 | CT Report ---
PROCEDURE: HEAD WO INDICATIONS: head injury/forehead lac TECHNIQUE: Noncontrast 4.5 mm thick angled axial sections acquired from the foramen magnum to the vertex. For r adiation dose reduction, the following was used: automated exposure control, adjustment of mA and/or kV according to patient size. COMPARISON: None. FINDINGS: Image quality: Excellent. CSF spaces: Basal cisterns are patent. No extra-axial fluid collections. Ventricles are normal in size and shape. Brain: No midline shift. No intracranial masses or hemorrhage. Grider-white matter interface is norm al. Age-related volume loss and small vessel ischemic change. Dense bilateral cavernous carotid athe rosclerotic calcifications. Skull and face: Calvarium and visualized facial bones are intact, without suspicious lesions. Sinuses: Visualized sinuses and mastoids are clear. IMPRESSION: No evidence acute intracranial process. Reviewed by: Yovany Valadez MD on 01/31/2022 9:46 AM PDT Approved by: Yovany Valadez MD on 01/31/2022 9:46 AM PDT Station ID: [id number]
--- NOTE | 2022-01-31 09:55 | CT Report ---
PROCEDURE: MAXILLOFACIAL WO INDICATIONS: fall against sink/loose front tooth TECHNIQUE: Noncontrast 1.5 mm thick axial images acquired from the mandible through the frontal sinuses, with co álvaro and sagittal reformatting. For radiation dose reduction, the following was used: automated ex posure control, adjustment of mA and/or kV according to patient size. COMPARISON: None. FINDINGS: Image quality: Excellent. Bones and teeth: Orbital danielle are intact. Sinus danielle show no fracture or deformity. Nasal bones and septum are intact. Rightward nasal septal deviation. Very subtle fracture line involving the maxi llary alveolar ridge, in proximity to the 2 front teeth immediately to the left of midline (teeth 9 a nd 10). Left para midline frontal tooth implant with periapical lucency. Visualized portions of the m andible demonstrate no fractures or subluxation. Zygomatic arches are intact. Pterygoid plates are intact. Visualized portions of the skull base and auditory canals are intact. Sinuses: Paranasal sinuses are aerated, without fluid levels, mucosal thickening, or mucoceles. [place] air cells are aerated. Soft tissues: No edema, masses, or fluid collections. No enlarged lymph nodes. No soft tissue lace rations or debris. Vascular: Visualized vascular structures appear normal in the absence of contrast. Bony vascular fo ramina and canals are intact. IMPRESSION: 1. There is a very subtle nondisplaced fracture involving the maxillary alveolar ridge anteriorly in close proximity to the T4 and T5 immediately to the left of midline. There is a left para midline fro ntal to transplant with periapical lucency (tooth 9). Reviewed by: Yovany Valadez MD on 01/31/2022 9:54 AM PDT Approved by: Yovany Valadez MD on 01/31/2022 9:54 AM PDT Station ID: [id number]
--- NOTE | 2022-01-31 10:27 | ED Physician Documentation ---
PD HPI HEAD INJURY - Stated complaint Stated Complaint: GLF - Chief complaint Chief Complaint: Laceration - History obtained from History obtained from: EMS - History of Present Illness Mechanism of head injury: Fell - Additional information Additional information: Patient is a 76-year-old female presenting for evaluation of a witnessed ground- level fall. She is a resident at [facility]. She tripped and lost her balance with staff nearby. She did hit her head on a sink and they helped lower her to the floor.There is no LOC and she is not on blood thinners. Her tetanus is up-to-date. Patient is not able to provide any meaningful history. Per EMS, she appears to be at her baseline. 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 HEENT: Chronic vision loss Psych: Anxiety Musculoskeletal: Osteoarthritis, Chronic back pain Derm: None - Past Surgical History Past Surgical History: Yes General: Colonoscopy Ortho: Hip replacement, Rotator cuff repair - Present Medications Home Medications: Ambulatory Orders Medication Instructions Recorded Confirmed Carbidopa/Levodopa 25/100 [Sinemet 2 tab PO 2300 06/23/14 01/31/22 25 mg/100 mg] Citalopram [CeleXA] 10 mg PO QPM 06/23/14 01/31/22 Carbidopa/Levodopa 25/100 [Sinemet 2 tab PO 0900,1300,1700,2100 07/29/18 01/31/22 25 mg/100 mg] Aspirin [[place] Aspirin] 81 mg PO DAILY 12/28/20 01/31/22 Atorvastatin [Lipitor] 20 mg PO DAILY PM 12/28/20 01/31/22 Metoprolol Succinate [Toprol Xl] 25 mg PO DAILY 12/28/20 01/31/22 Quetiapine Fumarate [Seroquel] 50 mg PO BID 07/06/21 01/31/22 Rivastigmine Tartrate 1.5 mg PO BID 07/06/21 01/31/22 [Rivastigmine] Bisacodyl Supp [Dulcolax Supp] 10 mg [place] DAILY PRN 01/31/22 01/31/22 Docusate Sodium [Stool Softener] 250 mg PO BID 01/31/22 01/31/22 - Allergies Allergies/Adverse Reactions: Allergies Allergy/AdvReac Type Severity Reaction Status Date / Time No Known Drug Allergies Allergy Verified 01/31/22 08:19 - Social History Does the pt smoke?: No Smoking Status: Never smoker Does the pt drink ETOH?: No Does the pt have substance abuse?: Yes - Immunizations Immunizations are current?: Yes - POLST Patient has POLST: No PD ED PE NORMAL - General General: No acute distress, Other (Elderly, frail-appearing) - HEENT HEENT: PERRL, EOMI. No: Atraumatic (Large midline forehead laceration), Dentition benign (Small amount of blood At gumline of tooth 9 with no laxity) - Neck Neck: Supple, no meningeal sign, No bony TTP - Cardiac Cardiac: RRR, Strong equal pulses - Respiratory Respiratory: No respiratory distress, Clear bilaterally - Abdomen Abdomen: Soft, Non tender, Non distended - Derm Derm: Warm and dry - Extremities Extremities: No deformity - Neuro Neuro: No motor deficit (Moves all extremities). No: Alert and oriented X 3 PD ED PE EXPANDED - HEENT HEENT Visual: 1 - laceration 2 - deformity (Small amount of blood) Results - Vitals Vitals: Vital Signs - 24 hr 01/31/22 01/31/22 01/31/22 08:19 08:25 11:50 Temperature 37.3 C Heart Rate 70 66 71 Respiratory 16 18 16 Rate Blood Pressure 147/71 H 150/80 H 154/75 H O2 Saturation 96 99 99 Oxygen O2 Source [With Activity] Room air O2 Source [Without Activity] Room air O2 Source Room air Procedures - Laceration (location) Mid forehead Length in cm: 4 Wound type: Linear, Clean Anesthesia: LET Wound preparation: Hibiclens, Irrigated copiously NS Skin layer closure: Size #-0 - enter number (4), Sutures - enter # (8) Other: Patient tolerated well, No complications, Neurovascular intact, Tetanus UTD PD MEDICAL DECISION MAKING - ED course Complexity details: re-evaluated patient ED course: Patient with witnessed fall into sink with head injury. Per reports she is at her neurologic baseline. CT head and cervical spine without acute findings. CT maxillofacial obtained with nondisplaced alveolar ridge fracture. Per Dr. Garcia, pt can follow up as outpatient. Patient had a large laceration to forehead that was cleaned and sutured which she tolerated well. Vital signs remained stable. Departure - Departure Disposition: 01 Home, Self Care Clinical Impression: Head injury Qualifiers: Encounter type: initial encounter Qualified Code(s): S09.90XA - Unspecified injury of head, initial encounter Forehead laceration Qualifiers: Encounter type: initial encounter Qualified Code(s): S01.81XA - Laceration without foreign body of other part of head, initial encounter Closed fracture of alveolar ridge of maxilla Qualifiers: Encounter type: initial encounter Qualified Code(s): S02.42XA - Fracture of alveolus of maxilla, initial encounter for closed fracture Condition: Stable Instructions: Trauma Dental, ED Head Injury Closed, ED Laceration Facial Sutr Tape Follow-Up: Stuart Garcia DDS [Provider Admit Priv/Credential] - Comments: You were seen after falling and hitting your head. 8 stitches were placed to your forehead wound. These should be kept in place for 1 week and removed On February 07. At there was no injury In your brain or your cervical spine. You do have a fracture involving The upper dental bone. The fracture is not displaced but I would recommend following up with your dentist or oral surgeon This week. I would recommend a liquid diet in the meanwhile. I have included the name of an oral surgeon(Dr. Garcia) that you can also try to call to get a follow-up appointment. 1. There is a very subtle nondisplaced fracture involving the maxillary alveolar ridge anteriorly in close proximity to the T4 and T5 immediately to the left of midline. There is a left para midline frontal to transplant with periapical lucency (tooth 9). Discharge Date/Time: 01/31/22 12:37
[2022-01-31 11:50] VITALS: BP 154/75
== END 2022-01-31 12:37 | disposition home or self-care (01) ==
LOC: EDUNIT# → ED 07:54 → SUPCPDRO 07:54 → ED 12:37
DX: S02.42XA Fracture of alveolus of maxilla, initial encounter for closed fracture (principal); S01.81XA Laceration without foreign body of other part of head, initial encounter; W01.198A Fall on same level from slipping, tripping and stumbling with subsequent striking against other object, initial encounter; Y92.099 Unspecified place in other non-institutional residence as the place of occurrence of the external cause; G20 Parkinson's disease; F02.80 Dementia in other diseases classified elsewhere, unspecified severity, without behavioral disturbance, psychotic disturbance, mood disturbance, and anxiety; I10 Essential (primary) hypertension
CPT/HCPCS: 12013; 99282; 99284

== ENCOUNTER 2022-01-31 12:39 | Outpatient (CLI) | payer MEDICARE, BC | END 2022-01-31 12:40 | disposition home or self-care (01) | LOC: EMS 12:39 | PROVIDERS: ATTEND Emergency Medicine | DX: R41.0 Disorientation, unspecified (principal); S09.90XA Unspecified injury of head, initial encounter; F03.90 Unspecified dementia, unspecified severity, without behavioral disturbance, psychotic disturbance, mood disturbance, and anxiety; R45.1 Restlessness and agitation; X58.XXXA Exposure to other specified factors, initial encounter | CPT/HCPCS: A0425; A0428 ==

== ENCOUNTER 2022-03-23 11:59 | Outpatient (CLI) | payer MEDICARE, BC ==
[2022-03-23 16:58] LABS: CORONAVIRUS 229E-RESP PCR NOT DETECTED; CORONAVIRUS HKU1-RESP PCR NOT DETECTED; CORONAVIRUS NL63-RESP PCR NOT DETECTED; CORONAVIRUS OC43-RESP PCR NOT DETECTED; HUMAN METAPNEUMOVIRUS NOT DETECTED; INFLUENZA A- RESP PCR PANEL NOT DETECTED; RHINOVIRUS/ENTEROVIRUS NOT DETECTED; SARS-CoV-2 -RESP PCR PANEL NOT DETECTED
[2022-03-23 16:59] LABS: B. PARAPERTUSSIS- RESP PCR PAN NOT DETECTED; B. PERTUSSIS- RESP PCR PANEL NOT DETECTED; C. PNEUMONIAE- RESP PCR PANEL NOT DETECTED; INFLUENZA B - RESP PCR PANEL NOT DETECTED; M. PNEUMONIAE- RESP PCR PANEL NOT DETECTED; PARAINFLUENZA VIRUS 1 NOT DETECTED; PARAINFLUENZA VIRUS 2 NOT DETECTED; PARAINFLUENZA VIRUS 3 NOT DETECTED; PARAINFLUENZA VIRUS 4 NOT DETECTED; RSV- RESP PCR PANEL DETECTED
== END 2022-03-23 12:00 | disposition home or self-care (01) ==
LOC: LAB.R 11:59
PROVIDERS: ATTEND Internal Medicine
DX: R05.1 Acute cough (principal); Z20.822 Contact with and (suspected) exposure to COVID-19
CPT/HCPCS: 87633

== ENCOUNTER 2022-04-10 08:42 | Outpatient (CLI) | payer MEDICARE, BC | END 2022-04-10 08:43 | disposition EMS.NT | LOC: EMS 08:42 | DX: R56.9 Unspecified convulsions (principal); S09.90XA Unspecified injury of head, initial encounter; W22.09XA Striking against other stationary object, initial encounter; Y93.89 Activity, other specified ==

== ENCOUNTER 2022-11-21 10:37 | Outpatient (CLI) | payer MEDICARE, BC | END 2022-11-21 10:38 | disposition critical access hospital (66) | LOC: EMS 10:37 | DX: R00.0 Tachycardia, unspecified (principal) | CPT/HCPCS: A0425; A0427 ==

== ENCOUNTER 2022-11-21 10:43 | Inpatient (IN) | payer MEDICARE, BC ==
--- NOTE | 2022-11-21 10:54 | ED Physician Documentation ---
History of Present Illness - Stated complaint Stated Complaint: HIGH HR - History obtained from History obtained from: EMS - History of Present Illness Timing: Today Pain level max: 0 Pain level now: 0 - Additonal information Additional information: Patient is a 77-year-old female brought in by EMS for [facility] No fevers that are reported. They state the heart rate was in the 150s. She has a history of atrial fibrillation, metoprolol appears to have been started 2 days ago but unclear if she has gotten this or not. Patient is mostly nonverbal at baseline. She is unable to give any history. There is no other information sent with the patient at this time. 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 HEENT: Chronic vision loss Psych: Anxiety Musculoskeletal: Osteoarthritis, Chronic back pain Derm: None - Past Surgical History Past Surgical History: Yes General: Colonoscopy Ortho: Hip replacement, Rotator cuff repair - Present Medications Home Medications: Ambulatory Orders Medication Instructions Recorded Confirmed Carbidopa/Levodopa 25/100 [Sinemet 2 tab PO 2300 06/23/14 02/20/22 25 mg/100 mg] Citalopram [CeleXA] 10 mg PO QPM 06/23/14 02/20/22 Carbidopa/Levodopa 25/100 [Sinemet 2 tab PO 0900,1300,1700,2100 07/29/18 02/20/22 25 mg/100 mg] Aspirin [[place] Aspirin] 81 mg PO DAILY 12/28/20 02/20/22 Atorvastatin [Lipitor] 20 mg PO DAILY PM 12/28/20 02/20/22 Metoprolol Succinate [Toprol Xl] 25 mg PO DAILY 12/28/20 02/20/22 Quetiapine Fumarate [Seroquel] 50 mg PO BID 07/06/21 02/20/22 Rivastigmine Tartrate 1.5 mg PO BID 07/06/21 02/20/22 [Rivastigmine] Bisacodyl Supp [Dulcolax Supp] 10 mg [place] DAILY PRN 01/31/22 02/20/22 Docusate Sodium [Stool Softener] 250 mg PO BID 01/31/22 02/20/22 - Allergies Allergies/Adverse Reactions: Allergies Allergy/AdvReac Type Severity Reaction Status Date / Time No Known Drug Allergies Allergy Verified 11/21/22 10:55 - Social History Does the pt smoke?: No Smoking Status: Never smoker Does the pt drink ETOH?: No Does the pt have substance abuse?: Yes - Immunizations Immunizations are current?: Yes - POLST Patient has POLST: No PD ED PE NORMAL - Vitals Vital signs reviewed: Yes - General General: Other (alert, non-verbal) - HEENT HEENT: Moist mucous membranes - Neck Neck: Supple, no meningeal sign - Cardiac Cardiac: Other (tachycardic, irregular) - Respiratory Respiratory: No respiratory distress - Abdomen Abdomen: Soft, Non tender, Non distended - Derm Derm: Warm and dry - Extremities Extremities: No calf tenderness / cord - Neuro Neuro: Other (alert) Results - Vitals Vitals: Vital Signs - 24 hr 11/21/22 11/21/22 11/21/22 10:52 10:57 11:31 Temperature 36.3 C L Heart Rate 145 H 155 H 156 H Respiratory 16 26 H 27 H Rate Blood Pressure 104/74 100/67 119/82 H O2 Saturation 98 99 100 11/21/22 11/21/22 11/21/22 12:38 13:03 13:21 Temperature Heart Rate 140 H 146 H 93 Respiratory 26 H 15 24 Rate Blood Pressure 116/69 118/79 103/83 H O2 Saturation 100 95 96 Oxygen O2 Source [With Activity] Room air O2 Source [Without Activity] Room air O2 Source Room air - EKG (time done) 1048 EKG releavant findings:: EKG personally interpreted by author of this note. Relevant findings are: Rate: Rate (enter#) (149) Rhythm: Atrial fibrillation (RVR) [place]: Normal QRS: Normal Ischemia: Other (rate related changes) - Labs Labs: Laboratory Tests 11/21/22 11/21/22 11/21/22 11:05 11:05 11:05 WBC 11.4 H RBC 3.23 L Hgb 10.0 L Hct 31.4 L MCV 97.2 MCH 31.0 MCHC 31.8 L RDW 13.8 Plt Count 239 MPV 9.7 Neut # (Auto) 9.7 H Lymph # (Auto) 1.0 L [place] # (Auto) 0.6 Eos # (Auto) 0.0 Baso # (Auto) 0.0 Absolute Nucleated RBC 0.00 Nucleated RBC % 0.0 Sodium 137 Potassium 3.7 Chloride 103 Carbon Dioxide 24 Anion Gap 10.0 BUN 37 H Creatinine 1.1 H Estimated GFR (MDRD) 48 L Glucose 165 H Calcium 8.2 L Total Bilirubin 0.6 AST 130 H ALT 50 Alkaline Phosphatase 70 Troponin I High Sens 491.0 H* B-Natriuretic Peptide 823 H Total Protein 6.7 Albumin 3.1 L Globulin 3.6 Albumin/Globulin Ratio 0.9 L Lipase 24 - Rads (name of study) cxr Relevant Findings:: Final report received, See rad report PD Medical Decision Making - ED course Complexity details: reviewed results, re-evaluated patient, considered differential, d/w family, d/w fitness sales consultant ED course: Patient was given initial dose of diltiazem IV but her blood pressure dropped. She does not appear to be on blood thinners. Her blood pressure slowly returned to baseline. A diltiazem drip was started and her heart rate is coming down gradually. There is a note of atrial fibrillation in her chart from a visit in August of last year, unclear if she has had Other episodes of atrial fibrillation. Her troponin is elevated, likely rate related. She is DNR, comfort care. I discussed the case with her Quentin, who is in [facility] currently. He confirms that she would not want any surgeries, cardiac catheterization or other intervention. We will admit the patient for rate control of her A-fib and further care. X-ray findings are more likely related to asymmetric CHF, possible aspiration pneumonia, but no fevers and no cough. We will hold antibiotics at this time. Discussed the case with Dr. Dumont, hospitalist who accepts This document was made in part using voice recognition software. While efforts are made to proofread this document, sound alike and grammatical errors may occur. IMPRESSION: Question asymmetric congestive heart failure versus right-sided perihilar pn [place] superimposed on congestive heart failure. Progress films are recommended until clear. Departure - Departure Disposition: 66 [facility] DC/Xfer Clinical Impression: Atrial fibrillation with tachycardic ventricular rate Pulmonary edema Qualifiers: Chronicity: acute Qualified Code(s): J81.0 - Acute pulmonary edema Anemia Qualifiers: Anemia type: unspecified type Qualified Code(s): D64.9 - Anemia, unspecified Condition: Stable
[2022-11-21] MEDS ORDERED: diltiaZEM INJ 5 MG/ML VIAL IVP STA (10:55)
[2022-11-21 11:14] LABS: BASOPHILS % (AUTO) 0.3 %; EOSINOPHILS % (AUTO) 0.2 %; HCT - HEMATOCRIT 31.4 % (37.0-47.0); LYMPHOCYTES % (AUTO) 8.5 %; MEAN CORPUSCULAR HGB CONC 31.8 g/dL (32.0-36.0); MEAN CORPUSCULAR VOLUME 97.2 fL (81.0-99.0); MEAN PLATELET VOLUME 9.7 fL (7.9-10.8); MONOCYTES # (AUTO) 0.6 10^3/uL (0.0-1.0); NEUTROPHILS # (AUTO) 9.7 10^3/uL (1.5-6.6); NEUTROPHILS % (AUTO) 85.2 %; PLT - PLATELET COUNT 239 10^3/uL (130-450); RED BLOOD COUNT 3.23 10^6/uL (4.20-5.40); RED CELL DISTRIBUTION WIDTH 13.8 % (12.0-15.0); WHITE BLOOD COUNT 11.4 x10^3/uL (4.8-10.8)
[2022-11-21 11:24] LABS: ALBUMIN 3.1 g/dL (3.2-5.5); ALBUMIN/GLOBULIN RATIO 0.9 (1.0-2.2); BILIRUBIN,TOTAL 0.6 mg/dL (0.2-1.0); CALCIUM 8.2 mg/dL (8.5-10.3); CREATININE 1.1 mg/dL (0.4-1.0); POTASSIUM 3.7 mmol/L (3.5-5.0); TOTAL PROTEIN 6.7 g/dL (6.7-8.2)
--- NOTE | 2022-11-21 11:34 | XRAY Report ---
PROCEDURE: Chest 1 View X-Ray INDICATIONS: Chest Pain TECHNIQUE: One view of the chest was acquired. COMPARISON: 08/22/2021 FINDINGS: Surgical changes and devices: None. Lungs and pleura: There is either asymmetric pulmonary edema, right greater than left, or pulmonary edema superimposed right perihilar pneumonia. Mediastinum: Mediastinal contours appear normal. Heart size is normal. Bones and chest wall: No suspicious bony lesions. Overlying soft tissues appear unremarkable. IMPRESSION: Question asymmetric congestive heart failure versus right-sided perihilar pneumonia superimposed on c ongestive heart failure. Progress films are recommended until clear. Reviewed by: Yovany Valadez MD on 11/21/2022 11:32 AM PDT Approved by: Yovany Valadez MD on 11/21/2022 11:32 AM PDT Station ID: [id number]
[2022-11-21] MEDS ORDERED: diltiaZEM INJ 125 MG in DEXTROSE 5% 100 ML IV STA (12:13)
[2022-11-21] MEDS ORDERED: ONDANSETRON 4 MG/2 ML VIAL IVP PRN (13:15)
[2022-11-21 14:46] LABS: BILIRUBIN,URINE NEGATIVE (NEGATIVE); GLUCOSE, URINE (UA) NEGATIVE (NEGATIVE); KETONES,URINE (UA) NEGATIVE (NEGATIVE); LEUKOCYTE ESTERASE, URINE TRACE (NEGATIVE); NITRITE,URINE POSITIVE (NEGATIVE); OCCULT BLOOD,URINE NEGATIVE (NEGATIVE); PH,URINE 5.5 PH (5.0-7.5); PROTEIN,URINE TRACE mg/dL (NEGATIVE); UROBILINOGEN,URINE 1 (NORMAL) E.U./dL (NORMAL)
[2022-11-21 14:48] LABS: CLARITY,URINE HAZY (CLEAR)
[2022-11-21 15:04] LABS: BACTERIA,URINE Moderate /HPF (None Seen); RBC,URINE 0-5 /HPF (0-5); SQUAMOUS EPITHELIAL CELL,UR FEW Squamous (<= Few)
[2022-11-21] MEDS: POTASSIUM CHLOR 10 MEQ/100 ML 10 MEQ/100 ML BAG IV SCH ×4 (15:13→22:32)
--- NOTE | 2022-11-21 15:37 | PHARMACY PROGRESS NOTE ---
- Best Possible Medication History Admit Date and Time: 11/21/22 1339 Processed by: Pharmacy Medication History completed: Yes Patient Interview: Pt unable to participate Secondary Source(s): Written medication list, Pharmacy records, Insurance rec ords As the person ultimately responsible for medication therapy, providers are able to order a medication from an existing home medication list in [facility] via the "Reconcile Routine" prior to Confirmation of that medication by customer support engineer. Such practice is discouraged except when the physician, in their clinical judgment, deems that a medical need exists for a medication without regard to previous use.
--- NOTE | 2022-11-21 16:04 | HISTORY & PHYSICAL EXAMINATION ---
Chief Complaint - Chief Complaint Chief Complaint: Rapid heart rate found at custodial, pt sent in to ER History of Present Illness - Admitted From Admitted From:: ED - History Obtained From History obtained from: ED provider and chart review - History of Present Illness HPI Comment/Other: This is a 77-year-old female with a history of being nonverbal. She lives at [facility]. She has a Hx of dementia and Parkinson's disease but her baseline function is not known. She has a DNR status. The is currently on a vacation in [facility] The patient was found to have a heart rate of 150 today by staff at [facility] and sent to the ER. The patient is nonverbal and had no complaints. She did appear overall fatigued but was in no distress. ER evaluation showed that she was in new onset atrial flutter with a rate of 150. Our EMR shows that there is a prior history of A-fib, however she is not on anticoagulants, but is on daily baby aspirin and Toprol. In the ER, patient received diltiazem 10 mg IV push which dropped her systolic blood pressure to 90. After it recovered, she was put on a diltiazem drip. Her BNP is elevated at 823, the first troponin is elevated at 490, her WBC is elevated at 11.4, her CXR shows a probable pneumonia. The ED provider reached out to her who confirmed that the goal is comfort care, no heroic measures, no transfer for an angiogram or EP procedures. The ED provider spoke to me about this patient and she will be admitted to the ICU on diltiazem drip. History - Past Medical History Cardiovascular: reports: Hypertension, High cholesterol, Atrial fibrillation Respiratory: reports: None Neuro: reports: Dementia, Parkinson's Endocrine/Autoimmune: reports: None GI: reports: Ulcers PUNCHBOARD STUFFER: reports: None : reports: None HEENT: reports: Chronic vision loss Psych: reports: Anxiety Musculoskeletal: reports: Osteoarthritis, Chronic back pain Derm: reports: None MRSA Hx?: No - Past Surgical History General: reports: Colonoscopy Ortho: reports: Hip replacement, Rotator cuff repair - Family & Social History Living arrangement: group home Social History Notes: Unknown past cigarette or alcohol Hx. - POLST Patient has POLST: No Meds/Allgy - Home Medications Home Medications: Ambulatory Orders Medication Instructions Recorded Confirmed Carbidopa/Levodopa 25/100 [Sinemet 2 tab PO HS 06/23/14 11/21/22 25 mg/100 mg] Citalopram [CeleXA] 10 mg PO QPM 06/23/14 11/21/22 Carbidopa/Levodopa 25/100 [Sinemet 2 tab PO QID 07/29/18 11/21/22 25 mg/100 mg] Atorvastatin [Lipitor] 20 mg PO DAILY PM 12/28/20 11/21/22 Metoprolol Succinate [Toprol Xl] 25 mg PO DAILY 12/28/20 11/21/22 Quetiapine Fumarate [Seroquel] 50 mg PO BID 07/06/21 11/21/22 Rivastigmine Tartrate 3 mg PO BID 07/06/21 11/21/22 [Rivastigmine] Bisacodyl Supp [Dulcolax Supp] 10 mg W[place] DAILY PRN 01/31/22 11/21/22 Acetaminophen [Tylenol] 650 mg PO Q6H PRN 11/21/22 11/21/22 Aspirin [Treasure Aspirin] 81 mg PO DAILY 11/21/22 11/21/22 Docusate Sodium 100Mg Capsule 200 mg PO BID 11/21/22 11/21/22 [Colace 100Mg Capsule] Mineral Oil [Mineral Oil Enema] 1 unit [place] ONCE PRN 11/21/22 11/21/22 Senna [Senokot] 2 tab PO QPM PRN 11/21/22 11/21/22 polyethylene glycoL 3350 [Miralax] 17 g PO ONCE PRN 11/21/22 11/21/22 - Allergies Allergies/Adverse Reactions: Allergies Allergy/AdvReac Type Severity Reaction Status Date / Time No Known Drug Allergies Allergy Verified 11/21/22 10:55 Review of Systems - Neurological Neurological: reports: Other (Non-verbal) - All Other Systems All Other Systems: reports: Other (No other details of any symptoms are available, since the patient is nonverbal and there is no family present or other records avsailable from the custodial.) Exam - Vital Signs Vital Signs: Vital Signs x48h Temp Pulse Pulse Resp BP BP Pulse Ox 11/21/22 15:00 84 16 112/73 100 11/21/22 14:48 85 21 116/75 97 08/16/23 14:15 84 20 113/67 97 11/21/22 14:00 86 25 H 100/70 100 11/21/22 13:50 37.1 C 95 16 102/69 97 11/21/22 13:21 93 24 103/83 H 96 11/21/22 13:03 146 H 15 118/79 95 11/21/22 12:38 140 H 26 H 116/69 100 11/21/22 11:31 156 H 27 H 119/82 H 100 11/21/22 10:57 155 H 26 H 100/67 99 11/21/22 10:52 36.3 C L 145 H 16 104/74 98 - Physical Exam General Appearance: positive: No acute distress, Lethargic, Other (Cachectic and frail, appears older than her age) Eyes Bilateral: positive: No lid inflammation ENT: positive: Dry mucous membranes Neck: positive: Thyroid nml, Other (Positive JVD with the patient at a 50 degree operating) Respiratory: positive: No respiratory distress, Breath sounds nml, Other (Prominent ribs) Cardiovascular: positive: Regular rate & rhythm (No murmur audible) Abdomen: positive: Non-tender, Nml bowel sounds, No distention Skin: positive: Warm, Dry, Pallor, Other (Positive skin tenting. Positive muscle wasting.) Extremities: positive: Non-tender, No pedal edema Neurologic/Psychiatric: positive: Other (She is moving all 4 extremities spontaneously. She has her eyes closed. She is nonverbal.) Conclusion/Plan - Problem List (1) Atrial flutter with rapid ventricular response Conclusion/Plan: The finding of a pneumonia could be the reason the patient went into new atrial flutter. Plan: A diltiazem drip has been started for rate control, so the patient will need to be admitted to the ICU. Titrate diltiazem to achieve heart rate less than 100>> Upon presentation to the ICU the patient converted to suddenly to NSR at a rate of 80. I will keep her on diltiazem overnight and begin oral Cardizem in a.m. We will also have her medication list reconciled by then to see what she was already taking for heart rate control meds. This patient's CHADS2 score equals 3 (age greater than 75, hypertension, CHF), thus she would be a candidate for anticoagulation. In the [facility] oncology note there is mention of Parkinson's with frequent falls. Therefore I will not start anticoagulation and continue the 1 baby aspirin daily, which she is on. Obtain a set of troponins to rule out ACS as the cause of the new a flutter Check TSH to rule out hyperthyroidism (2) Pulmonary edema Conclusion/Plan: Her chest x-ray was read as having a probable infiltrate and CHF. She probably went into flash pulmonary edema because of sudden rapid HR. Her periphery however is dehydrated with skin tenting. Plan: Because the patient does not have hypoxia, I will not start her on Lasix. I will let the fluids equilibrate. I will work on slowing down her heart rate to help prevent more pulmonary edema I will order a set of troponins to rule out ACS Follow her BNP daily Start her cardiac meds once the list is reconciled by pharmacy Qualifiers: Chronicity: acute Qualified Code(s): J81.0 - Acute pulmonary edema (3) HCAP (healthcare-associated pneumonia) Conclusion/Plan: The patient does not have a cough but this could be because she is intravascularly depleted. WBC is elevated. CXR shows an infiltrate. The patient lives in a custodial and therefore she may have a healthcare associated pneumonia. Blood cultures were done and a sputum culture has been ordered. Plan: I will start the patient on empiric IV cefepime and IV Vanco Await cx results to tailor antibx (4) AMS (altered mental status) Conclusion/Plan: She carries a diagnosis of dementia and Parkinson's Patient is currently nonverbal, he is in no distress, answered her name when asked by the ICU nurse. It is unknown if this level of activity is her baseline. Plan: I will restart any dementia and Parkinson's meds that the patient is on, after the med list is reconciled by pharmacy (5) Dementia associated with Parkinson's disease Conclusion/Plan: As per history. Patient has no tremor as I examine her however she is minimally communicative which may be her flat affect. I reviewed her EMR. In the [facility] [place]ology [place] there is mention of Parkinson's with frequent falls Plan: I will resume her Parkinson's meds when the med list is reconciled by pharmacy (6) Colon cancer Conclusion/Plan: I reviewed her EMR. The patient is followed in oncology [facility] clinic care. She has colon cancer. - Lab Results Fish Bones: 11/21/22 11:05 11/21/22 11:05 - Diagnostic Imaging Results Diagnostic Imaging Results: positive: Final report reviewed - EKG Results EKG Interpreted Independently: Yes EKG Comparison: Changed from prior EKG EKG Findings: Atrial flutter, with a regular rhythm at a vent rate of 150, low voltage, diffusely flat/minimally inverted T waves. Since EKG from 08/22/2021, all findings are new. - Other Other Results/Comments: Attestation: The patient is expected to be hospitalized for greater than 2 midnights and is expected to be discharged or transferred to another facility within 96 hours: Yes
[2022-11-21] MEDS ORDERED: BISACODYL 10 MG SUPP PR PRN (16:28)
[2022-11-21] MEDS ORDERED: SENNA 8.6 MG TABLET PO PRN (16:28)
[2022-11-21] MEDS ORDERED: ACETAMINOPHEN 325 MG TABLET PO PRN (16:28)
[2022-11-21] MEDS: polyethylene glycoL 3350 17 GM PACKET PO SCH (16:55)
[2022-11-21] MEDS ORDERED: VANCOMYCIN INJ 1 GM, VANCOMYCIN INJ 500 MG in SODIUM CHLORIDE 0.9% 500 ML IV ONE (17:00)
[2022-11-21] MEDS ORDERED: VANCOMYCIN INJ 1.5 GM in SODIUM CHLORIDE 0.9% 500 ML IV ONE (17:00)
--- NOTE | 2022-11-21 17:04 | PHARMACY PROGRESS NOTE ---
- Therapy Status Vancomycin regimen day #: 1 Therapy status: Awaiting steady state Basis for treatment: Empirical Treatment indication: HCAP Trough goal: 15-20 Concurrent antibiotics: CEFEPIME - JOEL Risk Risk level for Acute Kidney Injury: High (RISK FACTORS:(BUN:SCr >20:1),ICU ADMISSION,GOAL TROUGH >15) Acute Kidney Injury risk factors: Baseline CrCl <50, Baseline BUN:SCr >20:1, Goal trough >15, Admission to ICU - Monitoring and Recommendation Clinical response to treatment: I&O Previous 24 hours 11/19/22 11/20/22 11/21/22 23:59 23:59 23:59 Intake Total 110.167 Output Total 150 Balance -39.833 Lab Results 11/21/22 11:05 BUN 37 H Creatinine 1.1 H Estimated GFR (MDRD) 48 L
[2022-11-21] MEDS: CARBIDOPA/LEVODOPA 25 MG/100 MG TABLET PO SCH ×3 (17:15→23:29)
[2022-11-21] MEDS: SODIUM CHLORIDE FLUSH 0.9% 10 ML SYRINGE IVP SCH (17:16)
[2022-11-21] MEDS ORDERED: ENOXAPARIN 60 MG/0.6 ML SYRINGE SUBQ SCH (21:00)
[2022-11-21] MEDS: CEFEPIME 2 GM in SODIUM CHLORIDE 0.9% MINIBAG 100 ML IV SCH (21:22)
[2022-11-21] MEDS: DOCUSATE SODIUM 100 MG CAPSULE PO SCH (21:26)
[2022-11-21] MEDS: CITALOPRAM 10 MG TABLET PO SCH (21:26)
[2022-11-21] MEDS: RIVASTIGMINE TARTRATE 3 MG PO SCH (21:26)
[2022-11-21] MEDS: QUEtiapine 100 MG TABLET PO SCH (21:28)
[2022-11-21] MEDS ORDERED: diltiaZEM INJ 125 MG in DEXTROSE 5% 100 ML IV SCH (23:00)
[2022-11-22] MEDS: SODIUM CHLORIDE FLUSH 0.9% 10 ML SYRINGE IVP SCH ×3 (00:21→18:48)
[2022-11-22 05:30] LABS: ALBUMIN 3.1 g/dL (3.2-5.5); BILIRUBIN,TOTAL 0.7 mg/dL (0.2-1.0); CREATININE 0.9 mg/dL (0.4-1.0); PHOSPHORUS 2.8 mg/dL (2.5-4.6); POTASSIUM 4.3 mmol/L (3.5-5.0); TOTAL PROTEIN 6.1 g/dL (6.7-8.2)
[2022-11-22 05:34] LABS: BASOPHILS % (AUTO) 0.3 %; EOSINOPHILS # (AUTO) 0.2 10^3/uL (0.0-0.7); EOSINOPHILS % (AUTO) 1.5 %; HCT - HEMATOCRIT 31.3 % (37.0-47.0); HGB - HEMOGLOBIN 9.7 g/dL (12.0-16.0); LYMPHOCYTES # (AUTO) 1.3 10^3/uL (1.5-3.5); LYMPHOCYTES % (AUTO) 12.7 %; MEAN CORPUSCULAR HEMOGLOBIN 31.3 pg (27.0-31.0); MEAN PLATELET VOLUME 9.4 fL (7.9-10.8); MONOCYTES # (AUTO) 0.7 10^3/uL (0.0-1.0); MONOCYTES % (AUTO) 6.6 %; NEUTROPHILS # (AUTO) 7.8 10^3/uL (1.5-6.6); NEUTROPHILS % (AUTO) 78.5 %; PLT - PLATELET COUNT 217 10^3/uL (130-450)
[2022-11-22 05:36] LABS: CALCIUM, IONIZED 1.02 mmol/L (1.15-1.33); VBG PH 7.525 (7.31-7.41)
[2022-11-22] MEDS ORDERED: CALCIUM GLUC 1,000MG/50ML-NACL 1,000 MG/50 ML BAG IV ONE ×2 (06:24→11:40)
[2022-11-22] MEDS: METOPROLOL SUCCINATE 25 MG TABLET PO SCH ×2 (08:30→20:51)
[2022-11-22] MEDS: ASPIRIN CHEW 81 MG TABLET PO SCH (08:31)
[2022-11-22] MEDS: polyethylene glycoL 3350 17 GM PACKET PO SCH (08:32)
[2022-11-22] MEDS: QUEtiapine 100 MG TABLET PO SCH ×2 (08:33→20:51)
[2022-11-22] MEDS: DOCUSATE SODIUM 100 MG CAPSULE PO SCH ×2 (08:35→20:51)
[2022-11-22] MEDS: SACCHAROMYCES BOULARDII 250 MG CAPSULE PO SCH ×2 (08:35→17:39)
[2022-11-22] MEDS: CARBIDOPA/LEVODOPA 25 MG/100 MG TABLET PO SCH ×4 (08:35→20:50)
[2022-11-22] MEDS: ENOXAPARIN 40 MG/0.4 ML SYRINGE SUBQ SCH (08:38)
[2022-11-22] MEDS: FAMOTIDINE 20 MG TABLET PO SCH (08:42)
[2022-11-22] MEDS ORDERED: METOPROLOL SUCCINATE 25 MG TABLET PO SCH (09:00)
[2022-11-22] MEDS: RIVASTIGMINE TARTRATE 3 MG PO SCH ×2 (09:16→20:51)
[2022-11-22] MEDS: CEFEPIME 2 GM in SODIUM CHLORIDE 0.9% MINIBAG 100 ML IV SCH ×2 (10:09→20:33)
[2022-11-22 11:36] LABS: CALCIUM, IONIZED 1.01 mmol/L (1.15-1.33); VBG PH 7.443 (7.31-7.41)
[2022-11-22] MEDS: MULTIVITAMIN TABLET PO SCH (14:11)
--- NOTE | 2022-11-22 15:45 | PROVIDER PROGRESS NOTE ---
Subjective - Subjective Pt reports feeling: No change (Asleep, does not awaken to name and minimally responds to touch) Objective - Vital Signs/Intake & Output Reviewed Vital Signs: Yes Vital Signs: Vital Signs Temp Pulse Resp BP Pulse Ox O2 Flow Rate 11/22/22 14:00 93 17 107/89 H 97 2 11/22/22 13:00 93 25 H 122/103 H 96 2 11/22/22 12:00 36.5 C 81 21 119/86 H 97 2 Intake & Output: Intake & Output 11/19/22 11/20/22 11/21/22 11/22/22 23:59 23:59 23:59 23:59 Intake Total 1913.661 9894.25 Output Total 470 50 Balance 454.167 0279.25 - Objective General Appearance: positive: Lethargic Eyes Bilateral: positive: No lid inflammation ENT: positive: Dry mucous membranes Neck: positive: Nml inspection, No JVD Respiratory: positive: No respiratory distress, Breath sounds nml Cardiovascular: positive: Regular rate & rhythm, No murmur Abdomen: positive: Non-tender, Nml bowel sounds, No distention Skin: positive: Warm, Dry, Other (decreased turgor) Extremities: positive: No pedal edema Neurologic/Psychiatric: positive: Other (Lethargic, awakens minimally to touch or voice) - Lab Results Fish Bones: 11/24/22 04:29 11/24/22 04:29 Other Labs: Lab Results x24hrs 11/22/22 11/22/22 11/22/22 Range/Units 11:29 04:57 04:57 WBC (4.8-10.8) x10^3/uL RBC (4.20-5.40) 10^6/uL Hgb (12.0-16.0) g/dL Hct (37.0-47.0) % MCV (81.0-99.0) fL MCH (27.0-31.0) pg MCHC (32.0-36.0) g/dL RDW (12.0-15.0) % Plt Count (130-450) 10^3/uL MPV (7.9-10.8) fL Neut # (Auto) (1.5-6.6) 10^3/uL Lymph # (Auto) (1.5-3.5) 10^3/uL Yolo # (Auto) (0.0-1.0) 10^3/uL Eos # (Auto) (0.0-0.7) 10^3/uL Baso # (Auto) (0.0-0.1) 10^3/uL Absolute Nucleated RBC x10^3/uL Nucleated RBC % /100WBC VBG pH 7.443 H 7.525 H (7.31-7.41) Ionized Calcium 1.01 L 1.02 L (1.15-1.33) mmol/L Sodium (135-145) mmol/L Potassium (3.5-5.0) mmol/L Chloride (101-111) mmol/L Carbon Dioxide (21-32) mmol/L Anion Gap (6-13) BUN (6-20) mg/dL Creatinine (0.4-1.0) mg/dL Estimated GFR (MDRD) (>89) Glucose (70-100) mg/dL Calcium (8.5-10.3) mg/dL Phosphorus (2.5-4.6) mg/dL Magnesium (1.7-2.8) mg/dL Total Bilirubin (0.2-1.0) mg/dL AST (10-42) IU/L ALT (10-60) IU/L Alkaline Phosphatase (42-121) IU/L Total Protein (6.7-8.2) g/dL Albumin (3.2-5.5) g/dL Globulin (2.1-4.2) g/dL Albumin/Globulin Ratio (1.0-2.2) Vitamin B12 654 (180-914) pg/mL Folate 16.0 (5.90 - >24.8) ng/mL Nasal Screen MRSA (PCR) (NEGATIVE) 11/22/22 11/22/22 11/22/22 Range/Units 04:57 04:57 00:56 WBC 10.0 (4.8-10.8) x10^3/uL RBC 3.10 L (4.20-5.40) 10^6/uL Hgb 9.7 L (12.0-16.0) g/dL Hct 31.3 L (37.0-47.0) % MCV 101.0 H (81.0-99.0) fL MCH 31.3 H (27.0-31.0) pg MCHC 31.0 L (32.0-36.0) g/dL RDW 14.0 (12.0-15.0) % Plt Count 217 (130-450) 10^3/uL MPV 9.4 (7.9-10.8) fL Neut # (Auto) 7.8 H (1.5-6.6) 10^3/uL Lymph # (Auto) 1.3 L (1.5-3.5) 10^3/uL Yolo # (Auto) 0.7 (0.0-1.0) 10^3/uL Eos # (Auto) 0.2 (0.0-0.7) 10^3/uL Baso # (Auto) 0.0 (0.0-0.1) 10^3/uL Absolute Nucleated RBC 0.00 x10^3/uL Nucleated RBC % 0.0 /100WBC VBG pH (7.31-7.41) Ionized Calcium (1.15-1.33) mmol/L Sodium 136 (135-145) mmol/L Potassium 4.3 4.0 (3.5-5.0) mmol/L Chloride 107 (101-111) mmol/L Carbon Dioxide 21 (21-32) mmol/L Anion Gap 8.0 (6-13) BUN 34 H (6-20) mg/dL Creatinine 0.9 (0.4-1.0) mg/dL Estimated GFR (MDRD) 61 L (>89) Glucose 126 H (70-100) mg/dL Calcium 8.0 L (8.5-10.3) mg/dL Phosphorus 2.8 (2.5-4.6) mg/dL Magnesium 2.0 (1.7-2.8) mg/dL Total Bilirubin 0.7 (0.2-1.0) mg/dL AST 55 H (10-42) IU/L ALT 17 (10-60) IU/L Alkaline Phosphatase 66 (42-121) IU/L Total Protein 6.1 L (6.7-8.2) g/dL Albumin 3.1 L (3.2-5.5) g/dL Globulin 3.0 (2.1-4.2) g/dL Albumin/Globulin Ratio 1.0 (1.0-2.2) Vitamin B12 (180-914) pg/mL Folate (5.90 - >24.8) ng/mL Nasal Screen MRSA (PCR) (NEGATIVE) 11/21/22 11/21/22 11/21/22 Range/Units 19:26 14:25 14:05 WBC (4.8-10.8) x10^3/uL RBC (4.20-5.40) 10^6/uL Hgb (12.0-16.0) g/dL Hct (37.0-47.0) % MCV (81.0-99.0) fL MCH (27.0-31.0) pg MCHC (32.0-36.0) g/dL RDW (12.0-15.0) % Plt Count (130-450) 10^3/uL MPV (7.9-10.8) fL Neut # (Auto) (1.5-6.6) 10^3/uL Lymph # (Auto) (1.5-3.5) 10^3/uL Yolo # (Auto) (0.0-1.0) 10^3/uL Eos # (Auto) (0.0-0.7) 10^3/uL Baso # (Auto) (0.0-0.1) 10^3/uL Absolute Nucleated RBC x10^3/uL Nucleated RBC % /100WBC VBG pH (7.31-7.41) Ionized Calcium (1.15-1.33) mmol/L Sodium (135-145) mmol/L Potassium 3.6 (3.5-5.0) mmol/L Chloride (101-111) mmol/L Carbon Dioxide (21-32) mmol/L Anion Gap (6-13) BUN (6-20) mg/dL Creatinine (0.4-1.0) mg/dL Estimated GFR (MDRD) (>89) Glucose (70-100) mg/dL Calcium (8.5-10.3) mg/dL Phosphorus (2.5-4.6) mg/dL Magnesium 2.1 (1.7-2.8) mg/dL Total Bilirubin (0.2-1.0) mg/dL AST (10-42) IU/L ALT (10-60) IU/L Alkaline Phosphatase (42-121) IU/L Total Protein (6.7-8.2) g/dL Albumin (3.2-5.5) g/dL Globulin (2.1-4.2) g/dL Albumin/Globulin Ratio (1.0-2.2) Vitamin B12 (180-914) pg/mL Folate (5.90 - >24.8) ng/mL Nasal Screen MRSA (PCR) NEGATIVE (NEGATIVE) Assessment/Plan - Problem List (1) Atrial flutter with rapid ventricular response Impression: The finding of a pneumonia could be the reason the patient went into new atrial flutter. A diltiazem drip was started for rate control, and the patient was admitted to the ICU. Upon presentation to the ICU the patient converted spontaneously to NSR at a rate of 80. She then had short runs of SVT through the night that stopped spontaneously. I kept her on diltiazem overnight There is mention of Parkinson's with frequent falls. Therefore I did not start anticoagulation and continued the 1 baby aspirin daily, which she is on. A set of troponins ruled out ACS, as the cause of the new a flutter Her TSH came back normal at 1.38 Plan: Will dose the morning beta-daron and I have increased it from daily to twice daily in order to suppress the PSVT's she is still getting After the a.m. oral dose of beta-daron, titrate the Cardizem drip to off and stop it. I will keep her in the ICU in case she needs resumption of her diltiazem drip, we will move out of ICU to [facility] tomorrow (2) Pulmonary edema Conclusion/Plan: Her chest x-ray was read as having a probable infiltrate and CHF. She probably went into flash pulmonary edema because of sudden rapid HR. Her periphery however is dehydrated with skin tenting. He has needed O2 since admission, when her O2 sat dropped to 89%. Now she is on 2 L via nasal cannula, is saturating at 96%. Plan: Because the patient did not have hypoxia, I did not start her on Lasix. I wanted to let the fluids equilibrate. Follow her BNP daily Qualifiers: Chronicity: acute Qualified Code(s): J81.0 - Acute pulmonary edema (3) VTach Conclusion/Plan: Patient is having monomorphic V. tach runs, which are asymptomatic (telem was reviewed). Plan: Assure that her magnesium, potassium and other electrolytes are normal, replace if low Awaiting her Echo result I have increased her daily Toprol to twice daily both for suppressing SVT/atrial flutter and it will help the tach as well. (4) HCAP (healthcare-associated pneumonia) Conclusion/Plan: The patient still does not have a cough but this could be because she was intravascularly depleted. WBC was elevated. CXR shows an infiltrate. The [facility] in a prison and therefore she may have a healthcare associated pneumonia. Blood cultures were done and a sputum culture has been ordered. Plan: Cont supplemental O2 to keep O2 sats 92% or above Cont empiric IV cefepime and IV Vanco Await cx results to tailor antibx (4) UTI Conclusion/Plan: Her UA was not available until a catheterized specimen was obtained. The urine analysis was abnormal with many WBC and many bacteria. The urine culture is already growing a gram-negative jaya Plan: Her empiric IV cefepime covers her gram-negative UTI Await for identification and sensitivities to tailor antibiotics (5) Dementia associated with Parkinson's disease Conclusion/Plan: As per history. Patient has no tremor however she is minimally communicative which may be her flat affect. I reviewed her EMR. [place] [facility] [place] there is mention of Parkinson's with frequent falls. Today more information was obtained from her RN speaking to the , who said the patient "can stand up but always ends up falling down". Plan: Cont nthe resumed Parkinson's meds I will order PT and OT to eval her (6) Colon cancer Conclusion/Plan: I reviewed her EMR. The patient is followed in [place] [facility] [place]. She has colon cancer. (7) AMS (altered mental status) Conclusion/Plan: IMPROVED She carries a diagnosis of dementia and Parkinson's Patient is mostly nonverbal here, she is in no distress. She is able to follow directions, was able to get up and walk from bed to chair using a walker, leaning forward. Then she mostly was sleeping all day, even when sitting upright in her chair Plan: Cont her Parkinson's meds Continue to treat her UTI, HCAP and hypoxia
[2022-11-22 15:53] LABS: CALCIUM, IONIZED 1.14 mmol/L (1.15-1.33); VBG PH 7.44 (7.31-7.41)
[2022-11-22] MEDS ORDERED: VANCOMYCIN INJ 1 GM in SODIUM CHLORIDE 0.9% 250 ML IV SCH (17:00)
[2022-11-22] MEDS: ACETAMINOPHEN 325 MG TABLET PO PRN (20:50)
[2022-11-22] MEDS: CITALOPRAM 10 MG TABLET PO SCH (20:51)
[2022-11-22] MEDS: SODIUM CHLORIDE FLUSH 0.9% 10 ML SYRINGE IVP PRN (21:07)
[2022-11-23 05:44] LABS: THYROID STIMULATING HORMONE 1.38 uIU/mL (0.34-5.60)
[2022-11-23 06:05] LABS: PHOSPHORUS 3.4 mg/dL (2.5-4.6)
[2022-11-23 07:35] LABS: BASOPHILS # (AUTO) 0.1 10^3/uL (0.0-0.1); BASOPHILS % (AUTO) 0.6 %; EOSINOPHILS # (AUTO) 0.3 10^3/uL (0.0-0.7); EOSINOPHILS % (AUTO) 2.9 %; HCT - HEMATOCRIT 30.8 % (37.0-47.0); HGB - HEMOGLOBIN 10.1 g/dL (12.0-16.0); LYMPHOCYTES # (AUTO) 0.7 10^3/uL (1.5-3.5); LYMPHOCYTES % (AUTO) 8.2 %; MEAN CORPUSCULAR HEMOGLOBIN 31.8 pg (27.0-31.0); MEAN CORPUSCULAR HGB CONC 32.8 g/dL (32.0-36.0); MEAN CORPUSCULAR VOLUME 96.9 fL (81.0-99.0); MEAN PLATELET VOLUME 8.8 fL (7.9-10.8); MONOCYTES # (AUTO) 0.6 10^3/uL (0.0-1.0); MONOCYTES % (AUTO) 6.7 %; NEUTROPHILS # (AUTO) 7.2 10^3/uL (1.5-6.6); PLT - PLATELET COUNT 230 10^3/uL (130-450); RED BLOOD COUNT 3.18 10^6/uL (4.20-5.40); RED CELL DISTRIBUTION WIDTH 14.1 % (12.0-15.0); WHITE BLOOD COUNT 8.9 x10^3/uL (4.8-10.8)
[2022-11-23 07:44] LABS: VBG PH 7.402 (7.31-7.41)
[2022-11-23 07:45] LABS: CALCIUM, IONIZED 1.12 mmol/L (1.15-1.33)
[2022-11-23] MEDS: METOPROLOL SUCCINATE 25 MG TABLET PO SCH (09:14)
[2022-11-23 09:15] LABS: CALCIUM 8.5 mg/dL (8.5-10.3); POTASSIUM 4.1 mmol/L (3.5-4.5)
[2022-11-23] MEDS: ASPIRIN CHEW 81 MG TABLET PO SCH (09:18)
[2022-11-23] MEDS: CARBIDOPA/LEVODOPA 25 MG/100 MG TABLET PO SCH ×6 (09:18→22:55)
[2022-11-23] MEDS: MULTIVITAMIN TABLET PO SCH (09:18)
[2022-11-23] MEDS: SACCHAROMYCES BOULARDII 250 MG CAPSULE PO SCH ×2 (09:18→17:08)
[2022-11-23] MEDS: DOCUSATE SODIUM 100 MG CAPSULE PO SCH ×2 (09:19→20:26)
[2022-11-23] MEDS: polyethylene glycoL 3350 17 GM PACKET PO SCH (09:19)
[2022-11-23] MEDS: SODIUM CHLORIDE FLUSH 0.9% 10 ML SYRINGE IVP SCH ×3 (09:20→17:08)
[2022-11-23] MEDS: QUEtiapine 100 MG TABLET PO SCH (09:20)
[2022-11-23] MEDS: CEFEPIME 2 GM in SODIUM CHLORIDE 0.9% MINIBAG 100 ML IV SCH (09:25)
[2022-11-23] MEDS: ENOXAPARIN 40 MG/0.4 ML SYRINGE SUBQ SCH (09:49)
[2022-11-23] MEDS: FAMOTIDINE 20 MG TABLET PO SCH (09:49)
[2022-11-23] MEDS: cefTRIAXone 1 GM in SODIUM CHLORIDE 0.9% MINIBAG 100 ML IV SCH (11:22)
[2022-11-23] MEDS: RIVASTIGMINE TARTRATE 3 MG PO SCH ×2 (13:49→20:26)
--- NOTE | 2022-11-23 15:48 | PROVIDER PROGRESS NOTE ---
Subjective - Subjective Pt reports feeling: Improved (Sleepy in the morning, communicative and able to participate with PT in the afternoon, but disoriented, thinks she is in "[facility]") Objective - Vital Signs/Intake & Output Vital Signs: Vital Signs Pulse Resp BP Pulse Ox O2 Flow Rate 11/23/22 13:00 88 22 110/58 L 95 1 Intake & Output: Intake & Output 11/20/22 11/21/22 11/22/22 11/23/22 23:59 23:59 23:59 23:59 Intake Total 9638.272 6181.25 480 Output Total 470 150 300 Balance 155.208 6051.25 180 - Objective General Appearance: positive: No acute distress, Lethargic, Other (Disheveled) Eyes Bilateral: positive: Normal inspection, EOMI ENT: positive: Dry mucous membranes, Other (Disheveled, greasy face) Neck: positive: Nml inspection Respiratory: positive: No respiratory distress, Other (Distant breath sounds) Cardiovascular: positive: Regular rate & rhythm, No murmur Abdomen: positive: Non-tender, No distention Skin: positive: Warm, Dry Extremities: positive: Non-tender, No pedal edema Neurologic/Psychiatric: positive: Disoriented to person, Disoriented to place, Disoriented to time, Slurred/abnml speech (Slow speech, word salad) - Lab Results Fish Bones: 11/24/22 04:29 11/24/22 04:29 Other Labs: Lab Results x24hrs 11/23/22 11/23/22 11/23/22 Range/Units 07:25 07:25 07:25 WBC 8.9 (4.8-10.8) x10^3/uL RBC 3.18 L (4.20-5.40) 10^6/uL Hgb 10.1 L (12.0-16.0) g/dL Hct 30.8 L (37.0-47.0) % MCV 96.9 (81.0-99.0) fL MCH 31.8 H (27.0-31.0) pg MCHC 32.8 (32.0-36.0) g/dL RDW 14.1 (12.0-15.0) % Plt Count 230 (130-450) 10^3/uL MPV 8.8 (7.9-10.8) fL Neut # (Auto) 7.2 H (1.5-6.6) 10^3/uL Lymph # (Auto) 0.7 L (1.5-3.5) 10^3/uL [place] # (Auto) 0.6 (0.0-1.0) 10^3/uL Eos # (Auto) 0.3 (0.0-0.7) 10^3/uL Baso # (Auto) 0.1 (0.0-0.1) 10^3/uL Absolute Nucleated RBC 0.00 x10^3/uL Nucleated RBC % 0.0 /100WBC VBG pH 7.402 (7.31-7.41) Ionized Calcium 1.12 L (1.15-1.33) mmol/L Sodium 138 (135-145) mmol/L Potassium 4.1 (3.5-4.5) mmol/L Chloride 109 (101-111) mmol/L Carbon Dioxide 24 (21-32) mmol/L Anion Gap 5.0 L (6-13) BUN 24 H (6-20) mg/dL Creatinine 1.0 (0.6-1.3) mg/dL Estimated GFR (MDRD) 54 L (>89) Glucose 93 (74-104) mg/dL Calcium 8.5 (8.5-10.3) mg/dL Phosphorus (2.5-4.6) mg/dL TSH (0.34-5.60) uIU/mL 11/23/22 11/22/22 Range/Units 04:51 15:36 WBC (4.8-10.8) x10^3/uL RBC (4.20-5.40) 10^6/uL Hgb (12.0-16.0) g/dL Hct (37.0-47.0) % MCV (81.0-99.0) fL MCH (27.0-31.0) pg MCHC (32.0-36.0) g/dL RDW (12.0-15.0) % Plt Count (130-450) 10^3/uL MPV (7.9-10.8) fL Neut # (Auto) (1.5-6.6) 10^3/uL Lymph # (Auto) (1.5-3.5) 10^3/uL [place] # (Auto) (0.0-1.0) 10^3/uL Eos # (Auto) (0.0-0.7) 10^3/uL Baso # (Auto) (0.0-0.1) 10^3/uL Absolute Nucleated RBC x10^3/uL Nucleated RBC % /100WBC VBG pH 7.440 H (7.31-7.41) Ionized Calcium 1.14 L (1.15-1.33) mmol/L Sodium (135-145) mmol/L Potassium (3.5-4.5) mmol/L Chloride (101-111) mmol/L Carbon Dioxide (21-32) mmol/L Anion Gap (6-13) BUN (6-20) mg/dL Creatinine (0.6-1.3) mg/dL Estimated GFR (MDRD) (>89) Glucose (74-104) mg/dL Calcium (8.5-10.3) mg/dL Phosphorus 3.4 (2.5-4.6) mg/dL TSH 1.38 (0.34-5.60) uIU/mL Assessment/Plan - Problem List (1) Atrial flutter with rapid ventricular response Impression: The finding of a pneumonia could be the reason the patient went into new atrial flutter. A diltiazem drip was started for rate control, and the patient was admitted to the ICU. Upon presentation to the ICU the patient converted spontaneously to NSR at a rate of 80. She then has had short runs of SVT. Her diltiazem drip was t itrated to off as I started her on BID Metoprolol yesterday There is mention of Parkinson's with frequent falls. Therefore I did not start anticoagulation and continued the 1 baby aspirin daily, which she is on. A set of troponins ruled out ACS as the cause of the new a flutter Her TSH came back WNL at 1.38 (all labs were reviewed) Plan: I have increased her B-daron from daily to twice daily in order to suppress the PSVT's she is still getting. This morning she would not swallow, meds need to be crushed. I need to change her Toprol-XL to Metoprolol Tartrate so it can be crushed I will transfer her out of the the ICU today, if she does not have recurrence of sustained Aflutter with RVR on her crushed meds (2) Pulmonary edema Conclusion/Plan: Her chest x-ray was read as having a probable infiltrate and CHF. She probably went into flash pulmonary edema because of sudden rapid HR. Her periphery however is dehydrated with skin tenting. He has needed O2 since admission, when her O2 sat dropped to 89%. Now she is on 2 L via nasal cannula, is saturating at 96%. Plan: Because the patient did not have hypoxia, I did not start her on Lasix. I wante d to let the fluids equilibrate. Follow her BNP daily Qualifiers: Chronicity: acute Qualified Code(s): J81.0 - Acute pulmonary edema (3) VTach Conclusion/Plan: Patient is having monomorphic V. tach runs, which are asymptomatic (telem was reviewed). Plan: Assure that her magnesium, potassium and other electrolytes are normal, replace if low Awaiting her Echo result I have increased her daily Toprol to twice daily both for suppressing SVT/atrial flutter and it will help the tach as well. (4) HCAP (healthcare-associated pneumonia) Conclusion/Plan: The patient still does not have a cough but this could be because she was intravascularly depleted. WBC was elevated. CXR shows an infiltrate. The patient lives in a senior living and therefore she may have a healthcare associated pneumonia. Blood cultures were done and a sputum culture has been ordered. Plan: Cont supplemental O2 to keep O2 sats 92% or above Cont empiric IV cefepime and IV Vanco Await cx results to tailor antibx (4) UTI Conclusion/Plan: Her UA was not available until a catheterized specimen was obtained. The urine analysis was abnormal with many WBC and many bacteria. The urine culture is already growing a gram-negative jaya Plan: Her empiric IV cefepime covers her gram-negative UTI Await for identification and sensitivities to tailor antibiotics (5) Dementia associated with Parkinson's disease Conclusion/Plan: As per history. Patient has no tremor however she is minimally communicative which may be her flat affect. I reviewed her EMR. In the [facility] note there is mention of Parkinson's with frequent falls. Today more information was obtained from her RN speaking to the , who said the patient "can stand up but always ends up falling down". Plan: Cont the resumed Parkinson's meds I will order PT and OT to eval her (6) Colon cancer Conclusion/Plan: I reviewed her EMR. The patient is followed in oncology [facility] clinic care. She has colon cancer. (7) AMS (altered mental status) Conclusion/Plan: IMPROVED She carries a diagnosis of dementia and Parkinson's Patient is mostly nonverbal here, she is in no distress. She is able to follow directions, was able to get up and walk from bed to chair using a walker, leaning forward. Then she mostly was sleeping all day sitting upright in her chair Plan: Cont her Parkinson's meds Continue to treat her UTI, HCAP and hypoxia
[2022-11-23] MEDS: METOPROLOL TARTRATE 25 MG TABLET PO SCH (20:26)
[2022-11-23] MEDS: CITALOPRAM 10 MG TABLET PO SCH (20:26)
[2022-11-23] MEDS: QUEtiapine 25 MG TABLET PO SCH (20:27)
[2022-11-24] MEDS ORDERED: MIN OIL/DIMETHICON/COCONUT OIL 92 GM TUBE TOP PRN (03:24)
[2022-11-24 04:40] LABS: VBG PH 7.42 (7.31-7.41)
[2022-11-24 04:41] LABS: CALCIUM, IONIZED 1.12 mmol/L (1.15-1.33)
[2022-11-24 04:43] LABS: BASOPHILS % (AUTO) 0.5 %; EOSINOPHILS # (AUTO) 0.3 10^3/uL (0.0-0.7); HCT - HEMATOCRIT 31.3 % (37.0-47.0); HGB - HEMOGLOBIN 9.9 g/dL (12.0-16.0); LYMPHOCYTES # (AUTO) 1.2 10^3/uL (1.5-3.5); LYMPHOCYTES % (AUTO) 15.1 %; MEAN CORPUSCULAR HEMOGLOBIN 30.7 pg (27.0-31.0); MEAN CORPUSCULAR HGB CONC 31.6 g/dL (32.0-36.0); MEAN CORPUSCULAR VOLUME 97.2 fL (81.0-99.0); MEAN PLATELET VOLUME 8.6 fL (7.9-10.8); MONOCYTES # (AUTO) 0.6 10^3/uL (0.0-1.0); NEUTROPHILS # (AUTO) 5.7 10^3/uL (1.5-6.6); NEUTROPHILS % (AUTO) 71.9 %; PLT - PLATELET COUNT 242 10^3/uL (130-450); RED BLOOD COUNT 3.22 10^6/uL (4.20-5.40); RED CELL DISTRIBUTION WIDTH 14.1 % (12.0-15.0)
[2022-11-24 04:58] LABS: CALCIUM 8.5 mg/dL (8.5-10.3); CREATININE 0.8 mg/dL (0.6-1.3); PHOSPHORUS 3.1 mg/dL (2.5-5.0)
[2022-11-24] MEDS: SODIUM CHLORIDE FLUSH 0.9% 10 ML SYRINGE IVP SCH ×3 (05:14→17:16)
[2022-11-24] MEDS: ENOXAPARIN 40 MG/0.4 ML SYRINGE SUBQ SCH (09:37)
[2022-11-24] MEDS: cefTRIAXone 1 GM in SODIUM CHLORIDE 0.9% MINIBAG 100 ML IV SCH (09:38)
[2022-11-24] MEDS: RIVASTIGMINE TARTRATE 3 MG PO SCH ×2 (09:51→21:03)
[2022-11-24] MEDS: METOPROLOL TARTRATE 25 MG TABLET PO SCH ×2 (09:51→21:02)
[2022-11-24] MEDS: SACCHAROMYCES BOULARDII 250 MG CAPSULE PO SCH ×2 (10:06→17:17)
[2022-11-24] MEDS: CARBIDOPA/LEVODOPA 25 MG/100 MG TABLET PO SCH ×5 (10:07→23:02)
[2022-11-24] MEDS: ASPIRIN CHEW 81 MG TABLET PO SCH (10:07)
[2022-11-24] MEDS: MULTIVITAMIN TABLET PO SCH (10:08)
[2022-11-24] MEDS: FAMOTIDINE 20 MG TABLET PO SCH (10:08)
[2022-11-24] MEDS: QUEtiapine 25 MG TABLET PO SCH ×2 (10:08→21:02)
[2022-11-24] MEDS: DOCUSATE SODIUM 100 MG CAPSULE PO SCH ×2 (10:08→21:02)
[2022-11-24] MEDS: polyethylene glycoL 3350 17 GM PACKET PO SCH (10:09)
--- NOTE | 2022-11-24 14:20 | PROVIDER PROGRESS NOTE ---
Assessment/Plan - Problem List (1) Atrial flutter with rapid ventricular response Assessment/Plan: The finding of a pneumonia could be the reason the patient went into new atrial flutter. A diltiazem drip was started for rate control, and the patient was admitted to the ICU. Upon presentation to the ICU the patient converted spontaneously to NSR at a rate of 80. She then has had short runs of SVT. Her diltiazem drip was titrated to off as I started her on BID Metoprolol There is mention of Parkinson's with frequent falls. Therefore I did not start anticoagulation and continued the 1 baby aspirin daily, which she is on. A set of troponins ruled out ACS as the cause of the new a flutter Her TSH came back WNL at 1.38 (all labs were reviewed) She was transfered her out of the the ICU yesterday, if she does not have recurrence of sustained Aflutter with RVR on her crushed meds Plan: I have increased her B-daron from daily to twice daily in order to suppress the PSVT's she is still getting. She would not swallow, meds need to be crushed. I had to change her Toprol-XL to Metoprolol Tartrate so it can be crushed (2) Pulmonary edema Conclusion/Plan: Her chest x-ray was read as having a probable infiltrate and CHF. She probably went into flash pulmonary edema because of sudden rapid HR. Her periphery however was dehydrated with skin tenting. Plan: Because the patient did not have hypoxia at admission, I did not start her on Lasix. I wanted to let the fluids equilibrate. Follow her BNP intermittently Awaiting her Echo result, it was not done when Hide Cooking Operator was here, for unknown reason, and now no scheduled Hide Cooking Operator here for 3 days Qualifiers: Chronicity: acute Qualified Code(s): J81.0 - Acute pulmonary edema (3) VTach Conclusion/Plan: Patient was having monomorphic V. tach runs, which were asymptomatic (telem was reviewed). Plan: Assure that her magnesium, potassium and other electrolytes are normal, replace if low Awaiting her Echo result I have increased her daily Toprol to twice daily both for suppressing SVT/atrial flutter and it will help the VTach as well. (4) HCAP (healthcare-associated pneumonia) Conclusion/Plan: The patient still does not have a cough but this could be because she was intravascularly depleted. WBC was elevated. CXR shows an infiltrate. The patient lives in a skilled nursing and therefore we are treating a healthcare associated pneumonia. Blood cultures were done and a sputum culture, these are neg to date Plan: Cont supplemental O2 to keep O2 sats 92% or above Cont empiric IV cefepime and IV Vanco Await cx results to tailor antibx (4) UTI Conclusion/Plan: Her UA was not available until a catheterized specimen was obtained. The urine analysis was abnormal with many WBC and many bacteria. The urine culture is already growing a gram-negative jaya Plan: Her empiric IV cefepime covers her gram-negative UTI Await for identification and sensitivities to tailor antibiotics (5) Dementia associated with Parkinson's disease Conclusion/Plan: As per history. Patient has no tremor however she is minimally communicative which may be her flat affect. I reviewed her EMR. In the [facility] Oncology note there is mention of Parkinson's with frequent falls. Today more information was obtained from her RN speaking to the , who said the patient "can stand up but always ends up falling down". Plan: Cont the resumed Parkinson's meds Cont PT and OT (6) Colon cancer Conclusion/Plan: I reviewed her EMR. The patient is followed in oncology [facility] clinic care. She has colon cancer. (7) AMS (altered mental status) Conclusion/Plan: IMPROVED She carries a diagnosis of dementia and Parkinson's Patient is mostly nonverbal here, she is in no distress. She is able to follow directions, was able to get up and walk from bed to chair using a walker, leaning forward. Then she mostly was sleeping all day sitting upright in her chair Plan: Cont her Parkinson's meds Continue to treat her UTI, HCAP and hypoxia - Current Meds Current Meds: Current Medications Generic Name Dose Route Start Last Admin Trade Name Freq PRN Reason Stop Dose Admin Acetaminophen 650 mg 11/21/22 13:15 11/22/22 20:50 Acetaminophen 325 Mg Tablet PO 650 mg Q4HR PRN Administration Pain 1 to 4, or Fever Aspirin 81 mg 11/22/22 09:00 11/24/22 10:07 Aspirin Chew 81 Mg Tablet PO 81 mg DAILY ELENO Administration Carbidopa/Levodopa 2 tab 11/21/22 17:00 11/24/22 13:08 Carbidopa/Levodopa 25 Mg/100 Mg Tablet PO 2 tab QID ELENO Administration Carbidopa/Levodopa 2 tab 11/23/22 23:00 11/23/22 22:55 Carbidopa/Levodopa 25 Mg/100 Mg Tablet PO 2 tab 2300 ELENO Administration Citalopram Hydrobromide 10 mg 11/21/22 21:00 11/23/22 20:26 Citalopram 10 Mg Tablet PO 10 mg QPM ELENO Administration Docusate Sodium 200 mg 11/21/22 21:00 11/24/22 10:08 Docusate Sodium 100 Mg Capsule PO 200 mg BID ELENO Administration Enoxaparin Sodium 40 mg 11/22/22 09:00 11/24/22 09:37 Enoxaparin 40 Mg/0.4 Ml Syringe SUBQ 40 mg DAILY ELENO Administration Famotidine 20 mg 11/22/22 09:00 11/24/22 10:08 Famotidine 20 Mg Tablet PO 20 mg DAILY ELENO Administration Ceftriaxone Sodium 1 gm/ 100 mls @ 200 mls/hr 11/23/22 11:00 11/24/22 10:18 Sodium Chloride IV Infused DAILY ELENO Infusion Metoprolol Tartrate 25 mg 11/23/22 21:00 11/24/22 09:51 Metoprolol Tartrate 25 Mg Tablet PO 25 mg BID ELENO Administration Multivitamins 1 tab 11/22/22 12:00 11/24/22 10:08 Multivitamin Tablet PO 1 tab DAILYWM ELENO Administration Rivastigmine 1 each 11/21/22 21:00 11/24/22 09:51 Tartrate [ PO 1 each Rivastigmine] 3 Mg BID ELENO Administration Capsule Polyethylene Glycol 17 gm 11/21/22 16:28 11/24/22 10:09 Polyethylene Glycol 3350 17 Gm Packet PO 17 gm DAILY ELENO Administration Quetiapine Fumarate 25 mg 11/23/22 21:00 11/24/22 10:08 Quetiapine 25 Mg Tablet PO 25 mg BID ELENO Administration Saccharomyces Boulardii 250 mg 11/22/22 08:00 11/24/22 10:06 Saccharomyces Boulardii 250 Mg Capsule PO 250 mg BIDWM ELENO Administration Sodium Chloride 10 ml 11/21/22 17:00 11/24/22 10:08 Sodium Chloride Flush 0.9% 10 Ml Syringe IVP 10 ml 0100,0900,1700 ELENO Administration Sodium Chloride 10 ml 11/21/22 13:15 11/22/22 21:07 Sodium Chloride Flush 0.9% 10 Ml Syringe IVP 10 ml PRN PRN Administration NEEDED PER PROVIDER ORDERS - Lab Result Fish Bone Diagrams: 11/24/22 04:29 11/24/22 04:29 - Additional Planning My Orders: My Active Orders 11/23/22 16:48 Shower [RC] PRN 11/23/22 18:41 Telemetry- [RC] Q4HR 11/23/22 21:00 Metoprolol Tartrate [Lopressor] 25 mg PO BID QUEtiapine [SEROquel] 25 mg PO BID 11/23/22 23:00 Carbidopa/Levodopa 25/100 [Sinemet 25 mg/100 mg] 2 tab PO 2300 11/24/22 03:24 Min Oil/Dimeth/Coconut Oil Crm [Cavilon] 1 applic TOP PRN PRN 11/25/22 05:00 BMP - BASIC METABOLIC PANEL [CHEM] DAILYLAB Subjective - Subjective Patient Reports: Other (She is sittting in a chair watching TV, alert, but minimally communicative) Objective Vital Signs: Vital Signs - 24 hr 11/23/22 11/23/22 11/23/22 17:00 20:26 22:52 Temperature 36.1 C L 36.3 C L Heart Rate [ 73 Brachial] Heart Rate [ 87 Monitoring electrodes] Respiratory 20 16 Rate Blood Pressure 126/65 Blood Pressure 107/79 [Left Brachial artery] Blood Pressure 114/64 [Right Brachial artery] O2 Saturation 94 95 If not protocol 1 1 : Oxygen Flow, liters/minute 11/24/22 11/24/22 11/24/22 01:00 03:30 05:00 Temperature 36.2 C L 36.6 C Heart Rate [ 76 71 63 Brachial] Heart Rate [ Monitoring electrodes] Respiratory 18 18 14 Rate Blood Pressure Blood Pressure [Left Brachial artery] Blood Pressure 107/59 L 114/66 120/56 L [Right Brachial artery] O2 Saturation 92 93 92 If not protocol 2 2 : Oxygen Flow, liters/minute 11/24/22 11/24/22 11/24/22 08:05 09:51 11:52 Temperature 36.6 C 36.3 C L Heart Rate [ 78 73 Brachial] Heart Rate [ Monitoring electrodes] Respiratory 16 Rate Blood Pressure 127/67 Blood Pressure [Left Brachial artery] Blood Pressure 119/49 L 106/61 [Right Brachial artery] O2 Saturation 90 L 93 If not protocol 2 2 : Oxygen Flow, liters/minute Oxygen O2 Source [With Activity] Nasal cannula O2 Source [Without Activity] Nasal cannula O2 Source Nasal cannula I&O (Last 24 Hrs): Intake and Output Totals x24h 11/22/22 11/23/22 11/24/22 23:59 23:59 23:59 Intake Total 1643.25 530 250 Output Total 150 500 200 Balance 1493.25 30 50 General: Alert, No acute distress HEENT: EOMI Neck: Supple, No JVD Neuro: Alert, Disoriented, Non Focal, Other (Minimally commuicative, follows cues) Cardiovascular: Regular rate Respiratory: No respiratory distress Abdomen: No tenderness Extremities: No edema, No tenderness/swelling - Results Results: Laboratory Results WBC 8.0 x10^3/uL (4.8-10.8) 11/24/22 04:29 RBC 3.22 10^6/uL (4.20-5.40) L 11/24/22 04:29 Hgb 9.9 g/dL (12.0-16.0) L 11/24/22 04:29 Hct 31.3 % (37.0-47.0) L 11/24/22 04:29 MCV 97.2 fL (81.0-99.0) 11/24/22 04:29 MCH 30.7 pg (27.0-31.0) 11/24/22 04:29 MCHC 31.6 g/dL (32.0-36.0) L 11/24/22 04:29 RDW 14.1 % (12.0-15.0) 11/24/22 04:29 Plt Count 242 10^3/uL (130-450) 11/24/22 04:29 MPV 8.6 fL (7.9-10.8) 11/24/22 04:29 Neut # (Auto) 5.7 10^3/uL (1.5-6.6) 11/24/22 04:29 Lymph # (Auto) 1.2 10^3/uL (1.5-3.5) L 11/24/22 04:29 [place] # (Auto) 0.6 10^3/uL (0.0-1.0) 11/24/22 04:29 Eos # (Auto) 0.3 10^3/uL (0.0-0.7) 11/24/22 04:29 Baso # (Auto) 0.0 10^3/uL (0.0-0.1) 11/24/22 04:29 Absolute Nucleated RBC 0.00 x10^3/uL 11/24/22 04:29 Nucleated RBC % 0.0 /100WBC 11/24/22 04:29 VBG pH 7.420 (7.31-7.41) H 11/24/22 04:29 Ionized Calcium 1.12 mmol/L (1.15-1.33) L 11/24/22 04:29 Sodium 140 mmol/L (135-145) 11/24/22 04:29 Potassium 4.0 mmol/L (3.5-4.5) 11/24/22 04:29 Chloride 110 mmol/L (101-111) 11/24/22 04:29 Carbon Dioxide 26 mmol/L (21-32) 11/24/22 04:29 Anion Gap 4.0 (6-13) L 11/24/22 04:29 BUN 19 mg/dL (6-20) 11/24/22 04:29 Creatinine 0.8 mg/dL (0.6-1.3) 11/24/22 04:29 Estimated GFR (MDRD) 69 (>89) L 11/24/22 04:29 Glucose 97 mg/dL (74-104) 11/24/22 04:29 Calcium 8.5 mg/dL (8.5-10.3) 11/24/22 04:29 Phosphorus 3.1 mg/dL (2.5-5.0) 11/24/22 04:29 Magnesium 2.0 mg/dL (1.7-2.8) 11/22/22 04:57 Total Bilirubin 0.7 mg/dL (0.2-1.0) 11/22/22 04:57 AST 55 IU/L (10-42) H 11/22/22 04:57 ALT 17 IU/L (10-60) 11/22/22 04:57 Alkaline Phosphatase 66 IU/L (42-121) 11/22/22 04:57 Troponin I High Sens 538.8 ng/L (2.3-14.8) H* 11/21/22 14:22 B-Natriuretic Peptide 823 pg/mL (5-100) H 11/21/22 11:05 Total Protein 6.1 g/dL (6.7-8.2) L 11/22/22 04:57 Albumin 3.1 g/dL (3.2-5.5) L 11/22/22 04:57 Globulin 3.0 g/dL (2.1-4.2) 11/22/22 04:57 Albumin/Globulin Ratio 1.0 (1.0-2.2) 11/22/22 04:57 Lipase 24 U/L (22-51) 11/21/22 11:05 Vitamin B12 654 pg/mL (180-914) 11/22/22 04:57 Folate 16.0 ng/mL (5.90 - >24.8) 11/22/22 04:57 TSH 1.38 uIU/mL (0.34-5.60) 11/23/22 04:51 Urine Color YELLOW 11/21/22 14:35 Urine Clarity HAZY (CLEAR) 11/21/22 14:35 Urine pH 5.5 PH (5.0-7.5) 11/21/22 14:35 Ur Specific [place] 1.020 (1.002-1.030) 11/21/22 14:35 Urine Protein TRACE mg/dL (NEGATIVE) 11/21/22 14:35 Urine Glucose (UA) NEGATIVE mg/dL (NEGATIVE) 11/21/22 14:35 Urine Ketones NEGATIVE mg/dL (NEGATIVE) 11/21/22 14:35 Urine Occult Blood NEGATIVE (NEGATIVE) 11/21/22 14:35 Urine Nitrite POSITIVE (NEGATIVE) H 11/21/22 14:35 Urine Bilirubin NEGATIVE (NEGATIVE) 11/21/22 14:35 Urine Urobilinogen 1 (NORMAL) E.U./dL (NORMAL) 11/21/22 14:35 Ur Leukocyte Esterase TRACE (NEGATIVE) H 11/21/22 14:35 Urine RBC 0-5 /HPF (0-5) 11/21/22 14:35 Urine WBC 6-10 /HPF (0-5) H 11/21/22 14:35 Ur Squamous Epith Cells FEW Squamous (<= Few) 11/21/22 14:35 Urine Bacteria Moderate /HPF (None Seen) H 11/21/22 14:35 Ur Microscopic Review INDICATED 11/21/22 14:35 Urine Culture Comments INDICATED 11/21/22 14:35 Nasal Screen MRSA (PCR) NEGATIVE (NEGATIVE) 11/21/22 14:05 - Procedures Procedures: Procedures EXCISION OF DESCENDING COLON, ENDO, DIAGN (07/21/18) EXCISION OF DESCENDING COLON, PERC ENDO APPROACH (07/29/18) EXCISION OF ILEOCECAL VALVE, ENDO (07/21/18) EXCISION OF PELVIS LYMPHATIC, PERC ENDO APPROACH, DIAGN (07/29/18) EXCISION OF TRANSVERSE COLON, PERC ENDO APPROACH (07/29/18) INTRODUCTION OF OTH THERAP SUBST INTO LOW GI, ENDO (07/21/18) PARTIAL HIP REPLACEMENT (06/21/14) REPAIR ABDOMINAL WALL, PERCUTANEOUS ENDOSCOPIC APPROACH (07/29/18) RESECTION OF BILATERAL FALLOPIAN TUBES, PERC ENDO APPROACH (07/29/18) RESECTION OF BILATERAL OVARIES, PERC ENDO APPROACH (07/29/18)
[2022-11-24] MEDS: CITALOPRAM 10 MG TABLET PO SCH (21:02)
[2022-11-25] MEDS: SODIUM CHLORIDE FLUSH 0.9% 10 ML SYRINGE IVP SCH ×4 (04:37→23:42)
[2022-11-25 04:57] LABS: CALCIUM 8.5 mg/dL (8.5-10.3); CREATININE 0.7 mg/dL (0.6-1.3); POTASSIUM 4.2 mmol/L (3.5-4.5)
--- NOTE | 2022-11-25 08:09 | XRAY Report ---
PROCEDURE: Chest 1 View X-Ray INDICATIONS: Hypoxia TECHNIQUE: One view of the chest was acquired. COMPARISON: Chest x-ray 11/21/2022 FINDINGS: Surgical changes and devices: None. Lungs and pleura: Prominent interstitial markings, most notably in the perihilar regions, right grea ter than left. This is increased compared to prior exam. Small pleural effusions. Mediastinum: Mediastinal contours appear normal. Heart size is normal. Bones and chest wall: No suspicious bony lesions. Overlying soft tissues appear unremarkable. IMPRESSION: Increase in bilateral perihilar interstitial markings, likely representing pulmonary edema. New small bilateral pleural effusions. Superimposed infection is not excluded. Reviewed by: Loi St MD on 11/25/2022 8:08 AM PDT Approved by: Loi St MD on 11/25/2022 8:08 AM PDT Station ID: [id number]
--- NOTE | 2022-11-25 08:22 | PROVIDER PROGRESS NOTE ---
Assessment/Plan - Problem List (1) Hypoxia Assessment/Plan: At admission, the patient did not have hypoxia. Her CXR was read as infiltrate and CHF. I did not start her on Lasixsince she was dehydrated overall, and I wanted to let the fluids equilibrate. She then needed suppl O2 at 2L>> 1L Since she is still requiring supplemental O2 today, I rechecked a chest x-ray. Today's chest x-ray continues to show CHF and possible infiltrate and tiny effusions Plan: I will give her Lasix IV twice daily for several doses Target O2 sats are 92% and above, give supplemental O2 if needed (2) Pulmonary edema Conclusion/Plan: Her initial CXR was read as having a probable infiltrate and CHF. She probably went into flash pulmonary edema because of sudden rapid HR. Her periphery however was dehydrated with skin tenting. Because the patient did not have hypoxia at admission, I did not start her on Lasix. I wanted to let the fluids equilibrate. Since she is still requiring supplemental O2 today, I read checked a chest x- ray. Today's chest x-ray continues to show CHF and possible infiltrate and tiny effusions Plan: I will give her Lasix IV twice daily for 3-4 doses I am awaiting her Echo result, to tailor treatment (the Echo was not done when Veneer Matcher was here, for unknown reason, and now no scheduled Veneer Matcher here for several days) Qualifiers: Chronicity: acute Qualified Code(s): J81.0 - Acute pulmonary edema (3) HCAP (healthcare-associated pneumonia) Conclusion/Plan: The patient did not have a cough but this could have been because she was intravascularly depleted. WBC was elevated. CXR showed an infiltrate. The patient lives in a fpc and therefore we started treating a healthcare associated pneumonia. Blood cultures were done and a sputum culture, these are neg to date Plan: She had been started on empiric Cefepime and Vanco, then has been on Ceftriaxone, total of 4 days (4) UTI due to Klebsiella - N39.0 Conclusion/Plan: Her UA was not available until a catheterized specimen was obtained. The U/A was abnormal and she was already on Cefepime for the HCAP. Today the results are back on the two bactia growing in the urine. Urine cx has Klebsiella pneumoniae and Aerococcus urinae. She was first on empiric cefepime then de-escalated to empiric ceftriaxone IV Per sensitivities available today (which I reviewed), her empiric IV cefepime and IV Ceftriaxone covered the Klebsiella pneumoniae, and the Aerococcus urinae Plan: In order to complete a 7 day course of treatment for the UTI, I will not change her to po Cipro which does not cover the Aerococcus, nor to po Amoxicillin or Nitrofurantoin, which does not cover the Klebsiella. Reviewed her sensitivities with our pharmacist James. I will stop her IV ceftriaxone and start Keflex 500 mg p.o. every 6 hours. She needs today then 2 more days of treatment with this Keflex (5) Dementia associated with Parkinson's disease Conclusion/Plan: As per history. Patient has no tremor however she is minimally communicative which may be her flat affect. I reviewed her EMR. In the [facility] Oncology note there is mention of Parkinson's with frequent falls. Today more information was obtained from her RN speaking to the , who said the patient "can stand up but always ends up falling down". Plan: Cont the resumed Parkinson's meds Cont PT and OT She needs a shower, will order (6) Colon cancer Conclusion/Plan: I reviewed her EMR. The patient is followed in oncology [facility] clinic care. She has colon cancer. (7) AMS (altered mental status) Conclusion/Plan: IMPROVED She carries a diagnosis of dementia and Parkinson's Patient is mostly nonverbal here, she is in no distress. She is able to follow directions, was able to get up and walk from bed to chair using a walker, leaning forward. Then she mostly was sleeping all day sitting upright in her chair Plan: Cont her Parkinson's meds Continue to treat her UTI, HCAP and hypoxia She needs a shower, will order (8) Atrial flutter with rapid ventricular response Assessment/Plan: RESOLVED Aflutter w/ RVR was the reason she was admitted, when her heart rate was found to be 150 at the fpc. The finding of a pneumonia could be the reason the patient went into new atrial flutter. She required a diltiazem drip for rate control, and was admitted to the ICU. Upon presentation to the ICU the patient converted spontaneously to NSR at a rate of 80. Her B-daron was increased and the diltiazem drip was titrated to off. She then has had short runs of SVT. Her EMR described frequent falls. Therefore I did not start anticoagulation and continued the 1 baby aspirin daily, which she was on. A set of troponins ruled out ACS as the cause of the new a flutter Her TSH came back WNL at 1.38 (all labs were reviewed) Plan: Cont the increased B-daron, changed from daily to twice daily, in order to suppress the PSVT's and VT. She occasionally does not swallow, so meds need to be crushed. Therefore, I had to change her Toprol-XL to Metoprolol Tartrate so it can be crushed (9) VTach Conclusion/Plan: RESOLVED Patient was having monomorphic V. tach runs, which were asymptomatic (telem was reviewed). Assured that her magnesium, potassium and other electrolytes are normal, replace if low Plan: Hill awaiting her Echo result to tailor treatment Cont the increased daily Metoprolol to twice daily both for suppressing SVT/atrial flutter and it will help the VTach as well. - Current Meds Current Meds: Current Medications Generic Name Dose Route Start Last Admin Trade Name Freq PRN Reason Stop Dose Admin Acetaminophen 650 mg 11/21/22 13:15 11/22/22 20:50 Acetaminophen 325 Mg Tablet PO 650 mg Q4HR PRN Administration Pain 1 to 4, or Fever Aspirin 81 mg 11/22/22 09:00 11/24/22 10:07 Aspirin Chew 81 Mg Tablet PO 81 mg DAILY ELENO Administration Carbidopa/Levodopa 2 tab 11/21/22 17:00 11/24/22 21:02 Carbidopa/Levodopa 25 Mg/100 Mg Tablet PO 2 tab QID ELENO Administration Carbidopa/Levodopa 2 tab 11/23/22 23:00 11/24/22 23:02 Carbidopa/Levodopa 25 Mg/100 Mg Tablet PO 2 tab 2300 ELENO Administration Citalopram Hydrobromide 10 mg 11/21/22 21:00 11/24/22 21:02 Citalopram 10 Mg Tablet PO 10 mg QPM ELENO Administration Docusate Sodium 200 mg 11/21/22 21:00 11/24/22 21:02 Docusate Sodium 100 Mg Capsule PO 200 mg BID ELENO Administration Enoxaparin Sodium 40 mg 11/22/22 09:00 11/24/22 09:37 Enoxaparin 40 Mg/0.4 Ml Syringe SUBQ 40 mg DAILY ELENO Administration Famotidine 20 mg 11/22/22 09:00 11/24/22 10:08 Famotidine 20 Mg Tablet PO 20 mg DAILY ELENO Administration Ceftriaxone Sodium 1 gm/ 100 mls @ 200 mls/hr 11/23/22 11:00 11/24/22 10:18 Sodium Chloride IV Infused DAILY ELENO Infusion Metoprolol Tartrate 25 mg 11/23/22 21:00 11/24/22 21:02 Metoprolol Tartrate 25 Mg Tablet PO 25 mg BID ELENO Administration Multivitamins 1 tab 11/22/22 12:00 11/24/22 10:08 Multivitamin Tablet PO 1 tab DAILYWM ELENO Administration Rivastigmine 1 each 11/21/22 21:00 11/24/22 21:03 Tartrate [ PO 1 each Rivastigmine] 3 Mg BID ELENO Administration Capsule Polyethylene Glycol 17 gm 11/21/22 16:28 11/24/22 10:09 Polyethylene Glycol 3350 17 Gm Packet PO 17 gm DAILY ELENO Administration Quetiapine Fumarate 25 mg 11/23/22 21:00 11/24/22 21:02 Quetiapine 25 Mg Tablet PO 25 mg BID ELENO Administration Saccharomyces Boulardii 250 mg 11/22/22 08:00 11/24/22 17:17 Saccharomyces Boulardii 250 Mg Capsule PO 250 mg BIDWM ELENO Administration Sodium Chloride 10 ml 11/21/22 17:00 11/25/22 04:37 Sodium Chloride Flush 0.9% 10 Ml Syringe IVP 10 ml 0100,0900,1700 ELENO Administration Sodium Chloride 10 ml 11/21/22 13:15 11/22/22 21:07 Sodium Chloride Flush 0.9% 10 Ml Syringe IVP 10 ml PRN PRN Administration NEEDED PER PROVIDER ORDERS - Lab Result Fish Bone Diagrams: 11/24/22 04:29 11/25/22 04:37 - Additional Planning My Orders: My Active Orders 11/25/22 08:12 FUROSEMIDE INJ 20mg VIAL [LASIX INJ 20mg VIAL] 20 mg IVP BIDDIURETIC Subjective - Subjective Patient Reports: Resting Comfortably Nursing Reports: Other (More alert, communicates in longer sentences with staff, eating. Is still on O2 supplemental) Objective Vital Signs: Vital Signs - 24 hr 11/24/22 11/24/22 11/24/22 09:51 11:52 17:00 Temperature 36.3 C L 36.5 C Heart Rate [ 73 72 Brachial] Heart Rate [ Monitoring electrodes] Respiratory 16 Rate Blood Pressure 127/67 Blood Pressure [Left Brachial artery] Blood Pressure 106/61 108/45 L [Right Brachial artery] O2 Saturation 93 97 If not protocol 2 2 : Oxygen Flow, liters/minute 11/24/22 11/24/22 11/25/22 21:00 21:02 01:00 Temperature 36.2 C L 36.4 C L Heart Rate [ 86 Brachial] Heart Rate [ 78 Monitoring electrodes] Respiratory 16 18 Rate Blood Pressure 115/52 L Blood Pressure [Left Brachial artery] Blood Pressure 115/52 L 120/60 [Right Brachial artery] O2 Saturation 90 L 94 If not protocol 1 : Oxygen Flow, liters/minute 11/25/22 11/25/22 05:00 07:56 Temperature 36.3 C L 36.6 C Heart Rate [ 72 81 Brachial] Heart Rate [ Monitoring electrodes] Respiratory 18 16 Rate Blood Pressure Blood Pressure 127/59 L [Left Brachial artery] Blood Pressure 136/74 H [Right Brachial artery] O2 Saturation 92 92 If not protocol 1 1 : Oxygen Flow, liters/minute Oxygen O2 Source [With Activity] Nasal cannula O2 Source [Without Activity] Nasal cannula O2 Source Nasal cannula I&O (Last 24 Hrs): Intake and Output Totals x24h 11/23/22 11/24/22 11/25/22 23:59 23:59 23:59 Intake Total 530 350 Output Total 500 450 Balance 30 -100 General: Alert, No acute distress HEENT: Mucous membr. moist/pink, Other (Disheveled) Neck: Supple Neuro: Alert, Disoriented, Non Focal Cardiovascular: Regular rate, No murmurs Respiratory: No respiratory distress, Breath sounds nml Abdomen: Normal bowel sounds, Soft, No tenderness Extremities: No clubbing, No edema, No tenderness/swelling - Results Results: Laboratory Results WBC 8.0 x10^3/uL (4.8-10.8) 11/24/22 04:29 RBC 3.22 10^6/uL (4.20-5.40) L 11/24/22 04:29 Hgb 9.9 g/dL (12.0-16.0) L 11/24/22 04:29 Hct 31.3 % (37.0-47.0) L 11/24/22 04:29 MCV 97.2 fL (81.0-99.0) 11/24/22 04:29 MCH 30.7 pg (27.0-31.0) 11/24/22 04:29 MCHC 31.6 g/dL (32.0-36.0) L 11/24/22 04:29 RDW 14.1 % (12.0-15.0) 11/24/22 04:29 Plt Count 242 10^3/uL (130-450) 11/24/22 04:29 MPV 8.6 fL (7.9-10.8) 11/24/22 04:29 Neut # (Auto) 5.7 10^3/uL (1.5-6.6) 11/24/22 04:29 Lymph # (Auto) 1.2 10^3/uL (1.5-3.5) L 11/24/22 04:29 [place] # (Auto) 0.6 10^3/uL (0.0-1.0) 11/24/22 04:29 Eos # (Auto) 0.3 10^3/uL (0.0-0.7) 11/24/22 04:29 Baso # (Auto) 0.0 10^3/uL (0.0-0.1) 11/24/22 04:29 Absolute Nucleated RBC 0.00 x10^3/uL 11/24/22 04:29 Nucleated RBC % 0.0 /100WBC 11/24/22 04:29 VBG pH 7.420 (7.31-7.41) H 11/24/22 04:29 Ionized Calcium 1.12 mmol/L (1.15-1.33) L 11/24/22 04:29 Sodium 141 mmol/L (135-145) 11/25/22 04:37 Potassium 4.2 mmol/L (3.5-4.5) 11/25/22 04:37 Chloride 111 mmol/L (101-111) 11/25/22 04:37 Carbon Dioxide 25 mmol/L (21-32) 11/25/22 04:37 Anion Gap 5.0 (6-13) L 11/25/22 04:37 BUN 17 mg/dL (6-20) 11/25/22 04:37 Creatinine 0.7 mg/dL (0.6-1.3) 11/25/22 04:37 Estimated GFR (MDRD) 81 (>89) L 11/25/22 04:37 Glucose 99 mg/dL (74-104) 11/25/22 04:37 Calcium 8.5 mg/dL (8.5-10.3) 11/25/22 04:37 Phosphorus 3.1 mg/dL (2.5-5.0) 11/24/22 04:29 Magnesium 2.0 mg/dL (1.7-2.8) 11/22/22 04:57 Total Bilirubin 0.7 mg/dL (0.2-1.0) 11/22/22 04:57 AST 55 IU/L (10-42) H 11/22/22 04:57 ALT 17 IU/L (10-60) 11/22/22 04:57 Alkaline Phosphatase 66 IU/L (42-121) 11/22/22 04:57 Troponin I High Sens 538.8 ng/L (2.3-14.8) H* 11/21/22 14:22 B-Natriuretic Peptide 823 pg/mL (5-100) H 11/21/22 11:05 Total Protein 6.1 g/dL (6.7-8.2) L 11/22/22 04:57 Albumin 3.1 g/dL (3.2-5.5) L 11/22/22 04:57 Globulin 3.0 g/dL (2.1-4.2) 11/22/22 04:57 Albumin/Globulin Ratio 1.0 (1.0-2.2) 11/22/22 04:57 Lipase 24 U/L (22-51) 11/21/22 11:05 Vitamin B12 654 pg/mL (180-914) 11/22/22 04:57 Folate 16.0 ng/mL (5.90 - >24.8) 11/22/22 04:57 TSH 1.38 uIU/mL (0.34-5.60) 11/23/22 04:51 Urine Color YELLOW 11/21/22 14:35 Urine Clarity HAZY (CLEAR) 11/21/22 14:35 Urine pH 5.5 PH (5.0-7.5) 11/21/22 14:35 Ur Specific [place] 1.020 (1.002-1.030) 11/21/22 14:35 Urine Protein TRACE mg/dL (NEGATIVE) 11/21/22 14:35 Urine Glucose (UA) NEGATIVE mg/dL (NEGATIVE) 11/21/22 14:35 Urine Ketones NEGATIVE mg/dL (NEGATIVE) 11/21/22 14:35 Urine Occult Blood NEGATIVE (NEGATIVE) 11/21/22 14:35 Urine Nitrite POSITIVE (NEGATIVE) H 11/21/22 14:35 Urine Bilirubin NEGATIVE (NEGATIVE) 11/21/22 14:35 Urine Urobilinogen 1 (NORMAL) E.U./dL (NORMAL) 11/21/22 14:35 Ur Leukocyte Esterase TRACE (NEGATIVE) H 11/21/22 14:35 Urine RBC 0-5 /HPF (0-5) 11/21/22 14:35 Urine WBC 6-10 /HPF (0-5) H 11/21/22 14:35 Ur Squamous Epith Cells FEW Squamous (<= Few) 11/21/22 14:35 Urine Bacteria Moderate /HPF (None Seen) H 11/21/22 14:35 Ur Microscopic Review INDICATED 11/21/22 14:35 Urine Culture Comments INDICATED 11/21/22 14:35 Nasal Screen MRSA (PCR) NEGATIVE (NEGATIVE) 11/21/22 14:05 - Procedures Procedures: Procedures EXCISION OF DESCENDING COLON, ENDO, DIAGN (07/21/18) EXCISION OF DESCENDING COLON, PERC ENDO APPROACH (07/29/18) EXCISION OF ILEOCECAL VALVE, ENDO (07/21/18) EXCISION OF PELVIS LYMPHATIC, PERC ENDO APPROACH, DIAGN (07/29/18) EXCISION OF TRANSVERSE COLON, PERC ENDO APPROACH (07/29/18) INTRODUCTION OF OTH THERAP SUBST INTO LOW GI, ENDO (07/21/18) PARTIAL HIP REPLACEMENT (06/21/14) REPAIR ABDOMINAL WALL, PERCUTANEOUS ENDOSCOPIC APPROACH (07/29/18) RESECTION OF BILATERAL FALLOPIAN TUBES, PERC ENDO APPROACH (07/29/18) RESECTION OF BILATERAL OVARIES, PERC ENDO APPROACH (07/29/18)
[2022-11-25] MEDS: ENOXAPARIN 40 MG/0.4 ML SYRINGE SUBQ SCH (08:52)
[2022-11-25] MEDS: FUROSEMIDE 20 MG/2 ML VIAL IVP SCH ×2 (08:52→13:42)
[2022-11-25] MEDS: cefTRIAXone 1 GM in SODIUM CHLORIDE 0.9% MINIBAG 100 ML IV SCH (08:56)
[2022-11-25] MEDS: CARBIDOPA/LEVODOPA 25 MG/100 MG TABLET PO SCH ×5 (08:57→23:41)
[2022-11-25] MEDS: ASPIRIN CHEW 81 MG TABLET PO SCH (08:57)
[2022-11-25] MEDS: QUEtiapine 25 MG TABLET PO SCH ×2 (08:58→20:58)
[2022-11-25] MEDS: DOCUSATE SODIUM 100 MG CAPSULE PO SCH ×2 (08:58→21:02)
[2022-11-25] MEDS: RIVASTIGMINE TARTRATE 3 MG PO SCH ×2 (08:58→20:59)
[2022-11-25] MEDS: MULTIVITAMIN TABLET PO SCH (08:58)
[2022-11-25] MEDS: FAMOTIDINE 20 MG TABLET PO SCH (08:58)
[2022-11-25] MEDS: SACCHAROMYCES BOULARDII 250 MG CAPSULE PO SCH ×2 (08:58→17:01)
[2022-11-25] MEDS: METOPROLOL TARTRATE 25 MG TABLET PO SCH ×2 (08:59→20:58)
[2022-11-25] MEDS: polyethylene glycoL 3350 17 GM PACKET PO SCH (08:59)
[2022-11-25] MEDS: cephALEXin 250 MG CAPSULE PO SCH ×3 (12:39→23:42)
[2022-11-25] MEDS: SODIUM CHLORIDE FLUSH 0.9% 10 ML SYRINGE IVP PRN (13:43)
[2022-11-25] MEDS: CITALOPRAM 10 MG TABLET PO SCH (20:58)
[2022-11-26] MEDS: FUROSEMIDE 20 MG/2 ML VIAL IVP SCH ×2 (06:14→13:54)
[2022-11-26] MEDS: cephALEXin 250 MG CAPSULE PO SCH ×3 (06:29→17:34)
[2022-11-26] MEDS: DOCUSATE SODIUM 100 MG CAPSULE PO SCH ×2 (08:29→21:26)
[2022-11-26] MEDS: polyethylene glycoL 3350 17 GM PACKET PO SCH (08:29)
[2022-11-26] MEDS: RIVASTIGMINE TARTRATE 3 MG PO SCH ×2 (08:29→21:25)
[2022-11-26] MEDS: ASPIRIN CHEW 81 MG TABLET PO SCH (08:30)
[2022-11-26] MEDS: CARBIDOPA/LEVODOPA 25 MG/100 MG TABLET PO SCH ×4 (08:30→21:25)
[2022-11-26] MEDS: FAMOTIDINE 20 MG TABLET PO SCH (08:31)
[2022-11-26] MEDS: MULTIVITAMIN TABLET PO SCH (08:31)
[2022-11-26] MEDS: METOPROLOL TARTRATE 25 MG TABLET PO SCH ×2 (08:31→21:25)
[2022-11-26] MEDS: SACCHAROMYCES BOULARDII 250 MG CAPSULE PO SCH ×2 (08:32→17:34)
[2022-11-26] MEDS: QUEtiapine 25 MG TABLET PO SCH ×2 (08:32→21:29)
[2022-11-26] MEDS: ENOXAPARIN 40 MG/0.4 ML SYRINGE SUBQ SCH (08:40)
[2022-11-26] MEDS: SODIUM CHLORIDE FLUSH 0.9% 10 ML SYRINGE IVP SCH ×2 (08:41→17:34)
[2022-11-26] MEDS: ACETAMINOPHEN 325 MG TABLET PO PRN ×2 (10:45→17:40)
--- NOTE | 2022-11-26 16:53 | PROVIDER PROGRESS NOTE ---
Assessment/Plan - Problem List (1) Hypoxia Assessment/Plan: At admission, the patient did not have hypoxia, it developed later. Her CXR was read as infiltrate and CHF. I did not start her on Lasix since she was dehydrated overall, and I wanted to let the fluids equilibrate. After 2 days, she needed suppl O2 at 2L>> 1L Since she is still requiring supplemental O2 today, I rechecked a chest x-ray which continued to show CHF and possible infiltrate and tiny effusions Plan: I started Lasix IV twice daily for 4 doses Target O2 sats are 92% and above, give supplemental O2 if needed (2) Pulmonary edema Conclusion/Plan: Her initial CXR was read as having a probable infiltrate and CHF. She probably went into flash pulmonary edema because of sudden rapid HR. Her periphery however was dehydrated with skin tenting at admission. Because the patient did not have hypoxia at admission, I did not start her on Lasix at admission. I wanted to let the fluids equilibrate. After 2 days, she required supplemental O2 and is still on 1-2L. Last chest x- ray continued to show CHF and possible infiltrate and tiny effusions Plan: I ordered Lasix IV twice daily for 4 doses I am awaiting her Echo result, to tailor treatment (the Echo was not done when Insole Presser was here last week, for unknown reason, and then we have no scheduled Insole Presser here for several days until tomorrow, ) Qualifiers: Chronicity: acute Qualified Code(s): J81.0 - Acute pulmonary edema (3) HCAP (healthcare-associated pneumonia) Conclusion/Plan: The patient did not have a cough but this could have been because she was intravascularly depleted. WBC was elevated. CXR showed an infiltrate. The ольга neal lives in a half-way and therefore we started treating a healthcare associated pneumonia. Blood cultures were done and a sputum culture, these are neg to date Plan: She got empiric Cefepime and Vanco, then was on Ceftriaxone, total of 5 days w/ iv antibx (4) UTI due to Klebsiella - N39.0 Conclusion/Plan: Her UA was not available until a catheterized specimen was obtained. The U/A was abnormal and she was already on Cefepime for the HCAP. On 11/25 the results returned showing 2 bacteria growing in the urine. Urine cx has Klebsiella pneumoniae and Aerococcus urinae. She was first on empiric cefepime then de-escalated to empiric ceftriaxone IV Per sensitivities are available now (which I reviewed). Her empiric IV cefepime and IV Ceftriaxone covered the Klebsiella pneumoniae, and the Aerococcus urinae Plan: I reviewed her sensitivities with our pharmacist James. In order to complete a 7 day course of treatment for the UTI, I will not change her to po Cipro which does not cover the Aerococcus, nor to po Amoxicillin or Nitrofurantoin, which does not cover the Klebsiella. I stopped her IV ceftriaxone on and started Keflex 500 mg p.o. every 6 hours. She needs today then 1 more days of treatment with this Keflex (5) Dementia associated with Parkinson's disease Conclusion/Plan: As per history. Patient has no tremor however she is minimally communicative which may be her flat affect. I reviewed her EMR. In the [facility] [place] there is mention of Parkinson's with frequent falls. Then more information was obtained from her RN speaking to the , who said the patient "can stand up but always ends up falling down". Plan: Cont the resumed Parkinson's meds Cont PT and OT She needs a shower, will order (6) Colon cancer Conclusion/Plan: I reviewed her EMR. The patient is followed in oncology [facility] [place] care. She had colon cancer. (7) AMS (altered mental status) Conclusion/Plan: IMPROVED She carries a diagnosis of dementia and Parkinson's Patient is mostly nonverbal here, she is in no distress. She is able to follow directions, was able to get up and walk from bed to chair using a walker, leaning forward. Then she mostly was sleeping all day sitting upright in her chair Plan: Cont her Parkinson's meds Continue to treat her UTI, HCAP and hypoxia She needs a shower, will order (8) Atrial flutter with rapid ventricular response Assessment/Plan: RESOLVED Aflutter w/ RVR was the reason she was admitted, when her heart rate was found to be 150 at the half-way. The finding of a pneumonia could be the reason the patient went into new atrial flutter. She required a diltiazem drip for rate control, and was admitted to the ICU. Upon presentation to the ICU the patient converted spontaneously to NSR at a rate of 80. Her B-daron was increased and the diltiazem drip was titrated to off. She then has had short runs of SVT. Her EMR described frequent falls. Therefore I did not start anticoagulation and continued the 1 baby aspirin daily, which she was on. A set of troponins ruled out ACS as the cause of the new a flutter Her TSH came back WNL at 1.38 (all labs were reviewed) Plan: Cont the increased B-daron, changed from daily to twice daily, in order to suppress the PSVT's and VT. She occasionally does not swallow, so meds need to be crushed. Therefore, I had to change her Toprol-XL to Metoprolol Tartrate so it can be crushed (9) VTach Conclusion/Plan: RESOLVED Patient was having monomorphic V. tach runs, which were asymptomatic (telem was reviewed). Assured that her magnesium, potassium and other electrolytes are normal, replace if low Plan: I am awaiting her Echo result to tailor treatment Cont the increased daily Metoprolol to twice daily both for suppressing SVT/atrial flutter and it will help the VTach as well. - Current Meds Current Meds: Current Medications Generic Name Dose Route Start Last Admin Trade Name Freq PRN Reason Stop Dose Admin Acetaminophen 650 mg 11/21/22 13:15 11/26/22 10:45 Acetaminophen 325 Mg Tablet PO 650 mg Q4HR PRN Administration Pain 1 to 4, or Fever Aspirin 81 mg 11/22/22 09:00 11/26/22 08:30 Aspirin Chew 81 Mg Tablet PO 81 mg DAILY ELENO Administration Carbidopa/Levodopa 2 tab 11/21/22 17:00 11/26/22 13:00 Carbidopa/Levodopa 25 Mg/100 Mg Tablet PO 2 tab QID ELENO Administration Carbidopa/Levodopa 2 tab 11/23/22 23:00 11/25/22 23:41 Carbidopa/Levodopa 25 Mg/100 Mg Tablet PO 2 tab 2300 ELENO Administration Cephalexin 500 mg 11/25/22 12:00 11/26/22 13:01 Cephalexin 250 Mg Capsule PO 500 mg Q6HR ELENO Administration Citalopram Hydrobromide 10 mg 11/21/22 21:00 11/25/22 20:58 Citalopram 10 Mg Tablet PO 10 mg QPM ELENO Administration Docusate Sodium 200 mg 11/21/22 21:00 11/26/22 08:29 Docusate Sodium 100 Mg Capsule PO 200 mg BID ELENO Administration Enoxaparin Sodium 40 mg 11/22/22 09:00 11/26/22 08:40 Enoxaparin 40 Mg/0.4 Ml Syringe SUBQ 40 mg DAILY ELENO Administration Famotidine 20 mg 11/22/22 09:00 11/26/22 08:31 Famotidine 20 Mg Tablet PO 20 mg DAILY ELENO Administration Furosemide 20 mg 11/25/22 08:12 11/26/22 13:54 Furosemide 20 Mg/2 Ml Vial IVP 20 mg BIDDIURETIC ELENO Administration Metoprolol Tartrate 25 mg 11/23/22 21:00 11/26/22 08:31 Metoprolol Tartrate 25 Mg Tablet PO 25 mg BID ELENO Administration Multivitamins 1 tab 11/22/22 12:00 11/26/22 08:31 Multivitamin Tablet PO 1 tab DAILYWM ELENO Administration Rivastigmine 1 each 11/21/22 21:00 11/26/22 08:29 Tartrate [ PO 1 each Rivastigmine] 3 Mg BID ELENO Administration Capsule Polyethylene Glycol 17 gm 11/21/22 16:28 11/26/22 08:29 Polyethylene Glycol 3350 17 Gm Packet PO 17 gm DAILY ELENO Administration Quetiapine Fumarate 25 mg 11/23/22 21:00 11/26/22 08:32 Quetiapine 25 Mg Tablet PO 25 mg BID ELENO Administration Saccharomyces Boulardii 250 mg 11/22/22 08:00 11/26/22 08:32 Saccharomyces Boulardii 250 Mg Capsule PO 250 mg BIDWM ELENO Administration Sodium Chloride 10 ml 11/21/22 17:00 11/26/22 08:41 Sodium Chloride Flush 0.9% 10 Ml Syringe IVP 10 ml 0100,0900,1700 ELENO Administration Sodium Chloride 10 ml 11/21/22 13:15 11/25/22 13:43 Sodium Chloride Flush 0.9% 10 Ml Syringe IVP 10 ml PRN PRN Administration NEEDED PER PROVIDER ORDERS - Lab Result Fish Bone Diagrams: 11/24/22 04:29 11/25/22 04:37 Subjective - Subjective Patient Reports: No Complaints Nursing Reports: Other (Mostly naps, sitting in a recliner chair, she does awaken speaks slowly, swallows, needs to be fed) Objective Vital Signs: Vital Signs - 24 hr 11/25/22 11/25/22 11/25/22 20:58 21:00 23:47 Temperature 37.0 C 36.8 C Heart Rate [ 93 77 Brachial] Respiratory 16 24 Rate Blood Pressure 124/51 L Blood Pressure 124/51 L 104/49 L [Right Brachial artery] O2 Saturation 92 95 If not protocol 1 : Oxygen Flow, liters/minute 11/26/22 11/26/22 11/26/22 05:57 07:51 08:01 Temperature 36.4 C L 36.9 C Heart Rate [ 73 88 Brachial] Respiratory 16 20 Rate Blood Pressure Blood Pressure 126/65 113/65 [Right Brachial artery] O2 Saturation 91 L 86 L 95 If not protocol 1 1 1.5 : Oxygen Flow, liters/minute 11/26/22 11/26/22 08:31 12:05 Temperature 36.4 C L Heart Rate [ 79 Brachial] Respiratory 16 Rate Blood Pressure 113/65 Blood Pressure 111/48 L [Right Brachial artery] O2 Saturation 95 If not protocol 1 : Oxygen Flow, liters/minute Oxygen O2 Source [With Activity] Nasal cannula O2 Source [Without Activity] Nasal cannula O2 Source Nasal cannula I&O (Last 24 Hrs): Intake and Output Totals x24h 11/24/22 11/25/22 11/26/22 23:59 23:59 23:59 Intake Total 350 460 200 Output Total 450 1900 1275 Balance -100 -1440 -1075 General: Other (Asleep) HEENT: Mucous membr. moist/pink, Other (wearing O2 per n.c.) Neck: Supple Neuro: Other (Somnolent, moves all extrem spont) Cardiovascular: No murmurs Respiratory: No respiratory distress Abdomen: Soft Extremities: No clubbing, No edema, No tenderness/swelling - Results Results: Laboratory Results WBC 8.0 x10^3/uL (4.8-10.8) 11/24/22 04:29 RBC 3.22 10^6/uL (4.20-5.40) L 11/24/22 04:29 Hgb 9.9 g/dL (12.0-16.0) L 11/24/22 04:29 Hct 31.3 % (37.0-47.0) L 11/24/22 04:29 MCV 97.2 fL (81.0-99.0) 11/24/22 04: MCH 30.7 pg (27.0-31.0) 11/24/22 04: MCHC 31.6 g/dL (32.0-36.0) L 11/24/22 04:29 RDW 14.1 % (12.0-15.0) 11/24/22 04:29 Plt Count 242 10^3/uL (130-450) 11/24/22 04:29 MPV 8.6 fL (7.9-10.8) 11/24/22 04:29 Neut # (Auto) 5.7 10^3/uL (1.5-6.6) 11/24/22 04: Lymph # (Auto) 1.2 10^3/uL (1.5-3.5) L 11/24/22 04:29 Grayson # (Auto) 0.6 10^3/uL (0.0-1.0) 11/24/22 04: Eos # (Auto) 0.3 10^3/uL (0.0-0.7) 11/24/22 04: Baso # (Auto) 0.0 10^3/uL (0.0-0.1) 11/24/22 04: Absolute Nucleated RBC 0.00 x10^3/uL 11/24/22 04: Nucleated RBC % 0.0 /100WBC 11/24/22 04:29 VBG pH 7.420 (7.31-7.41) H 11/24/22 04:29 Ionized Calcium 1.12 mmol/L (1.15-1.33) L 11/24/22 04:29 Sodium 141 mmol/L (135-145) 11/25/22 04:37 Potassium 4.2 mmol/L (3.5-4.5) 11/25/22 04:37 Chloride 111 mmol/L (101-111) 11/25/22 04:37 Carbon Dioxide 25 mmol/L (21-32) 11/25/22 04:37 Anion Gap 5.0 (6-13) L 11/25/22 04:37 BUN 17 mg/dL (6-20) 11/25/22 04:37 Creatinine 0.7 mg/dL (0.6-1.3) 11/25/22 04:37 Estimated GFR (MDRD) 81 (>89) L 11/25/22 04:37 Glucose 99 mg/dL (74-104) 11/25/22 04:37 Calcium 8.5 mg/dL (8.5-10.3) 11/25/22 04:37 Phosphorus 3.1 mg/dL (2.5-5.0) 11/24/22 04:29 Magnesium 2.0 mg/dL (1.7-2.8) 11/22/22 04:57 Total Bilirubin 0.7 mg/dL (0.2-1.0) 11/22/22 04:57 AST 55 IU/L (10-42) H 11/22/22 04:57 ALT 17 IU/L (10-60) 11/22/22 04:57 Alkaline Phosphatase 66 IU/L (42-121) 11/22/22 04:57 Troponin I High Sens 538.8 ng/L (2.3-14.8) H* 11/21/22 14:22 B-Natriuretic Peptide 823 pg/mL (5-100) H 11/21/22 11:05 Total Protein 6.1 g/dL (6.7-8.2) L 11/22/22 04:57 Albumin 3.1 g/dL (3.2-5.5) L 11/22/22 04:57 Globulin 3.0 g/dL (2.1-4.2) 11/22/22 04:57 Albumin/Globulin Ratio 1.0 (1.0-2.2) 11/22/22 04:57 Lipase 24 U/L (22-51) 11/21/22 11:05 Vitamin B12 654 pg/mL (180-914) 11/22/22 04:57 Folate 16.0 ng/mL (5.90 - >24.8) 11/22/22 04:57 TSH 1.38 uIU/mL (0.34-5.60) 11/23/22 04:51 Urine Color YELLOW 11/21/22 14:35 Urine Clarity HAZY (CLEAR) 11/21/22 14:35 Urine pH 5.5 PH (5.0-7.5) 11/21/22 14:35 Ur Specific Benson 1.020 (1.002-1.030) 11/21/22 14:35 Urine Protein TRACE mg/dL (NEGATIVE) 11/21/22 14:35 Urine Glucose (UA) NEGATIVE mg/dL (NEGATIVE) 11/21/22 14:35 Urine Ketones NEGATIVE mg/dL (NEGATIVE) 11/21/22 14:35 Urine Occult Blood NEGATIVE (NEGATIVE) 11/21/22 14:35 Urine Nitrite POSITIVE (NEGATIVE) H 11/21/22 14:35 Urine Bilirubin NEGATIVE (NEGATIVE) 11/21/22 14:35 Urine Urobilinogen 1 (NORMAL) E.U./dL (NORMAL) 11/21/22 14:35 Ur Leukocyte Esterase TRACE (NEGATIVE) H 11/21/22 14:35 Urine RBC 0-5 /HPF (0-5) 11/21/22 14:35 Urine WBC 6-10 /HPF (0-5) H 11/21/22 14:35 Ur Squamous Epith Cells FEW Squamous (<= Few) 11/21/22 14:35 Urine Bacteria Moderate /HPF (None Seen) H 11/21/22 14:35 Ur Microscopic Review INDICATED 11/21/22 14:35 Urine Culture Comments INDICATED 11/21/22 14:35 Nasal Screen MRSA (PCR) NEGATIVE (NEGATIVE) 11/21/22 14:05 - Procedures Procedures: Procedures EXCISION OF DESCENDING COLON, ENDO, DIAGN (07/21/18) EXCISION OF DESCENDING COLON, PERC ENDO APPROACH (07/29/18) EXCISION OF ILEOCECAL VALVE, ENDO (07/21/18) EXCISION OF PELVIS LYMPHATIC, PERC ENDO APPROACH, DIAGN (07/29/18) EXCISION OF TRANSVERSE COLON, PERC ENDO APPROACH (07/29/18) INTRODUCTION OF OTH THERAP SUBST INTO LOW GI, ENDO (07/21/18) PARTIAL HIP REPLACEMENT (06/21/14) REPAIR ABDOMINAL WALL, PERCUTANEOUS ENDOSCOPIC APPROACH (07/29/18) RESECTION OF BILATERAL FALLOPIAN TUBES, PERC ENDO APPROACH (07/29/18) RESECTION OF BILATERAL OVARIES, PERC ENDO APPROACH (07/29/18)
[2022-11-26] MEDS: CITALOPRAM 10 MG TABLET PO SCH (21:25)
[2022-11-27] MEDS: CARBIDOPA/LEVODOPA 25 MG/100 MG TABLET PO SCH ×5 (00:13→20:34)
[2022-11-27] MEDS: cephALEXin 250 MG CAPSULE PO SCH ×4 (00:14→16:46)
[2022-11-27] MEDS: SODIUM CHLORIDE FLUSH 0.9% 10 ML SYRINGE IVP SCH ×3 (00:14→16:46)
[2022-11-27] MEDS: FUROSEMIDE 20 MG/2 ML VIAL IVP SCH (05:28)
[2022-11-27 06:48] LABS: BASOPHILS # (AUTO) 0.1 10^3/uL (0.0-0.1); BASOPHILS % (AUTO) 0.5 %; EOSINOPHILS # (AUTO) 0.4 10^3/uL (0.0-0.7); EOSINOPHILS % (AUTO) 3.1 %; HGB - HEMOGLOBIN 11.4 g/dL (12.0-16.0); LYMPHOCYTES # (AUTO) 1.5 10^3/uL (1.5-3.5); MEAN CORPUSCULAR HEMOGLOBIN 30.8 pg (27.0-31.0); MEAN CORPUSCULAR HGB CONC 31.7 g/dL (32.0-36.0); MEAN CORPUSCULAR VOLUME 97.3 fL (81.0-99.0); MEAN PLATELET VOLUME 8.5 fL (7.9-10.8); MONOCYTES # (AUTO) 0.8 10^3/uL (0.0-1.0); MONOCYTES % (AUTO) 6.5 %; NEUTROPHILS # (AUTO) 9.4 10^3/uL (1.5-6.6); NEUTROPHILS % (AUTO) 77.3 %; PLT - PLATELET COUNT 260 10^3/uL (130-450); RED CELL DISTRIBUTION WIDTH 14.2 % (12.0-15.0); WHITE BLOOD COUNT 12.2 x10^3/uL (4.8-10.8)
[2022-11-27 07:34] LABS: ALBUMIN 3.2 g/dL (3.2-5.5); ALBUMIN/GLOBULIN RATIO 1.1 (1.0-2.2); BILIRUBIN,TOTAL 0.4 mg/dL (0.2-1.0); MAGNESIUM 1.8 mg/dL (1.7-2.3); PHOSPHORUS 3.4 mg/dL (2.5-5.0); POTASSIUM 4.4 mmol/L (3.5-4.5); TOTAL PROTEIN 6.1 g/dL (6.4-8.9)
--- NOTE | 2022-11-27 08:09 | PROVIDER PROGRESS NOTE ---
Subjective - Prog Note Date Prog Note Date: 11/27/22 - Subjective Subjective: Denies shortness of breath or chest pain. Current Medications - Current Medications Current Medications: Active Medications Acetaminophen (Acetaminophen 325 Mg Tablet) 650 mg PO Q4HR PRN PRN Reason: Pain 1 to 4, or Fever Last Admin: 11/26/22 17:40 Dose: 650 mg Acetaminophen (Acetaminophen 325 Mg Tablet) 650 mg PO Q6H PRN PRN Reason: FEVER > 100.5 F Aspirin (Aspirin Chew 81 Mg Tablet) 81 mg PO DAILY [facility] Last Admin: 11/27/22 08:13 Dose: 81 mg Bisacodyl (Bisacodyl 10 Mg Supp) 10 mg [place] DAILY PRN PRN Reason: Constipation Carbidopa/Levodopa (Carbidopa/Levodopa 25 Mg/100 Mg Tablet) 2 tab PO QID [facility] Last Admin: 11/27/22 08:14 Dose: 2 tab Carbidopa/Levodopa (Carbidopa/Levodopa 25 Mg/100 Mg Tablet) 2 tab PO 2300 [facility] Last Admin: 11/27/22 00:13 Dose: 2 tab Cephalexin (Cephalexin 250 Mg Capsule) 500 mg PO Q6HR [facility] Last Admin: 11/27/22 05:28 Dose: 500 mg Citalopram Hydrobromide (Citalopram 10 Mg Tablet) 10 mg PO QPM [facility] Last Admin: 11/26/22 21:25 Dose: 10 mg Docusate Sodium (Docusate Sodium 100 Mg Capsule) 200 mg PO BID [facility] Last Admin: 11/27/22 08:14 Dose: Not Given Enoxaparin Sodium (Enoxaparin 40 Mg/0.4 Ml Syringe) 40 mg SUBQ DAILY [facility] Last Admin: 11/27/22 08:14 Dose: 40 mg Famotidine (Famotidine 20 Mg Tablet) 20 mg PO DAILY [facility] Last Admin: 11/27/22 08:14 Dose: 20 mg Furosemide (Furosemide 20 Mg Tablet) 20 mg PO BIDDIURETIC [facility] Metoprolol Tartrate (Metoprolol Tartrate 25 Mg Tablet) 25 mg PO BID [facility] Last Admin: 11/27/22 08:14 Dose: 25 mg Mineral Oil (Min Oil/Dimethicon/Coconut Oil 92 Gm Tube) 1 applic TOP PRN PRN PRN Reason: Skin Care Multivitamins (Multivitamin Tablet) 1 tab PO DAILYWM [facility] Last Admin: 11/27/22 08:14 Dose: 1 tab Ondansetron HCl (Ondansetron 4 Mg/2 Ml Vial) 4 mg IVP Q6HR PRN PRN Reason: Nausea / Vomiting Rivastigmine Tartrate [ Rivastigmine] 3 Mg Capsule 1 each PO BID [facility] Last Admin: 11/27/22 08:13 Dose: 1 each Polyethylene Glycol (Polyethylene Glycol 3350 17 Gm Packet) 17 gm PO DAILY [facility] Last Admin: 11/27/22 08:15 Dose: Not Given Quetiapine Fumarate (Quetiapine 25 Mg Tablet) 25 mg PO BID [facility] Last Admin: 11/27/22 08:14 Dose: 25 mg Saccharomyces Boulardii (Saccharomyces Boulardii 250 Mg Capsule) [facility] [place] [facility] Admin: 11/27/22 08:13 Dose: 250 mg Senna (Senna 8.6 Mg Tablet) 17.2 mg PO QPM PRN PRN Reason: Constipation Sodium Chloride (Sodium Chloride Flush 0.9% 10 Ml Syringe) 10 ml IVP 0100,0900,1700 [facility] Last Admin: 11/27/22 08:15 Dose: 10 ml Sodium Chloride (Sodium Chloride Flush 0.9% 10 Ml Syringe) 10 ml IVP PRN PRN PRN Reason: NEEDED PER PROVIDER ORDERS Last Admin: 11/25/22 13:43 Dose: 10 ml Carbidopa/Levodopa 25/100 [Sinemet 25 mg/100 mg] 2 tab PO HS 06/23/14 Citalopram [CeleXA] 10 mg PO QPM 06/23/14 Carbidopa/Levodopa 25/100 [Sinemet 25 mg/100 mg] 2 tab PO QID 07/29/18 Atorvastatin [Lipitor] 20 mg PO DAILY PM 12/28/20 Metoprolol Succinate [Toprol Xl] 25 mg PO DAILY 12/28/20 Quetiapine Fumarate [Seroquel] 50 mg PO BID 07/06/21 Rivastigmine Tartrate [Rivastigmine] 3 mg PO BID 07/06/21 Bisacodyl Supp [Dulcolax Supp] 10 mg [place] DAILY PRN 01/31/22 Acetaminophen [Tylenol] 650 mg PO Q6H PRN 11/21/22 Aspirin [[place] Aspirin] 81 mg PO DAILY 11/21/22 Docusate Sodium 100Mg Capsule [Colace 100Mg Capsule] 200 mg PO BID 11/21/22 Mineral Oil [Mineral Oil Enema] 1 unit [place] ONCE PRN 11/21/22 Senna [Senokot] 2 tab PO QPM PRN 11/21/22 polyethylene glycoL 3350 [Miralax] 17 g PO ONCE PRN 11/21/22 Objective - Vital Signs/Intake & Output Reviewed Vital Signs: Yes Vital Signs: Vital Signs x48h Temp Pulse Resp BP Pulse Ox O2 Flow Rate 11/27/22 05:01 36.2 C L 72 18 123/55 L 98 1 Intake & Output: Intake & Output 11/24/22 11/25/22 11/26/22 11/27/22 23:59 23:59 23:59 23:59 Intake Total 350 460 400 Output Total 450 1900 1575 100 Balance -100 -1440 -1175 -100 - Objective General Appearance: positive: No acute distress, Alert Eyes Bilateral: positive: Normal inspection, Conjunctivae nml ENT: positive: ENT inspection nml Neck: positive: Nml inspection Respiratory: positive: No respiratory distress. negative: Wheezes, Rales Cardiovascular: positive: Regular rate & rhythm, No murmur. negative: Tachycardia Abdomen: positive: Non-tender, No distention. negative: Tenderness Skin: positive: Warm, Dry Extremities: positive: No pedal edema Neurologic/Psychiatric: positive: Disoriented to place, Disoriented to time, Other (No focal deficits.). negative: Disoriented to person - Lab Results Fish Bones: 11/27/22 06:27 11/27/22 06:27 Other Labs: Lab Results x24hrs 11/27/22 11/27/22 11/27/22 Range/Units 06:27 06:27 06:27 WBC 12.2 H (4.8-10.8) x10^3/uL RBC 3.70 L (4.20-5.40) 10^6/uL Hgb 11.4 L (12.0-16.0) g/dL Hct 36.0 L (37.0-47.0) % MCV 97.3 (81.0-99.0) fL MCH 30.8 (27.0-31.0) pg MCHC 31.7 L (32.0-36.0) g/dL RDW 14.2 (12.0-15.0) % Plt Count 260 (130-450) 10^3/uL MPV 8.5 (7.9-10.8) fL Neut # (Auto) 9.4 H (1.5-6.6) 10^3/uL Lymph # (Auto) 1.5 (1.5-3.5) 10^3/uL [place] # (Auto) 0.8 (0.0-1.0) 10^3/uL Eos # (Auto) 0.4 (0.0-0.7) 10^3/uL Baso # (Auto) 0.1 (0.0-0.1) 10^3/uL Absolute Nucleated RBC 0.00 x10^3/uL Nucleated RBC % 0.0 /100WBC Sodium 145 (135-145) mmol/L Potassium 4.4 (3.5-4.5) mmol/L Chloride 105 (101-111) mmol/L Carbon Dioxide 34 H (21-32) mmol/L Anion Gap 6.0 (6-13) BUN 19 (6-20) mg/dL Creatinine 1.0 (0.6-1.3) mg/dL Estimated GFR (MDRD) 54 L (>89) Glucose 104 (74-104) mg/dL POC Whole Bld Glucose (70 - 100) mg/dL Calcium 9.0 (8.5-10.3) mg/dL Phosphorus 3.4 (2.5-5.0) mg/dL Magnesium 1.8 (1.7-2.3) mg/dL Total Bilirubin 0.4 (0.2-1.0) mg/dL AST 20 (10-42) IU/L ALT 16 (10-60) IU/L Alkaline Phosphatase 79 (42-121) IU/L B-Natriuretic Peptide 217 H (5-100) pg/mL Total Protein 6.1 L (6.4-8.9) g/dL Albumin 3.2 (3.2-5.5) g/dL Globulin 2.9 (2.1-4.2) g/dL Albumin/Globulin Ratio 1.1 (1.0-2.2) 11/26/22 Range/Units 16:50 WBC (4.8-10.8) x10^3/uL RBC (4.20-5.40) 10^6/uL Hgb (12.0-16.0) g/dL Hct (37.0-47.0) % MCV (81.0-99.0) fL MCH (27.0-31.0) pg MCHC (32.0-36.0) g/dL RDW (12.0-15.0) % Plt Count (130-450) 10^3/uL MPV (7.9-10.8) fL Neut # (Auto) (1.5-6.6) 10^3/uL Lymph # (Auto) (1.5-3.5) 10^3/uL [place] # (Auto) (0.0-1.0) 10^3/uL Eos # (Auto) (0.0-0.7) 10^3/uL Baso # (Auto) (0.0-0.1) 10^3/uL Absolute Nucleated RBC x10^3/uL Nucleated RBC % /100WBC Sodium (135-145) mmol/L Potassium (3.5-4.5) mmol/L Chloride (101-111) mmol/L Carbon Dioxide (21-32) mmol/L Anion Gap (6-13) BUN (6-20) mg/dL Creatinine (0.6-1.3) mg/dL Estimated GFR (MDRD) (>89) Glucose (74-104) mg/dL POC Whole Bld Glucose 100 (70 - 100) mg/dL Calcium (8.5-10.3) mg/dL Phosphorus (2.5-5.0) mg/dL Magnesium (1.7-2.3) mg/dL Total Bilirubin (0.2-1.0) mg/dL AST (10-42) IU/L ALT (10-60) IU/L Alkaline Phosphatase (42-121) IU/L B-Natriuretic Peptide (5-100) pg/mL Total Protein (6.4-8.9) g/dL Albumin (3.2-5.5) g/dL Globulin (2.1-4.2) g/dL Albumin/Globulin Ratio (1.0-2.2) Assessment/Plan - Problem List (1) Hypoxia Impression: Initially treated for HCAP and CHF for the hypoxia. She is still 0.5 L of oxygen but her oxygen saturations are improved and BNP is trending down to the 200s. She does not appear to have crackles on exam and she has no lower extremity edema. Chest x-ray from 11/25 suggested ongoing pulmonary edema. Plan: We will continue with IV Lasix this morning before switching to oral diuretics this afternoon and I suspect she should be on room air by then If she is still hypoxic we will repeat chest x-ray otherwise she can hopefully be discharged tomorrow if she is on room air and tolerating oral diuretics (2) Pulmonary edema Conclusion/Plan: Her initial CXR was read as having a probable infiltrate and CHF. She probably went into flash pulmonary edema because of sudden rapid HR. Chest x-ray from 11/25 suggest ongoing pulmonary edema but her oxygen requirements are improved as mentioned above. Echocardiogram revealed a preserved ejection fraction. Her BNP is down to the 200s from 800s on admission. Plan: Continue IV Lasix this morning for switching to oral diuretics this afternoon Continue strict I's and O's and daily weights Qualifiers: Chronicity: acute Qualified Code(s): J81.0 - Acute pulmonary edema (3) HCAP (healthcare-associated pneumonia) Conclusion/Plan: The patient did not have a cough but this could have been because she was intravascularly depleted. WBC was elevated. CXR showed an infiltrate. She was treated for HCAP initially given she resides at a alf. Blood cultures have been negative to date and IV antibiotics have been discontinued. (4) UTI due to Klebsiella - N39.0 Conclusion/Plan: Her UA was not available until a catheterized specimen was obtained. The U/A was abnormal and she was already on Cefepime for the HCAP. On 11/25 the results returned showing 2 bacteria growing in the urine. Urine cx has Klebsiella pneumoniae and Aerococcus urinae. She was first on empiric cefepime then de-escalated to empiric ceftriaxone IV. Now on keflex. Plan: Continue Keflex to treat for total of 7 days with today being the last day (5) Dementia associated with Parkinson's disease Conclusion/Plan: Patient has no tremor however she is minimally communicative which may be her flat affect. Plan: Cont the resumed Parkinson's meds Cont PT and OT (6) Colon cancer Conclusion/Plan: The patient is followed in oncology [facility] clinic care. She had colon cancer. (7) AMS (altered mental status) Conclusion/Plan: IMPROVED She carries a diagnosis of dementia and Parkinson's. Patient is minimially verbal here, she is in no distress. She is able to follow directions, was able to get up and walk from bed to chair using a walker, leaning forward. At baseline. Plan: Cont her Parkinson's meds (8) Atrial flutter with rapid ventricular response Assessment/Plan: RESOLVED Aflutter w/ RVR was the reason she was admitted, when her heart rate was found to be 150 at the alf. The finding of a pneumonia could be the reason the patient went into new atrial flutter. She required a diltiazem drip for rate control, and was admitted to the ICU. Upon presentation to the ICU the patient converted spontaneously to NSR at a rate of 80. Her B-daron was increased and the diltiazem drip was titrated to off. She then has had short runs of SVT. Her EMR described frequent falls. A set of troponins ruled out ACS as the cause of the new a flutter Her TSH came back WNL at 1.38 (all labs were reviewed) Plan: Continue the increased B-daron, changed from daily to twice daily, in order to suppress the PSVT's and VT Continue aspirin (9) VTach Conclusion/Plan: RESOLVED Patient was having monomorphic V. tach runs, which were asymptomatic. Echocardiogram revealed no significant structural disease Plan: Continue Metoprolol twice daily both for suppressing SVT/atrial flutter and it will help the VTach as well.
[2022-11-27] MEDS: ASPIRIN CHEW 81 MG TABLET PO SCH (08:13)
[2022-11-27] MEDS: SACCHAROMYCES BOULARDII 250 MG CAPSULE PO SCH ×2 (08:13→16:46)
[2022-11-27] MEDS: RIVASTIGMINE TARTRATE 3 MG PO SCH ×2 (08:13→20:34)
[2022-11-27] MEDS: FAMOTIDINE 20 MG TABLET PO SCH (08:14)
[2022-11-27] MEDS: MULTIVITAMIN TABLET PO SCH (08:14)
[2022-11-27] MEDS: QUEtiapine 25 MG TABLET PO SCH ×2 (08:14→20:34)
[2022-11-27] MEDS: METOPROLOL TARTRATE 25 MG TABLET PO SCH ×2 (08:14→20:34)
[2022-11-27] MEDS: DOCUSATE SODIUM 100 MG CAPSULE PO SCH ×2 (08:14→20:35)
[2022-11-27] MEDS: ENOXAPARIN 40 MG/0.4 ML SYRINGE SUBQ SCH (08:14)
[2022-11-27] MEDS: polyethylene glycoL 3350 17 GM PACKET PO SCH (08:15)
[2022-11-27] MEDS: FUROSEMIDE 20 MG TABLET PO SCH (13:02)
[2022-11-27] MEDS: ACETAMINOPHEN 325 MG TABLET PO PRN (20:34)
[2022-11-27] MEDS: CITALOPRAM 10 MG TABLET PO SCH (20:34)
[2022-11-28] MEDS: CARBIDOPA/LEVODOPA 25 MG/100 MG TABLET PO SCH ×3 (00:13→12:23)
[2022-11-28] MEDS: SODIUM CHLORIDE FLUSH 0.9% 10 ML SYRINGE IVP SCH ×2 (00:14→09:15)
[2022-11-28] MEDS: cephALEXin 250 MG CAPSULE PO SCH ×3 (00:16→12:23)
--- NOTE | 2022-11-28 00:38 | PROVIDER PROGRESS NOTE ---
Battery Container Inspector Note - Battery Container Inspector Note Battery Container Inspector Note: Battery Container Inspector Telemedicine Note: RN message- "Patient has been admitted since the for a fib rvr that has resolved, at baseline hx of dementia and parkinsons, has been very minimally communicative and flat, however was alert x1 per previous shift and was able to follow commands, currently only responds to painful stimuli, groans only no words, does not follow commands, she was given Seroquel 25,sinemet,celexa and rivastigmine at about 2100 tonight.Not sure if thats contributing.Her sinemet and abx were held tonight, due to current status." Chart reviewed. Orders placed: Stat CT Head ~Phuong Shannon MD Hospitalist
--- NOTE | 2022-11-28 02:03 | CT Report ---
PROCEDURE: HEAD WO INDICATIONS: AMS TECHNIQUE: Noncontrast 4.5 mm thick angled axial sections acquired from the foramen magnum to the vertex. For r adiation dose reduction, the following was used: automated exposure control, adjustment of mA and/or kV according to patient size. COMPARISON: CT head 01/31/2022. FINDINGS: Image quality: Excellent. CSF spaces: Basal cisterns are patent. No extra-axial fluid collections. Ventricles are symmetric in size and shape. Brain: No midline shift. No intracranial masses or hemorrhage. Hypodensities in the subcortical and periventricular white matter are most commonly seen in setting of chronic microvascular ischemic carlee nges. Age-related cerebral and cerebellar volume loss is seen. Intracranial vascular calcifications a re noted in the internal carotid arteries. Skull and face: Calvarium and visualized facial bones are intact, without suspicious lesions. Sinuses: Visualized sinuses and mastoids are clear. IMPRESSION: No acute intracranial abnormality. Stable chronic findings. Reviewed by: Agustin Ponce MD on 11/28/2022 2:02 AM PDT Approved by: Agustin Ponce MD on 11/28/2022 2:02 AM PDT Station ID: [id number]
[2022-11-28] MEDS ORDERED: DEXTROSE 40% GEL 37.5 GM TUBE PO ONE ×2 (02:42)
[2022-11-28] MEDS ORDERED: DEXTROSE 50% ABBOJECT 25 GM/50 ML SYRINGE IVP ONE ×3 (02:42)
[2022-11-28] MEDS ORDERED: GLUCAGON 1 MG/ML VIAL SUBQ ONE ×3 (02:42)
--- NOTE | 2022-11-28 02:45 | PROVIDER PROGRESS NOTE ---
Substation Operator Helper Note - Substation Operator Helper Note Substation Operator Helper Note: Consult Information Member Facility: [facility] Facility Visit/ Requesting Clinician: Tatiana Elizalde Patient Name: Delaney Grande Date of : 1945 Gender: Female Reason for Consult Reason for Consult: Review Patient Care Clinical Note Clinical Note: per rn - "CT results back,patients exam about the same, does open eyes at times, blood pressure a bit soft 103/42 map of 57,,she did have 17 beats of extreme tachycardia( in the 130) strip in chart, her breathing pattern is better does have some episodes of apnea,blood sugar is in the 90's, patient currently does not pass dysphagia screen" check cbc, cmp, mag start LR @ 75 ml/hr check MRI brain hypoglycemia protocol
[2022-11-28] MEDS ORDERED: DEXTROSE 5% 1,000 ML IV SCH ×6 (03:00)
[2022-11-28] MEDS ORDERED: LACTATED RINGERS 1,000 ML IV SCH (03:00)
[2022-11-28 03:30] LABS: BASOPHILS # (AUTO) 0.1 10^3/uL (0.0-0.1); BASOPHILS % (AUTO) 0.7 %; EOSINOPHILS # (AUTO) 0.4 10^3/uL (0.0-0.7); EOSINOPHILS % (AUTO) 3.4 %; HCT - HEMATOCRIT 34.6 % (37.0-47.0); HGB - HEMOGLOBIN 10.8 g/dL (12.0-16.0); LYMPHOCYTES # (AUTO) 2.1 10^3/uL (1.5-3.5); LYMPHOCYTES % (AUTO) 20.3 %; MEAN CORPUSCULAR HEMOGLOBIN 30.6 pg (27.0-31.0); MEAN CORPUSCULAR HGB CONC 31.2 g/dL (32.0-36.0); MEAN PLATELET VOLUME 8.7 fL (7.9-10.8); MONOCYTES # (AUTO) 0.8 10^3/uL (0.0-1.0); MONOCYTES % (AUTO) 7.6 %; NEUTROPHILS # (AUTO) 7.1 10^3/uL (1.5-6.6); NEUTROPHILS % (AUTO) 67.5 %; PLT - PLATELET COUNT 242 10^3/uL (130-450); RED BLOOD COUNT 3.53 10^6/uL (4.20-5.40); RED CELL DISTRIBUTION WIDTH 14.1 % (12.0-15.0); WHITE BLOOD COUNT 10.5 x10^3/uL (4.8-10.8)
[2022-11-28 03:43] LABS: ALBUMIN 3.1 g/dL (3.2-5.5); ALBUMIN/GLOBULIN RATIO 1.1 (1.0-2.2); BILIRUBIN,TOTAL 0.3 mg/dL (0.2-1.0); CALCIUM 8.7 mg/dL (8.5-10.3); CREATININE 0.9 mg/dL (0.6-1.3); MAGNESIUM 1.8 mg/dL (1.7-2.3); POTASSIUM 3.9 mmol/L (3.5-4.5); TOTAL PROTEIN 5.8 g/dL (6.4-8.9)
[2022-11-28] MEDS: FUROSEMIDE 20 MG TABLET PO SCH (07:35)
[2022-11-28] MEDS: ENOXAPARIN 40 MG/0.4 ML SYRINGE SUBQ SCH (08:22)
[2022-11-28 08:27] VITALS: BP 131/63; O2SAT 93
[2022-11-28] MEDS: SACCHAROMYCES BOULARDII 250 MG CAPSULE PO SCH (09:13)
[2022-11-28] MEDS: ASPIRIN CHEW 81 MG TABLET PO SCH (09:13)
[2022-11-28] MEDS: FAMOTIDINE 20 MG TABLET PO SCH (09:13)
[2022-11-28] MEDS: QUEtiapine 25 MG TABLET PO SCH (09:13)
[2022-11-28] MEDS: MULTIVITAMIN TABLET PO SCH (09:13)
[2022-11-28] MEDS: DOCUSATE SODIUM 100 MG CAPSULE PO SCH (09:13)
[2022-11-28] MEDS: METOPROLOL TARTRATE 25 MG TABLET PO SCH (09:14)
[2022-11-28] MEDS: polyethylene glycoL 3350 17 GM PACKET PO SCH (09:15)
[2022-11-28] MEDS: RIVASTIGMINE TARTRATE 3 MG PO SCH (09:16)
--- NOTE | 2022-11-28 11:14 | Discharge Plan ---
"Discharge Plan for SNF / [facility] - Discharge Plan And Transition Orders Problem Reviewed?: Yes Disposition: 01 Home, Self Care Condition: Stable Allergies and Adverse Reactions: Allergies Allergy/AdvReac Type Severity Reaction Status Date / Time No Known Drug Allergies Allergy Verified 11/21/22 10:55 Health Concerns: You were brought to our emergency room from your facility which is [facility]. You are permanently placed there. You have a history of Parkinson's and dementia and was found to have a heart rate of 150 in the emergency room and had a new diagnosis of atrial flutter with rapid ventricular response. We also found to have pneumonia on chest x-ray. You were transferred to the ICU to have a diltiazem drip to slow down your heart rate. We were finally able to slow down your heart rate, gave you diuretics to take care of the congestive heart failure, and treat your possible pneumonia. In any case we felt that you had a urinary tract infection as well we treated you for both the UTI and pneumonia. You are now stable with good rate control. Because you have waning and waxing alertness, we did do an MRI of the brain at 11 AM just before discharge. Those results are pending. Plan of Treatment: To return to her permanent placement at a alf facility. She is minimally ambulatory and as such does not get PT and OT. Because of her gradual decline due to her disease status, she is requiring more and more care. We strongly recommend that she be hand fed at her alf facility and that fluid intake be monitored to make sure that she is getting enough. Care Goals: She is to return to her alf facility where she lives. She receives complete care for her activities of daily living including hygiene, mobility, dressing, and now eating. Assessment: During her stay she demonstrated improved participation during physical therapy sessions and went from being mute to communicate in short phrases. Still mumbles. She is a mod assist x1 for bed mobility and mod assist x2 for sit to stand transfers as well as stand pivot transfers. She can ambulate 3 feet from bed to chair. Goal should remain that she should progress ambulation distance with a goal of 20 feet, allowing patient transfer to/from bathroom, and we anticipate functional mobility to fluctuate significantly from day-to-day due to advanced cognitive impairment with varying levels of participation. She demonstrated good participation with occupational therapy intervention but was limited by weakness and cognitive deficits. OT recommends continuing therapy and progress toward goals of self hygiene, self-feeding. - SNF / [facility] Transition Orders Admit to (Facility): [facility] Under the care of (Name): Haroon Danielson Discharge Diagnosis: 1. Hypoxia, present on admission resolved 2. Altered mental status 3. Atrial flutter with rapid ventricular response, present on admission, resolved 4. Nonsustained V. tach 5. Flash pulmonary edema due to #3, resolved 6. Healthcare associated pneumonia, present on admission 7. Klebsiella UTI 8. Dementia associated with Parkinson's disease 9. History of colon cancer Medicare Certification Statement: I certify that Post Hospital alf care is medically necessary on a continuing basis for any of the conditions for which she/he is receiving care during hospitalization. Notify PCP of admission and forward orders to primary provider for signature. Weight on admission and: Weekly Other Notification Orders: Call PCP immediately if patient develops dyspnea, chest pain/tightness or edema. House Bowel Program: Yes Additional Bowel Program Orders: If no BM after 2 days, nurse may give M.O.M. 30ml PO PRN and/or ducolax Supp 1 ME and/or LUANA 250mg P.O., and/or senna 1-2 tabs PO. On day 3 nurse may give repeat above order until residents constipation is resolved. Annual Influenza Vaccine (between Dec 07 and July 06): Yes Two-step PPD per [facility] [phone] or approved exception documents: Yes Medication Orders: PLEASE REFER TO THE DISCHARGE MEDICATION LIST. - Diet Type: Geriatric Texture: Puree Liquids: Thin May have monthly special meal: Yes - Therapies | Activity Therapy: Evaluation | Treat if indicated: Speech, OT Rehabilitation Potential: Maximize functional status Activity: Activity as Tolerated Assistance Devices: Walker"
--- NOTE | 2022-11-28 14:44 | MRI Report ---
PROCEDURE: BRAIN WO INDICATIONS: ams TECHNIQUE: Noncontrast axial T1 spin echo, axial T2 fast spin echo, sagittal and axial FLAIR, coronal T2 fast sp in echo, axial gradient echo, axial diffusion and ADC through the brain. COMPARISON: None. FINDINGS: Image quality: Excellent. CSF Spaces: Basal cisterns are patent. No extra-axial fluid collections. Ventricles are normal in size and shape. Brain: No intracranial masses or hemorrhage. Grider/white matter interface is normal. Brainstem appe ars normal. Diffusion-weighted images demonstrate no acute ischemic insult. There are T2/FLAIR hype rintensities within the deep and periventricular white matter, nonspecific and likely representing ch ronic microvascular ischemic change. Age-related global volume loss. No chronic ischemic insults. No rmal intravascular flow voids are present. Skull and face: Calvarium has normal marrow signal. Bilateral lens replacements. The orbits are oth erwise normal in appearance. Sinuses: Sinuses and mastoids are clear. IMPRESSION: 1.No cause for patient's symptoms is identified. 2.No acute intracranial abnormalities. 3.Age-related volume loss and chronic microvascular ischemic change. Reviewed by: Loi St MD on 11/28/2022 2:43 PM PDT Approved by: Loi St MD on 11/28/2022 2:43 PM PDT Station ID: [id number]
--- NOTE | 2022-11-28 22:21 | DISCHARGE SUMMARY ---
"Discharge Summary Admit Date: 11/21/22 Discharge Date: 11/28/22 Discharging Provider: Rianna Colorado Md Primary Care Provider: Haroon Danielson Code Status: Attempt Resuscitation Condition at Discharge: Stable Discharge Disposition: 01 Home, Self Care - DIAGNOSES Discharge Diagnoses with Status of Each Condition: 1. New atrial flutter with RVR 2. Acute on chronic heart failure with preserved ejection fraction 3. Flash pulmonary edema 4. Hypoxia 5. Healthcare associated pneumonia 6. UTI due to Klebsiella species 7. Dementia associated with Parkinson's disease 8. Colon cancer 9. Altered mental status 10. Nonsustained V. tach - HPI History of Present Illness: This is a 77-year-old female with a history of being nonverbal. She lives at [facility]. She has a Hx of dementia and Parkinson's disease but her baseline function is not known. She has a DNR status. The is currently on a vacation in [facility] The patient was found to have a heart rate of 150 today by staff at [facility] and sent to the ER. The patient is nonverbal and had no complaints. She did appear overall fatigued but was in no distress. ER evaluation showed that she was in new onset atrial flutter with a rate of 150. Our EMR shows that there is a prior history of A-fib, however she is not on anticoagulants, but is on daily baby aspirin and Toprol. In the ER, patient received diltiazem 10 mg IV push which dropped her systolic blood pressure to 90. After it recovered, she was put on a diltiazem drip. Her BNP is elevated at 823, the first troponin is elevated at 490, her WBC is elevated at 11.4, her CXR shows a probable pneumonia. The ED provider reached out to her who confirmed that the goal is comfort care, no heroic measures, no transfer for an angiogram or EP procedures. The ED provider spoke to me about this patient and she will be admitted to the ICU on diltiazem drip. - Past Medical History Cardiovascular: reports: Hypertension, High cholesterol, Atrial fibrillation Respiratory: reports: None Neuro: reports: Dementia, Parkinson's Endocrine/Autoimmune: reports: None GI: reports: Ulcers DEFECT CUTTER: reports: None : reports: None HEENT: reports: Chronic vision loss Psych: reports: Anxiety Musculoskeletal: reports: Osteoarthritis, Chronic back pain Derm: reports: None MRSA Hx?: No - Past Surgical History General: reports: Colonoscopy Ortho: reports: Hip replacement, Rotator cuff repair - CONSULTS | PROCEDURES Procedures: Initial chest x-ray with slightly increased perihilar interstitial markings. Indicating pulmonary edema. Repeat chest x-ray 4 days later showed increased in perihilar markings. New bilateral pleural effusions. Superimposed infection not clearly delineated. But possible. Head CT without acute intracranial abnormality with stable chronic findings of hypodensities in the subcortical and periventricular white matter commonly seen in setting of chronic microvascular ischemic changes. Brain MRI no acute intracranial abnormalities. Age-related volume loss and chronic microvascular changes. Urine culture with Klebsiella pneumonia and Aerococcus urinae - HOSPITAL COURSE Hospital Course: She is a permanent resident of a local long-term facility, formerly [facility]. For her A-fib with RVR she was transferred to the ICU for diltiazem drip. Rate control was achieved. She was felt to have possible pneumonia on chest x-ray. It was not quite clear so she was treated empirically as pneumonia as well as a UTI. She completed her antibiotic regimen. She had moderate encephalopathy when she was admitted and that gradually resolved and cleared by the time of discharge. However she has had a gradual decline due to her chronic disease status of Parkinson's and has been requiring more and more care. With our physical therapy and Occupational Therapy department she was minimally able to comply with therapy. She does need to be hand fed now. She is a mod assist x1 for bed mobility and mod assist x2 for sit to stand transfers. Also mod assist x2 for stand pivot transfers. She was able to ambulate 3 feet to a chair. Her goals indicated that she should remain working with PT and OT and progress with her ambulation to a goal of 20 feet. We anticipated functional mobility to fluctuate day-to-day due to advanced cognitive impairment with varying degrees of participation. We recommend that she get PT and OT at her [facility]. At discharge temperature was 36.7. Heart rate 78. Blood pressure 131/63. Nursing reported her is unresponsive but I found her to open her eyes, look at me. Sometimes said yes or no but was mainly nonverbal. Unable to really respond with regards to whether she was oriented or not. But she did move her hands with purposeful movement at times. She just could not bring food to her mouth consistently. Lungs have diminished breath sounds at the bases. Occasionally coarse sounds. But then they would clear. No respiratory distress. An irregular rate and rhythm. And abdomen that was soft, nontender. Sacrum was occasionally pink and we were using zinc oxide cream as a barrier. She is incontinent of urine and needs a pure wick catheter and pad. Greater than 30 minutes was spent coordinating discharge This document was made in part using voice recognition software. While efforts are made to proofread this document, sound alike and grammatical errors may o ccur. - ALLERGIES Allergies/Adverse Reactions: Allergies Allergy/AdvReac Type Severity Reaction Status Date / Time No Known Drug Allergies Allergy Verified 11/21/22 10:55 - MEDICATIONS Home Medications: Ambulatory Orders Medication Instructions Recorded Confirmed Carbidopa/Levodopa 25/100 [Sinemet 2 tab PO HS 06/23/14 11/21/22 25 mg/100 mg] Citalopram [CeleXA] 10 mg PO QPM 06/23/14 11/21/22 Carbidopa/Levodopa 25/100 [Sinemet 2 tab PO QID 07/29/18 11/21/22 25 mg/100 mg] Atorvastatin [Lipitor] 20 mg PO DAILY PM 12/28/20 11/21/22 Metoprolol Succinate [Toprol Xl] 25 mg PO DAILY 12/28/20 11/21/22 Quetiapine Fumarate [Seroquel] 50 mg PO BID 07/06/21 11/21/22 Rivastigmine Tartrate 3 mg PO BID 07/06/21 11/21/22 [Rivastigmine] Bisacodyl Supp [Dulcolax Supp] 10 mg DE DAILY PRN 01/31/22 11/21/22 Acetaminophen [Tylenol] 650 mg PO Q6H PRN 11/21/22 11/21/22 Aspirin [Kenneth Aspirin] 81 mg PO DAILY 11/21/22 11/21/22 Docusate Sodium 100Mg Capsule 200 mg PO BID 11/21/22 11/21/22 [Colace 100Mg Capsule] Mineral Oil [Mineral Oil Enema] 1 unit DE ONCE PRN 11/21/22 11/21/22 Senna [Senokot] 2 tab PO QPM PRN 11/21/22 11/21/22 polyethylene glycoL 3350 [Miralax] 17 g PO ONCE PRN 11/21/22 11/21/22 - LABS Result Diagrams: 11/28/22 03:24 11/28/22 03:24"
== END 2022-11-28 13:32 | disposition home or self-care (01) | DRG 308 ==
LOC: EDUNIT# → ED 10:43 → ICU 13:32 → MS2 11-23 20:14
PROVIDERS: ADMIT Internal Medicine; ATTEND Specialist
DX: I48.92 Unspecified atrial flutter (principal); I50.33 Acute on chronic diastolic (congestive) heart failure; D64.9 Anemia, unspecified; R07.9 Chest pain, unspecified; I10 Essential (primary) hypertension; J81.0 Acute pulmonary edema; J18.9 Pneumonia, unspecified organism; N39.0 Urinary tract infection, site not specified; G93.40 Encephalopathy, unspecified; C18.9 Malignant neoplasm of colon, unspecified; I11.0 Hypertensive heart disease with heart failure; R09.02 Hypoxemia; B96.1 Klebsiella pneumoniae [K. pneumoniae] as the cause of diseases classified elsewhere; G20 Parkinson's disease; F02.80 Dementia in other diseases classified elsewhere, unspecified severity, without behavioral disturbance, psychotic disturbance, mood disturbance, and anxiety; D72.829 Elevated white blood cell count, unspecified; E78.00 Pure hypercholesterolemia, unspecified; H54.7 Unspecified visual loss; M19.90 Unspecified osteoarthritis, unspecified site; G89.29 Other chronic pain; M54.9 Dorsalgia, unspecified; I48.91 Unspecified atrial fibrillation; I47.20 Ventricular tachycardia, unspecified; E86.0 Dehydration; Y95 Nosocomial condition; Z66 Do not resuscitate; Z79.82 Long term (current) use of aspirin; Z79.899 Other long term (current) drug therapy; Z96.649 Presence of unspecified artificial hip joint
CPT/HCPCS: 36415; 70450; 70551; 71045; 80048; 80053; 81001; 82330; 82607; 82746; 83690; 83735; 83880; 84100; 84132; 84443; 84484; 85025; 87077; 87086; 87150; 87181; 93005; 93306; 96365; 96376; 97162; 97166; 97530; 97535; 99285; A9270; J1650; J3370; J7120; 81003

== ENCOUNTER 2022-12-19 08:50 | Outpatient (CLI) | payer MEDICARE, BC | END 2022-12-19 08:51 | disposition critical access hospital (66) | LOC: EMS 08:50 | DX: I95.9 Hypotension, unspecified (principal); R53.83 Other fatigue | CPT/HCPCS: A0425; A0429 ==

== ENCOUNTER 2022-12-19 08:56 | Emergency (ER) | payer MEDICARE, BC ==
--- NOTE | 2022-12-19 09:05 | ED Physician Documentation ---
History of Present Illness - Stated complaint Stated Complaint: HYPOTENSION - Chief complaint Chief Complaint: General - History obtained from History obtained from: EMS - Additonal information Additional information: The patient is sent to the emergency department from [facility] for chief complaint of hypotension. The staff at [facility] apparently took the patient's blood pressure and found a systolic of 70. It was taken again and the same results, so EMS was called. The patient had no complaints and was at baseline per staff. EMS reports that the patient's blood pressure for them was initially 95 systolic and then has been over 100 ever since. The patient has a POLST stating "comfort measures only and given that her pressures were entirely normal for EMS, they did offer to call and talk to the physician on duty for [facility]. However, staff declined, stating they just wanted the patient transported here. The patient has had no complaints in route per EMS. Her blood pressures have all been normal. The patient states to me that she is just "tired". She denies any pain. No other complaints at this time. PD PAST MEDICAL HISTORY - Past Medical History Cardiovascular: Hypertension, High cholesterol, Atrial fibrillation Respiratory: None Neuro: Dementia, Parkinson's Endocrine/Autoimmune: None GI: Ulcers JACQUARD FIXER: None : None HEENT: Chronic vision loss Psych: Anxiety Musculoskeletal: Osteoarthritis, Chronic back pain Derm: None - Past Surgical History Past Surgical History: Yes General: Colonoscopy Ortho: Hip replacement, Rotator cuff repair - Present Medications Home Medications: Ambulatory Orders Medication Instructions Recorded Confirmed Carbidopa/Levodopa 25/100 [Sinemet 2 tab PO HS 06/23/14 11/21/22 25 mg/100 mg] Citalopram [CeleXA] 10 mg PO QPM 06/23/14 11/21/22 Carbidopa/Levodopa 25/100 [Sinemet 2 tab PO QID 07/29/18 11/21/22 25 mg/100 mg] Atorvastatin [Lipitor] 20 mg PO DAILY PM 12/28/20 11/21/22 Metoprolol Succinate [Toprol Xl] 25 mg PO DAILY 12/28/20 11/21/22 Quetiapine Fumarate [Seroquel] 50 mg PO BID 07/06/21 11/21/22 Rivastigmine Tartrate 3 mg PO BID 07/06/21 11/21/22 [Rivastigmine] Bisacodyl Supp [Dulcolax Supp] 10 mg VT DAILY PRN 01/31/22 11/21/22 Acetaminophen [Tylenol] 650 mg PO Q6H PRN 11/21/22 11/21/22 Aspirin [Griggs Aspirin] 81 mg PO DAILY 11/21/22 11/21/22 Docusate Sodium 100Mg Capsule 200 mg PO BID 11/21/22 11/21/22 [Colace 100Mg Capsule] Mineral Oil [Mineral Oil Enema] 1 unit VT ONCE PRN 11/21/22 11/21/22 Senna [Senokot] 2 tab PO QPM PRN 11/21/22 11/21/22 polyethylene glycoL 3350 [Miralax] 17 g PO ONCE PRN 11/21/22 11/21/22 - Allergies Allergies/Adverse Reactions: Allergies Allergy/AdvReac Type Severity Reaction Status Date / Time No Known Drug Allergies Allergy Verified 11/21/22 10:55 - Social History Does the pt smoke?: No Smoking Status: Unknown if ever smoked Does the pt drink ETOH?: No Does the pt have substance abuse?: Yes - Immunizations Immunizations are current?: Yes - POLST Patient has POLST: No PD ED PE NORMAL - Vitals Vital signs reviewed: Yes - General General: No acute distress, Well developed/nourished, Other (Awake, answering questions appropriately) - HEENT HEENT: Atraumatic, PERRL, EOMI, Moist mucous membranes - Neck Neck: Supple, no meningeal sign - Cardiac Cardiac: RRR, No murmur, Strong equal pulses - Respiratory Respiratory: No respiratory distress, Clear bilaterally - Abdomen Abdomen: Soft, Non tender, Non distended - Derm Derm: Normal color, Warm and dry, No rash - Extremities Extremities: No deformity - Neuro Neuro: Alert and oriented X 3 - Psych Psych: Normal mood, Normal affect Results - Vitals Vitals: Vital Signs - 24 hr 12/19/22 08:59 Temperature 36.2 C L Heart Rate 76 Respiratory 14 Rate Blood Pressure 101/53 L O2 Saturation 98 Oxygen O2 Source [With Activity] Nasal cannula O2 Source [Without Activity] Nasal cannula O2 Source Room air PD Medical Decision Making - ED course Complexity details: considered differential, d/w patient ED course: The patient had normal blood pressures repeatedly in the emergency department. All of her vital signs were normal and she had been reported to be at baseline at her nursing home. The patient desires only comfort care and I did not Feel that emergent work-up was indicated anyway, with no evidence of anything abnormal, but especially, given that the patient wants to simply be comfortable. As such, given that the medical screening exam revealed no emergency, the patient was deemed stable for discharge back to [facility]. Departure - Departure Disposition: 01 Home, Self Care Clinical Impression: Normal exam Dementia Qualifiers: Dementia type: unspecified type Dementia severity: moderate Dementia behavioral or psychological symptom: without behavioral, psychotic, or mood disturbance or anxiety Qualified Code(s): F03.B0 - Unspecified dementia, moderate, without behavioral disturbance, psychotic disturbance, mood disturbance, and anxiety Condition: Stable Instructions: ED Dementia Caregiver Support Comments: Delaney has had a medical screening exam in the emergency department, and no emergent condition has been identified. She has had entirely normal vital signs not only here in the ED, but during the entire transport prior. She has no complaints and no physical exam findings to indicate an emergent condition. There is no justification for emergent work-up and furthermore, the patient prefers comfort care as stated by her POLST. Please have her follow-up with her primary doctor for further concerns.
[2022-12-19 09:08] VITALS: BP 101/53
[2022-12-19 09:42] VITALS: O2SAT 100
== END 2022-12-19 09:36 | disposition home or self-care (01) ==
LOC: EDUNIT# → ED 08:56
DX: G20 Parkinson's disease (principal); F02.80 Dementia in other diseases classified elsewhere, unspecified severity, without behavioral disturbance, psychotic disturbance, mood disturbance, and anxiety; I10 Essential (primary) hypertension; I48.91 Unspecified atrial fibrillation
CPT/HCPCS: 99282; 99283

== ENCOUNTER 2022-12-19 09:37 | Outpatient (CLI) | payer MEDICARE, BC | END 2022-12-19 09:38 | LOC: EMS 09:37 | PROVIDERS: ATTEND Emergency Medicine | DX: R53.1 Weakness (principal); I95.9 Hypotension, unspecified; F03.90 Unspecified dementia, unspecified severity, without behavioral disturbance, psychotic disturbance, mood disturbance, and anxiety; R41.0 Disorientation, unspecified | CPT/HCPCS: A0425; A0428 ==